=== PATIENT | female | born 1935 | race Caucasian/White ===

== ENCOUNTER 2019-05-06 10:11 | Inpatient (IN) ==
[2019-05-06] MEDS ORDERED: METOPROLOL TARTRATE 1 MG/ML VIAL IV STA (10:48)
--- NOTE | 2019-05-06 11:22 | XRay Report ---
XR chest 1V portable HISTORY: 83 years-old Female weakness acute weakness COMPARISON: Chest radiograph 10/11/2018, chest CT 10/26/2017 TECHNIQUE: Portable AP view of the chest FINDINGS: Cardiac silhouette is enlarged, unchanged. Calcified plaque with tortuosity of the thoracic aorta. No pneumothorax, pleural effusion or overt pulmonary edema. Mild chronic interstitial coarsening with u nchanged left basilar densities suggestive of atelectasis/scarring. Partially calcified nodule of the superior segment left lower lobe redemonstrated. Degenerative changes of the shoulders and spine. IMPRESSION: Cardiomegaly without acute process. ACT 112: Negative or not required by law. The above report was generated using voice recognition software. It may contain grammatical, syntax o r spelling errors. Electronically signed by: Hilario Baxter M.D. 05/06/2019 11:21 AM
--- NOTE | 2019-05-06 11:31 | Emergency Department Note ---
Entered by Yovani Marie acting as a scribe for History of Present Illness General Chief complaint: Tachycardia Stated complaint: ELEVATED HEART RATE,NOT FEELING WELL Time Seen by Provider: 05/06/19 10:21 Source: patient History of Present Illness Provider complaint: Tachycardia Onset (ago): week(s) 1 Location: chest Severity: similar to prior episodes Pain Consistency: + intermittent Maximum Pain Intensity: 0 Relieved By: + none Associated symptoms: + shortness of breath and + weakness The patient is an 83 year old A09B who presents to the Emergency Room with complaints of intermittent tachycardia that started a little over a week ago. The patient reports that when she first started not feeling well with bradycardia, shortness of breath and weakness. The patient states that after symptom onset she called Dr. Huggins who she follows for cardiology and he instructed her to decrease her Metoprolol dose by half. Since the patient has made this change to her medication her heart rate has been between 50-120s. The patient adds that she has been sick recently with a productive cough that is producing yellow sputum. The patient has a history of Afib and needed to be ca rdioverted about a month ago. The patient denies any fevers. Home Medications Home Medications Medication Instructions Recorded Confirmed Type Eliquis 5 mg PO BIDM 07/31/18 05/06/19 History albuterol sulfate [Ventolin HFA] 2 puff INHALATION QID PRN 07/31/18 05/06/19 History ascorbic acid (vitamin C) [Vitamin 2,000 mg PO QAM 07/31/18 05/06/19 History C] cyanocobalamin (vitamin B-12) 1 dose SUBCUT MONTHLY 07/31/18 05/06/19 History ferrous sulfate 325 mg PO BIDM 07/31/18 05/06/19 History fluticasone propion-salmeterol 1 inh INHALATION BID 07/31/18 05/06/19 History [Wixela Inhub] glipizide 10 mg PO BIDM 07/31/18 05/06/19 History metformin 850 mg PO TIDM 07/31/18 05/06/19 History pioglitazone [Actos] 30 mg PO QAM 07/31/18 05/06/19 History pravastatin 20 mg PO HS 07/31/18 05/06/19 History prednisolone acetate 1 drp OPR 07/31/18 05/06/19 History Bilberry Extract 1 cap PO QAM 10/11/18 05/06/19 History alendronate [Fosamax] 70 mg PO MO 10/11/18 05/06/19 History cetirizine [Zyrtec] 10 mg PO QAM 10/11/18 05/06/19 History amiodarone 200 mg PO QAM 01/20/19 05/06/19 History diltiazem HCl [Cardizem CD] 180 mg PO QAM 01/20/19 05/06/19 History metoprolol succinate 50 mg PO BIDM 01/20/19 05/06/19 History Allergies Allergy/AdvReac Type Severity Reaction Status Date / Time naproxen Allergy Mild KNEES GOT Verified 05/06/19 11:05 RED AND ITCHING lisinopril Allergy Verified 05/06/19 11:05 Past Med/Surg History Medical History Anemia Asthma USED RESCUE INHALER "QUITE A BIT LATELY" Atrial fibrillation Cardiac murmur Cataract LEFT EYE Diabetes mellitus, type 2 History of cardioversion LAST DONE 08/2018 Hyperlipidemia Hypertension Osteoarthritis Surgical History H/O detached retina repair RT EYE REPAIRED History of section X 2 History of colonoscopy History of tooth extraction Family History Other Family history non-contributory Social History Preferred Language: [place] Communication Ability: Effective 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 and A total of 10 systems reviewed and were otherwise negative Physical Exam Vital Signs Vital Signs - 24 hr 05/06/19 14:19 05/06/19 14:21 05/06/19 14:37 Pulse Rate 89 93 H 87 Pulse Rate [Right Finger] Pulse Rate from SpO2 Sensor 95 H 94 H Respiratory Rate 24 16 21 Blood Pressure 123/89 Blood Pressure [Right Arm] Blood Pressure Mean 104 Blood Pressure Mean [Right Arm] Pulse Oximetry 99 98 Oxygen Delivery Method Room Air Room Air 05/06/19 14:45 05/06/19 15:00 05/06/19 15:01 Pulse Rate 92 H 90 88 Pulse Rate [Right Finger] Pulse Rate from SpO2 Sensor 87 92 H 83 Respiratory Rate 19 20 24 Blood Pressure 129/75 Blood Pressure [Right Arm] Blood Pressure Mean 95 Blood Pressure Mean [Right Arm] Pulse Oximetry 96 96 Oxygen Delivery Method Room Air Room Air Room Air 05/06/19 15:15 05/06/19 15:44 05/06/19 15:45 Pulse Rate 91 H 82 63 Pulse Rate [Right Finger] Pulse Rate from SpO2 Sensor 91 H 86 63 Respiratory Rate 20 22 28 H Blood Pressure 123/88 Blood Pressure [Right Arm] Blood Pressure Mean 100 Blood Pressure Mean [Right Arm] Pulse Oximetry 96 96 97 Oxygen Delivery Method Room Air Room Air Room Air 05/06/19 15:47 05/06/19 16:00 05/06/19 16:01 Pulse Rate 56 L 56 L Pulse Rate [Right Finger] 66 Pulse Rate from SpO2 Sensor 56 L 56 L Respiratory Rate 19 32 H 28 H Blood Pressure 125/65 Blood Pressure [Right Arm] 123/88 Blood Pressure Mean 80 Blood Pressure Mean [Right Arm] 99 Pulse Oximetry 98 98 98 Oxygen Delivery Method Room Air Room Air Room Air 05/06/19 16:15 05/06/19 16:26 05/06/19 16:30 Pulse Rate 59 L 53 L 55 L Pulse Rate [Right Finger] Pulse Rate from SpO2 Sensor 59 L 53 L 55 L Respiratory Rate 17 28 H 23 Blood Pressure 109/55 L 113/71 Blood Pressure [Right Arm] Blood Pressure Mean 69 90 Blood Pressure Mean [Right Arm] Pulse Oximetry 96 96 97 Oxygen Delivery Method Room Air Room Air Room Air 05/06/19 16:45 05/06/19 17:00 05/06/19 17:01 Pulse Rate 52 L 54 L 54 L Pulse Rate [Right Finger] Pulse Rate from SpO2 Sensor 53 L 54 L 55 L Respiratory Rate 28 H 19 22 Blood Pressure 137/65 Blood Pressure [Right Arm] Blood Pressure Mean 101 Blood Pressure Mean [Right Arm] Pulse Oximetry 95 92 94 Oxygen Delivery Method Room Air Room Air Room Air 05/06/19 17:15 05/06/19 17:30 05/06/19 17:31 Pulse Rate 53 L 53 L 53 L Pulse Rate [Right Finger] Pulse Rate from SpO2 Sensor 54 L 54 L 53 L Respiratory Rate 24 23 27 H Blood Pressure 113/65 Blood Pressure [Right Arm] Blood Pressure Mean 90 Blood Pressure Mean [Right Arm] Pulse Oximetry 94 94 95 Oxygen Delivery Method Room Air Room Air Room Air 05/06/19 17:45 Pulse Rate 54 L Pulse Rate [Right Finger] Pulse Rate from SpO2 Sensor 53 L Respiratory Rate 29 H Blood Pressure Blood Pressure [Right Arm] Blood Pressure Mean Blood Pressure Mean [Right Arm] Pulse Oximetry 95 Oxygen Delivery Method Room Air GENERAL: Patient is awake alert in no acute distress patient is resting comfortably and showing no signs of anxiety EYES: No acute findings. There is ptosis of the right eye. EARS, NOSE, MOUTH AND THROAT: The nose is without any evidence of any deformity. Mucous membranes are moist. Tongue is midline. NECK: The neck is nontender and supple. RESPIRATORY: Tachypnea was noted to auscultation. There were diminished breath sounds with wheezing in all lung branham. CARDIOVASCULAR: Tachycardic rhythm was noted to auscultation. There was no definite murmur noted. GASTROINTESTINAL: The abdomen is soft. Abdomen is nontender. MUSCULOSKELETAL/EXTREMITIES: There is no evidence of gross deformity full range of motion is noted in the hips and shoulders. SKIN: There is no obvious evidence of any rash. Pedal edema was noted bilaterally NEUROLOGIC: Patient is awake alert and oriented x3. Course Course 1030: Past medical records reviewed. The patient was evaluated in room A09B by the resident Dr. Carrizales, and a complete history and physical examination were performed. I then performed my own assessment. 1139: Dr. Carrizales reevaluated the patient and she is still experiencing symptoms. 1441: I spoke to Dr. Deluna - Dionne about the patient's CTA of the chest. 1450: I reevaluated the patient and updated her on the plan. 1605: Dr. Carrizales discussed the patient's case with Rupa FARAH who [facility] will be accepting the patient for further evaluation. Consultations Consultation #1: Dr. Carrizales discussed the patient's case with Rupa FARAH who is working under Dr. Ness Chairez Hospitalist. They will be accepting the patient for further evaluation. Time: 16:05 Administered Medications Amiodarone [facility] (Cord[facility]one) [facility] [place] Stop: 06/06/19 08:59 Last Admin: 05/07/19 11:09 Dose: 200 mg Documented by: [id number] Apixaban (Eliquis) 5 mg PO BIDM [facility] Stop: 06/06/19 07:59 Last Admin: 05/07/19 11:08 Dose: Not Given Documented by: [id number] Ascorbic Acid (Vitamin C) 2,000 mg PO QAM [facility] Stop: 06/06/19 08:59 Last Admin: 05/07/19 11:09 Dose: 2,000 mg Documented by: [id number] Cetirizine HCl (Zyrtec) 10 mg PO [facility] Stop: 06/06/19 08:59 Last Admin: 05/07/19 11:09 Dose: 10 mg Documented by: [id number] Diltiazem HCl (Cardizem Cd) 180 mg PO [facility] Stop: 06/06/19 08:59 Last Admin: 05/07/19 11:08 Dose: 180 mg Documented by: [id number] Ferrous Sulfate (Feosol) 325 mg PO BIDM [facility] Stop: 06/06/19 07:59 Last Admin: 05/07/19 11:09 Dose: 325 mg Documented by: [id number] Insulin Aspart (Novolog Flexpen) 0 units SC Q6 [facility] Stop: 06/06/19 00:00 Last Admin: 05/07/19 13:06 Dose: Not Given Documented by: [id number] Cosigned by: [id number] Admin: 05/07/19 06:03 Dose: Not Given Documented by: [id number] Cosigned by: [id number] Admin: 05/07/19 00:29 Dose: Not Given Documented by: [id number] Cosigned by: [id number] Ipratropium [place] (Atrovent 0.02% 0.5mg/2.5ml) 0.5 mg INH Q6R [facility] Stop: 06/06/19 00:59 Last Admin: 05/07/19 13:15 Dose: 0.5 mg Documented by: [id number] Admin: 05/07/19 07:20 Dose: 0.5 mg Documented by: [id number] Admin: 05/07/19 01:08 Dose: 0.5 mg Documented by: [id number] Levalbuterol HCl (Xopenex 0.63 Mg/3 Ml Neb) 0.63 mg NEB Q6R [facility] Stop: 06/06/19 00:59 Last Admin: 05/07/19 13:15 Dose: 0.63 mg Documented by: [id number] Admin: 05/07/19 07:20 Dose: 0.63 mg Documented by: [id number] Admin: 05/07/19 01:08 Dose: 0.63 mg Documented by: [id number] Metoprolol Succinate (Toprol Xl) 50 mg PO BIDM [facility] Stop: 06/06/19 07:59 Last Admin: 05/07/19 11:09 Dose: 50 mg Documented by: [id number] Miconazole Nitrate (Desenex) 1 appln EXT PRN PRN PRN Reason: NURSING DECISION Stop: 06/05/19 20:06 Last Admin: 05/06/19 21:17 Dose: 1 appln Documented by: [id number] Pravastatin Sodium (Pravachol) 20 mg PO HS [facility] Stop: 06/05/19 20:59 Last Admin: 05/06/19 21:04 Dose: 20 mg Documented by: [id number] Prednisolone Acetate (Pred Forte 1%) 1 drops OPR HS [facility] Stop: 06/05/19 20:59 Last Admin: 05/06/19 21:04 Dose: 1 drops Documented by: [id number] Fluticasone/Salmeterol (Advair Diskus 250/50) 1 puffs INH BID [facility] Stop: 06/05/19 20:59 Last Admin: 05/07/19 11:08 Dose: 1 puffs Documented by: [id number] Admin: 05/06/19 21:04 Dose: 1 puffs Documented by: [id number] Discontinued Medications Albuterol (Duoneb) 12 ml NEB ONE ONE Stop: 05/06/19 11:34 Last Admin: 05/06/19 11:48 Dose: 12 ml Documented by: [id number] Albuterol (Duoneb) 3 ml NEB NOW STA Stop: 05/07/19 05:08 Last Admin: 05/07/19 05:39 Dose: 3 ml Documented by: [id number] Sodium Chloride (Nss 1000ml) 1,000 mls @ 999 mls/hr IV .Q1H1M ONE Stop: 05/06/19 13:49 Last Infusion: 05/06/19 15:06 Dose: 0 mls/hr Documented by: [id number] Admin: 05/06/19 13:30 Dose: 999 mls/hr Documented by: [id number] Magnesium Sulfate/Dextrose (Magnesium Sulfate / D5w) 1 gm in 100 mls @ 100 mls/hr IV Q1H [facility] Stop: 05/06/19 14:59 Last Infusion: 05/06/19 16:54 Dose: 0 mls/hr Documented by: [id number] Admin: 05/06/19 15:46 Dose: 100 mls/hr Documented by: [id number] Infusion: 05/06/19 15:16 Dose: 0 mls/hr Documented by: [id number] Admin: 05/06/19 13:49 Dose: 100 mls/hr Documented by: [id number] Sodium Chloride (Nss 1000ml) 1,000 mls @ 80 mls/hr IV .[id number] [facility] Stop: 06/05/19 19:45 Last Infusion: 05/07/19 05:46 Dose: 0 mls/hr Documented by: [id number] Infusion: 05/07/19 05:09 Dose: 0 mls/hr Documented by: [id number] Admin: 05/06/19 19:54 Dose: 80 mls/hr Documented by: [id number] Furosemide 40 mg/ Syringe 4 mls @ 4 mls/min IV ONE ONE Stop: 05/07/19 06:01 Last Admin: 05/07/19 05:59 Dose: 4 mls/min Documented by: [id number] Magnesium Sulfate/Dextrose (Magnesium Sulfate / D5w) 1 gm in 100 mls @ 100 mls/hr IV ONE ONE Stop: 05/07/19 07:29 Last Admin: 05/07/19 08:11 Dose: Not Given Documented by: [id number] Promethazine HCl 6.25 mg/ (Sodium Chloride) 50.25 mls @ 201 mls/hr IV NOW STA Stop: 05/07/19 12:06 Last Infusion: 05/07/19 12:45 Dose: 0 mls/hr Documented by: [id number] Admin: 05/07/19 12:27 Dose: 201 mls/hr Documented by: [id number] Ioversol (Optiray 320 125ml) 120 ml IV ONCE PRN PRN Reason: Interaction Checking Stop: 05/10/19 14:08 Last Admin: 05/06/19 14:10 Dose: 120 ml Documented by: [id number] Ioversol (Optiray 320 100ml) 75 ml IV ONCE PRN PRN Reason: Interaction Checking Stop: 05/10/19 15:41 Last Admin: 05/06/19 15:43 Dose: 75 ml Documented by: [id number] Metoprolol Tartrate (Lopressor) 5 mg IV NOW STA Stop: 05/06/19 10:49 Last Admin: 05/06/19 11:32 Dose: 5 mg Documented by: [id number] Medical Decision Making Differential Diagnosis Differential: NSR, SVT, PACs, PVCs, Cardiac Dysrhythmia, Endocrine Dysfunction, Eletrolyte/Metabolic Abnormality, Pulmonary Embolism, Infectious, GI, amonst other pathologies entertained. Medical Records Attestation: I reviewed the patient's medical records. Home Medications Current Medication List: was personally reviewed by me Laboratory Data Attestation: I reviewed the patient's lab results. Result diagrams: 05/07/19 05:17 05/07/19 05:17 Lab Results 05/06/19 05/06/19 05/06/19 Range/Units 11:34 11:34 11:35 WBC 8.89 (4.8-10.8) K/uL RBC 4.51 (4.2-5.4) M/uL Hgb 13.5 (12.0-16.0) g/dL Hct 41.9 (37-47) % MCV 92.9 (80-100) fL MCH 29.9 (25-34) pg MCHC 32.2 (32-36) g/dL RDW Std Deviation 57.5 H (36.4-46.3) fL RDW Coeff of Cameron 16.8 H (11.5-14.5) % Plt Count 348 (130-400) K/uL MPV 9.6 (7.4-10.4) fL Immature Gran % (Auto) 0.3 % Neut % (Auto) 90.1 % Lymph % (Auto) 4.0 % [place] % (Auto) 5.5 % Eos % (Auto) 0.1 % Baso % (Auto) 0.0 % Immature Gran # (Auto) 0.03 H (0.00-0.02) K/uL Neut # (Auto) 8.00 H (1.4-6.5) K/uL Lymph # (Auto) 0.36 L (1.2-3.4) K/uL [place] # (Auto) 0.49 (0.11-0.59) K/uL Eos # (Auto) 0.01 (0-0.5) K/uL Baso # (Auto) 0.00 (0-0.2) K/uL Sodium 130 L (136-145) mmol/L Potassium 4.8 (3.5-5.1) mmol/L Chloride 104 (98-107) mmol/L Carbon Dioxide 18 L (21-32) mmol/L Anion Gap 8.0 (3-11) BUN 15 (7-18) mg/dl Creatinine 0.84 (0.6-1.2) mg/dl Est Cr Clr Drug Dosing 41.6 ml/min Est GFR ( Amer) 75.0 Est GFR (Non-Af Amer) 64.7 BUN/Creatinine Ratio 18.2 (10-20) Glucose 160 H (70-99) mg/dl Calcium 8.6 (8.5-10.1) mg/dl Magnesium 1.4 L (1.8-2.4) mg/dl Total Bilirubin 0.8 (0.2-1) mg/dl AST 61 H (15-37) U/L ALT 41 (12-78) U/L Alkaline Phosphatase 626 H (45-117) U/L Troponin I < 0.015 (0-0.045) ng/ml Total Protein 6.1 L (6.4-8.2) gm/dl Albumin 2.5 L (3.4-5.0) gm/dl Globulin 3.6 (2.5-4.0) gm/dl Albumin/Globulin Ratio 0.7 L (0.9-2) TSH 2.840 (0.300-4.500) uIu/ml Urine Color Urine Appearance (Clear) Urine pH (4.5-7.5) Ur Specific Maurice (1.000-1.030) Urine Protein (Negative) Urine Glucose (UA) (Negative) Urine Ketones (Negative) Urine Blood (Negative) Urine Nitrite (Negative) Urine Bilirubin (Negative) Urine Urobilinogen (Negative) Ur Leukocyte Esterase (Negative) Influenza Type A (PCR) Neg for Influ A (Neg) Influenza Type B (PCR) Neg for Influ B (Neg) 05/06/19 Range/Units 15:55 WBC (4.8-10.8) K/uL RBC (4.2-5.4) M/uL Hgb (12.0-16.0) g/dL Hct (37-47) % MCV (80-100) fL MCH (25-34) pg MCHC (32-36) g/dL RDW Std Deviation (36.4-46.3) fL RDW Coeff of Cameron (11.5-14.5) % Plt Count (130-400) K/uL MPV (7.4-10.4) fL Immature Gran % (Auto) % Neut % (Auto) % Lymph % (Auto) % [place] % (Auto) % Eos % (Auto) % Baso % (Auto) % Immature Gran # (Auto) (0.00-0.02) K/uL Neut # (Auto) (1.4-6.5) K/uL Lymph # (Auto) (1.2-3.4) K/uL [place] # (Auto) (0.11-0.59) K/uL Eos # (Auto) (0-0.5) K/uL Baso # (Auto) (0-0.2) K/uL Sodium (136-145) mmol/L Potassium (3.5-5.1) mmol/L Chloride (98-107) mmol/L Carbon Dioxide (21-32) mmol/L Anion Gap (3-11) BUN (7-18) mg/dl Creatinine (0.6-1.2) mg/dl Est Cr Clr Drug Dosing ml/min Est GFR ( Amer) Est GFR (Non-Af Amer) BUN/Creatinine Ratio (10-20) Glucose (70-99) mg/dl Calcium (8.5-10.1) mg/dl Magnesium (1.8-2.4) mg/dl Total Bilirubin (0.2-1) mg/dl AST (15-37) U/L ALT (12-78) U/L Alkaline Phosphatase (45-117) U/L Troponin I (0-0.045) ng/ml Total Protein (6.4-8.2) gm/dl Albumin (3.4-5.0) gm/dl Globulin (2.5-4.0) gm/dl Albumin/Globulin Ratio (0.9-2) TSH (0.300-4.500) uIu/ml Urine Color Yellow Urine Appearance Clear (Clear) Urine pH 5.0 (4.5-7.5) Ur Specific Maurice 1.033 H (1.000-1.030) Urine Protein Negative (Negative) Urine Glucose (UA) Negative (Negative) Urine Ketones Negative (Negative) Urine Blood Negative (Negative) Urine Nitrite Negative (Negative) Urine Bilirubin Negative (Negative) Urine Urobilinogen Negative (Negative) Ur Leukocyte Esterase Negative (Negative) Influenza Type A (PCR) (Neg) Influenza Type B (PCR) (Neg) Imaging Data Radiologist's Impression: Radiology results as stated below per my review and the radiologist's interpretation: XR chest 1V portable HISTORY: 83 years-old Female weakness acute weakness COMPARISON: Chest radiograph 10/11/2018, chest CT 10/26/2017 TECHNIQUE: Portable AP view of the chest FINDINGS: Cardiac silhouette is enlarged, unchanged. Calcified plaque with tortuosity of the thoracic aorta. No pneumothorax, pleural effusion or overt pulmonary edema. Mild chronic interstitial coarsening with unchanged left basilar densities suggestive of atelectasis/scarring. Partially calcified nodule of the superior segment left lower lobe redemonstrated. Degenerative changes of the shoulders and spine. IMPRESSION: Cardiomegaly without acute process. ACT 112: Negative or not required by law. The above report was generated using voice recognition software. It may contain grammatical, syntax or spelling errors. Electronically signed by: Hilario Baxter M.D. 05/06/2019 11:[address] ANGIOGRAPHY OF THE CHEST, PULMONARY EMBOLUS PROTOCOL CLINICAL HISTORY: Chest pain. Evaluate for pulmonary embolus. COMPARISON STUDY: Chest CT October 26, 2017. Chest radiograph performed earlier today. TECHNIQUE: Following IV administration of 120 mL of Optiray-320, helical axial images of the chest were obtained utilizing the pulmonary embolus protocol. Maximal intensity projections and sagittal and coronal reformats were viewed on an independent 3D workstation. IV contrast was administered without complication. Automated exposure control was utilized for the study. A dose lowering technique was utilized adhering to the principles of ALARA. CT DOSE: 427.51 mGy.cm FINDINGS: No pulmonary emboli are identified although the segmental and subsegmental pulmonary arteries are suboptimally assessed due to respiratory motion. The heart is mildly enlarged. There is no pericardial effusion. Trace left pleural effusion is noted. There is no pneumothorax. Subsegmental lingular atelectasis is noted. There are suspected secretions within the segmental bronchi to the lingula. There is also subsegmental atelectasis within the right middle lobe. No suspicious pulmonary nodules are noted although the lungs are suboptimally assessed given respiratory motion. No enlarged axillary, me diastinal or hilar lymph nodes are present. There is moderate coronary artery calcification. Visualized portions of the upper abdomen demonstrate a small amount of perihepatic ascites. Note is made of a left hepatic lobe mass that measures approximately 8.4 x 7 cm. Associated capsular retraction is noted. There are are possible small omental nodules. IMPRESSION: 1. No pulmonary emboli identified although segmental and subsegmental pulmonary arteries suboptimally assessed given respiratory motion. 2. Left hepatic lobe mass, measuring approximately 8.4 x 7 cm, with capsular retraction. 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 A liver protocol CT of the abdomen and pelvis is recommended. Findings discussed with Dr. Pope at time of dictation. 3. Ascites and possible small peritoneal nodules which raise the possibility of peritoneal carcinomatosis. Findings can be assessed on abdominal CT. 4. Segmental lingular and right middle lobe atelectasis. Secretions within the airways. ACT 112: Positive. There are findings on this exam that require communication between the performing entity and the patient following Patient Test Result Information Act ([place] Act 112) guidelines. Electronically signed by: Bairon Deluna M.D. 05/06/2019 2:44 PM ECG Data Attestation: I personally reviewed and interpreted this ECG as follows: Indication: + tachycardia Rate (beats per minute): 134 Rhythm: + atrial fibrillation ECG Findings: + Poor R wave progression and + Other (Low voltage throughout); no PVCs Comparison ECG Date: from (01/20/19) Change: the following changes noted (Rate has increased. ) Blood Pressure Blood Pressure Findings: Elevated blood pressure Blood Pressure Disposition: Referred to patients primary care provider MDM Narrative The patient is an 83-year-old female who presented to the emergency department for an evaluation of difficulty breathing and cough. The patient does take blood thinners and has a history of atrial fibrillation. I discussed the patient's laboratory and radiographic studies with her. She began to have tachycardia as well as hypotension. I was concerned this could represent venous thromboembolic pulmonary disease. I discussed the patient's laboratory and radiographic studies with her further which included a CT of the chest which did not show any signs of pulmonary embolism but did show signs of a possible cholangiocarcinoma in the liver as well as ascites. This would be a new diagnosis for the patient. The patient was sent for CT of the abdomen and pelvis. She was treated with IV fluids as well as IV magnesium replacement. She was reevaluated multiple times. Because of the findings on CT of the chest a CT the abdomen and pelvis was ordered. She is aware of the diagnosis at this time. Impression & Plan Liver mass, Ascites, Hypertension, Tachycardia Discharge Plan Visit Data *Final* Discharge Date/Time: 05/06/19 19:11 Chief Complaint: Tachycardia Stated Complaint: ELEVATED HEART RATE,NOT FEELING WELL ED Provider: Blayne Pope ED Midlevel Provider: Grayson Carrizales Discharge Problem: Liver mass, Ascites, Hypertension, Tachycardia Patient Disposition: Admitted As Inpatient Discharge Instructions Interventions: ED Discharge Assessment Last Done: 05/06/19 19:11 Discharge Problem: Ascites Qualifiers: Ascites type: other type Qualified Code(s): R18.8 - Other ascites Hypertension Qualifiers: Hypertension type: unspecified Qualified Code(s): I10 - Essential (primary) hypertension The scribe's documentation has been prepared under my direction and personally reviewed by me in its entirety. I confirm that the note above accurately reflects all work, treatment, procedures, and medical decision making performed by me.
[2019-05-06] MEDS ORDERED: ALBUT/IPRATROP 3MG/0.5MG NEB 3 ML VIAL NEB ONE (11:33)
[2019-05-06 11:45] LABS: Eosinophils # (auto) 0.01 K/uL (0-0.5); Eosinophils % (auto) 0.1 %; Hematocrit (blood only) 41.9 % (37-47); Hemoglobin 13.5 g/dL (12.0-16.0); Immature Granulocytes # (auto) 0.03 K/uL (0.00-0.02); Immature Granulocytes % (auto) 0.3 %; Lymphocytes # (auto) 0.36 K/uL (1.2-3.4); Mean Corpuscular Hemoglobin 29.9 pg (25-34); Mean Corpuscular Hgb Conc 32.2 g/dL (32-36); Mean Corpuscular Volume 92.9 fL (80-100); Mean Platelet Volume 9.6 fL (7.4-10.4); Monocytes # (auto) 0.49 K/uL (0.11-0.59); Monocytes % (auto) 5.5 %; Neutrophils % (auto) 90.1 %; Platelet Count 348 K/uL (130-400); RDW Coefficient of Variation 16.8 % (11.5-14.5); RDW Standard Deviation 57.5 fL (36.4-46.3); Red Blood Count 4.51 M/uL (4.2-5.4); White Blood Count 8.89 K/uL (4.8-10.8)
[2019-05-06 12:05] LABS: Alanine Aminotransferase 41 U/L (12-78); Albumin Level 2.5 gm/dl (3.4-5.0); Aspartate Aminotransferase 61 U/L (15-37); BUN Creatinine Ratio 18.2 (10-20); Blood Urea Nitrogen 15 mg/dl (7-18); Calcium 8.6 mg/dl (8.5-10.1); Carbon Dioxide 18 mmol/L (21-32); Chloride 104 mmol/L (98-107); Creatinine Clr Calc Pharmacy 41.6 ml/min; Est GFR (Non-African American) 64.7; Glucose 160 mg/dl (70-99); Magnesium 1.4 mg/dl (1.8-2.4); Potassium 4.8 mmol/L (3.5-5.1); Sodium 130 mmol/L (136-145)
[2019-05-06 12:16] LABS: Albumin Globulin Ratio 0.7 (0.9-2); Alkaline Phosphatase 626 U/L (45-117); Bilirubin,Total 0.8 mg/dl (0.2-1); Globulin 3.6 gm/dl (2.5-4.0); Total Protein 6.1 gm/dl (6.4-8.2); Troponin I < 0.015 ng/ml (0-0.045)
[2019-05-06 12:21] LABS: Influenza A virus by PCR Neg for Influ A (Neg); Influenza B virus by PCR Neg for Influ B (Neg)
[2019-05-06] MEDS ORDERED: SODIUM CHLORIDE 0.9% 1000ML 1,000 ML IV ONE (12:49)
--- NOTE | 2019-05-06 13:18 | Emergency Department Note ---
ED Visit Note This patient was seen in concert with Dr. Pope and we discussed and agreed upon the history, physical, assessment, and plan. See attending's note for details. . Resident Activity Tracking Resident Involvement: Resident Care Provided Care Provided: Adult ED
[2019-05-06] MEDS: MAGNESIUM SULFATE / D5W 1 GM/100 ML BAG IV SCH ×2 (13:49→15:46)
[2019-05-06] MEDS ORDERED: OPTIRAY 320 125ml IV PRN (14:09)
--- NOTE | 2019-05-06 14:46 | CT Scan Report ---
CT ANGIOGRAPHY OF THE CHEST, PULMONARY EMBOLUS PROTOCOL CLINICAL HISTORY: Chest pain. Evaluate for pulmonary embolus. COMPARISON STUDY: Chest CT October 26, 2017. Chest radiograph performed earlier today. TECHNIQUE: Following IV administration of 120 mL of Optiray-320, helical axial images of the chest we re obtained utilizing the pulmonary embolus protocol. Maximal intensity projections and sagittal and coronal reformats were viewed on an independent 3D workstation. IV contrast was administered withou t complication. Automated exposure control was utilized for the study. A dose lowering technique wa s utilized adhering to the principles of ALARA. CT DOSE: 427.51 mGy.cm FINDINGS: No pulmonary emboli are identified although the segmental and subsegmental pulmonary arter ies are suboptimally assessed due to respiratory motion. The heart is mildly enlarged. There is no pe ricardial effusion. Trace left pleural effusion is noted. There is no pneumothorax. Subsegmental ling ular atelectasis is noted. There are suspected secretions within the segmental bronchi to the lingula . There is also subsegmental atelectasis within the right middle lobe. No suspicious pulmonary nodule s are noted although the lungs are suboptimally assessed given respiratory motion. No enlarged axilla ry, mediastinal or hilar lymph nodes are present. There is moderate coronary artery calcification. Vi sualized portions of the upper abdomen demonstrate a small amount of perihepatic ascites. Note is mad e of a left hepatic lobe mass that measures approximately 8.4 x 7 cm. Associated capsular retraction is noted. There are are possible small omental nodules. IMPRESSION: 1. No pulmonary emboli identified although segmental and subsegmental pulmonary arteries suboptimally assessed given respiratory motion. 2. Left hepatic lobe mass, measuring approximately 8.4 x 7 cm, with capsular retraction. 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 A liver protocol C T of the abdomen and pelvis is recommended. Findings discussed with Dr. Pope at time of dictation. 3. Ascites and possible small peritoneal nodules which raise the possibility of peritoneal carcinomat osis. Findings can be assessed on abdominal CT. 4. Segmental lingular and right middle lobe atelectasis. Secretions within the airways. ACT 112: Positive. There are findings on this exam that require communication between the performing entity and the patient following Patient Test Result Information Act ([place] Act 112) guidelines. Electronically signed by: Bairon Deluna M.D. 05/06/2019 2:44 PM
[2019-05-06] MEDS ORDERED: IOVERSOL 100ml IV PRN (15:42)
[2019-05-06 16:16] LABS: Appearance Urine Clear (Clear); Bilirubin Urine Negative (Negative); Blood Urine Negative (Negative); Color Urine Yellow; Glucose Urine UA Negative (Negative); Ketones Urine Negative (Negative); Leukocyte Esterase Urine Negative (Negative); Nitrite Urine Negative (Negative); Protein Urine Negative (Negative); Specific Gravity Urine 1.033 (1.000-1.030); Urobilinogen Urine Negative (Negative)
--- NOTE | 2019-05-06 16:19 | CT Scan Report ---
CT SCAN OF THE ABDOMEN COMBO LIVER PROTOCOL CLINICAL HISTORY: Abdominal ascites. COMPARISON STUDY: Abdominal radiographs dated 04/22/2015. Chest CT dated 05/06/2019. TECHNIQUE: Before and following the IV administration of 75 cc of Optiray 320, CT scan of the abdome n and pelvis is performed from the lung bases to the proximal femora. The abdominal CT is performed u sing the liver protocol. Images are reviewed in the axial, sagittal, and coronal planes. IV contrast was administered without complication. A dose lowering technique was utilized adhering to the princip les of ALA. CT DOSE: 1915.01 mGy.cm FINDINGS: Lung bases: The heart is enlarged and without pericardial effusion. The coronary arteries are densely calcified. There is calcification of the aortic valve leaflets. There is a trace left pleural effusi on. Scarring/atelectasis is noted at the lung bases. No airspace consolidation is seen typical for pn eumonia. Liver: The contrast-enhanced liver is cirrhotic in morphology and heterogeneous in attenuation. There is nodularity of the hepatic surface contour. There is an irregular heterogeneous mass lesion identi fied in the left lobe of the liver. This measures approximately 9.5 x 8 x 7 cm and shows heterogeneou s peripheral arterial phase enhancement and delayed central washout. This approaches the kiesha hepati s and causes mild biliary ductal dilatation in the right lobe. There are least 9 additional hypervasc ular lesions in the left lobe which measure up to 2 cm. Hepatic and portal vasculature: Hepatic arterial anatomy is conventional. The main portal vein and in trahepatic portal veins are patent. The superior mesenteric vein and splenic vein are patent. Gallbladder: There are calcified gallstones with no CT evidence of acute cholecystitis.. Spleen: Normal in size and attenuation. There are numerous calcified splenic granulomas. Pancreas: Atrophic and grossly unremarkable. Adrenal glands: Unremarkable. Kidneys: The contrast enhanced kidneys are atrophic and without hydronephrosis. The kidneys enhance s ymmetrically. Excreted IV contrast fills the renal collecting system. A 2.2 cm cyst is noted in the l eft lower pole. Abdominal vasculature: The abdominal aorta is normal in course and caliber noting mild to moderate at herosclerotic calcification. Bowel: There is mild to moderate colonic diverticulosis without CT evidence of acute diverticulitis. No bowel obstruction is seen. There is a small duodenal diverticulum. The appendix is well-visualize d and normal. Peritoneum: There is a small volume of mildly complex perihepatic and pelvic ascites. No intraperiton eal free air is seen. There is laxity ventral abdominal wall with diastases of the rectus musculature and protrusion of abdominal contents. Lymphadenopathy: None. Pelvic viscera: The bladder is normal as visualized, and filled with excreted IV contrast. The uterus and adnexa are normal as imaged. Skeletal structures: The skeletal structures are osteopenic. Moderate to advanced lumbosacral spondyl osis is observed. No lytic or blastic lesions are seen. Soft tissues: There is body wall edema. IMPRESSION: 1. Cirrhotic liver morphology. 2. There is a 9.5 cm dominant mass within the left hepatic lobe as above. This is pathologically inde terminant, but given the arterial phase enhancement and cirrhotic liver morphology hepatocellular car cinoma is considered most likely. Cholangiocarcinoma or metastatic disease are differential considera tions. Correlation with serum AFP levels is recommended. 3. There are at least 9 additional arterially hypervascular hepatic lesions scattered throughout the left lobe. Again, the appearance is most suggestive of multifocal hepatocellular carcinoma. 4. There is a small volume of mildly complex abdominopelvic ascites. 5. Cholelithiasis. 6. Mild to moderate colonic diverticulosis without CT evidence of acute diverticulitis. 7. Additional findings as above. ACT 112: Positive. There are findings on this exam that require communication between the performing entity and the patient following Patient Test Result Information Act ([place] Act 112) guidelines. Electronically signed by: Alex Henning M.D. 05/06/2019 4:17 PM
--- NOTE | 2019-05-06 19:04 | History & Physical Report ---
Date of Service May 06, 2019 Assessment & Plan (1) Tachycardia: Present on admission with HR 140's EKG showed SVT on admission Received Lopressor 5 mg IV x1 in the ER, then HR dropped in the 50's Possible tachybrady syndrome or might be related to dehydration due to poor oral intake and low mg level Will consult cardiology Will continue metoprolol 50mg BID with parameters, amiodarone and cardizem Will make NPO after midnight ECHO done on 12/21 The examination is adequate to evaluate the referral indication. The left ventricular cavity size is normal. The LV wall thickness is mildly increased (concentric). The left ventricular wall motion is normal. The qualitative LV ejection fraction is 55-59% (normal). The left atrium is severely enlarged. The right atrium is moderately enlarged. The aortic valve is moderately calcified. Moderate aortic valve stenosis is present. Mild aortic valve regurgitation is present. Mild mitral regurgitation is present. Moderate tricuspid regurgitation is present. Moderate pulmonary hypertension is present. Hypomagnesemia Possible related to poor intake Mg on admission 1.4 Mg replaced Monitor Electrolytes Liver Mass CT abd/pelvis showed 9.5 cm dominant mass within the left hepatic lobe Imaging discussed with family and patient Will check AFP Will consult GI for eval Hx Afib currently on sinus rhythm with HR in 50's Continue Eliquis BID Continue Metoprolol 50mg BID with parameters and amiodarone, cardizem Will monitor closely in tele Diabetes last Hba1c 6.9 Will hold oral diabetes med Check Hba1c in am Will place on novolog sliding scale Continue monitor BS Asthma Continue advair Will add duoneb treament DVT px on eliquis Code Status DNR (2) Liver mass: (3) Afib: History of Present Illness Chief Complaint: Palpitation Primary Care Provider: Basilia John DO 83 years old female with past medical history of diabetes type 2, dyslipidemia,Hx atrial fibrillation with successful cardioversion in the past on Eliquis, asthma presented to the ER with chief complaint of elevated heart rate. Patient said for the past 2 days she has not been feeling well. She said that this morning she felt weak and has no energy to do anything. She said that she has not been eating or drinking much in the past few days. she said that she has been having a dry cough. She noticed that she has been having shortness of breath with exertion. she said that she checked her vitals and her heart rate was between the 50 to 140's. Patient said last week her cardiology Dr. Hummel decreased her metoprolol from 75 to 50 mg twice a day due to episode of bradycardia. She said she is scheduled tomorrow to wear a Zio patch to monitor her HR. in the ER heart rate increased to 140's. Receive IV Lopressor 5 mg that dropped her heart rate in the 50s. Currently denies any chest pain, palpitation, dizziness, and fever. Allergies Allergy/AdvReac Type Severity Reaction Status Date / Time naproxen Allergy Mild KNEES GOT Verified 05/06/19 11:05 RED AND ITCHING lisinopril Allergy Verified 05/06/19 11:05 Home Medications Home Medications Medication Instructions Recorded Confirmed Type Eliquis 5 mg PO BIDM 07/31/18 05/06/19 History albuterol sulfate [Ventolin HFA] 2 puff INHALATION QID PRN 07/31/18 05/06/19 History ascorbic acid (vitamin C) [Vitamin 2,000 mg PO QAM 07/31/18 05/06/19 History C] cyanocobalamin (vitamin B-12) 1 dose SUBCUT MONTHLY 07/31/18 05/06/19 History ferrous sulfate 325 mg PO BIDM 07/31/18 05/06/19 History fluticasone propion-salmeterol 1 inh INHALATION BID 07/31/18 05/06/19 History [Wixela Inhub] glipizide 10 mg PO BIDM 07/31/18 05/06/19 History metformin 850 mg PO TIDM 07/31/18 05/06/19 History pioglitazone [Actos] 30 mg PO QAM 07/31/18 05/06/19 History pravastatin 20 mg PO HS 07/31/18 05/06/19 History prednisolone acetate 1 drp OPR HS 07/31/18 05/06/19 History Bilberry Extract 1 cap PO QAM 10/11/18 05/06/19 History alendronate [Fosamax] 70 mg PO MO 10/11/18 05/06/19 History cetirizine [Zyrtec] 10 mg PO QAM 10/11/18 05/06/19 History amiodarone 200 mg PO QAM 01/20/19 05/06/19 History diltiazem HCl [Cardizem CD] 180 mg PO QAM 01/20/19 05/06/19 History metoprolol succinate 50 mg PO BIDM 01/20/19 05/06/19 History Past Med/Surg History Medical History Anemia Asthma USED RESCUE INHALER "QUITE A BIT LATELY" Atrial fibrillation Cardiac murmur Cataract LEFT EYE Diabetes mellitus, type 2 History of cardioversion LAST DONE 08/2018 Hyperlipidemia Hypertension Osteoarthritis Surgical History H/O detached retina repair RT EYE REPAIRED History of section X 2 History of colonoscopy History of tooth extraction Family History Other Family history non-contributory Social History Preferred Language: Frisian Communication Ability: Effective Pathology Tech Required: No Beliefs That Will Affect Care: None marital status: / Current Living Situation: Alone Other Information That Helps Us Care for You: No Feels Safe at Home: Yes Safety Concerns: Feels Safe At This Time Smoking Status: Never smoker Second Hand Exposure: Yes ; Hx Alcohol Use: No Hx Substance Use: No Review of Systems Review of Systems: All systems reviewed & are unremarkable except as noted in HPI & below Physical Exam Physical Exam: General- No acute distress Head- atraumatic Eyes- PERRL, EOMI, ENT- oropharynx clear Neck- supple, no JVD Lungs- +wheezing Heart- Bradycardia Abdomen- normal bowel sounds, soft, nontender Extremities- no calf tenderness Neuro- alert, oriented x 3; PERRL, EOMI; no facial palsy; no dysarthria Skin- warm & dry Results & Data Vital Signs (Past 12 Hours) Vital Signs Temp Pulse Pulse Resp BP BP Pulse Ox 05/06/19 18:31 51 L 31 H 101/66 94 05/06/19 18:30 51 L 27 H 93 05/06/19 18:15 52 L 31 H 94 05/06/19 18:01 52 L 23 94 05/06/19 18:00 52 L 21 94/61 L 94 05/06/19 17:45 54 L 29 H 95 05/06/19 17:31 53 L 27 H 95 05/06/19 17:30 53 L 23 113/65 94 05/06/19 17:15 53 L 24 94 05/06/19 17:01 54 L 22 94 05/06/19 17:00 54 L 19 137/65 92 05/06/19 16:45 52 L 28 H 95 05/06/19 16:30 55 L 23 113/71 97 05/06/19 16:26 53 L 28 H 109/55 L 96 05/06/19 16:15 59 L 17 96 05/06/19 16:01 56 L 28 H 98 05/06/19 16:00 56 L 32 H 125/65 98 05/06/19 15:47 66 19 123/88 98 05/06/19 15:45 63 28 H 97 05/06/19 15:44 82 22 123/88 96 05/06/19 15:15 91 H 20 96 05/06/19 15:01 88 24 129/75 96 05/06/19 15:00 90 20 96 05/06/19 14:45 92 H 19 05/06/19 14:37 87 21 05/06/19 14:21 93 H 16 98 05/06/19 14:19 89 24 123/89 99 05/06/19 13:45 136 H 16 100 05/06/19 13:43 136 H 14 96/64 L 95 05/06/19 13:40 138 H 82 L 05/06/19 13:15 132 H 23 95 05/06/19 13:01 130 H 32 H 100 05/06/19 13:00 130 H 22 87/80 L 100 05/06/19 12:45 128 H 28 H 100 05/06/19 12:30 130 H 29 H 100 05/06/19 12:15 124 H 29 H 100 05/06/19 12:01 121 H 27 H 100 05/06/19 12:00 121 H 29 H 93/64 L 100 05/06/19 11:48 122 H 20 97 05/06/19 11:45 123 H 31 H 98 05/06/19 11:41 122 H 24 106/76 96 05/06/19 11:32 128 H 145/98 H 05/06/19 11:30 127 H 20 96 05/06/19 11:15 128 H 27 H 98 05/06/19 11:09 140 H 05/06/19 11:03 93 05/06/19 10:45 128 H 19 98 05/06/19 10:30 128 H 19 97 05/06/19 10:21 135 H 31 H 98 05/06/19 10:20 36.7 C 140 H 24 145/98 H 96 05/06/19 10:17 134 H 17 145/98 H 98 05/06/19 10:11 98 Diagnostic Findings XR chest 1V portable HISTORY: 83 years-old Female weakness acute weakness COMPARISON: Chest radiograph 10/11/2018, chest CT 10/26/2017 TECHNIQUE: Portable AP view of the chest FINDINGS: Cardiac silhouette is enlarged, unchanged. Calcified plaque with tortuosity of the thoracic aorta. No pneumothorax, pleural effusion or overt pulmonary edema. Mild chronic interstitial coarsening with unchanged left basilar densities suggestive of atelectasis/scarring. Partially calcified nodule of the superior segment left lower lobe redemonstrated. Degenerative changes of the shoulders and spine. IMPRESSION: Cardiomegaly without acute process. ACT 112: Negative or not required by law. The above report was generated using voice recognition software. It may contain grammatical, syntax or spelling errors. Electronically signed by: Hilario Baxter M.D. 05/06/2019 11:21 AM Dictated: 05/06/19 1119 Transcribed: 05/06/[address] ANGIOGRAPHY OF THE CHEST, PULMONARY EMBOLUS PROTOCOL CLINICAL HISTORY: Chest pain. Evaluate for pulmonary embolus. COMPARISON STUDY: Chest CT October 26, 2017. Chest radiograph performed earlier today. TECHNIQUE: Following IV administration of 120 mL of Optiray-320, helical axial images of the chest were obtained utilizing the pulmonary embolus protocol. Maximal intensity projections and sagittal and coronal reformats were viewed on an independent 3D workstation. IV contrast was administered without complication. Automated exposure control was utilized for the study. A dose lowering technique was utilized adhering to the principles of ALARA. CT DOSE: 427.51 mGy.cm FINDINGS: No pulmonary emboli are identified although the segmental and subsegmental pulmonary arteries are suboptimally assessed due to respiratory motion. The heart is mildly enlarged. There is no pericardial effusion. Trace left pleural effusion is noted. There is no pneumothorax. Subsegmental lingular atelectasis is noted. There are suspected secretions within the segmental bronchi to the lingula. There is also subsegmental atelectasis within the right middle lobe. No suspicious pulmonary nodules are noted although the lungs are suboptimally assessed given respiratory motion. No enlarged axillary, mediastinal or hilar lymph nodes are present. There is moderate coronary artery calcification. Visualized portions of the upper abdomen demonstrate a small amount of perihepatic ascites. Note is made of a left hepatic lobe mass that measures approximately 8.4 x 7 cm. Associated capsular retraction is noted. There are are possible small omental nodules. IMPRESSION: 1. No pulmonary emboli identified although segmental and subsegmental pulmonary arteries suboptimally assessed given respiratory motion. 2. Left hepatic lobe mass, measuring approximately 8.4 x 7 cm, with capsular retraction. 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 A liver protocol CT of the abdomen and pelvis is recommended. Findings discussed with Dr. Pope at time of dictation. 3. Ascites and possible small peritoneal nodules which raise the possibility of peritoneal carcinomatosis. Findings can be assessed on abdominal CT. 4. Segmental lingular and right middle lobe atelectasis. Secretions within the airways. ACT 112: Positive. There are findings on this exam that require communication between the performing entity and the patient following Patient Test Result Information Act ([place] Act 112) guidelines. Electronically signed by: Bairon Deluna M.D. 05/06/2019 2:44 PM Dictated: 05/06/19 1423 Transcribed: 05/06/[address] SCAN OF THE ABDOMEN COMBO LIVER PROTOCOL CLINICAL HISTORY: Abdominal ascites. COMPARISON STUDY: Abdominal radiographs dated 04/22/2015. Chest CT dated 05/06/2019. TECHNIQUE: Before and following the IV administration of 75 cc of Optiray 320, CT scan of the abdomen and pelvis is performed from the lung bases to the proximal femora. The abdominal CT is performed using the liver protocol. Images are reviewed in the axial, sagittal, and coronal planes. IV contrast was administered without complication. A dose lowering technique was utilized adhering to the principles of ALARA. CT DOSE: 1915.01 mGy.cm FINDINGS: Lung bases: The heart is enlarged and without pericardial effusion. The coronary arteries are densely calcified. There is calcification of the aortic valve leaflets. There is a trace left pleural effusion. Scarring/atelectasis is noted at the lung bases. No airspace consolidation is seen typical for pneumonia. Liver: The contrast-enhanced liver is cirrhotic in morphology and heterogeneous in attenuation. There is nodularity of the hepatic surface contour. There is an irregular heterogeneous mass lesion identified in the left lobe of the liver. This measures approximately 9.5 x 8 x 7 cm and shows heterogeneous peripheral arterial phase enhancement and delayed central washout. This approaches the kiesha hepatis and causes mild biliary ductal dilatation in the right lobe. There are least 9 additional hypervascular lesions in the left lobe which measure up to 2 cm. Hepatic and portal vasculature: Hepatic arterial anatomy is conventional. The main portal vein and intrahepatic portal veins are patent. The superior mesenteric vein and splenic vein are patent. Gallbladder: There are calcified gallstones with no CT evidence of acute cholecystitis.. Spleen: Normal in size and attenuation. There are numerous calcified splenic granulomas. Pancreas: Atrophic and grossly unremarkable. Adrenal glands: Unremarkable. Kidneys: The contrast enhanced kidneys are atrophic and without hydronephrosis. The kidneys enhance symmetrically. Excreted IV contrast fills the renal collecting system. A 2.2 cm cyst is noted in the left lower pole. Abdominal vasculature: The abdominal aorta is normal in course and caliber noting mild to moderate atherosclerotic calcification. Bowel: There is mild to moderate colonic diverticulosis without CT evidence of acute diverticulitis. No bowel obstruction is seen. There is a small duodenal diverticulum. The appendix is well-visualized and normal. Peritoneum: There is a small volume of mildly complex perihepatic and pelvic ascites. No intraperitoneal free air is seen. There is laxity ventral abdominal wall with diastases of the rectus musculature and protrusion of abdominal contents. Lymphadenopathy: None. Pelvic viscera: The bladder is normal as visualized, and filled with excreted IV contrast. The uterus and adnexa are normal as imaged. Skeletal structures: The skeletal structures are osteopenic. Moderate to advanced lumbosacral spondylosis is observed. No lytic or blastic lesions are seen. Soft tissues: There is body wall edema. IMPRESSION: 1. Cirrhotic liver morphology. 2. There is a 9.5 cm dominant mass within the left hepatic lobe as above. This is pathologically indeterminant, but given the arterial phase enhancement and cirrhotic liver morphology hepatocellular carcinoma is considered most likely. Cholangiocarcinoma or metastatic disease are differential considerations. Correlation with serum AFP levels is recommended. 3. There are at least 9 additional arterially hypervascular hepatic lesions scattered throughout the left lobe. Again, the appearance is most suggestive of multifocal hepatocellular carcinoma. 4. There is a small volume of mildly complex abdominopelvic ascites. 5. Cholelithiasis. 6. Mild to moderate colonic diverticulosis without CT evidence of acute diverticulitis. 7. Additional findings as above. ACT 112: Positive. There are findings on this exam that require communication between the performing entity and the patient following Patient Test Result Information Act ([place] Act 112) guidelines. Electronically signed by: Alex Henning M.D. 05/06/2019 4:17 PM Dictated: 05/06/19 1600 Transcribed: 05/06/19 1600
[2019-05-06] MEDS ORDERED: SODIUM CHLORIDE 0.9% 1000ML 1,000 ML IV SCH (19:46)
[2019-05-06] MEDS ORDERED: MICONAZOLE NITRATE POWDER 43 GM EXT PRN (20:07)
[2019-05-06] MEDS: prednisoLONE acetate 1% OP SUSP 5 ML BTL OPR SCH (21:04)
[2019-05-06] MEDS: FLUTICASONE/SALMETEROL 250/50 (ADVAIR) 14 PUFF/1 INHALER INH SCH (21:04)
[2019-05-06] MEDS: PRAVASTATIN SOD 20 MG TAB PO SCH (21:04)
[2019-05-06] MEDS ORDERED: CARBOHYDRATES FOR HYPOGLYCEMIA PO PRN (21:52)
[2019-05-06] MEDS ORDERED: GLUCAGON FOR INJ 1 MG VIAL SQ PRN (21:52)
[2019-05-06] MEDS ORDERED: GLUCOSE 40% GEL 15 GM TUBE PO PRN (21:52)
[2019-05-06] MEDS ORDERED: GLUCOSE 10 TABS/TUBE PO PRN (21:52)
[2019-05-06] MEDS ORDERED: DEXTROSE 50% 50 ML SYRINGE IV PRN (21:52)
[2019-05-07] MEDS: INSULIN ASPART 100 UNITS/ML 3 ML PEN SC SCH ×5 (00:29→20:37)
[2019-05-07] MEDS ORDERED: XOPENEX/ATROVENT 0.63mg/0.5MG NEB COMBO NEB SCH (01:00)
[2019-05-07] MEDS: LEVALBUTEROL HCL 0.63 MG/3 ML NEB NEB SCH ×5 (01:08→22:18)
[2019-05-07] MEDS: IPRATROPIUM BROMIDE NEB SOLN 0.02% 2.5 ML VIAL INH SCH ×5 (01:08→22:17)
[2019-05-07] MEDS ORDERED: ALBUT/IPRATROP 3MG/0.5MG NEB 3 ML VIAL NEB STA (05:07)
[2019-05-07 05:45] LABS: Base Excess ABG -4.8 mEq/L (-9-1.8); HCO3 ABG 18 mmol/L (19-24); Oxygen Saturation ABG 94.8 % (90-95); PCO2 ABG 27 mmHg (35-46); PO2 ABG 69 mm/Hg (80-95); pH ABG 7.44 (7.35-7.45)
[2019-05-07 05:46] LABS: Allen Test Pos (Pos)
[2019-05-07 05:59] LABS: Hematocrit (blood only) 37.5 % (37-47); Hemoglobin 12.4 g/dL (12.0-16.0); Mean Corpuscular Hemoglobin 30.3 pg (25-34); Mean Corpuscular Hgb Conc 33.1 g/dL (32-36); Mean Corpuscular Volume 91.7 fL (80-100); Mean Platelet Volume 9.3 fL (7.4-10.4); Platelet Count 350 K/uL (130-400); RDW Coefficient of Variation 17.1 % (11.5-14.5); RDW Standard Deviation 57.9 fL (36.4-46.3); Red Blood Count 4.09 M/uL (4.2-5.4)
[2019-05-07] MEDS ORDERED: FUROSEMIDE 40 MG in SYRINGE 0 ML IV ONE (06:00)
[2019-05-07 06:25] LABS: BUN Creatinine Ratio 16.4 (10-20); Calcium 8.2 mg/dl (8.5-10.1); Est GFR (African American) 57.3; Est GFR (Non-African American) 49.4; Magnesium 2.1 mg/dl (1.8-2.4); Potassium 4.4 mmol/L (3.5-5.1)
[2019-05-07] MEDS ORDERED: MAGNESIUM SULFATE / D5W 1 GM/100 ML BAG IV ONE (06:30)
--- NOTE | 2019-05-07 06:58 | XRay Report ---
XR chest 1V portable CLINICAL HISTORY: wheeze COMPARISON STUDY: Chest radiograph and chest CT May 06, 2019. FINDINGS: There is no pneumothorax or pleural effusion. There is been interval increase in right basi lar opacity. Cardiomegaly is unchanged. There is no evidence for pulmonary edema. IMPRESSION: Interval increase in right basilar opacity which may reflect atelectasis or pneumonia. ACT 112: Negative or not required by law. Electronically signed by: Bairon Deluna M.D. 05/07/2019 6:57 AM
[2019-05-07 07:21] LABS: Estimated Average Glucose 131 mg/dl; Hemoglobin A1C 6.2 % (4.5-5.6)
[2019-05-07] MEDS ORDERED: METFORMIN HCL 850 MG TAB PO SCH (08:00)
[2019-05-07] MEDS ORDERED: APIXABAN 5 MG TABLET PO SCH (08:00)
--- NOTE | 2019-05-07 08:10 | Hospitalist Progress Note ---
Date of Service May 07, 2019 Assessment & Plan (1) Asthma: - poss. exacerbation -Patient is currently wheezing on my physical exam - says that "her asthma is acting up" -Says that she has cough, however denies sputum production, only occasional clear sputum - Continue advair - cont. duoneb treament - will add budesonie and will give solumedrol (2) Afib: -currently in sinus rhythm, mildly tachycardic - hold Eliquis for upcoming procedure - Continue Metoprolol 50mg BID with parameters and amiodarone, cardizem - Cardiology consulted, no change in medication indicated at this time - Will monitor closely on tele (3) Tachycardia: Present on admission with HR 140's EKG showed SVT on admission Received Lopressor 5 mg IV x1 in the ER, then HR dropped in the 50's Possible tachybrady syndrome or might be related to dehydration due to poor oral intake and low mg level Cardiology consulted, no change in medication indicated at this time Will continue metoprolol 50mg BID with parameters, amiodarone and cardizem ECHO done on 12/21 The LV wall thickness is mildly increased (concentric). The left ventricular wall motion is normal. The qualitative LV ejection fraction is 55-59% (normal). The left atrium is severely enlarged. The right atrium is moderately enlarged. The aortic valve is moderately calcified. Moderate aortic valve stenosis is present. Mild aortic valve regurgitation is present. Mild mitral regurgitation is present. Moderate tricuspid regurgitation is present. Moderate pulmonary hypertension is present. (4) Hypomagnesemia: Possible related to poor intake Mg on admission 1.4 Mg replaced Monitor Electrolytes (5) Liver mass: - concern for HCC vs. cholangiocarcinoma vs mets CT abd/pelvis showed 9.5 cm dominant mass within the left hepatic lobe Imaging discussed with family and patient Will check AFP GI consulted - recommend MRI for further eval and poss. EUS w/ biopsy when her card/resp. status improved (for this need to hold Eliquis for 5 days) (6) DM2 (diabetes mellitus, type 2): last Hba1c 6.9 Will hold oral diabetes med Check Hba1c in am Will place on novolog sliding scale Continue monitor BS DVT px- SCDs, hold eliquis Code Status DNR Subjective Pt is laying in bed, using suppl. oxygen (no suppl. O2 use at baseline). She seems in mild distress but continues to talk to her friends and family at the bedside, in full sentences. She says that her "asthma is acting up". Denies any fever or chills, or sputum production. Says she has very occasionally sputum production which is clear. Denies chest pain, palpitations, abd. pain, nausea, vomiting, diarrhea, blood in the stool. New diagnosis of liver mass, GI consulted, ordered MRI and AFP, possible EUS and biopsy. Review of Systems Review of Systems: All systems reviewed & are unremarkable except as noted in HPI & below Constitutional: no fever and no chills Respiratory: + cough, + dyspnea and + wheezing Cardiovascular: no chest pain and no palpitations Gastrointestinal: no abdominal pain, no nausea, no vomiting, no diarrhea/loose stools and no blood in stools Physical Exam Physical Exam: General-elderly female, lying in bed, in mild distress, on supplemental oxygen Head-normocephalic, atraumatic Eyes- PERRL, EOMI of L eye ENT- oropharynx clear Neck- supple, no JVD Resp: Lungs- + diffuse wheezing, on suppl. O2, seems in mild respiratory distress, however continues to speak in full sentences Heart- regular, II/ syst. murm. Abdomen- normal bowel sounds, soft, nontender, obese, nondistended Extremities- no calf tenderness, no LE edema, moves all 4 extremities spontaneously Neuro- alert, oriented x 3; PERRL, EOMI (L eye); no facial palsy; no dysarthria, moves all 4 extremities spontaneously Skin- warm & dry Results & Data Vital Signs (Past 12 Hours) Vital Signs Temp Pulse Pulse Resp BP BP Pulse Ox 05/07/19 07:44 36.0 C L 89 20 118/73 95 05/07/19 07:20 89 18 94 05/07/19 05:41 88 22 97 05/07/19 04:52 24 92 05/07/19 04:50 36.8 C 73 22 122/70 89 L 05/07/19 01:10 74 18 97 05/06/19 23:57 37.0 C 74 22 124/55 L 91 05/06/19 23:40 60 05/06/19 21:46 50 L Laboratory Results 05/07/19 05/07/19 05/07/19 Range/Units 16:36 11:29 07:11 WBC (4.8-10.8) K/uL RBC (4.2-5.4) M/uL Hgb (12.0-16.0) g/dL Hct (37-47) % MCV (80-100) fL MCH (25-34) pg MCHC (32-36) g/dL RDW Std Deviation (36.4-46.3) fL RDW Coeff of Cameron (11.5-14.5) % Plt Count (130-400) K/uL MPV (7.4-10.4) fL ABG pH (7.35-7.45) ABG pCO2 (35-46) mmHg ABG pO2 (80-95) mm/Hg ABG HCO3 (19-24) mmol/L ABG O2 Saturation (90-95) % ABG Base Excess (-9-1.8) mEq/L Solo Test (Pos) Barometric Pressure mm/Hg Oxygen Given Sodium (136-145) mmol/L Potassium (3.5-5.1) mmol/L Chloride (98-107) mmol/L Carbon Dioxide (21-32) mmol/L Anion Gap (3-11) BUN (7-18) mg/dl Creatinine (0.6-1.2) mg/dl Est Cr Clr Drug Dosing ml/min Est GFR ( Amer) Est GFR (Non-Af Amer) BUN/Creatinine Ratio (10-20) Glucose (70-99) mg/dl POC Glucose 144 H 126 H 89 (70-99) Estimat Average Glucose mg/dl Hemoglobin A1c (4.5-5.6) % Calcium (8.5-10.1) mg/dl Magnesium (1.8-2.4) mg/dl Albumin (3.4-5.0) gm/dl Tumor Marker AFP 05/07/19 05/07/19 05/07/19 Range/Units 05:58 05:30 05:17 WBC (4.8-10.8) K/uL RBC (4.2-5.4) M/uL Hgb (12.0-16.0) g/dL Hct (37-47) % MCV (80-100) fL MCH (25-34) pg MCHC (32-36) g/dL RDW Std Deviation (36.4-46.3) fL RDW Coeff of Cameron (11.5-14.5) % Plt Count (130-400) K/uL MPV (7.4-10.4) fL ABG pH 7.44 (7.35-7.45) ABG pCO2 27 L (35-46) mmHg ABG pO2 69 L (80-95) mm/Hg ABG HCO3 18 L (19-24) mmol/L ABG O2 Saturation 94.8 (90-95) % ABG Base Excess -4.8 (-9-1.8) mEq/L Solo Test Pos (Pos) Barometric Pressure 726.1 mm/Hg Oxygen Given 2L Sodium (136-145) mmol/L Potassium (3.5-5.1) mmol/L Chloride (98-107) mmol/L Carbon Dioxide (21-32) mmol/L Anion Gap (3-11) BUN (7-18) mg/dl Creatinine (0.6-1.2) mg/dl Est Cr Clr Drug Dosing ml/min Est GFR ( Amer) Est GFR (Non-Af Amer) BUN/Creatinine Ratio (10-20) Glucose (70-99) mg/dl POC Glucose 82 (70-99) Estimat Average Glucose mg/dl Hemoglobin A1c (4.5-5.6) % Calcium (8.5-10.1) mg/dl Magnesium (1.8-2.4) mg/dl Albumin 2.5 L (3.4-5.0) gm/dl Tumor Marker AFP 05/07/19 05/07/19 05/07/19 Range/Units 05:17 05:17 05:17 WBC (4.8-10.8) K/uL RBC (4.2-5.4) M/uL Hgb (12.0-16.0) g/dL Hct (37-47) % MCV (80-100) fL MCH (25-34) pg MCHC (32-36) g/dL RDW Std Deviation (36.4-46.3) fL RDW Coeff of Cameron (11.5-14.5) % Plt Count (130-400) K/uL MPV (7.4-10.4) fL ABG pH (7.35-7.45) ABG pCO2 (35-46) mmHg ABG pO2 (80-95) mm/Hg ABG HCO3 (19-24) mmol/L ABG O2 Saturation (90-95) % ABG Base Excess (-9-1.8) mEq/L Solo Test (Pos) Barometric Pressure mm/Hg Oxygen Given Sodium 132 L (136-145) mmol/L Potassium 4.4 (3.5-5.1) mmol/L Chloride 105 (98-107) mmol/L Carbon Dioxide 21 (21-32) mmol/L Anion Gap 6.0 (3-11) BUN 17 (7-18) mg/dl Creatinine 1.05 (0.6-1.2) mg/dl Est Cr Clr Drug Dosing 33.0 ml/min Est GFR ( Amer) 57.3 Est GFR (Non-Af Amer) 49.4 BUN/Creatinine Ratio 16.4 (10-20) Glucose 80 (70-99) mg/dl POC Glucose (70-99) Estimat Average Glucose 131 mg/dl Hemoglobin A1c 6.2 H (4.5-5.6) % Calcium 8.2 L (8.5-10.1) mg/dl Magnesium 2.1 (1.8-2.4) mg/dl Albumin (3.4-5.0) gm/dl Tumor Marker AFP Pending 05/07/19 05/07/19 05/06/19 Range/Units 05:17 00:11 21:38 WBC 9.30 (4.8-10.8) K/uL RBC 4.09 L (4.2-5.4) M/uL Hgb 12.4 (12.0-16.0) g/dL Hct 37.5 (37-47) % MCV 91.7 (80-100) fL MCH 30.3 (25-34) pg MCHC 33.1 (32-36) g/dL RDW Std Deviation 57.9 H (36.4-46.3) fL RDW Coeff of Cameron 17.1 H (11.5-14.5) % Plt Count 350 (130-400) K/uL MPV 9.3 (7.4-10.4) fL ABG pH (7.35-7.45) ABG pCO2 (35-46) mmHg ABG pO2 (80-95) mm/Hg ABG HCO3 (19-24) mmol/L ABG O2 Saturation (90-95) % ABG Base Excess (-9-1.8) mEq/L Solo Test (Pos) Barometric Pressure mm/Hg Oxygen Given Sodium (136-145) mmol/L Potassium (3.5-5.1) mmol/L Chloride (98-107) mmol/L Carbon Dioxide (21-32) mmol/L Anion Gap (3-11) BUN (7-18) mg/dl Creatinine (0.6-1.2) mg/dl Est Cr Clr Drug Dosing ml/min Est GFR ( Amer) Est GFR (Non-Af Amer) BUN/Creatinine Ratio (10-20) Glucose (70-99) mg/dl POC Glucose 114 H 174 H (70-99) Estimat Average Glucose mg/dl Hemoglobin A1c (4.5-5.6) % Calcium (8.5-10.1) mg/dl Magnesium (1.8-2.4) mg/dl Albumin (3.4-5.0) gm/dl Tumor Marker AFP Medications Administered Current Inpatient Medications Amiodarone HCl (Cordarone) 200 mg PO [facility] Stop: 06/06/19 08:59 Last Admin: 05/07/19 11:09 Dose: 200 mg Documented by: Ascorbic Acid (Vitamin C) 2,000 mg PO [facility] Stop: 06/06/19 08:59 Last Admin: 05/07/19 11:09 Dose: 2,000 mg Documented by: Budesonide (Pulmicort Respules) 0.25 mg NEB BIDR [facility] Stop: 06/06/19 18:59 Last Admin: 05/07/19 19:38 Dose: 0.25 mg Documented by: Cetirizine HCl (Zyrtec) 10 mg PO [facility] Stop: 06/06/19 08:59 Last Admin: 05/07/19 11:09 Dose: 10 mg Documented by: Dextrose (Dextrose 50%) 25 - 50 ml IV UD PRN; Protocol PRN Reason: Hypoglycemia Protocol Stop: 06/05/19 21:51 Diltiazem HCl (Cardizem Cd) 180 mg PO [facility] Stop: 06/06/19 08:59 Last Admin: 05/07/19 11:08 Dose: 180 mg Documented by: Ferrous Sulfate (Feosol) 325 mg PO BIDM [facility] Stop: 06/06/19 07:59 Last Admin: 05/07/19 17:08 Dose: 325 mg Documented by: Gadoxetate Disodium (Eovist) 10 ml IV ONCE PRN PRN Reason: Interaction Checking Stop: 05/11/19 16:19 Last Admin: 05/07/19 16:20 Dose: 10 ml Documented by: Glucagon (Glucagen) 1 mg SQ UD PRN; Protocol PRN Reason: Hypoglycemia Protocol Stop: 06/05/19 21:51 Glucose (Dex4 Glucose) 4 - 8 tabs PO UD PRN; Protocol PRN Reason: Hypoglycemia Protocol Stop: 06/05/19 21:51 Glucose (Glucose 40%) 15 - 30 gm PO UD PRN; Protocol PRN Reason: Hypoglycemia Protocol Stop: 06/05/19 21:51 Promethazine HCl 6.25 mg/ (Sodium Chloride) 50.25 mls @ 201 mls/hr IV Q4 PRN PRN Reason: Nausea And Vomiting Stop: 06/06/19 11:52 Insulin Aspart (Novolog Flexpen) 0 units SC ACHS [facility] Stop: 06/06/19 20:59 Ipratropium Ephraim (Atrovent 0.02% 0.5mg/2.5ml) 0.5 mg INH Q4H [facility] Stop: 06/06/19 19:59 Levalbuterol HCl (Xopenex 0.63 Mg/3 Ml Neb) 0.63 mg NEB Q4H [facility] Stop: 06/06/19 19:59 Metoprolol Succinate (Toprol Xl) 50 mg PO BIDM [facility] Stop: 06/06/19 07:59 Last Admin: 05/07/19 17:07 Dose: 50 mg Documented by: Miconazole Nitrate (Desenex) 1 appln EXT PRN PRN PRN Reason: NURSING DECISION Stop: 06/05/19 20:06 Last Admin: 05/06/19 21:17 Dose: 1 appln Documented by: Miscellaneous (Carbohydrates For Hypoglycemia) 15 - 30 gm PO UD PRN PRN Reason: Hypoglycemia Protocol Stop: 06/05/19 21:51 Pravastatin Sodium (Pravachol) 20 mg PO HS [facility] Stop: 06/05/19 20:59 Last Admin: 05/06/19 21:04 Dose: 20 mg Documented by: Prednisolone Acetate (Pred Forte 1%) 1 drops OPR HS [facility] Stop: 06/05/19 20:59 Last Admin: 05/06/19 21:04 Dose: 1 drops Documented by: Fluticasone/Salmeterol (Advair Diskus 250/50) 1 puffs INH BID [facility] Stop: 06/05/19 20:59 Last Admin: 05/07/19 11:08 Dose: 1 puffs Documented by:
--- NOTE | 2019-05-07 08:15 | Electrocardiogram Report ---
Test Reason : Blood Pressure : / mmHG Vent. Rate : 134 BPM Atrial Rate : 134 BPM P-R Int : 000 ms QRS Dur : 090 ms QT Int : 294 ms P-R-T Axes : 000 091 029 degrees QTc Int : 439 ms Supraventricular tachycardia Rightward axis Poor R wave progression, consider anterior TX vs. lead placement vs. LVH T wave abnormality, consider inferior ischemia Abnormal ECG When compared with ECG of 20-JAN-2019 07:40, Significant changes have occurred Confirmed by Rayshawn Pierre ([id number]) on 05/06/2019 5:45:02 PM Referred By: REFERRED SELF Confirmed By:Minh Pierre
[2019-05-07] MEDS ORDERED: AMIODARONE 200 MG TAB PO SCH (09:00)
[2019-05-07] MEDS ORDERED: [UNRECOGNIZED DRUG - OTHER] PO SCH (09:00)
--- NOTE | 2019-05-07 10:28 | Cardiology Consultation ---
Date of Consultation May 07, 2019 Assessment & Plan (1) Tachycardia: (2) Liver mass: Patient with history of complex atrial arrhythmias including paroxysmal atrial fibrillation, atrial flutter, and supraventricular tachycardia. She notes bradycardia typically during hours of sleep as noted on telemetry last night. Her metoprolol dose had recently been reduced. She presented with findings of tachycardia, although I am not certain that any of her symptoms subjectively are related to her heart rate issues. Echocardiogram performed in December 2018 revealed stable moderate aortic valve stenosis, moderate TR with moderate pulmonary hypertension. I do not think she is volume overloaded. At this time, I do not think a pacemaker is indicated. Although I fear that she is having side effects related to medications, even though the pacemaker would provide heart rate support, she would still require significant AV gato blockers for treatment of her tachycardia and I am not optimistic a pacemaker to help us to reduce his medication burden. At this time, I recommend that we continue her current medications including amiodarone, diltiazem, and metoprolol.Her ALT level of 61 I think is acceptable for ongoing amiodarone treatment. We will coordinate work-up of liver mass with the GI service. Her Eliquis has been discontinued. History of Present Illness Attending Physician: Adelfo Redman MD History of Present Illness Leslie Walters is an 83 -year-old female seen in cardiology consultation per the request of Dr. Arzola for the evaluation of tachycardia.The patient is well- known to the undersigned. She has a history of complex atrial arrhythmias including paroxysmal atrial flutter, atrial fibrillation, and supraventricular tachycardia. In 2015 she been placed on sotalol as part of a rhythm control strategy. She tolerated this and did well without recurrent episodes up until August, when she was noted to have recurrent atrial flutter. This prompted direct-current cardioversion with initial successful worship of sinus rhythm. In the summer 2018 she had recurrent atrial flutter, her sotalol was subsequently discontinued and she was treated with a combination of metoprolol, diltiazem, and amiodarone and underwent repeat direct-current cardioversion by the undersigned in January 2019. She had recently been seen as an outpatient by the undersigned and she had been concerned about episodes of slow heart rate. Her metoprolol Dose was therefore reduced from 75 mg twice daily to 50 mg twice daily. In the meantime that she has been feeling poorly, with generalized weakness, cough. EKG performed on arrival to the emergency department yesterday at 10:21 AM revealed narrow complex tachycardia at 134 bpm consistent with SVT. The patient subsequently converted back to sinus rhythm, and sinus bradycardia down to 40 bpm was noted on telemetry during hours of sleep last night. Currently sinus rhythm at 95 bpm is noted on telemetry. She underwent a CT of the chest abdomen and pelvis. No pulmonary embolism was found. She was found to have a 3.4 x 7 cm left hepatic lobe mass with a small degree of ascites. Allergies Allergy/AdvReac Type Severity Reaction Status Date / Time naproxen Allergy Mild KNEES GOT Verified 05/06/19 11:05 RED AND ITCHING lisinopril Allergy Verified 05/06/19 11:05 Home Medications Home Medications Medication Instructions Recorded Confirmed Type Eliquis 5 mg PO BIDM 07/31/18 05/06/19 History albuterol sulfate [Ventolin HFA] 2 puff INHALATION QID PRN 07/31/18 05/06/19 History ascorbic acid (vitamin C) [Vitamin 2,000 mg PO QAM 07/31/18 05/06/19 History C] cyanocobalamin (vitamin B-12) 1 dose SUBCUT MONTHLY 07/31/18 05/06/19 History ferrous sulfate 325 mg PO BIDM 07/31/18 05/06/19 History fluticasone propion-salmeterol 1 inh INHALATION BID 07/31/18 05/06/19 History [Wixela Inhub] glipizide 10 mg PO BIDM 07/31/18 05/06/19 History metformin 850 mg PO TIDM 07/31/18 05/06/19 History pioglitazone [Actos] 30 mg PO QAM 07/31/18 05/06/19 History pravastatin 20 mg PO HS 07/31/18 05/06/19 History prednisolone acetate 1 drp OPR HS 07/31/18 05/06/19 History Bilberry Extract 1 cap PO QAM 10/11/18 05/06/19 History alendronate [Fosamax] 70 mg PO MO 10/11/18 05/06/19 History cetirizine [Zyrtec] 10 mg PO QAM 10/11/18 05/06/19 History amiodarone 200 mg PO QAM 01/20/19 05/06/19 History diltiazem HCl [Cardizem CD] 180 mg PO QAM 01/20/19 05/06/19 History metoprolol succinate 50 mg PO BIDM 01/20/19 05/06/19 History Patient History Medical History Anemia Asthma USED RESCUE INHALER "QUITE A BIT LATELY" Atrial fibrillation Cardiac murmur Cataract LEFT EYE Diabetes mellitus, type 2 History of cardioversion LAST DONE 08/2018 Hyperlipidemia Hypertension Osteoarthritis Surgical History H/O detached retina repair RT EYE REPAIRED History of section X 2 History of colonoscopy History of tooth extraction Family History Other Family history non-contributory Social History Preferred Language: Sinhala Communication Ability: Effective Circus Artist Required: No Beliefs That Will Affect Care: None Current Living Situation: Alone Other Information That Helps Us Care for You: No Feels Safe at Home: Yes Safety Concerns: Feels Safe At This Time Smoking Status: Never smoker Second Hand Exposure: Yes ; Hx Alcohol Use: No Hx Substance Use: No Review of Systems Review of Systems: All systems reviewed & are unremarkable except as noted in HPI & below Physical Exam Physical Exam: Temp Pulse Resp BP Pulse Ox 36.0 C L 89 20 118/73 95 05/07/19 07:44 05/07/19 07:44 05/07/19 07:44 05/07/19 07:44 05/07/19 07:44 Constitutional: WD/WN, vitals as above Respiratory: Mild wheezing noted in the mid lung branham, no rales Cardiovascular: Rate/Rhythm: regular rhythm Heart Sounds: + murmur (II/ systolic murmur) Gastrointestinal (Abdomen): Inspection/Auscultation: normal bowel sounds Percussion/Palpation: abdomen nontender Neurologic: No focal neurologic deficits Results & Data Vital Signs (Past 12 Hours) Vital Signs Temp Pulse Pulse Resp BP BP Pulse Ox 05/07/19 07:44 36.0 C L 89 20 118/73 95 05/07/19 07:20 89 18 94 05/07/19 05:41 88 22 97 05/07/19 04:52 24 92 05/07/19 04:50 36.8 C 73 22 122/70 89 L 05/07/19 01:10 74 18 97 05/06/19 23:57 37.0 C 74 22 124/55 L 91 05/06/19 23:40 60 Laboratory Results Cardiac Enzymes 05/06/19 Range/Units 11:34 AST 61 H (15-37) U/L Troponin I < 0.015 (0-0.045) ng/ml CBC 05/06/19 05/07/19 Range/Units 11:34 05:17 WBC 8.89 9.30 (4.8-10.8) K/uL RBC 4.51 4.09 L (4.2-5.4) M/uL Hgb 13.5 12.4 (12.0-16.0) g/dL Hct 41.9 37.5 (37-47) % Plt Count 348 350 (130-400) K/uL Neut # (Auto) 8.00 H (1.4-6.5) K/uL Lymph # (Auto) 0.36 L (1.2-3.4) K/uL Foster # (Auto) 0.49 (0.11-0.59) K/uL Eos # (Auto) 0.01 (0-0.5) K/uL Baso # (Auto) 0.00 (0-0.2) K/uL Comprehensive Metabolic Panel 05/06/19 05/07/19 05/07/19 Range/Units 11:34 05:17 05:17 Sodium 130 L 132 L (136-145) mmol/L Potassium 4.8 4.4 (3.5-5.1) mmol/L Chloride 104 105 (98-107) mmol/L Carbon Dioxide 18 L 21 (21-32) mmol/L BUN 15 17 (7-18) mg/dl Creatinine 0.84 1.05 (0.6-1.2) mg/dl Glucose 160 H 80 (70-99) mg/dl Calcium 8.6 8.2 L (8.5-10.1) mg/dl AST 61 H (15-37) U/L ALT 41 (12-78) U/L Alkaline Phosphatase 626 H (45-117) U/L Total Protein 6.1 L (6.4-8.2) gm/dl Albumin 2.5 L 2.5 L (3.4-5.0) gm/dl Intake and Output 05/06/19 05/07/19 05/07/19 22:59 06:59 14:59 Intake Total 1200 / 1940 740 / 1940 Output Total 200 / 601 401 / 601 Balance 1000 / 1339 339 / 1339 Intake: IV 1200 / 1940 740 / 1940 MAGNESIUM SULFATE / D5W 1 gm In 200 / 200 100 ml @ 100 mls/hr IV Q1H [facility] Rx#:[id number] Nss 1000ML 1,000 ml @ 80 mls/hr 1000 / 1740 740 / 1740 IV .[id number] [facility] Rx#:[id number] Output: Urine 200 / 600 400 / 600 # Bowel Movements Other: Other Intake Source chips Weight 72.1 kg 70 kg Diagnostic Findings Summary of transthoracic echocardiogram performed 12/18/2018 as an outpatient: The left ventricular cavity size is normal. The LV wall thickness is mildly increased (concentric). The left ventricular wall motion is normal. The qualitative LV ejection fraction is 55-59% (normal). The left atrium is severely enlarged. The right atrium is moderately enlarged. The aortic valve is moderately calcified. Moderate aortic valve stenosis is present. Mild aortic valve regurgitation is present. Mild mitral regurgitation is present. Moderate tricuspid regurgitation is present. Moderate pulmonary hypertension is present.
--- NOTE | 2019-05-07 10:46 | Gastrointestinal Consultation ---
Date of Consultation May 07, 2019 Assessment & Plan (1) Liver mass: Liver mass suggestive of malignancy - ? Cirrhosis with HCC vs. cholangiocarcinoma or mets. Plan for EUS after washout period off Eliquis (approx 5 days). If pt's cardiac issues have stabilized and she is DC'ed prior, then we can arrange this at [facility] next week. Pt agreeable to OP EUS in [place] but asked us to speach with her daughter, which I will do. Please continue to hold Eliquis. No GI contraindication to eating today. Will need to be NPO at midnight on the day of the procedure. Present on Admission?: Yes Supervising Physician Co-Signing Physician Notes I saw and evaluated the patient. We have been asked to evaluate a new liver mass identified during CT scan yesterday afternoon. The patient had reported to the hospital with fatigue and was found to be tachycardic. This morning she notes that she is very short of breath is not feeling well. Physical examination Elderly appearing female Mild distress Impression: Patient with a newly identified liver mass on CT scan. Given her present respiratory and cardiac function I would recommend further evaluation wi th MRI using gadolinium. Would also suggest an alpha-fetoprotein if consistent with hepatocellular carcinoma a tissue diagnosis may not be necessary. If negative we could certainly proceed with endoscopic ultrasound or ultrasound- guided liver biopsy once her respiratory and cardiac status have been improved. The patient would need to be off her anticoagulation medication for at least 72 hours prior to any intended procedures History of Present Illness Reason for Consultation: Liver mass Requesting Physician: Dr. Arzola Attending Physician: Adelfo Redman MD History of Present Illness Ms. Leslie Walters is an 83 yr old female with DM-2, asthma, A-fib on Eliquis who was brought to the ED yesterday for weakness, rapid heart rate. On arrival, she was found to be in A-fib with RVR. Then, CT chest suggested a liver mass and CT abd/pelvis also suggests a 9cm liver mass as well as previously unknown cirrhosis. Labs with normal Hb and plaltelets. Alk Phos is significantly elevated at 626 but transaminases and T bili remain normal. Renal function normal. Most recent endoscopy in 2014 w/o evidence of portal hypertensive gastropathy or esophageal varies. GI is asked to evaluate the liver mass. Pt is awake, alert, oriented and denies any nausea, vomiting, jaundice, abdominal pain or CP. Her most recent Eliquis was yesterday morning. Cardiology is following and HR is being improved. Allergies Allergy/AdvReac Type Severity Reaction Status Date / Time naproxen Allergy Mild KNEES GOT Verified 05/06/19 11:05 RED AND ITCHING lisinopril Allergy Verified 05/06/19 11:05 Home Medications Home Medications Medication Instructions Recorded Confirmed Type Eliquis 5 mg PO BIDM 07/31/18 05/06/19 History albuterol sulfate [Ventolin HFA] 2 puff INHALATION QID PRN 07/31/18 05/06/19 History ascorbic acid (vitamin C) [Vitamin 2,000 mg PO QAM 07/31/18 05/06/19 History C] cyanocobalamin (vitamin B-12) 1 dose SUBCUT MONTHLY 07/31/18 05/06/19 History ferrous sulfate 325 mg PO BIDM 07/31/18 05/06/19 History fluticasone propion-salmeterol 1 inh INHALATION BID 07/31/18 05/06/19 History [Wixela Inhub] glipizide 10 mg PO BIDM 07/31/18 05/06/19 History metformin 850 mg PO TIDM 07/31/18 05/06/19 History pioglitazone [Actos] 30 mg PO QAM 07/31/18 05/06/19 History pravastatin 20 mg PO HS 07/31/18 05/06/19 History prednisolone acetate 1 drp OPR HS 07/31/18 05/06/19 History Bilberry Extract 1 cap PO QAM 10/11/18 05/06/19 History alendronate [Fosamax] 70 mg PO MO 10/11/18 05/06/19 History cetirizine [Zyrtec] 10 mg PO QAM 10/11/18 05/06/19 History amiodarone 200 mg PO QAM 01/20/19 05/06/19 History diltiazem HCl [Cardizem CD] 180 mg PO QAM 01/20/19 05/06/19 History metoprolol succinate 50 mg PO BIDM 01/20/19 05/06/19 History Patient History Medical History Anemia Asthma USED RESCUE INHALER "QUITE A BIT LATELY" Atrial fibrillation Cardiac murmur Cataract LEFT EYE Diabetes mellitus, type 2 History of cardioversion LAST DONE 08/2018 Hyperlipidemia Hypertension Osteoarthritis Surgical History H/O detached retina repair RT EYE REPAIRED History of section X 2 History of colonoscopy History of tooth extraction Family History Other Family history non-contributory Social History Preferred Language: Thai Communication Ability: Effective Digital Strategist Required: No Beliefs That Will Affect Care: None Current Living Situation: Alone Other Information That Helps Us Care for You: No Feels Safe at Home: Yes Safety Concerns: Feels Safe At This Time Smoking Status: Never smoker Second Hand Exposure: Yes ; Hx Alcohol Use: No Hx Substance Use: No Review of Systems Review of Systems: ROS: Gen: Denies weakness, fevers, weight loss Eyes: No eye redness, or pain, no recent vision changes Resp: Mild SOB, improved with O2by NC Cardio: + palpitations/irregular beats, no chest pain GI: No abdominal pain, no nausea/vomiting : Denies pain on urination Skin: No jaundice, itching or new rashes Physical Exam Constitutional: WD/WN, vitals as above + obese; no acute distress Eyes: PERRL, conjunctivae normal, anicteric sclerae (though some right lid lag) ENMT: external ear and nose normal, oropharynx normal Neck: trachea midline, no thyromegaly Respiratory: Auscultation: + wheezes (mild scattered wheezing, no crackles, diminished sounds at bases. ) Cardiovascular: Rate 90's, rhythm slightly irregular, no murmurs Gastrointestinal (Abdomen): normal bowel sounds, soft, nontender, no hepatosplenomegaly Musculoskeletal: no cyanosis or clubbing, extremities motor strength 5/5 Skin: no rashes, warm and dry no jaundice Neurologic: PERRL, EOMI, accommodation nl, no face palsy, no dysarthria Psychiatric: A+Ox3, euthymic affect Lymphatic: no cervical or axillary lymphadenopathy Results & Data Vital Signs (Past 12 Hours) Vital Signs Temp Pulse Pulse Resp BP BP Pulse Ox 05/07/19 07:44 36.0 C L 89 20 118/73 95 05/07/19 07:30 92 H 05/07/19 07:20 89 18 94 05/07/19 05:41 88 22 97 05/07/19 04:52 24 92 05/07/19 04:50 36.8 C 73 22 122/70 89 L 05/07/19 01:10 74 18 97 05/06/19 23:57 37.0 C 74 22 124/55 L 91 05/06/19 23:40 60 Laboratory Results WBC 9, Hb 12, Hct 37, Platelets 350, INR 1.1, Na 132, K 4.4, BUN 17, Cr 1.05, T Bili 0.8, AST 61, ALT 41, Alk Phos 626. Diagnostic Findings CT abd/pelvis 05/06/19: 1. Cirrhotic liver morphology. 2. There is a 9.5 cm dominant mass within the left hepatic lobe as above. This is pathologically indeterminant, but given the arterial phase enhancement and cirrhotic liver morphology hepatocellular carcinoma is considered most likely. Cholangiocarcinoma or metastatic disease are differential considerations. Correlation with serum AFP levels is recommended. 3. There are at least 9 additional arterially hypervascular hepatic lesions s cattered throughout the left lobe. Again, the appearance is most suggestive of multifocal hepatocellular carcinoma. 4. There is a small volume of mildly complex abdominopelvic ascites. 5. Cholelithiasis. 6. Mild to moderate colonic diverticulosis without CT evidence of acute diverticulitis. 7. Additional findings as above.
[2019-05-07] MEDS: dilTIAZem HCL 180 MG CAPCR PO SCH (11:08)
[2019-05-07] MEDS: FLUTICASONE/SALMETEROL 250/50 (ADVAIR) 14 PUFF/1 INHALER INH SCH ×2 (11:08→20:10)
[2019-05-07] MEDS: FERROUS SULFATE 325 MG TAB PO SCH ×2 (11:09→17:08)
[2019-05-07] MEDS: METOPROLOL SUCC 50MG EXT REL TAB PO SCH ×2 (11:09→17:07)
[2019-05-07] MEDS: ASCORBIC ACID 500 MG TAB PO SCH (11:09)
[2019-05-07] MEDS: CETIRIZINE HCL 10 MG TABLET PO SCH (11:09)
[2019-05-07] MEDS ORDERED: PROMETHAZINE HCL 6.25 MG in SODIUM CHLORIDE 0.9% 50 ML IV STA (11:52)
[2019-05-07] MEDS ORDERED: PROMETHAZINE HCL 6.25 MG in SODIUM CHLORIDE 0.9% 50 ML IV PRN (11:53)
[2019-05-07] MEDS ORDERED: methylPREDNISolone 30 MG in SYRINGE 0 ML IV STA (15:40)
[2019-05-07] MEDS ORDERED: GADOXETATE DISODIUM IV PRN (16:20)
--- NOTE | 2019-05-07 17:19 | Magnetic Resonance Report ---
MR abdomen wo/w con HISTORY: Follow-up liver mass TECHNIQUE: Multiplanar multisequence MRI of the abdomen was performed both before and after the intra venous administration of 10 cc of Eovist contrast. COMPARISON STUDY: Abdomen and pelvis CT 05/06/2019. FINDINGS: Motion artifact results in suboptimal evaluation. The heart is mildly enlarged. Small right and trace left pleural effusions. Small amount of ascites and mesenteric edema within the abdomen. T here is also moderate body wall edema. The spleen, adrenal glands, pancreas, and right kidney are unr emarkable. There is a 2 cm left renal cyst. There is nodular contour to the liver consistent with cir rhosis. There is again noted an irregular 8.2 x 7.9 cm mass within the left hepatic lobe. This demons trates peripheral T2 hyperintensity with central hypointensity as well as T1 hypointense signal. Ther e is also peripheral restricted diffusion and peripheral hyperenhancement with delayed central enhanc ement. There are again noted multiple additional hypervascular lesions within the left hepatic lobe t he largest measuring approximately 12 mm. However, these are suboptimally assessed due to the motion artifact. The main portal vein appears patent. The left portal vein is likely obstructed by this mass but are difficult to assess due to the motion artifact. Probable mild left intrahepatic bile duct di latation. IMPRESSION: 1. Redemonstration of 8.2 x 7.9 cm left hepatic lobe mass as described above. This favors a cholangio carcinoma. However, a hepatocellular carcinoma could also have a similar appearance. There are multip le additional smaller hypervascular lesions within the left hepatic lobe concerning for metastatic fo ci. 2. The main portal vein appears patent. The left portal veins are not well-visualized due to motion a rtifact but are likely obstructed by the mass. 3. Probable mild left intrahepatic bile duct dilatation. 4. Cirrhotic liver. 5. Pleural effusions and a small amount of ascites. There is also moderate body wall edema. ACT 112: Negative or not required by law. Electronically signed by: David Osorio M.D. 05/07/2019 5:18 PM
[2019-05-07] MEDS ORDERED: Nursing to Pharmacy Communication ONE (19:22)
[2019-05-07] MEDS: BUDESONIDE 0.25 MG/2 ML VIAL (PULMICORT) NEB SCH (19:38)
[2019-05-07] MEDS: PRAVASTATIN SOD 20 MG TAB PO SCH (20:10)
[2019-05-07] MEDS: prednisoLONE acetate 1% OP SUSP 5 ML BTL OPR SCH (20:11)
[2019-05-07] MEDS ORDERED: XOPENEX/ATROVENT 1.25mg/0.5MG NEB COMBO NEB PRN (20:49)
[2019-05-07] MEDS ORDERED: LEVALBUTEROL 1.25MG/0.5ML NEB INH PRN (21:00)
[2019-05-07] MEDS ORDERED: IPRATROPIUM BROMIDE NEB SOLN 0.02% 2.5 ML VIAL INH PRN (21:00)
[2019-05-08] MEDS ORDERED: methylPREDNISolone 30 MG in SYRINGE 0 ML IV ONE (01:00)
[2019-05-08] MEDS: IPRATROPIUM BROMIDE NEB SOLN 0.02% 2.5 ML VIAL INH SCH ×6 (02:19→22:06)
[2019-05-08] MEDS: LEVALBUTEROL HCL 0.63 MG/3 ML NEB NEB SCH ×5 (02:20→22:07)
[2019-05-08] MEDS ORDERED: MAGNESIUM SULFATE / D5W 1 GM/100 ML BAG IV ONE (03:23)
[2019-05-08] MEDS ORDERED: AMIODARONE 200 MG TAB PO SCH (03:30)
[2019-05-08 04:37] LABS: Hematocrit (blood only) 38.1 % (37-47); Hemoglobin 12.2 g/dL (12.0-16.0); Immature Granulocytes # (auto) 0.05 K/uL (0.00-0.02); Immature Granulocytes % (auto) 0.4 %; Lymphocytes # (auto) 0.27 K/uL (1.2-3.4); Lymphocytes % (auto) 2.1 %; Mean Corpuscular Hemoglobin 29.5 pg (25-34); Mean Corpuscular Volume 92.3 fL (80-100); Mean Platelet Volume 9.3 fL (7.4-10.4); Monocytes # (auto) 0.11 K/uL (0.11-0.59); Monocytes % (auto) 0.9 %; Neutrophils # (auto) 12.31 K/uL (1.4-6.5); Neutrophils % (auto) 96.6 %; Platelet Count 345 K/uL (130-400); RDW Coefficient of Variation 17.1 % (11.5-14.5); RDW Standard Deviation 57.7 fL (36.4-46.3); Red Blood Count 4.13 M/uL (4.2-5.4); White Blood Count 12.74 K/uL (4.8-10.8)
[2019-05-08 05:05] LABS: BUN Creatinine Ratio 15.2 (10-20); Calcium 8.2 mg/dl (8.5-10.1); Creatinine Clr Calc Pharmacy 19.3 ml/min; Est GFR (African American) 30.5; Est GFR (Non-African American) 26.3
[2019-05-08] MEDS ORDERED: XOPENEX/ATROVENT 1.25mg/0.5MG NEB COMBO NEB STA (05:16)
[2019-05-08] MEDS ORDERED: LEVALBUTEROL 1.25MG/0.5ML NEB INH STA (05:25)
[2019-05-08] MEDS ORDERED: IPRATROPIUM BROMIDE NEB SOLN 0.02% 2.5 ML VIAL INH STA (05:25)
[2019-05-08] MEDS ORDERED: methylPREDNISolone 20 MG in SYRINGE 0 ML IV STA (05:25)
[2019-05-08] MEDS ORDERED: ALBUMIN 25% 50 ML IV ONE (05:33)
[2019-05-08] MEDS ORDERED: METOPROLOL TARTRATE 1 MG/ML VIAL IV STA (05:34)
[2019-05-08] MEDS ORDERED: DOXYCYCLINE HYCLATE 100 MG in DEXTROSE 5% 100 ML IV STA (05:45)
--- NOTE | 2019-05-08 05:46 | Communication Note ---
Date of Service: May 08, 2019 Patient more short of breath this a.m. as per RN. Rapid AF on the monitor. SBP 100s as per RN O2 sats 90s on 2 L. Moist productive cough, yellow sputum as per RN. No concern for aspiration as per RN. CXR 05/07 possible infiltrate right CXR 05/08 as per my interpretation congestion AP Acute hypoxemic is failure secondary to CAP/ complicated bronchitis Possible sepsis Pulmonary congestion contributory Cultures, lactic acid Ceftriaxone, Doxycycline Solu-Medrol 1 dose for bronchopneumonia causing hypoxemia Nebs 1 dose and as needed Lasix currently precluded given borderline BP Will relay to AM provider.
--- NOTE | 2019-05-08 06:15 | XRay Report ---
XR chest 1V portable CLINICAL HISTORY: sob dyspnea COMPARISON STUDY: 05/07/2019 FINDINGS: Moderate increase in pulmonary vasculature. Atelectasis left base. Diaphragms are smooth. IMPRESSION: Developing components of congestive failure. ACT 112: Negative or not required by law. The above report was generated using voice recognition software. It may contain grammatical, syntax or spelling errors. Electronically signed by: Luan Hidalgo M.D. 05/08/2019 6:13 AM
[2019-05-08 06:49] LABS: Potassium 4.9 mmol/L (3.5-5.1)
[2019-05-08 06:50] LABS: Magnesium 2.6 mg/dl (1.8-2.4)
[2019-05-08] MEDS: BUDESONIDE 0.25 MG/2 ML VIAL (PULMICORT) NEB SCH ×2 (07:20→19:12)
--- NOTE | 2019-05-08 07:42 | Electrocardiogram Report ---
Test Reason : Blood Pressure : / mmHG Vent. Rate : 098 BPM Atrial Rate : 098 BPM P-R Int : 244 ms QRS Dur : 092 ms QT Int : 344 ms P-R-T Axes : 051 045 -52 degrees QTc Int : 439 ms Sinus rhythm with 1st degree A-V block Low voltage QRS Nonspecific T wave abnormality Abnormal ECG When compared with ECG of 06-MAY-2019 10:21, DC interval has increased Confirmed by Rayshawn Pierre ([id number]) on 05/08/2019 7:42:28 AM Referred By: REFERRED SELF Confirmed By:Minh Pierre
[2019-05-08] MEDS ORDERED: Nursing to Pharmacy Communication ONE (08:18)
--- NOTE | 2019-05-08 08:20 | Hospitalist Progress Note ---
Date of Service May 08, 2019 Assessment & Plan (1) Asthma: Shortness of breath community-acquired pneumonia/complicated bronchitis Fluid overload -Patient has history of asthma, and felt that "her asthma is acting up"/poss. exacerbation - received a small dose IV steroid for poss. asthma exacerbation yesterday (05/07) -This morning however, more short of breath, concern for CAP/complicated bronchitis, she also may have more fluid overload from MARIA T -Was started on ceftriaxone and doxycycline by the night physician, will continue - wheezing on my physical exam -Says that she has cough, however denies sputum production, only occasional clear sputum - Continue advair - cont. duoneb treament - cont. budesonie, solumedrol - For fluid status, and current MARIA T, careful with Lasix, discussed with n ephrology, can give 10mg IV as needed MARIA T -Likely IV contrast-induced nephropathy -Patient initially presented with creatinine 1.0, creatinine 1.77 this a.m., and on recheck this afternoon 2.3 -Nephrology consulted, will continue to closely monitor BMP, will try to avoid any nephrotoxic agents (2) Afib: -Patient was in A. fib with RVR earlier this morning (05/08) then converted back to NSR - hold Eliquis for upcoming procedure, start IV heparin - Continue Metoprolol 50mg BID with parameters and amiodarone, cardizem - Cardiology consulted, no change in medication indicated at this time - Will monitor closely on tele (3) Tachycardia: Present on admission with HR 140's EKG showed SVT on admission Received Lopressor 5 mg IV x1 in the ER, then HR dropped in the 50's Possible tachybrady syndrome or might be related to dehydration due to poor oral intake and low mg level Cardiology consulted, no change in medication indicated at this time Will continue metoprolol 50mg BID with parameters, amiodarone and cardizem ECHO done on 12/21 The LV wall thickness is mildly increased (concentric). The left ventricular wall motion is normal. The qualitative LV ejection fraction is 55-59% (normal). The left atrium is severely enlarged. The right atrium is moderately enlarged. The aortic valve is moderately calcified. Moderate aortic valve stenosis is present. Mild aortic valve regurgitation is present. Mild mitral regurgitation is present. Moderate tricuspid regurgitation is present. Moderate pulmonary hypertension is present. (4) Hypomagnesemia: Possible related to poor intake Mg on admission 1.4 Mg replaced Monitor Electrolytes (5) Liver mass: - concern for HCC vs. cholangiocarcinoma vs mets CT abd/pelvis showed 9.5 cm dominant mass within the left hepatic lobe Imaging discussed with family and patient Will check AFP GI consulted - recommend MRI for further eval and poss. EUS w/ biopsy when her card/resp. status improved (for this need to hold Eliquis for 5 days) (6) DM2 (diabetes mellitus, type 2): HbA1c 6.2% (05/07/2019) Now hyperglycemia secondary to steroid use -Pharmacy consulted for hyperglycemia management -Will hold oral diabetes med - novolog sliding scale Continue monitor BS DVT px- SCDs, hold eliquis Code Status DNR Subjective The night physician contacted by RN, due to increased shortness of breath, rapid A. fib on the monitor, per RN productive yellow sputum. Started on ceftriaxone and doxycycline, for CAP/complicated bronchitis. Cultures, lactic acid, ordered Lactic acid 0.8 MARIA T Cr 1.77 On my evaluation, patient is sitting up in bed, on supplemental oxygen, in mild distress. Friend at the bedside. Patient denies any chest pain, fevers, chills, abdominal pain, nausea or vomiting. Review of Systems Review of Systems: All systems reviewed & are unremarkable except as noted in HPI & below Constitutional: no fever and no chills Respiratory: + cough, + dyspnea and + wheezing Cardiovascular: no chest pain and no palpitations Gastrointestinal: no abdominal pain, no nausea and no vomiting Physical Exam Physical Exam: General-elderly female, lying in bed, in mild distress, on supplemental oxygen Head-normocephalic, atraumatic Eyes- PERRL, EOMI of L eye (keeps right eye closed) ENT- oropharynx clear Neck- supple, no JVD Resp: Lungs- + diffuse wheezing, on suppl. O2, seems in mild respiratory distress, however continues to speak in full sentences Heart- regular, II/ syst. murm. (converted to NSR this AM) Abdomen- normal bowel sounds, soft, nontender, obese, nondistended Extremities- no calf tenderness, no LE edema, moves all 4 extremities spontaneously Neuro- alert, oriented x 3; PERRL, EOMI (L eye); no facial palsy; no dysarthria, moves all 4 extremities spontaneously Skin- warm & dry Results & Data Vital Signs (Past 12 Hours) Vital Signs Temp Pulse Pulse Resp BP BP Pulse Ox 05/08/19 07:50 37.0 C 119 H 24 124/84 97 05/08/19 07:34 109 H 05/08/19 07:22 106 H 18 93 05/08/19 05:52 120 H 05/08/19 05:37 116 H 28 H 97 05/08/19 03:16 36.7 C 87 20 106/60 92 05/08/19 02:20 84 20 94 05/07/19 23:30 37.0 C 79 20 128/86 95 05/07/19 22:18 79 20 95 Laboratory Results 05/08/19 05/08/19 05/08/19 Range/Units 07:59 07:58 07:17 WBC (4.8-10.8) K/uL RBC (4.2-5.4) M/uL Hgb (12.0-16.0) g/dL Hct (37-47) % MCV (80-100) fL MCH (25-34) pg MCHC (32-36) g/dL RDW Std Deviation (36.4-46.3) fL RDW Coeff of Cameron (11.5-14.5) % Plt Count (130-400) K/uL MPV (7.4-10.4) fL Immature Gran % (Auto) % Neut % (Auto) % Lymph % (Auto) % Teller % (Auto) % Eos % (Auto) % Baso % (Auto) % Immature Gran # (Auto) (0.00-0.02) K/uL Neut # (Auto) (1.4-6.5) K/uL Lymph # (Auto) (1.2-3.4) K/uL Teller # (Auto) (0.11-0.59) K/uL Eos # (Auto) (0-0.5) K/uL Baso # (Auto) (0-0.2) K/uL Sodium (136-145) mmol/L Potassium (3.5-5.1) mmol/L Chloride (98-107) mmol/L Carbon Dioxide (21-32) mmol/L Anion Gap (3-11) BUN (7-18) mg/dl Creatinine (0.6-1.2) mg/dl Est Cr Clr Drug Dosing ml/min Est GFR ( Amer) Est GFR (Non-Af Amer) BUN/Creatinine Ratio (10-20) Glucose (70-99) mg/dl POC Glucose 373 H* 486 H* (70-99) Lactate 0.8 (0.4-2.0) mmol/L Calcium (8.5-10.1) mg/dl Magnesium (1.8-2.4) mg/dl 05/08/19 05/08/19 05/08/19 Range/Units 06:21 04:18 04:18 WBC 12.74 H (4.8-10.8) K/uL RBC 4.13 L (4.2-5.4) M/uL Hgb 12.2 (12.0-16.0) g/dL Hct 38.1 (37-47) % MCV 92.3 (80-100) fL MCH 29.5 (25-34) pg MCHC 32.0 (32-36) g/dL RDW Std Deviation 57.7 H (36.4-46.3) fL RDW Coeff of Cameron 17.1 H (11.5-14.5) % Plt Count 345 (130-400) K/uL MPV 9.3 (7.4-10.4) fL Immature Gran % (Auto) 0.4 % Neut % (Auto) 96.6 % Lymph % (Auto) 2.1 % Teller % (Auto) 0.9 % Eos % (Auto) 0.0 % Baso % (Auto) 0.0 % Immature Gran # (Auto) 0.05 H (0.00-0.02) K/uL Neut # (Auto) 12.31 H (1.4-6.5) K/uL Lymph # (Auto) 0.27 L (1.2-3.4) K/uL Teller # (Auto) 0.11 (0.11-0.59) K/uL Eos # (Auto) 0.00 (0-0.5) K/uL Baso # (Auto) 0.00 (0-0.2) K/uL Sodium 133 L (136-145) mmol/L Potassium 4.9 (3.5-5.1) mmol/L Chloride 101 (98-107) mmol/L Carbon Dioxide 15 L (21-32) mmol/L Anion Gap 17.0 H (3-11) BUN 27 H D (7-18) mg/dl Creatinine 1.77 H D (0.6-1.2) mg/dl Est Cr Clr Drug Dosing 19.3 ml/min Est GFR ( Amer) 30.5 Est GFR (Non-Af Amer) 26.3 BUN/Creatinine Ratio 15.2 (10-20) Glucose 218 H (70-99) mg/dl POC Glucose (70-99) Lactate (0.4-2.0) mmol/L Calcium 8.2 L (8.5-10.1) mg/dl Magnesium 2.6 H (1.8-2.4) mg/dl 05/07/19 05/07/19 05/07/19 Range/Units 20:32 16:36 11:29 WBC (4.8-10.8) K/uL RBC (4.2-5.4) M/uL Hgb (12.0-16.0) g/dL Hct (37-47) % MCV (80-100) fL MCH (25-34) pg MCHC (32-36) g/dL RDW Std Deviation (36.4-46.3) fL RDW Coeff of Cameron (11.5-14.5) % Plt Count (130-400) K/uL MPV (7.4-10.4) fL Immature Gran % (Auto) % Neut % (Auto) % Lymph % (Auto) % Teller % (Auto) % Eos % (Auto) % Baso % (Auto) % Immature Gran # (Auto) (0.00-0.02) K/uL Neut # (Auto) (1.4-6.5) K/uL Lymph # (Auto) (1.2-3.4) K/uL Teller # (Auto) (0.11-0.59) K/uL Eos # (Auto) (0-0.5) K/uL Baso # (Auto) (0-0.2) K/uL Sodium (136-145) mmol/L Potassium (3.5-5.1) mmol/L Chloride (98-107) mmol/L Carbon Dioxide (21-32) mmol/L Anion Gap (3-11) BUN (7-18) mg/dl Creatinine (0.6-1.2) mg/dl Est Cr Clr Drug Dosing ml/min Est GFR ( Amer) Est GFR (Non-Af Amer) BUN/Creatinine Ratio (10-20) Glucose (70-99) mg/dl POC Glucose 172 H 144 H 126 H (70-99) Lactate (0.4-2.0) mmol/L Calcium (8.5-10.1) mg/dl Magnesium (1.8-2.4) mg/dl Medications Administered Current Inpatient Medications Amiodarone HCl (Cordarone) [facility] [place] Stop: 06/07/19 03:29 Last Admin: 05/08/19 04:18 Dose: 200 mg Documented by: Ascorbic Acid (Vitamin C) 2,000 mg PO QAM [facility] Stop: 06/06/19 08:59 Last Admin: 05/07/19 11:09 Dose: 2,000 mg Documented by: Budesonide (Pulmicort Respules) 0.25 mg NEB BIDR [facility] Stop: 06/06/19 18:59 Last Admin: 05/08/19 07:20 Dose: 0.25 mg Documented by: Cetirizine HCl (Zyrtec) 10 mg PO [facility] Stop: 06/06/19 08:59 Last Admin: 05/07/19 11:09 Dose: 10 mg Documented by: Dextrose (Dextrose 50%) 25 - 50 ml IV UD PRN; Protocol PRN Reason: Hypoglycemia Protocol Stop: 06/05/19 21:51 Diltiazem HCl (Cardizem Cd) 180 mg PO [facility] Stop: 06/06/19 08:59 Last Admin: 05/07/19 11:08 Dose: 180 mg Documented by: Doxycycline Hyclate (Vibramycin) 100 mg PO Q12H [facility] Stop: 05/15/19 21:59 Ferrous Sulfate (Feosol) 325 mg PO BIDM [facility] Stop: 06/06/19 07:59 Last Admin: 05/07/19 17:08 Dose: 325 mg Documented by: Gadoxetate Disodium (Eovist) 10 ml IV ONCE PRN PRN Reason: Interaction Checking Stop: 05/11/19 16:19 Last Admin: 05/07/19 16:20 Dose: 10 ml Documented by: Glucagon (Glucagen) 1 mg SQ UD PRN; Protocol PRN Reason: Hypoglycemia Protocol Stop: 06/05/19 21:51 Glucose (Dex4 Glucose) 4 - 8 tabs PO UD PRN; Protocol PRN Reason: Hypoglycemia Protocol Stop: 06/05/19 21:51 Glucose (Glucose 40%) 15 - 30 gm PO UD PRN; Protocol PRN Reason: Hypoglycemia Protocol Stop: 06/05/19 21:51 Promethazine HCl 6.25 mg/ (Sodium Chloride) 50.25 mls @ 201 mls/hr IV Q4 PRN PRN Reason: Nausea And Vomiting Stop: 06/06/19 11:52 Ceftriaxone Sodium 1,000 mg/ (Dextrose) 50 mls @ 100 mls/hr IV Q24H JOSELIN; Protocol Stop: 05/15/19 07:59 Insulin Aspart (Novolog Flexpen) 0 units SC ACHS [facility] Stop: 06/06/19 20:59 Last Admin: 05/07/19 20:37 Dose: Not Given Documented by: Ipratropium Cameron (Atrovent 0.02% 0.5mg/2.5ml) 0.5 mg INH Q4R JOSELIN Stop: 06/06/19 22:59 Last Admin: 05/08/19 07:21 Dose: 0.5 mg Documented by: Ipratropium Cameron (Atrovent 0.02% 0.5mg/2.5ml) 0.5 mg INH Q2R PRN PRN Reason: Shortness Of Breath Or Wheezin Stop: 06/06/19 20:59 Levalbuterol HCl (Xopenex 0.63 Mg/3 Ml Neb) 0.63 mg NEB Q4R JOSELIN Stop: 06/06/19 22:59 Last Admin: 05/08/19 02:20 Dose: 0.63 mg Documented by: Levalbuterol HCl (Xopenex 1.25mg/0.5ml Neb) 1.25 mg INH Q2R PRN PRN Reason: Shortness Of Breath Or Wheezing Stop: 06/06/19 20:59 Last Admin: 05/08/19 07:21 Dose: 1.25 mg Documented by: Metoprolol Succinate (Toprol Xl) 50 mg PO BIDM [facility] Stop: 06/06/19 07:59 Last Admin: 05/07/19 17:07 Dose: 50 mg Documented by: Miconazole Nitrate (Desenex) 1 appln EXT PRN PRN PRN Reason: NURSING DECISION Stop: 06/05/19 20:06 Last Admin: 05/06/19 21:17 Dose: 1 appln Documented by: Miscellaneous (Carbohydrates For Hypoglycemia) 15 - 30 gm PO UD PRN PRN Reason: Hypoglycemia Protocol Stop: 06/05/19 21:51 Miscellaneous Information (Nursing To Pharmacy Communication) 1 ea N/A ONE ONE Stop: 05/08/19 08:19 Pravastatin Sodium (Pravachol) 20 mg PO HS [facility] Stop: 06/05/19 20:59 Last Admin: 05/07/19 20:10 Dose: 20 mg Documented by: Prednisolone Acetate (Pred Forte 1%) 1 drops OPR HS [facility] Stop: 06/05/19 20:59 Last Admin: 05/07/19 20:11 Dose: 1 drops Documented by: Fluticasone/Salmeterol (Advair Diskus 250/50) 1 puffs INH BID JOSEILN Stop: 06/05/19 20:59 Last Admin: 05/07/19 20:10 Dose: 1 puffs Documented by:
[2019-05-08] MEDS: INSULIN ASPART 100 UNITS/ML 3 ML PEN SC SCH ×4 (08:22→20:40)
[2019-05-08] MEDS: DIGOXIN 250 MCG in SYRINGE 9 ML IV STA ×2 (08:27→22:25)
[2019-05-08] MEDS ORDERED: INSULIN ASPART 100 UNITS/ML 3 ML PEN SC ONE (08:30)
[2019-05-08] MEDS: ASCORBIC ACID 500 MG TAB PO SCH (08:33)
[2019-05-08] MEDS: FERROUS SULFATE 325 MG TAB PO SCH ×2 (08:34→17:14)
[2019-05-08] MEDS: cefTRIAXone SODIUM 1,000 MG in DEXTROSE 5% 50 ML IV SCH (08:34)
[2019-05-08] MEDS: dilTIAZem HCL 180 MG CAPCR PO SCH (08:34)
[2019-05-08] MEDS: METOPROLOL SUCC 50MG EXT REL TAB PO SCH ×3 (08:34→18:36)
[2019-05-08] MEDS: CETIRIZINE HCL 10 MG TABLET PO SCH (08:34)
[2019-05-08] MEDS: FLUTICASONE/SALMETEROL 250/50 (ADVAIR) 14 PUFF/1 INHALER INH SCH ×2 (08:35→20:22)
[2019-05-08] MEDS ORDERED: FUROSEMIDE 10 MG in SYRINGE 0 ML IV ONE ×2 (09:00→19:45)
--- NOTE | 2019-05-08 09:31 | Cardiology Progress Note ---
Date of Service May 08, 2019 Assessment & Plan (1) Atrial fibrillation with RVR: Current hospital problem list: 1. Ongoing complex atrial arrhythmias including history of SVT, atrial fibrillation, and atrial flutter, currently in sinus rhythm as of 8:28 AM on 05/08/2019 2. Commute acquired pneumonia 3. Although small bilateral pleural effusions and ascites noted on recent CT,/MRI her creatinine has increased from 1.05 on 06/03/2019 to 1.77 today I will therefore continue to monitor without diuretic therapy. 4. Outpatient echocardiogram performed December, revealed severe left atrial enlargement, moderate aortic valve stenosis, moderate tricuspid regurgitation with moderate pulmonary hypertension 5. Large liver mass, per MRI report, differential diagnosis includes cholangiocarcinoma and hepatocellular carcinoma -Agree with treatment for pneumonia does have a history of past lung disease. Continue current rhythm control strategy with amiodarone, metoprolol, and diltiazem. Patient's Eliquis is on hold pending planned EUS biopsy of hepatic lesion. Given her risk of stroke with recurrent atrial fibrillation, will start heparin bridge for stroke prophylaxis. She has been off of her Eliquis over 24 hours. Subjective Chief complaint: Follow-up paroxysmal supraventricular tachycardia, paroxysmal atrial fibrillation/atrial flutter Subjective: Patient continues to feel poorly. EKG performed in the a.m. of 05/07/2019 confirmed the presence of sinus rhythm at 95 bpm at that time. She reverted however to atrial fibrillation early this morning 05/08/2019 3 AM, received a dose of IV digoxin as well as antibiotics and steroids as recommended by Dr. Holloway, and has spontaneously converted back to sinus rhythm this morning 05/08/2019 at 8:28 AM. Currently sinus rhythm in the mid 70 bpm range is present. She noted mild dyspepsia this morning. Nonproductive cough and wheezing noted this morning. Review of Systems Review of Systems: All systems reviewed & are unremarkable except as noted in HPI & below Physical Exam Physical Exam: Temp Pulse Resp BP Pulse Ox 37.0 C 119 H 24 124/84 97 05/08/19 07:50 05/08/19 07:50 05/08/19 07:50 05/08/19 07:50 05/08/19 07:50 Constitutional: WD/WN, vitals as above Respiratory: Auscultation: + wheezes; no crackles and no rales Cardiovascular: Rate/Rhythm: regular rate Heart Sounds: + murmur (I/ systolic murmur) Vessels: no JVD Extremities: no edema Gastrointestinal (Abdomen): normal bowel sounds, soft, nontender, no hepatosplenomegaly Skin: no rashes, warm and dry Neurologic: PERRL, EOMI, accommodation nl, no face palsy, no dysarthria Results & Data Vital Signs (Past 12 Hours) Vital Signs Temp Pulse Pulse Resp BP BP Pulse Ox 05/08/19 07:50 37.0 C 119 H 24 124/84 97 05/08/19 07:34 109 H 05/08/19 07:22 106 H 18 93 05/08/19 05:52 120 H 05/08/19 05:37 116 H 28 H 97 05/08/19 03:16 36.7 C 87 20 106/60 92 05/08/19 02:20 84 20 94 05/07/19 23:30 37.0 C 79 20 128/86 95 05/07/19 22:18 79 20 95 Laboratory Results CBC 05/08/19 Range/Units 04:18 WBC 12.74 H (4.8-10.8) K/uL RBC 4.13 L (4.2-5.4) M/uL Hgb 12.2 (12.0-16.0) g/dL Hct 38.1 (37-47) % Plt Count 345 (130-400) K/uL Neut # (Auto) 12.31 H (1.4-6.5) K/uL Lymph # (Auto) 0.27 L (1.2-3.4) K/uL Bryan # (Auto) 0.11 (0.11-0.59) K/uL Eos # (Auto) 0.00 (0-0.5) K/uL Baso # (Auto) 0.00 (0-0.2) K/uL Comprehensive Metabolic Panel 05/08/19 05/08/19 Range/Units 04:18 06:21 Sodium 133 L (136-145) mmol/L Potassium 4.9 (3.5-5.1) mmol/L Chloride 101 (98-107) mmol/L Carbon Dioxide 15 L (21-32) mmol/L BUN 27 H D (7-18) mg/dl Creatinine 1.77 H D (0.6-1.2) mg/dl Glucose 218 H (70-99) mg/dl Calcium 8.2 L (8.5-10.1) mg/dl Intake and Output 05/07/19 05/08/19 05/08/19 22:59 06:59 14:59 Intake Total 220 / 540.25 270 / 540.25 110 / 110 Output Total 0 / 0 Balance 220 / 540.25 270 / 540.25 110 / 110 Intake: IV 150 / 200.25 110 / 110 Albumin 25% 50 ml @ 50 mls/hr 50 / 50 IV ONE ONE Rx#:[id number] Vibramycin 100 mg In D5 100 ml 110 / 110 @ 50 mls/hr IV NOW STA Rx#: [id number] MAGNESIUM SULFATE / D5W 1 gm In 100 / 100 100 ml @ 100 mls/hr IV ONE ONE Rx#:[id number] Oral 220 / 340 120 / 340 Output: # Bowel Movements 0 / 0 Other: # Unmeasured Voids 3 Weight 70 kg 70.3 kg Medications Administered Current Inpatient Medications [facility] [place] Stop: 06/07/19 03:29 Last Admin: 05/08/19 04:18 Dose: 200 mg Documented by: Ascorbic Acid (Vitamin C) 2,000 mg PO QAM [facility] Stop: 06/06/19 08:59 Last Admin: 05/08/19 08:33 Dose: 2,000 mg Documented by: Budesonide (Pulmicort Respules) 0.25 mg NEB BIDR [facility] Stop: 06/06/19 18:59 Last Admin: 05/08/19 07:20 Dose: 0.25 mg Documented by: Cetirizine HCl (Zyrtec) 10 mg PO QAM [facility] Stop: 06/06/19 08:59 Last Admin: 05/08/19 08:34 Dose: 10 mg Documented by: Dextrose (Dextrose 50%) 25 - 50 ml IV UD PRN; Protocol PRN Reason: Hypoglycemia Protocol Stop: 06/05/19 21:51 Diltiazem HCl (Cardizem Cd) 180 mg PO QAM [facility] Stop: 06/06/19 08:59 Last Admin: 05/08/19 08:34 Dose: 180 mg Documented by: Doxycycline Hyclate (Vibramycin) 100 mg PO Q12H [facility] Stop: 05/15/19 21:59 Ferrous Sulfate (Feosol) 325 mg PO BIDM [facility] Stop: 06/06/19 07:59 Last Admin: 05/08/19 08:34 Dose: 325 mg Documented by: Gadoxetate Disodium (Eovist) 10 ml IV ONCE PRN PRN Reason: Interaction Checking Stop: 05/11/19 16:19 Last Admin: 05/07/19 16:20 Dose: 10 ml Documented by: Glucagon (Glucagen) 1 mg SQ UD PRN; Protocol PRN Reason: Hypoglycemia Protocol Stop: 06/05/19 21:51 Glucose (Dex4 Glucose) 4 - 8 tabs PO UD PRN; Protocol PRN Reason: Hypoglycemia Protocol Stop: 06/05/19 21:51 Glucose (Glucose 40%) 15 - 30 gm PO UD PRN; Protocol PRN Reason: Hypoglycemia Protocol Stop: 06/05/19 21:51 Heparin Sodium/Dextrose () 1 ea IV Q30M [facility]; Protocol Stop: 05/08/19 16:00 Promethazine HCl 6.25 mg/ (Sodium Chloride) 50.25 mls @ 201 mls/hr IV Q4 PRN PRN Reason: Nausea And Vomiting Stop: 06/06/19 11:52 Ceftriaxone Sodium 1,000 mg/ (Dextrose) 50 mls @ 100 mls/hr IV Q24H [facility]; Protocol Stop: 05/15/19 07:59 Last Admin: 05/08/19 08:34 Dose: 100 mls/hr Documented by: Heparin Sodium/Dextrose (Heparin Sodium/Dextrose) 25,000 units in 500 mls @ 0.02 mls/hr IV .Q24H [facility]; Protocol Stop: 06/07/19 09:29 Insulin Aspart (Novolog Flexpen) 0 units SC ACHS [facility] Stop: 06/06/19 20:59 Last Admin: 05/08/19 08:22 Dose: 9 units Documented by: Ipratropium [place] (Atrovent 0.02% 0.5mg/2.5ml) 0.5 mg INH Q4R [facility] Stop: 06/06/19 22:59 Last Admin: 05/08/19 07:21 Dose: 0.5 mg Documented by: Levalbuterol HCl (Xopenex 0.63 Mg/3 Ml Neb) 0.63 mg NEB Q4R [facility] Stop: 06/06/19 22:59 Last Admin: 05/08/19 02:20 Dose: 0.63 mg Documented by: Metoprolol Succinate (Toprol Xl) 50 mg PO BIDM [facility] Stop: 06/06/19 07:59 Last Admin: 05/08/19 08:34 Dose: 50 mg Documented by: Miconazole Nitrate (Desenex) 1 appln EXT PRN PRN PRN Reason: NURSING DECISION Stop: 06/05/19 20:06 Last Admin: 05/06/19 21:17 Dose: 1 appln Documented by: Miscellaneous (Carbohydrates For Hypoglycemia) 15 - 30 gm PO UD PRN PRN Reason: Hypoglycemia Protocol Stop: 06/05/19 21:51 Pravastatin Sodium (Pravachol) 20 mg PO HS [facility] Stop: 06/05/19 20:59 Last Admin: 05/07/19 20:10 Dose: 20 mg Documented by: Prednisolone Acetate (Pred Forte 1%) 1 drops OPR HS [facility] Stop: 06/05/19 20:59 Last Admin: 05/07/19 20:11 Dose: 1 drops Documented by: Fluticasone/Salmeterol (Advair Diskus 250/50) 1 puffs INH BID [facility] Stop: 06/05/19 20:59 Last Admin: 05/08/19 08:35 Dose: 1 puffs Documented by:
[2019-05-08] MEDS: HEPARIN SODIUM/DEXTROSE 25,000 UNITS/500 ML BAG IV SCH (09:50)
[2019-05-08] MEDS ORDERED: Heparin IV Standard *NO* Bolus IV SCH (10:00)
[2019-05-08] MEDS ORDERED: PHARMACY GLYCEMIC MGMT CONSULT PRN (12:13)
[2019-05-08] MEDS ORDERED: NovoLIN-N (NPH) PER UNIT CHARGE SQ ONE (12:15)
--- NOTE | 2019-05-08 13:02 | Electrocardiogram Report ---
Test Reason : Blood Pressure : / mmHG Vent. Rate : 109 BPM Atrial Rate : 111 BPM P-R Int : 000 ms QRS Dur : 102 ms QT Int : 348 ms P-R-T Axes : 000 091 -58 degrees QTc Int : 468 ms Atrial fibrillation with rapid ventricular response Rightward axis Nonspecific ST and T wave abnormality Abnormal ECG When compared with ECG of 07-MAY-2019 10:46, Atrial fibrillation has replaced Sinus rhythm Nonspecific T wave abnormality, improved in Lateral leads Confirmed by Blayne Crocker ([id number]) on 05/08/2019 1:02:03 PM Referred By: REFERRED SELF Confirmed By:Blayne Crocker
--- NOTE | 2019-05-08 14:08 | Pharmacy Report ---
Glycemic Control Consultation - Date of Service May 08, 2019 - Scope Scope: Glycemic Pharmacist consulted for glycemic control and to write orders per [facility] inpatient glycemic control protocol - Objective Weight: 73.3 kg Accuchecks BSG (last 24hrs): 05/07/19 05/07/19 05/08/19 16:36 20:32 04:18 Glucose 218 H POC Glucose 144 H 172 H 05/08/19 05/08/19 05/08/19 07:58 07:59 11:22 Glucose POC Glucose 486 H* 373 H* 346 H* 05/08/19 11:24 Glucose POC Glucose 317 H* Laboratory Data (last 24hrs): 05/08/19 05/08/19 04:18 06:21 Potassium 4.9 Carbon Dioxide 15 L Anion Gap 17.0 H Creatinine 1.77 H D Est Cr Clr Drug Dosing 19.3 HbA1c: Hemoglobin A1c 6.2 % (4.5-5.6) H 05/07/19 05:17 - Recent Pertinent Medications Outpatient Anti-diabetic Regimen: * Glipizide * Metformin * Actos The patient is currently receiving: * Basal insulin: None * Correctional Insulin: Novolog Correction per scale ACHS Goal Range: Low 140 mg/dL - High 180 mg/dL Correction Factor: 60 mg/dL/unit * Prandial insulin: Per carb ratio of 1 unit per 20 grams CHO consumed * Oral Agents: On hold for admission Risk Factors for Insulin Resistance: * Steroids: One time doses of Solumedrol 30mg , 20mg, & 20mg overnight * Infection * Diet - Assessment & Plan Assessment & Plan: ASSESSMENT: * 83yo T2DM with well controlled diabetes as an outpatient per recent A1c * Pt with acute SEVERE hyperglycemia secondary to one time doses of Solumedrol x 3 overnight. * Current bolus insulin parameters are too conservative for high dose steroids--> will tighten accordingly. * NPH insulin is used to counteract the hyperglycemic effect one time sterids. The rationale for this approach is that the pharmacodynamics profile of NPH, with a peak effect of 4-8hrs and duration of action of 12-16hrs, mirrors the pharmacodynamics of one time steroids. NPH should be dosed at the same time that steroid is given. Will give BERNARDINO and lower dose slightly since steroids were given overnight. * The dose of NPH given is dependent on the steroid dose given * Based on a total of 80mg Solumedrol given this equates to ~ 100mg of PO prednisone. For doses of prednisone 40mg/day or above NPH dose should be 0.4 units/kg. Since we are dosing significantly after the fact will reduce dose to 0.3 units/kg instead of 0.4 units/kg. PLAN FOR INPATIENT GLYCEMIC CONTROL: * Holding outpatient oral diabetes medications * Basal insulin * May not be needed based on A1c - NPH will serve as steroid and basal insulin today. Will re-evaluate tomorrow. * Steroid induced hyperglycemia * NPH 20 units (0.3 units/kg) SQ x 1 * Bolus insulin: lower goal range and tighten CF/CR * NovoLog per scale ACHS or Q6hrs while NPO * Goal Range: Low 120 mg/dL - High 150 mg/dL * Correction Factor: 30 mg/dL/unit * Nutritional / Prandial insulin per carb ratio of 1 unit per 10 grams CHO consumed * Please note that the plan above was derived based on current level of insulin resistance and hospital stress. These recommendations are appropriate for inpatient admission only. Plan of care upon discharge will need to be reassessed to avoid potential outpatient hypo/hyperglycemia. Thank you.
[2019-05-08 16:16] LABS: Partial Thromboplastin Ratio 1.5; Partial Thromboplastin Time 41.6 Seconds (21.0-31.0)
[2019-05-08 16:48] LABS: BUN Creatinine Ratio 14.2 (10-20); Calcium 7.9 mg/dl (8.5-10.1); Creatinine Clr Calc Pharmacy 15.1 ml/min; Potassium 4.4 mmol/L (3.5-5.1)
[2019-05-08] MEDS ORDERED: HEPARIN IV BOLUS 2,000 UNITS in SYRINGE 0 ML IV ONE (17:30)
[2019-05-08] MEDS ORDERED: HEPARIN IV BOLUS 2,000 UNITS in SYRINGE 0 ML IV STA (17:31)
[2019-05-08] MEDS: PRAVASTATIN SOD 20 MG TAB PO SCH (20:22)
[2019-05-08] MEDS: prednisoLONE acetate 1% OP SUSP 5 ML BTL OPR SCH (20:23)
[2019-05-08] MEDS: guaiFENesin 600 MG TABCR PO SCH (22:25)
[2019-05-08] MEDS: DOXYCYCLINE HYCLATE 100 MG CAP PO SCH (22:25)
[2019-05-08 23:32] LABS: Appearance Urine Cloudy (Clear); Bilirubin Urine Negative (Negative); Blood Urine 3+ (Negative); Color Urine Yellow; Epithelial Cell Urine Auto >30 /lpf (0-5); Glucose Urine UA 1+ (Negative); Ketones Urine Negative (Negative); Leukocyte Esterase Urine Negative (Negative); Nitrite Urine Negative (Negative); Protein Urine Trace (Negative); Specific Gravity Urine 1.013 (1.000-1.030); Urobilinogen Urine Negative (Negative)
[2019-05-08 23:43] LABS: Partial Thromboplastin Ratio 2.5
[2019-05-08 23:52] LABS: Partial Thromboplastin Time 66.4 Seconds (21.0-31.0)
[2019-05-09 00:06] LABS: Bacteria Urine Automated 1+ (Negative)
[2019-05-09 00:07] LABS: Calcium Oxalate Crystals Urine Present (None Prsent)
[2019-05-09 00:08] LABS: Amorphous Sediment Urine Present (None Prsent)
[2019-05-09 00:14] LABS: Mucus Urine Present (None Prsent)
[2019-05-09 00:56] LABS: Basophils # (auto) 0.01 K/uL (0-0.2); Basophils % (auto) 0.1 %; Hematocrit (blood only) 35.8 % (37-47); Hemoglobin 12.1 g/dL (12.0-16.0); Immature Granulocytes # (auto) 0.07 K/uL (0.00-0.02); Immature Granulocytes % (auto) 0.4 %; Lymphocytes # (auto) 1.04 K/uL (1.2-3.4); Lymphocytes % (auto) 6.2 %; Mean Corpuscular Hemoglobin 30.6 pg (25-34); Mean Corpuscular Hgb Conc 33.8 g/dL (32-36); Mean Corpuscular Volume 90.6 fL (80-100); Mean Platelet Volume 9.1 fL (7.4-10.4); Monocytes # (auto) 0.78 K/uL (0.11-0.59); Monocytes % (auto) 4.6 %; Neutrophils # (auto) 14.96 K/uL (1.4-6.5); Neutrophils % (auto) 88.7 %; Platelet Count 351 K/uL (130-400); RDW Coefficient of Variation 16.8 % (11.5-14.5); RDW Standard Deviation 55.9 fL (36.4-46.3); Red Blood Count 3.95 M/uL (4.2-5.4); White Blood Count 16.86 K/uL (4.8-10.8)
[2019-05-09 01:26] LABS: BUN Creatinine Ratio 14.2 (10-20); Calcium 7.8 mg/dl (8.5-10.1); Creatinine Clr Calc Pharmacy 14.3 ml/min; Est GFR (African American) 20.7; Est GFR (Non-African American) 17.8; Magnesium 2.3 mg/dl (1.8-2.4); Potassium 4.3 mmol/L (3.5-5.1)
[2019-05-09] MEDS ORDERED: ALBUMIN 25% 50 ML with FUROSEMIDE 80 MG IV ONE (02:00)
[2019-05-09] MEDS: LEVALBUTEROL HCL 0.63 MG/3 ML NEB NEB SCH ×6 (02:33→22:19)
[2019-05-09] MEDS: IPRATROPIUM BROMIDE NEB SOLN 0.02% 2.5 ML VIAL INH SCH ×6 (02:33→22:19)
[2019-05-09] MEDS: AMIODARONE 200 MG TAB PO SCH (06:27)
--- NOTE | 2019-05-09 06:42 | Hospitalist Progress Note ---
Date of Service May 09, 2019 Assessment & Plan (1) Asthma: Shortness of breath community-acquired pneumonia/complicated bronchitis Fluid overload -Patient has history of asthma, and felt that "her asthma is acting up"/poss. exacerbation - received a small dose IV steroid for poss. asthma exacerbation yesterday (05/07) -This morning however, more short of breath, concern for CAP/complicated bronchitis, she also may have more fluid overload from MARIA T -Was started on ceftriaxone and doxycycline by the night physician, will continue - wheezing on my physical exam -Says that she has cough, however denies sputum production, only occasional clear sputum - Continue advair - cont. duoneb treament - cont. budesonie, solumedrol - For fluid status, and current MARIA T, careful with Lasix, discussed with n ephrology, can give 10mg IV as needed MARIA T -Likely IV contrast-induced nephropathy -Patient initially presented with creatinine 1.0, creatinine 1.77 yesterday a.m., and on recheck in the afternoon 2.3 -Nephrology consulted, will continue to closely monitor BMP, will try to avoid any nephrotoxic agents - current Cr 2.44 - receivd 80 mg IV lasix w/ albumin at night d/t dyspnea- fluid overload (2) Afib: -Patient was in A. fib with RVR earlier yesterday morning (05/08) then converted back to NSR - now back in Afib/flutter - hold Eliquis for upcoming procedure, start IV heparin - Continue Metoprolol 50mg BID with parameters and amiodarone, cardizem - Cardiology consulted, no change in medication indicated at this time - Will monitor closely on tele (3) Tachycardia: Present on admission with HR 140's EKG showed SVT on admission Received Lopressor 5 mg IV x1 in the ER, then HR dropped in the 50's Possible tachybrady syndrome or might be related to dehydration due to poor oral intake and low mg level Cardiology consulted, no change in medication indicated at this time Will continue metoprolol 50mg BID with parameters, amiodarone and cardizem ECHO done on 12/21 The LV wall thickness is mildly increased (concentric). The left ventricular wall motion is normal. The qualitative LV ejection fraction is 55-59% (normal). The left atrium is severely enlarged. The right atrium is moderately enlarged. The aortic valve is moderately calcified. Moderate aortic valve stenosis is present. Mild aortic valve regurgitation is present. Mild mitral regurgitation is present. Moderate tricuspid regurgitation is present. Moderate pulmonary hypertension is present. (4) Hypomagnesemia: Possible related to poor intake Mg on admission 1.4 Mg replaced Monitor Electrolytes (5) Liver mass: - concern for HCC vs. cholangiocarcinoma vs mets CT abd/pelvis showed 9.5 cm dominant mass within the left hepatic lobe Imaging discussed with family and patient Will check AFP GI consulted - recommend MRI for further eval and poss. EUS w/ biopsy when her card/resp. status improved (for this need to hold Eliquis for 5 days) (6) DM2 (diabetes mellitus, type 2): HbA1c 6.2% (05/07/2019) Now hyperglycemia secondary to steroid use -Pharmacy consulted for hyperglycemia management -Will hold oral diabetes med - novolog sliding scale Continue monitor BS DVT px- SCDs, hold eliquis Code Status DNR Subjective Overnight required 6L/min of suppl. O2, was given 80 mg IV lasix and 25% albumin by the night provider. Cr 2.44 back in Afib/Aflutter Review of Systems Review of Systems: All systems reviewed & are unremarkable except as noted in HPI & below Constitutional: no fever and no chills Respiratory: + cough, + dyspnea and + wheezing Cardiovascular: no chest pain, no palpitations and no edema Gastrointestinal: no abdominal pain, no nausea and no vomiting Physical Exam Physical Exam: General-elderly female, lying in bed, in mild distress, on supplemental oxygen Head-normocephalic, atraumatic Eyes- PERRL, EOMI of L eye (keeps right eye closed) ENT- oropharynx clear Neck- supple, no JVD Resp: Lungs- + diffuse wheezing, on suppl. O2, seems in mild respiratory distress, however continues to speak in full sentences Heart- regular, II/ syst. murm. (converted to NSR this AM) Abdomen- normal bowel sounds, soft, nontender, obese, nondistended Extremities- no calf tenderness, no LE edema, moves all 4 extremities spontaneously Neuro- alert, oriented x 3; PERRL, EOMI (L eye); no facial palsy; no dysarthria, moves all 4 extremities spontaneously Skin- warm & dry Results & Data Vital Signs (Past 12 Hours) Vital Signs Temp Pulse Resp BP BP Pulse Ox 05/09/19 02:56 36.5 C 94 H 22 124/61 91 05/09/19 02:33 103 H 24 93 05/08/19 23:48 36.9 C 85 21 152/86 H 92 05/08/19 22:08 90 20 93 05/08/19 20:18 91 05/08/19 20:07 97 H 20 121/76 84 L 05/08/19 19:17 90 18 93 Laboratory Results 05/09/19 05/09/19 05/09/19 Range/Units 07:41 06:40 00:44 WBC (4.8-10.8) K/uL RBC (4.2-5.4) M/uL Hgb (12.0-16.0) g/dL Hct (37-47) % MCV (80-100) fL MCH (25-34) pg MCHC (32-36) g/dL RDW Std Deviation (36.4-46.3) fL RDW Coeff of Cameron (11.5-14.5) % Plt Count (130-400) K/uL MPV (7.4-10.4) fL Immature Gran % (Auto) % Neut % (Auto) % Lymph % (Auto) % Newton % (Auto) % Eos % (Auto) % Baso % (Auto) % Immature Gran # (Auto) (0.00-0.02) K/uL Neut # (Auto) (1.4-6.5) K/uL Lymph # (Auto) (1.2-3.4) K/uL Newton # (Auto) (0.11-0.59) K/uL Eos # (Auto) (0-0.5) K/uL Baso # (Auto) (0-0.2) K/uL APTT 55.5 H* (21.0-31.0) Seconds PTT Ratio 2.0 Sodium (136-145) mmol/L Potassium (3.5-5.1) mmol/L Chloride (98-107) mmol/L Carbon Dioxide (21-32) mmol/L Anion Gap (3-11) BUN (7-18) mg/dl Creatinine (0.6-1.2) mg/dl Est Cr Clr Drug Dosing ml/min Est GFR ( Amer) Est GFR (Non-Af Amer) BUN/Creatinine Ratio (10-20) Glucose (70-99) mg/dl POC Glucose 230 H (70-99) Osmolality 279 L (280-300) mOsm/kg Calcium (8.5-10.1) mg/dl Magnesium (1.8-2.4) mg/dl Urine Color Urine Appearance (Clear) Urine pH (4.5-7.5) Ur Specific [place] (1.000-1.030) Urine Protein (Negative) Urine Glucose (UA) (Negative) Urine Ketones (Negative) Urine Blood (Negative) Urine Nitrite (Negative) Urine Bilirubin (Negative) Urine Urobilinogen (Negative) Ur Leukocyte Esterase (Negative) Urine WBC (Auto) (0-5) /hpf Urine RBC (Auto) (0-4) /hpf U Hyaline Cast (Auto) (0-5) /lpf U Epithel Cells (Auto) (0-5) /lpf Urine Bacteria (Auto) (Negative) Ur Renal Epithelial Cell Calcium Oxalate Crystal (None Prsent) Amorphous Sediment (None Prsent) Urine Mucus (None Prsent) Urine Yeast 05/09/19 05/09/19 05/08/19 Range/Units 00:44 00:44 22:58 WBC 16.86 H (4.8-10.8) K/uL RBC 3.95 L (4.2-5.4) M/uL Hgb 12.1 (12.0-16.0) g/dL Hct 35.8 L (37-47) % MCV 90.6 (80-100) fL MCH 30.6 (25-34) pg MCHC 33.8 (32-36) g/dL RDW Std Deviation 55.9 H (36.4-46.3) fL RDW Coeff of Cameron 16.8 H (11.5-14.5) % Plt Count 351 (130-400) K/uL MPV 9.1 (7.4-10.4) fL Immature Gran % (Auto) 0.4 % Neut % (Auto) 88.7 % Lymph % (Auto) 6.2 % Newton % (Auto) 4.6 % Eos % (Auto) 0.0 % Baso % (Auto) 0.1 % Immature Gran # (Auto) 0.07 H (0.00-0.02) K/uL Neut # (Auto) 14.96 H (1.4-6.5) K/uL Lymph # (Auto) 1.04 L (1.2-3.4) K/uL Newton # (Auto) 0.78 H (0.11-0.59) K/uL Eos # (Auto) 0.00 (0-0.5) K/uL Baso # (Auto) 0.01 (0-0.2) K/uL APTT 66.4 H* (21.0-31.0) Seconds PTT Ratio 2.5 Sodium 127 L (136-145) mmol/L Potassium 4.3 (3.5-5.1) mmol/L Chloride 98 (98-107) mmol/L Carbon Dioxide 18 L (21-32) mmol/L Anion Gap 11.0 (3-11) BUN 35 H (7-18) mg/dl Creatinine 2.44 H (0.6-1.2) mg/dl Est Cr Clr Drug Dosing 14.3 ml/min Est GFR ( Amer) 20.7 Est GFR (Non-Af Amer) 17.8 BUN/Creatinine Ratio 14.2 (10-20) Glucose 168 H (70-99) mg/dl POC Glucose (70-99) Osmolality (280-300) mOsm/kg Calcium 7.8 L (8.5-10.1) mg/dl Magnesium 2.3 (1.8-2.4) mg/dl Urine Color Urine Appearance (Clear) Urine pH (4.5-7.5) Ur Specific [place] (1.000-1.030) Urine Protein (Negative) Urine Glucose (UA) (Negative) Urine Ketones (Negative) Urine Blood (Negative) Urine Nitrite (Negative) Urine Bilirubin (Negative) Urine Urobilinogen (Negative) Ur Leukocyte Esterase (Negative) Urine WBC (Auto) (0-5) /hpf Urine RBC (Auto) (0-4) /hpf U Hyaline Cast (Auto) (0-5) /lpf U Epithel Cells (Auto) (0-5) /lpf Urine Bacteria (Auto) (Negative) Ur Renal Epithelial Cell Calcium Oxalate Crystal (None Prsent) Amorphous Sediment (None Prsent) Urine Mucus (None Prsent) Urine Yeast 05/08/19 05/08/19 05/08/19 Range/Units 22:50 20:05 16:21 WBC (4.8-10.8) K/uL RBC (4.2-5.4) M/uL Hgb (12.0-16.0) g/dL Hct (37-47) % MCV (80-100) fL MCH (25-34) pg MCHC (32-36) g/dL RDW Std Deviation (36.4-46.3) fL RDW Coeff of Cameron (11.5-14.5) % Plt Count (130-400) K/uL MPV (7.4-10.4) fL Immature Gran % (Auto) % Neut % (Auto) % Lymph % (Auto) % Newton % (Auto) % Eos % (Auto) % Baso % (Auto) % Immature Gran # (Auto) (0.00-0.02) K/uL Neut # (Auto) (1.4-6.5) K/uL Lymph # (Auto) (1.2-3.4) K/uL Newton # (Auto) (0.11-0.59) K/uL Eos # (Auto) (0-0.5) K/uL Baso # (Auto) (0-0.2) K/uL APTT (21.0-31.0) Seconds PTT Ratio Sodium (136-145) mmol/L Potassium (3.5-5.1) mmol/L Chloride (98-107) mmol/L Carbon Dioxide (21-32) mmol/L Anion Gap (3-11) BUN (7-18) mg/dl Creatinine (0.6-1.2) mg/dl Est Cr Clr Drug Dosing ml/min Est GFR ( Amer) Est GFR (Non-Af Amer) BUN/Creatinine Ratio (10-20) Glucose (70-99) mg/dl POC Glucose 356 H* 287 H (70-99) Osmolality (280-300) mOsm/kg Calcium (8.5-10.1) mg/dl Magnesium (1.8-2.4) mg/dl Urine Color Yellow Urine Appearance Cloudy A (Clear) Urine pH 5.0 (4.5-7.5) Ur Specific [place] 1.013 (1.000-1.030) Urine Protein Trace H (Negative) Urine Glucose (UA) 1+ H (Negative) Urine Ketones Negative (Negative) Urine Blood 3+ H (Negative) Urine Nitrite Negative (Negative) Urine Bilirubin Negative (Negative) Urine Urobilinogen Negative (Negative) Ur Leukocyte Esterase Negative (Negative) Urine WBC (Auto) 1-5 (0-5) /hpf Urine RBC (Auto) 10-30 H (0-4) /hpf U Hyaline Cast (Auto) 1-5 (0-5) /lpf U Epithel Cells (Auto) >30 H (0-5) /lpf Urine Bacteria (Auto) 1+ H (Negative) Ur Renal Epithelial Cell Not Reportable Calcium Oxalate Crystal Present A (None Prsent) Amorphous Sediment Present A (None Prsent) Urine Mucus Present A (None Prsent) Urine Yeast Not Reportable 05/08/19 05/08/19 05/08/19 Range/Units 16:15 15:52 11:24 WBC (4.8-10.8) K/uL RBC (4.2-5.4) M/uL Hgb (12.0-16.0) g/dL Hct (37-47) % MCV (80-100) fL MCH (25-34) pg MCHC (32-36) g/dL RDW Std Deviation (36.4-46.3) fL RDW Coeff of Cameron (11.5-14.5) % Plt Count (130-400) K/uL MPV (7.4-10.4) fL Immature Gran % (Auto) % Neut % (Auto) % Lymph % (Auto) % Newton % (Auto) % Eos % (Auto) % Baso % (Auto) % Immature Gran # (Auto) (0.00-0.02) K/uL Neut # (Auto) (1.4-6.5) K/uL Lymph # (Auto) (1.2-3.4) K/uL Newton # (Auto) (0.11-0.59) K/uL Eos # (Auto) (0-0.5) K/uL Baso # (Auto) (0-0.2) K/uL APTT 41.6 H (21.0-31.0) Seconds PTT Ratio 1.5 Sodium 128 L (136-145) mmol/L Potassium 4.4 (3.5-5.1) mmol/L Chloride 99 (98-107) mmol/L Carbon Dioxide 18 L (21-32) mmol/L Anion Gap 11.0 (3-11) BUN 33 H (7-18) mg/dl Creatinine 2.32 H D (0.6-1.2) mg/dl Est Cr Clr Drug Dosing 15.1 ml/min Est GFR ( Amer) 22.0 Est GFR (Non-Af Amer) 19.0 BUN/Creatinine Ratio 14.2 (10-20) Glucose 265 H (70-99) mg/dl POC Glucose 317 H* (70-99) Osmolality (280-300) mOsm/kg Calcium 7.9 L (8.5-10.1) mg/dl Magnesium (1.8-2.4) mg/dl Urine Color Urine Appearance (Clear) Urine pH (4.5-7.5) Ur Specific [place] (1.000-1.030) Urine Protein (Negative) Urine Glucose (UA) (Negative) Urine Ketones (Negative) Urine Blood (Negative) Urine Nitrite (Negative) Urine Bilirubin (Negative) Urine Urobilinogen (Negative) Ur Leukocyte Esterase (Negative) Urine WBC (Auto) (0-5) /hpf Urine RBC (Auto) (0-4) /hpf U Hyaline Cast (Auto) (0-5) /lpf U Epithel Cells (Auto) (0-5) /lpf Urine Bacteria (Auto) (Negative) Ur Renal Epithelial Cell Calcium Oxalate Crystal (None Prsent) Amorphous Sediment (None Prsent) Urine Mucus (None Prsent) Urine Yeast 05/08/19 Range/Units 11:22 WBC (4.8-10.8) K/uL RBC (4.2-5.4) M/uL Hgb (12.0-16.0) g/dL Hct (37-47) % MCV (80-100) fL MCH (25-34) pg MCHC (32-36) g/dL RDW Std Deviation (36.4-46.3) fL RDW Coeff of Cameron (11.5-14.5) % Plt Count (130-400) K/uL MPV (7.4-10.4) fL Immature Gran % (Auto) % Neut % (Auto) % Lymph % (Auto) % [place] % (Auto) % Eos % (Auto) % Baso % (Auto) % Immature Gran # (Auto) (0.00-0.02) K/uL Neut # (Auto) (1.4-6.5) K/uL Lymph # (Auto) (1.2-3.4) K/uL [place] # (Auto) (0.11-0.59) K/uL Eos # (Auto) (0-0.5) K/uL Baso # (Auto) (0-0.2) K/uL APTT (21.0-31.0) Seconds PTT Ratio Sodium (136-145) mmol/L Potassium (3.5-5.1) mmol/L Chloride (98-107) mmol/L Carbon Dioxide (21-32) mmol/L Anion Gap (3-11) BUN (7-18) mg/dl Creatinine (0.6-1.2) mg/dl Est Cr Clr Drug Dosing ml/min Est GFR ( Amer) Est GFR (Non-Af Amer) BUN/Creatinine Ratio (10-20) Glucose (70-99) mg/dl POC Glucose 346 H* (70-99) Osmolality (280-300) mOsm/kg Calcium (8.5-10.1) mg/dl Magnesium (1.8-2.4) mg/dl Urine Color Urine Appearance (Clear) Urine pH (4.5-7.5) Ur Specific [place] (1.000-1.030) Urine Protein (Negative) Urine Glucose (UA) (Negative) Urine Ketones (Negative) Urine Blood (Negative) Urine Nitrite (Negative) Urine Bilirubin (Negative) Urine Urobilinogen (Negative) Ur Leukocyte Esterase (Negative) Urine WBC (Auto) (0-5) /hpf Urine RBC (Auto) (0-4) /hpf U Hyaline Cast (Auto) (0-5) /lpf U Epithel Cells (Auto) (0-5) /lpf Urine Bacteria (Auto) (Negative) Ur Renal Epithelial Cell Calcium Oxalate Crystal (None Prsent) Amorphous Sediment (None Prsent) Urine Mucus (None Prsent) Urine Yeast Medications Administered Current Inpatient Medications Amiodarone HCl (Cordarone) [address] [facility] Stop: 06/08/19 05:44 Last Admin: 05/09/19 06:27 Dose: 200 mg Documented by: Ascorbic Acid (Vitamin C) [facility] Stop: 06/06/19 08:59 Last Admin: 05/08/19 08:33 Dose: 2,000 mg Documented by: Budesonide (Pulmicort Respules) 0.25 mg NEB BIDR [facility] Stop: 06/06/19 18:59 Last Admin: 05/08/19 19:12 Dose: 0.25 mg Documented by: Cetirizine HCl (Zyrtec) 10 mg PO QAM [facility] Stop: 06/06/19 08:59 Last Admin: 05/08/19 08:34 Dose: 10 mg Documented by: Dextrose (Dextrose 50%) 25 - 50 ml IV UD PRN; Protocol PRN Reason: Hypoglycemia Protocol Stop: 06/05/19 21:51 Diltiazem HCl (Cardizem Cd) [facility] Stop: 06/06/19 08:59 Last Admin: 05/08/19 08:34 Dose: 180 mg Documented by: Doxycycline Hyclate (Vibramycin) 100 mg PO Q12H [facility] Stop: 05/15/19 21:59 Last Admin: 05/08/19 22:25 Dose: 100 mg Documented by: Ferrous Sulfate (Feosol) 325 mg PO BIDM [facility] Stop: 06/06/19 07:59 Last Admin: 05/08/19 17:14 Dose: 325 mg Documented by: Gadoxetate Disodium (Eovist) 10 ml IV ONCE PRN PRN Reason: Interaction Checking Stop: 05/11/19 16:19 Last Admin: 05/07/19 16:20 Dose: 10 ml Documented by: Glucagon (Glucagen) 1 mg SQ UD PRN; Protocol PRN Reason: Hypoglycemia Protocol Stop: 06/05/19 21:51 Glucose (Dex4 Glucose) 4 - 8 tabs PO UD PRN; Protocol PRN Reason: Hypoglycemia Protocol Stop: 06/05/19 21:51 Glucose (Glucose 40%) 15 - 30 gm PO UD PRN; Protocol PRN Reason: Hypoglycemia Protocol Stop: 06/05/19 21:51 Guaifenesin (Mucinex) 600 mg PO Q12 [facility] Stop: 06/07/19 20:59 Last Admin: 05/08/19 22:25 Dose: 600 mg Documented by: Promethazine HCl 6.25 mg/ (Sodium Chloride) 50.25 mls @ 201 mls/hr IV Q4 PRN PRN Reason: Nausea And Vomiting Stop: 06/06/19 11:52 Ceftriaxone Sodium 1,000 mg/ (Dextrose) 50 mls @ 100 mls/hr IV Q24H [facility]; Protocol Stop: 05/15/19 07:59 Last Infusion: 05/08/19 09:46 Dose: Infused Documented by: Heparin Sodium/Dextrose (Heparin Sodium/Dextrose) 25,000 units in 500 mls @ 22 mls/hr IV .[id number] [facility]; Protocol Stop: 06/07/19 09:29 Last Titration: 05/09/19 00:01 Dose: 1,100 units/hr, 22 mls/hr Documented by: Insulin Aspart (Novolog Flexpen) 0 units SC ACHS [facility] Stop: 06/06/19 20:59 Last Admin: 05/08/19 20:40 Dose: 7 units Documented by: Ipratropium Jackson (Atrovent 0.02% 0.5mg/2.5ml) 0.5 mg INH Q4R [facility] Stop: 06/06/19 22:59 Last Admin: 05/09/19 02:33 Dose: 0.5 mg Documented by: Levalbuterol HCl (Xopenex 0.63 Mg/3 Ml Neb) 0.63 mg NEB Q4R [facility] Stop: 06/06/19 22:59 Last Admin: 05/09/19 02:33 Dose: 0.63 mg Documented by: Metoprolol Succinate (Toprol Xl) 50 mg PO BIDM [facility] Stop: 06/06/19 07:59 Last Admin: 05/08/19 18:36 Dose: Not Given Documented by: Miconazole Nitrate (Desenex) 1 appln EXT PRN PRN PRN Reason: NURSING DECISION Stop: 06/05/19 20:06 Last Admin: 05/06/19 21:17 Dose: 1 appln Documented by: Miscellaneous (Carbohydrates For Hypoglycemia) 15 - 30 gm PO UD PRN PRN Reason: Hypoglycemia Protocol Stop: 06/05/19 21:51 Miscellaneous Information (Consult Glycemic Management Pharmacy) 1 ea N/A UD PRN PRN Reason: Consult Stop: 06/07/19 12:12 Pravastatin Sodium (Pravachol) 20 mg PO HS [facility] Stop: 06/05/19 20:59 Last Admin: 01/04/20 20:22 Dose: 20 mg Documented by: Prednisolone Acetate (Pred Forte 1%) 1 drops [facility] HS JOSELIN Stop: 06/05/19 20:59 Last Admin: 05/08/19 20:23 Dose: 1 drops Documented by: Fluticasone/Salmeterol (Advair Diskus 250/50) 1 puffs INH BID JOSELIN Stop: 06/05/19 20:59 Last Admin: 05/08/19 20:22 Dose: 1 puffs Documented by:
[2019-05-09] MEDS: BUDESONIDE 0.25 MG/2 ML VIAL (PULMICORT) NEB SCH ×2 (06:52→18:43)
[2019-05-09] MEDS: HEPARIN SODIUM/DEXTROSE 25,000 UNITS/500 ML BAG IV SCH (07:06)
[2019-05-09 07:32] LABS: Partial Thromboplastin Time 55.5 Seconds (21.0-31.0)
[2019-05-09] MEDS: CETIRIZINE HCL 10 MG TABLET PO SCH (08:00)
[2019-05-09] MEDS: ASCORBIC ACID 500 MG TAB PO SCH (08:00)
[2019-05-09] MEDS: guaiFENesin 600 MG TABCR PO SCH ×2 (08:00→20:32)
[2019-05-09] MEDS: dilTIAZem HCL 180 MG CAPCR PO SCH (08:00)
[2019-05-09] MEDS: cefTRIAXone SODIUM 1,000 MG in DEXTROSE 5% 50 ML IV SCH (08:00)
[2019-05-09] MEDS: FERROUS SULFATE 325 MG TAB PO SCH ×2 (08:00→17:01)
[2019-05-09] MEDS: INSULIN ASPART 100 UNITS/ML 3 ML PEN SC SCH ×4 (08:01→20:32)
[2019-05-09] MEDS: METOPROLOL SUCC 50MG EXT REL TAB PO SCH ×2 (08:02→17:00)
--- NOTE | 2019-05-09 08:08 | XRay Report ---
XR chest 1V portable CLINICAL HISTORY: low o2 COMPARISON STUDY: Chest CT May 06, 2019. Chest radiograph May 08, 2019. FINDINGS: Cardiomegaly is noted. There are small bilateral pleural effusions with bibasilar opacities . Mild pulmonary edema persists. There is no pneumothorax. The patient is rotated. IMPRESSION: 1. Suspected small bilateral pleural effusions with bibasilar opacities. 2. Mild pulmonary edema, similar to prior exam. ACT 112: Negative or not required by law. Electronically signed by: Bairon Deluna M.D. 05/09/2019 8:07 AM
[2019-05-09] MEDS: FLUTICASONE/SALMETEROL 250/50 (ADVAIR) 14 PUFF/1 INHALER INH SCH ×2 (08:38→20:32)
[2019-05-09] MEDS: DOXYCYCLINE HYCLATE 100 MG CAP PO SCH ×2 (08:39→20:32)
[2019-05-09] MEDS ORDERED: NovoLIN-N (NPH) PER UNIT CHARGE SQ ONE ×2 (08:45→09:00)
--- NOTE | 2019-05-09 08:47 | Pharmacy Report ---
Pharmacy Glycemic Short Note 2 - Date of Service May 09, 2019 - Glycemic Short BSG Results (Last 24 hours): 05/08/19 05/08/19 05/08/19 11:22 11:24 16:15 Glucose 265 H POC Glucose 346 H* 317 H* 05/08/19 05/08/19 05/09/19 16:21 20:05 00:44 Glucose 168 H POC Glucose 287 H 356 H* 05/09/19 07:41 Glucose POC Glucose 230 H OUTPATIENT ANTIDIABETIC REGIMEN: * Glipizide * Metformin * Actos ASSESSMENT: * 83yo T2DM with well controlled diabetes as an outpatient per recent A1c * 05/08/19: Pt with acute SEVERE hyperglycemia secondary to one time doses of Solumedrol x 3 overnight. Bolus insulin parameters were tightened accordingly. NPH 20 units (0.3 units/kg) SQ x 1 dose for steroid induced hyperglycemia from Solumedrol overnight. See note from 05/08/19 for more info. * 05/06/19: Pt still with sustained hyperglycemia despite last dose of Solumedrol 20mg on 05/08/19 @ ~05:30. Typically, hyperglycemic effects of solumedrol dissipate in 12-18 hrs. Will continue tightened NovoLog parameters from yesterday and give one more dose of NPH this morning- conservative dosing secondary to nausea this AM and no further steroid dosing today. Prefer NPH today based on its 12-18 hr duration of action. Based on pt A1c she most likely does not need 24hr basal insulin coverage (unless ordered RTC steroids). PLAN FOR INPATIENT GLYCEMIC CONTROL: * Holding outpatient oral diabetes medications * Basal insulin * May not be needed based on A1c - NPH will serve as steroid and basal insulin today. Will re-evaluate tomorrow. * Steroid induced hyperglycemia * NPH 15 units (0.2 units/kg) SQ x 1 * Bolus insulin: no change * NovoLog per scale ACHS or Q6hrs while NPO * Goal Range: Low 120 mg/dL - High 150 mg/dL * Correction Factor: 30 mg/dL/unit * Nutritional / Prandial insulin per carb ratio of 1 unit per 10 grams CHO consumed
--- NOTE | 2019-05-09 12:05 | Nephrology Consultation ---
Date of Consultation May 09, 2019 Assessment & Plan (1) Acute renal failure: her baseline creatinine on review of OP labs is 0.6-0.7 in EPIC. on presentation on 05/06 she was 0.8; then dramatic increase from 05/07 w/ creat 1.1 in am to 05/08 w/ creat 1.8; on 05/09, 2.4. nonoliguric MARIA T likely multifactorial from ischemic ATN from hemodynamic changes related to heart rhythms and pneumonia as well as contrast induced nephropathy -no glaring issues w/ anemia or chemistries >> low mag from admission resolved; mild-moderate but relatively stable hyponatremia -no indication for IV fluids -use diuretics prn only for now -- she certainly has mild volume overload but would use diuretic only if worsening respiratory status --had diuretic ON prn -daily bmp -no indication for urgent dialysis; will follow closely for need Present on Admission?: No (2) Chronic hyponatremia: present as outpatient as well, though intermittently. chronic hyponatremia is defined as present > 48 hrs. she has ranged 127-133. her serum osms are 278, so minimally hypotonic. hypervolemic from heart rhythm +/- liver issues. -daily bmp -diuretics as above Present on Admission?: Yes (3) Tachycardia: on dilt and amiodarone po, f/u cardiology recs; HR less labile than at admission Present on Admission?: Yes (4) Liver mass: GI following Present on Admission?: Yes History of Present Illness Reason for Consultation: MARIA T Requesting Physician: Dr Redman Attending Physician: Adelfo Redman MD History of Present Illness 83 y/o F whom I'm asked to see for MARIA T after her creatinine went from 0.8 at 05/06 admission to 1.8 48 hrs later; her creatinine this am is 2.4. She was admitted 05/06 for management of symptomatic tachycardia w/ presenting HR as high as 140s in ER and found to have community acquired PNA in the setting of ongoing complex atrial arrhythmias. Also incidentally noted on admission to have 9.5 cm liver mass concerning for malignancy w/ EUS planned once eliquis is washed out x 5 da ys. she did have IV contrast for abdominal CT to evaluate liver on 05/06. On admisison, IV lopressor quickly dropped her HR to the 50s where she stayed for several hours. her SBP on presentation ranged from 80-90s to 110s through most of the day; since then in 120-140s. HR has been 50s- 110s, a bit less labile past 24 hrs. states she is sob but no more than has been since arrival and that wheezing better. c/o dysphagia to solids (new since hospitalization) and sore throat Allergies Allergy/AdvReac Type Severity Reaction Status Date / Time naproxen Allergy Mild KNEES GOT Verified 05/06/19 11:05 RED AND ITCHING lisinopril Allergy Verified 05/06/19 11:05 Home Medications Home Medications Medication Instructions Recorded Confirmed Type Eliquis 5 mg PO BIDM 07/31/18 05/06/19 History albuterol sulfate [Ventolin HFA] 2 puff INHALATION QID PRN 07/31/18 05/06/19 History ascorbic acid (vitamin C) [Vitamin 2,000 mg PO QAM 07/31/18 05/06/19 History C] cyanocobalamin (vitamin B-12) 1 dose SUBCUT MONTHLY 07/31/18 05/06/19 History ferrous sulfate 325 mg PO BIDM 07/31/18 05/06/19 History fluticasone propion-salmeterol 1 inh INHALATION BID 07/31/18 05/06/19 History [Wixela Inhub] glipizide 10 mg PO BIDM 07/31/18 05/06/19 History metformin 850 mg PO TIDM 07/31/18 05/06/19 History pioglitazone [Actos] 30 mg PO QAM 07/31/18 05/06/19 History pravastatin 20 mg PO HS 07/31/18 05/06/19 History prednisolone acetate 1 drp OPR HS 07/31/18 05/06/19 History Bilberry Extract 1 cap PO QAM 10/11/18 05/06/19 History alendronate [Fosamax] 70 mg PO MO 10/11/18 05/06/19 History cetirizine [Zyrtec] 10 mg PO QAM 10/11/18 05/06/19 History amiodarone 200 mg PO QAM 01/20/19 05/06/19 History diltiazem HCl [Cardizem CD] 180 mg PO QAM 01/20/19 05/06/19 History metoprolol succinate 50 mg PO BIDM 01/20/19 05/06/19 History Patient History Medical History Anemia Asthma USED RESCUE INHALER "QUITE A BIT LATELY" Atrial fibrillation Cardiac murmur Cataract LEFT EYE Diabetes mellitus, type 2 History of cardioversion LAST DONE 08/2018 Hyperlipidemia Hypertension Osteoarthritis Surgical History H/O detached retina repair RT EYE REPAIRED History of section X 2 History of colonoscopy History of tooth extraction Family History Other Family history non-contributory Social History Preferred Language: Maltese Communication Ability: Effective 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 Beliefs That Will Affect Care: None marital status: / Current Living Situation: Alone Other Information That Helps Us Care for You: No Feels Safe at Home: Yes Safety Concerns: Feels Safe At This Time Smoking Status: Never smoker Second Hand Exposure: Yes ; Hx Alcohol Use: No Hx Substance Use: No Review of Systems Review of Systems: All systems reviewed & are unremarkable except as noted in HPI & below Physical Exam Constitutional: well developed and well nourished; no acute distress (sitting in bed on 2L 02nc) Eyes: EOM intact bilaterally ENMT: Ears: no external ear abnormality Nose: no external nose abnormality Mouth: + dry oral mucous membranes Neck: no nuchal rigidity Respiratory: normal respiratory effort, + labored breathing (slight) and + tachypneic Auscultation: + diminished lung sounds and + rhonchi; no wheezes Cardiovascular: Rate/Rhythm: regular rate and regular rhythm Extremities: no edema Gastrointestinal (Abdomen): Inspection/Auscultation: normal bowel sounds Percussion/Palpation: abdomen soft; abdomen nontender Musculoskeletal: Extremities: strength 5/5 throughout Skin: no rashes, warm and dry Neurologic: singer, fluent speech though a bit limited w/ breathing and hoarse; no tremor Psychiatric: Orientation: alert and oriented x 3 Genitourinary: reyna w/ ample light clear yellow urine Results & Data Vital Signs (Past 12 Hours) Vital Signs Temp Pulse Pulse Resp BP BP Pulse Ox 05/09/19 11:28 36.7 C 98 H 20 128/86 92 05/09/19 11:15 98 H 20 92 05/09/19 07:21 101 H 05/09/19 07:18 36.3 C L 94 H 20 128/78 94 05/09/19 06:55 103 H 18 95 05/09/19 02:56 36.5 C 94 H 22 124/61 91 05/09/19 02:33 103 H 24 93 Laboratory Results 05/09/19 00:44 05/09/19 00:44 ua contaminated; sg 1013; cloudy w/ trace protein, 1+ glucose, 3+ blood, 1+ bacteria, no nitr/LE/WBC Diagnostic Findings CT w/ IV con Lung bases: The heart is enlarged and without pericardial effusion. The coronary arteries are densely calcified. There is calcification of the aortic valve leaflets. There is a trace left pleural effusion. Scarring/atelectasis is noted at the lung bases. No airspace consolidation is seen typical for pneumonia. Liver: The contrast-enhanced liver is cirrhotic in morphology and heterogeneous in attenuation. There is nodularity of the hepatic surface contour. There is an irregular heterogeneous mass lesion identified in the left lobe of the liver. This measures approximately 9.5 x 8 x 7 cm and shows heterogeneous peripheral arterial phase enhancement and delayed central washout. This approaches the kiesha hepatis and causes mild biliary ductal dilatation in the right lobe. There are least 9 additional hypervascular lesions in the left lobe which measure up to 2 cm. Hepatic and portal vasculature: Hepatic arterial anatomy is conventional. The main portal vein and intrahepatic portal veins are patent. The superior mesenteric vein and splenic vein are patent. Gallbladder: There are calcified gallstones with no CT evidence of acute cholecystitis.. Spleen: Normal in size and attenuation. There are numerous calcified splenic granulomas. Pancreas: Atrophic and grossly unremarkable. Adrenal glands: Unremarkable. Kidneys: The contrast enhanced kidneys are atrophic and without hydronephrosis. The kidneys enhance symmetrically. Excreted IV contrast fills the renal collecting system. A 2.2 cm cyst is noted in the left lower pole. Abdominal vasculature: The abdominal aorta is normal in course and caliber noting mild to moderate atherosclerotic calcification. Bowel: There is mild to moderate colonic diverticulosis without CT evidence of acute diverticulitis. No bowel obstruction is seen. There is a small duodenal diverticulum. The appendix is well-visualized and normal. Peritoneum: There is a small volume of mildly complex perihepatic and pelvic ascites. No intraperitoneal free air is seen. There is laxity ventral abdominal wall with diastases of the rectus musculature and protrusion of abdominal contents. Lymphadenopathy: None. Pelvic viscera: The bladder is normal as visualized, and filled with excreted IV contrast. The uterus and adnexa are normal as imaged. Skeletal structures: The skeletal structures are osteopenic. Moderate to advanced lumbosacral spondylosis is observed. No lytic or blastic lesions are seen. Soft tissues: There is body wall edema. IMPRESSION: 1. Cirrhotic liver morphology. 2. There is a 9.5 cm dominant mass within the left hepatic lobe as above. This is pathologically indeterminant, but given the arterial phase enhancement and cirrhotic liver morphology hepatocellular carcinoma is considered most likely. Cholangiocarcinoma or metastatic disease are differential considerations. Correlation with serum AFP levels is recommended. 3. There are at least 9 additional arterially hypervascular hepatic lesions scattered throughout the left lobe. Again, the appearance is most suggestive of multifocal hepatocellular carcinoma. 4. There is a small volume of mildly complex abdominopelvic ascites. 5. Cholelithiasis. 6. Mild to moderate colonic diverticulosis without CT evidence of acute diverticulitis. 7. Additional findings as above. cxr 05/08 Developing components of congestive failure. TTE December, w/ severe left atrial enlargement, moderate aortic stenosis, moderate tricuspid regurgitation with moderate pulmonary hypertension (1) Acute renal failure Acute renal failure type: unspecified Qualified Code(s): N17.9 - Acute kidney failure, unspecified
--- NOTE | 2019-05-09 14:51 | Cardiology Progress Note ---
Date of Service May 09, 2019 Assessment & Plan (1) Tachycardia: History of complex atrial arrhythmias including supraventricular tachycardia, atrial flutter, paroxysmal atrial fibrillation. Arrhythmia likely in part driven by her underlying lung condition. Continue current dose of metoprolol succinate 50 mg twice daily, diltiazem CD 180 mg daily, and amiodarone 200 mg daily. On heparin bridge with Eliquis having been placed on hold, will reassess candidacy for direct therapy based on how her kidney function progresses. (2) Liver mass: Will eventually need EUS biopsy of liver lesion. (3) Acute renal failure: Nephrology input noted and appreciated. DVT prophylaxis: Continue heparin infusion Subjective Patient seen and examined. She notes feeling just about the same as yesterday. Review of telemetry reveals onset of atrial flutter at 105 bpm at 1840 last night, and she remains tachycardic in the range of 99 to 105 bpm at rest. She was receiving a nebulizer treatment when I arrived. Review of Systems Review of Systems: All systems reviewed & are unremarkable except as noted in HPI & below Constitutional: Chronically ill in appearance Physical Exam Physical Exam: Temp Pulse Resp BP Pulse Ox 36.7 C 91 H 18 128/86 90 05/09/19 11:28 05/09/19 14:21 05/09/19 14:21 05/09/19 11:28 05/09/19 14:21 Constitutional: Chronically ill in appearance, no acute distress Respiratory: Auscultation: + crackles and + rhonchi; no wheezes Cardiovascular: Rate/Rhythm: + tachycardic Heart Sounds: no murmur Vessels: no JVD Extremities: no edema Gastrointestinal (Abdomen): normal bowel sounds, soft, nontender, no hepatosplenomegaly Neurologic: PERRL, EOMI, accommodation nl, no face palsy, no dysarthria Results & Data Vital Signs (Past 12 Hours) Vital Signs Temp Pulse Pulse Resp BP BP Pulse Ox 05/09/19 14:21 91 H 18 90 05/09/19 11:28 36.7 C 98 H 20 128/86 92 05/09/19 11:15 98 H 20 92 05/09/19 07:21 101 H 05/09/19 07:18 36.3 C L 94 H 20 128/78 94 05/09/19 06:55 103 H 18 95 05/09/19 02:56 36.5 C 94 H 22 124/61 91 (1) Acute renal failure Acute renal failure type: unspecified Qualified Code(s): N17.9 - Acute kidney failure, unspecified
[2019-05-09] MEDS: ONDANSETRON INJ 2 MG/ML 2 ML VIAL IV PRN (18:06)
[2019-05-09] MEDS: PRAVASTATIN SOD 20 MG TAB PO SCH (20:32)
[2019-05-09] MEDS: prednisoLONE acetate 1% OP SUSP 5 ML BTL OPR SCH (20:32)
[2019-05-10] MEDS: IPRATROPIUM BROMIDE NEB SOLN 0.02% 2.5 ML VIAL INH SCH ×6 (02:09→23:10)
[2019-05-10] MEDS: LEVALBUTEROL HCL 0.63 MG/3 ML NEB NEB SCH ×6 (02:09→23:10)
[2019-05-10] MEDS: HEPARIN SODIUM/DEXTROSE 25,000 UNITS/500 ML BAG IV SCH (02:49)
[2019-05-10 05:16] LABS: Partial Thromboplastin Time 55.4 Seconds (21.0-31.0)
[2019-05-10 05:17] LABS: BUN Creatinine Ratio 14.6 (10-20); Calcium 7.9 mg/dl (8.5-10.1); Creatinine Clr Calc Pharmacy 15.4 ml/min; Est GFR (African American) 22.6; Est GFR (Non-African American) 19.5; Magnesium 2.1 mg/dl (1.8-2.4); Potassium 3.6 mmol/L (3.5-5.1)
[2019-05-10 05:23] LABS: Hematocrit (blood only) 38.2 % (37-47); Hemoglobin 12.8 g/dL (12.0-16.0); Mean Corpuscular Hemoglobin 29.9 pg (25-34); Mean Corpuscular Hgb Conc 33.5 g/dL (32-36); Mean Corpuscular Volume 89.3 fL (80-100); Mean Platelet Volume 9.5 fL (7.4-10.4); Platelet Count 337 K/uL (130-400); RDW Coefficient of Variation 16.3 % (11.5-14.5); RDW Standard Deviation 53.2 fL (36.4-46.3); Red Blood Count 4.28 M/uL (4.2-5.4); White Blood Count 14.77 K/uL (4.8-10.8)
[2019-05-10] MEDS: BUDESONIDE 0.25 MG/2 ML VIAL (PULMICORT) NEB SCH ×2 (07:04→20:02)
[2019-05-10] MEDS ORDERED: INSULIN HUMAN NPH SC SCH ×2 (07:30→17:00)
--- NOTE | 2019-05-10 07:33 | Hospitalist Progress Note ---
Date of Service May 10, 2019 Assessment & Plan (1) Asthma: Shortness of breath community-acquired pneumonia/complicated bronchitis Fluid overload -Patient has history of asthma, and felt that "her asthma is acting up"/poss. exacerbation - received a small dose IV steroid for poss. asthma exacerbation (05/07) - previously more short of breath, concern for CAP/complicated bronchitis, she also is fluid overload from MARIA T - first started on ceftriaxone and doxycycline by the night physician at that time, will continue -More fluid overload, received 80 mg IV 2 nights ago, with IV albumin - wheezing on my physical exam -Says that she has cough, however denies sputum production, only occasional clear sputum - Continue advair - cont. duoneb treament - cont. budesonie, solumedrol - For fluid status, and current MARIA T, careful with Lasix, discussed with nephrology, can give 10mg IV as needed (but required 80 mg IV lasix w/ albumin the other night) MARIA T -Likely IV contrast-induced nephropathy -Patient initially presented with creatinine 1.0, creatinine 1.77 yesterday a.m., and on recheck in the afternoon 2.3 -Nephrology consulted, will continue to closely monitor BMP, will try to avoid any nephrotoxic agents - currently down to Cr 2.3 - receivd 80 mg IV lasix w/ albumin 2 nights ago d/t dyspnea- fluid overload (2) Afib: -Patient was in A. fib with RVR earlier (05/08) then converted back to NSR - now back in Afib/flutter - hold Eliquis for upcoming procedure, continue IV heparin - Continue Metoprolol 50mg BID with parameters and amiodarone, cardizem - Cardiology consulted, no change in medication indicated at this time - Will monitor closely on tele (3) Tachycardia: Present on admission with HR 140's EKG showed SVT on admission Received Lopressor 5 mg IV x1 in the ER, then HR dropped in the 50's Possible tachybrady syndrome or might be related to dehydration due to poor oral intake and low mg level Cardiology consulted, no change in medication indicated at this time Will continue metoprolol 50mg BID with parameters, amiodarone and cardizem ECHO done on 12/21 The LV wall thickness is mildly increased (concentric). The left ventricular wall motion is normal. The qualitative LV ejection fraction is 55-59% (normal). The left atrium is severely enlarged. The right atrium is moderately enlarged. The aortic valve is moderately calcified. Moderate aortic valve stenosis is present. Mild aortic valve regurgitation is present. Mild mitral regurgitation is present. Moderate tricuspid regurgitation is present. Moderate pulmonary hypertension is present. (4) Hypomagnesemia: Possible related to poor intake Mg on admission 1.4 Mg replaced Monitor Electrolytes (5) Liver mass: - concern for HCC vs. cholangiocarcinoma vs mets CT abd/pelvis showed 9.5 cm dominant mass within the left hepatic lobe Imaging discussed with family and patient Will check AFP GI consulted - recommend MRI for further eval and poss. EUS w/ biopsy when her card/resp. status improved (for this need to hold Eliquis for 5 days) (6) DM2 (diabetes mellitus, type 2): HbA1c 6.2% (05/07/2019) Now hyperglycemia secondary to steroid use -Pharmacy consulted for hyperglycemia management -Will hold oral diabetes med - novolog sliding scale Continue monitor BS DVT px- SCDs, hold eliquis Code Status DNR Subjective Patient is lying in bed, currently on room air, her daughter at the bedside. Patient says that she feels better, but is concerned about her food/swallowing. Says that some foods are more difficult to swallow for her. Cr down to 2.3 Review of Systems Review of Systems: All systems reviewed & are unremarkable except as noted in HPI & below Constitutional: no fever and no chills Respiratory: + cough, + dyspnea (improved) and + wheezing Cardiovascular: no chest pain and no palpitations Gastrointestinal: + dysphagia (pt can eat per nursing staff, but says some foods are more difficult to swallow); no abdominal pain, no nausea and no vomiting Physical Exam Physical Exam: General-elderly female, lying in bed, in mild distress, on room air Head-normocephalic, atraumatic Eyes- PERRL, EOMI of L eye (keeps right eye closed) ENT- oropharynx clear Neck- supple, no JVD Resp: Lungs- + diffuse wheezing, on suppl. O2, seems in mild respiratory distress, however continues to speak in full sentences Heart- regular, II/ syst. murm. (converted to NSR this AM) Abdomen- normal bowel sounds, soft, nontender, obese, nondistended Extremities- no calf tenderness, no LE edema, moves all 4 extremities spontaneously Neuro- alert, oriented x 3; PERRL, EOMI (L eye); no facial palsy; no dysarthria, moves all 4 extremities spontaneously Skin- warm & dry Results & Data Vital Signs (Past 12 Hours) Vital Signs Temp Pulse Pulse Pulse Resp BP Pulse Ox 05/10/19 07:04 111 H 16 94 05/10/19 03:53 36.7 C 110 H 21 113/73 92 05/10/19 02:11 103 H 20 95 05/09/19 23:32 118 H 05/09/19 23:24 37.4 C 116 H 22 137/86 93 05/09/19 22:20 116 H 22 93 Laboratory Results 05/10/19 05/10/19 05/10/19 Range/Units 04:25 04:25 04:25 WBC 14.77 H (4.8-10.8) K/uL RBC 4.28 (4.2-5.4) M/uL Hgb 12.8 (12.0-16.0) g/dL Hct 38.2 (37-47) % MCV 89.3 (80-100) fL MCH 29.9 (25-34) pg MCHC 33.5 (32-36) g/dL RDW Std Deviation 53.2 H (36.4-46.3) fL RDW Coeff of Cameron 16.3 H (11.5-14.5) % Plt Count 337 (130-400) K/uL MPV 9.5 (7.4-10.4) fL APTT 55.4 H* (21.0-31.0) Seconds PTT Ratio 2.0 Sodium 127 L (136-145) mmol/L Potassium 3.6 D (3.5-5.1) mmol/L Chloride 97 L (98-107) mmol/L Carbon Dioxide 19 L (21-32) mmol/L Anion Gap 11.0 (3-11) BUN 33 H (7-18) mg/dl Creatinine 2.27 H (0.6-1.2) mg/dl Est Cr Clr Drug Dosing 15.4 ml/min Est GFR ( Amer) 22.6 Est GFR (Non-Af Amer) 19.5 BUN/Creatinine Ratio 14.6 (10-20) Glucose 186 H (70-99) mg/dl POC Glucose (70-99) Calcium 7.9 L (8.5-10.1) mg/dl Magnesium 2.1 (1.8-2.4) mg/dl 05/09/19 05/09/19 05/09/19 Range/Units 20:05 16:17 12:11 WBC (4.8-10.8) K/uL RBC (4.2-5.4) M/uL Hgb (12.0-16.0) g/dL Hct (37-47) % MCV (80-100) fL MCH (25-34) pg MCHC (32-36) g/dL RDW Std Deviation (36.4-46.3) fL RDW Coeff of Cameron (11.5-14.5) % Plt Count (130-400) K/uL MPV (7.4-10.4) fL APTT (21.0-31.0) Seconds PTT Ratio Sodium (136-145) mmol/L Potassium (3.5-5.1) mmol/L Chloride (98-107) mmol/L Carbon Dioxide (21-32) mmol/L Anion Gap (3-11) BUN (7-18) mg/dl Creatinine (0.6-1.2) mg/dl Est Cr Clr Drug Dosing ml/min Est GFR ( Amer) Est GFR (Non-Af Amer) BUN/Creatinine Ratio (10-20) Glucose (70-99) mg/dl POC Glucose 179 H 184 H 171 H (70-99) Calcium (8.5-10.1) mg/dl Magnesium (1.8-2.4) mg/dl 05/09/19 05/09/19 Range/Units 07:41 06:40 WBC (4.8-10.8) K/uL RBC (4.2-5.4) M/uL Hgb (12.0-16.0) g/dL Hct (37-47) % MCV (80-100) fL MCH (25-34) pg MCHC (32-36) g/dL RDW Std Deviation (36.4-46.3) fL RDW Coeff of Cameron (11.5-14.5) % Plt Count (130-400) K/uL MPV (7.4-10.4) fL APTT 55.5 H* (21.0-31.0) Seconds PTT Ratio 2.0 Sodium (136-145) mmol/L Potassium (3.5-5.1) mmol/L Chloride (98-107) mmol/L Carbon Dioxide (21-32) mmol/L Anion Gap (3-11) BUN (7-18) mg/dl Creatinine (0.6-1.2) mg/dl Est Cr Clr Drug Dosing ml/min Est GFR ( Amer) Est GFR (Non-Af Amer) BUN/Creatinine Ratio (10-20) Glucose (70-99) mg/dl POC Glucose 230 H (70-99) Calcium (8.5-10.1) mg/dl Magnesium (1.8-2.4) mg/dl Medications Administered Current Inpatient Medications Amiodarone HCl (Cordarone) 200 mg PO [facility] Stop: 06/08/19 05:44 Last Admin: 05/09/19 06:27 Dose: 200 mg Documented by: Ascorbic Acid (Vitamin C) 2,000 mg PO [facility] Stop: 06/06/19 08:59 Last Admin: 05/09/19 08:00 Dose: 2,000 mg Documented by: Budesonide (Pulmicort Respules) 0.25 mg NEB BIDR [facility] Stop: 06/06/19 18:59 Last Admin: 05/10/19 07:04 Dose: 0.25 mg Documented by: Cetirizine HCl (Zyrtec) 10 mg PO [facility] Stop: 06/06/19 08:59 Last Admin: 05/09/19 08:00 Dose: 10 mg Documented by: Dextrose (Dextrose 50%) 25 - 50 ml IV UD PRN; Protocol PRN Reason: Hypoglycemia Protocol Stop: 06/05/19 21:51 Diltiazem HCl (Cardizem Cd) 180 mg PO [facility] Stop: 06/06/19 08:59 Last Admin: 05/09/19 08:00 Dose: 180 mg Documented by: Doxycycline Hyclate (Vibramycin) 100 mg PO Q12H [facility] Stop: 05/15/19 21:59 Last Admin: 05/09/19 20:32 Dose: 100 mg Documented by: Ferrous Sulfate (Feosol) 325 mg PO BIDM [facility] Stop: 06/06/19 07:59 Last Admin: 05/09/19 17:01 Dose: 325 mg Documented by: Gadoxetate Disodium (Eovist) 10 ml IV ONCE PRN PRN Reason: Interaction Checking Stop: 05/11/19 16:19 Last Admin: 05/07/19 16:20 Dose: 10 ml Documented by: Glucagon (Glucagen) 1 mg SQ UD PRN; Protocol PRN Reason: Hypoglycemia Protocol Stop: 06/05/19 21:51 Glucose (Dex4 Glucose) 4 - 8 tabs PO UD PRN; Protocol PRN Reason: Hypoglycemia Protocol Stop: 06/05/19 21:51 Glucose (Glucose 40%) 15 - 30 gm PO UD PRN; Protocol PRN Reason: Hypoglycemia Protocol Stop: 06/05/19 21:51 Guaifenesin (Mucinex) 600 mg PO Q12 [facility] Stop: 06/07/19 20:59 Last Admin: 05/09/19 20:32 Dose: 600 mg Documented by: Promethazine HCl 6.25 mg/ (Sodium Chloride) 50.25 mls @ 201 mls/hr IV Q4 PRN PRN Reason: Nausea And Vomiting Stop: 06/06/19 11:52 Last Infusion: 05/09/19 14:57 Dose: Infused Documented by: Ceftriaxone Sodium 1,000 mg/ (Dextrose) 50 mls @ 100 mls/hr IV Q24H [facility]; Protocol Stop: 05/15/19 07:59 Last Infusion: 05/09/19 09:35 Dose: Infused Documented by: Heparin Sodium/Dextrose (Heparin Sodium/Dextrose) 25,000 units in 500 mls @ 22 mls/hr IV .[id number] [facility]; Protocol Stop: 06/07/19 09:29 Last Titration: 05/10/19 05:43 Dose: 1,100 units/hr, 22 mls/hr Documented by: Insulin Aspart (Novolog Flexpen) 0 units SC ACHS [facility] Stop: 06/06/19 20:59 Last Admin: 05/09/19 20:32 Dose: 1 units Documented by: Insulin Human NPH (Novolin N Nph) 15 units SC QDB [facility]; Protocol Stop: 06/09/19 07:29 Ipratropium Wayne (Atrovent 0.02% 0.5mg/2.5ml) 0.5 mg INH Q4R [facility] Stop: 06/06/19 22:59 Last Admin: 05/10/19 07:04 Dose: 0.5 mg Documented by: Levalbuterol HCl (Xopenex 0.63 Mg/3 Ml Neb) 0.63 mg NEB Q4R [facility] Stop: 06/06/19 22:59 Last Admin: 05/10/19 07:04 Dose: 0.63 mg Documented by: Metoprolol Succinate (Toprol Xl) 50 mg PO BIDM [facility] Stop: 06/06/19 07:59 Last Admin: 05/09/19 17:00 Dose: 50 mg Documented by: Miconazole Nitrate (Desenex) 1 appln EXT PRN PRN PRN Reason: NURSING DECISION Stop: 06/05/19 20:06 Last Admin: 05/06/19 21:17 Dose: 1 appln Documented by: Miscellaneous (Carbohydrates For Hypoglycemia) 15 - 30 gm PO UD PRN PRN Reason: Hypoglycemia Protocol Stop: 06/05/19 21:51 Miscellaneous Information (Consult Glycemic Management Pharmacy) 1 ea N/A UD PRN PRN Reason: Consult Stop: 06/07/19 12:12 Ondansetron HCl (Zofran) 4 mg IV Q4H PRN PRN Reason: Nausea Stop: 06/08/19 17:53 Last Admin: 05/09/19 18:06 Dose: 4 mg Documented by: Pravastatin Sodium (Pravachol) 20 mg PO HS [facility] Stop: 06/05/19 20:59 Last Admin: 05/09/19 20:32 Dose: 20 mg Documented by: Prednisolone Acetate (Pred Forte 1%) 1 drops OPR HS [facility] Stop: 06/05/19 20:59 Last Admin: 05/09/19 20:32 Dose: 1 drops Documented by: Fluticasone/Salmeterol (Advair Diskus 250/50) 1 puffs INH BID [facility] Stop: 06/05/19 20:59 Last Admin: 05/09/19 20:32 Dose: 1 puffs Documented by:
--- NOTE | 2019-05-10 08:28 | Nephrology Progress Note ---
Date of Service May 10, 2019 Assessment & Plan (1) Acute renal failure: her baseline creatinine on review of OP labs is 0.6-0.7 in EPIC. on presentation on 05/06 she was 0.8; then dramatic increase from 1/3 w/ creat 1.1 in am to 1/4 w/ creat 1.8; on 05/09, 2.4; plateau'd today and autodiuresing w/o lasix -- which may be early sign of recovery. nonoliguric MARIA T likely multifactorial from ischemic ATN from hemodynamic changes related to heart rhythms and pneumonia as well as contrast induced nephropathy -no glaring issues w/ anemia or chemistries >> low mag from admission resolved; mild-moderate but relatively stable hyponatremia -no indication for IV fluids -use diuretics prn only for now -- she certainly has mild volume overload but would use diuretic only if worsening respiratory status --had diuretic ON prn -daily bmp -no indication for urgent dialysis; will follow closely for need (2) Chronic hyponatremia: present as outpatient as well, though intermittently. chronic hyponatremia is defined as present > 48 hrs. she has ranged 127-133. her serum osms are 278, so minimally hypotonic. hypervolemic from heart rhythm +/- liver issues. -daily bmp -diuretics as above -would obtain urine studies only if sodium levels in serum worsen (3) Tachycardia: on dilt and amiodarone po, f/u cardiology recs; HR less labile than at admission (4) Liver mass: GI following Subjective autodiuresing which is a positive sign; still sob ; no pain; no cough; feels she is a bit better; no abd pain Review of Systems Review of Systems: All systems reviewed & are unremarkable except as noted in HPI & below Physical Exam Constitutional: well developed, well nourished and + frail appearing (dyspneic w/ exam maneuvers); no acute distress (sitting in bed on 2L 02nc) Eyes: EOM intact bilaterally ENMT: Ears: no external ear abnormality Nose: no external nose abnormality Mouth: + dry oral mucous membranes Neck: no nuchal rigidity Respiratory: normal respiratory effort, + labored breathing (slight) and + tachypneic Auscultation: + diminished lung sounds, + crackles and + rhonchi; no wheezes Cardiovascular: Rate/Rhythm: + tachycardic (in 110s) and + irregularly irregular Extremities: no edema Gastrointestinal (Abdomen): Inspection/Auscultation: normal bowel sounds Percussion/Palpation: abdomen soft; abdomen nontender Musculoskeletal: Extremities: strength 5/5 throughout Skin: no rashes, warm and dry Neurologic: singer, fluent speech; generalized weakness Psychiatric: Orientation: alert and oriented x 3 Genitourinary: reyna w/ ample clear urine Results & Data Vital Signs (Past 12 Hours) Vital Signs Temp Pulse Pulse Pulse Resp BP Pulse Ox 05/10/19 08:02 36.6 C 114 H 20 124/86 93 05/10/19 07:04 111 H 16 94 05/10/19 03:53 36.7 C 110 H 21 113/73 92 05/10/19 02:11 103 H 20 95 05/09/19 23:32 118 H 05/09/19 23:24 37.4 C 116 H 22 137/86 93 05/09/19 22:20 116 H 22 93 Laboratory Results Abnormal lab results 05/09/19 05/09/19 05/10/19 Range/Units 16:17 20:05 04:25 WBC 14.77 H (4.8-10.8) K/uL RDW Std Deviation 53.2 H (36.4-46.3) fL RDW Coeff of Cameron 16.3 H (11.5-14.5) % APTT (21.0-31.0) Seconds Sodium (136-145) mmol/L Chloride (98-107) mmol/L Carbon Dioxide (21-32) mmol/L BUN (7-18) mg/dl Creatinine (0.6-1.2) mg/dl Glucose (70-99) mg/dl POC Glucose 184 H 179 H (70-99) Calcium (8.5-10.1) mg/dl 05/10/19 05/10/19 05/10/19 Range/Units 04:25 04:25 07:23 WBC (4.8-10.8) K/uL RDW Std Deviation (36.4-46.3) fL RDW Coeff of Cameron (11.5-14.5) % APTT 55.4 H* (21.0-31.0) Seconds Sodium 127 L (136-145) mmol/L Chloride 97 L (98-107) mmol/L Carbon Dioxide 19 L (21-32) mmol/L BUN 33 H (7-18) mg/dl Creatinine 2.27 H (0.6-1.2) mg/dl Glucose 186 H (70-99) mg/dl POC Glucose 195 H (70-99) Calcium 7.9 L (8.5-10.1) mg/dl 05/10/19 Range/Units 11:31 WBC (4.8-10.8) K/uL RDW Std Deviation (36.4-46.3) fL RDW Coeff of Cameron (11.5-14.5) % APTT (21.0-31.0) Seconds Sodium (136-145) mmol/L Chloride (98-107) mmol/L Carbon Dioxide (21-32) mmol/L BUN (7-18) mg/dl Creatinine (0.6-1.2) mg/dl Glucose (70-99) mg/dl POC Glucose 231 H (70-99) Calcium (8.5-10.1) mg/dl (1) Acute renal failure Acute renal failure type: unspecified Qualified Code(s): N17.9 - Acute kidney failure, unspecified
[2019-05-10] MEDS: INSULIN ASPART 100 UNITS/ML 3 ML PEN SC SCH ×4 (08:51→20:50)
[2019-05-10] MEDS: dilTIAZem HCL 180 MG CAPCR PO SCH (08:53)
[2019-05-10] MEDS: AMIODARONE 200 MG TAB PO SCH (08:53)
[2019-05-10] MEDS: ASCORBIC ACID 500 MG TAB PO SCH (08:53)
[2019-05-10] MEDS: CETIRIZINE HCL 10 MG TABLET PO SCH (08:53)
[2019-05-10] MEDS: FLUTICASONE/SALMETEROL 250/50 (ADVAIR) 14 PUFF/1 INHALER INH SCH ×2 (08:53→20:49)
[2019-05-10] MEDS: cefTRIAXone SODIUM 1,000 MG in DEXTROSE 5% 50 ML IV SCH (08:53)
[2019-05-10] MEDS: METOPROLOL SUCC 50MG EXT REL TAB PO SCH ×2 (08:54→17:36)
[2019-05-10] MEDS: FERROUS SULFATE 325 MG TAB PO SCH ×2 (08:54→17:34)
[2019-05-10] MEDS: guaiFENesin 600 MG TABCR PO SCH ×2 (08:55→20:49)
[2019-05-10] MEDS: DOXYCYCLINE HYCLATE 100 MG CAP PO SCH ×2 (08:55→21:11)
--- NOTE | 2019-05-10 14:54 | Pharmacy Report ---
Pharmacy Glycemic Short Note 2 - Date of Service May 10, 2019 - Glycemic Short BSG Results (Last 24 hours): 05/09/19 05/09/19 05/10/19 16:17 20:05 04:25 Glucose 186 H POC Glucose 184 H 179 H 05/10/19 05/10/19 07:23 11:31 Glucose POC Glucose 195 H 231 H OUTPATIENT ANTIDIABETIC REGIMEN: * Glipizide * Metformin * Actos ASSESSMENT: 05/10 * Ms. Walters received 26 units of insulin yesterday, 15 of this being basal * BSGs have started to increase, even with steroids no longer on board. This is most likely d/t advancement in diet and improved SCr. * Will tighten Novolog parameters and add a PM dose of NPH to provide more basal 05/09 * 83yo T2DM with well controlled diabetes as an outpatient per recent A1c * 05/08/19: Pt with acute SEVERE hyperglycemia secondary to one time doses of Solumedrol x 3 overnight. Bolus insulin parameters were tightened accordingly. NPH 20 units (0.3 units/kg) SQ x 1 dose for steroid induced hyperglycemia from Solumedrol overnight. See note from 05/08/19 for more info. * 05/06/19: Pt still with sustained hyperglycemia despite last dose of Solumedrol 20mg on 05/08/19 @ ~05:30. Typically, hyperglycemic effects of solumedrol dissipate in 12-18 hrs. Will continue tightened NovoLog parameters from yesterday and give one more dose of NPH this morning- conservative dosing secondary to nausea this AM and no further steroid dosing today. Prefer NPH today based on its 12-18 hr duration of action. Based on pt A1c she most likely does not need 24hr basal insulin coverage (unless ordered RTC steroids). PLAN FOR INPATIENT GLYCEMIC CONTROL: * Holding outpatient oral diabetes medications * Basal insulin - increase * NPH 15 units this AM * NPH per scale for tonight's dose * 5 units for BSG < 180 * 8 units for BSG 180 or above * Bolus insulin: tighten CF/CR as well as goal range * NovoLog per scale ACHS or Q6hrs while NPO * Goal Range: Low 110 mg/dL - High 140 mg/dL * Correction Factor: 25 mg/dL/unit * Nutritional / Prandial insulin per carb ratio of 1 unit per 8 grams CHO consumed
--- NOTE | 2019-05-10 16:31 | Cardiology Progress Note ---
Date of Service May 10, 2019 Assessment & Plan (1) Tachycardia: History of complex atrial arrhythmias including supraventricular tachycardia, atrial flutter, paroxysmal atrial fibrillation. Telemetry today appears to predominantly be atrial fibrillation with ventricular rates in the range of 100 to 120 bpm. Increasing her AV gato blockers has been limited in the past due to resting bradycardia down to the 40s. Continue current doses of metoprolol, diltiazem, amiodarone. Stroke prophylaxis: Eliquis on hold as liver biopsy had been tentatively planned as outpatient at [facility] on 05/12/2019. This may need to be delayed. Based on her kidney function with creatinine greater than 1.5, and age greater than 83, I do anticipate need to reduce her Eliquis dose from her prior to hospital dosing of 5 mg twice daily to 2.5 mg twice daily if she goes back on the direct oral anticoagulant treatment. (2) Liver mass: Per MRI report, cholangiocarcinoma versus hepatocellular carcinoma within the differential. Will eventually need EUS mediated hepatic biopsy. (3) Acute renal failure: Creatinine trending toward improvement. Continue to follow off of diuretics. Shortness of breath felt to be multifactorial due to possible pneumonia, diastolic heart failure. DVT prophylaxis: Continue heparin infusion Subjective Patient resting comfortably. Physical Exam Physical Exam: Temp Pulse Resp BP Pulse Ox 36.8 C 98 H 18 119/82 99 05/10/19 15:36 05/10/19 15:36 05/10/19 15:36 05/10/19 15:36 05/10/19 15:36 Constitutional: WD/WN, vitals as above Respiratory: Coarse breath sounds the bases Cardiovascular: Rate/Rhythm: + irregularly irregular Heart Sounds: no murmur Vessels: no JVD Gastrointestinal (Abdomen): normal bowel sounds, soft, nontender, no hepa tosplenomegaly Neurologic: PERRL, EOMI, accommodation nl, no face palsy, no dysarthria Results & Data Vital Signs (Past 12 Hours) Vital Signs Temp Pulse Pulse Resp BP BP Pulse Ox 05/10/19 15:36 36.8 C 98 H 18 119/82 99 05/10/19 15:09 107 H 16 92 05/10/19 11:14 36.7 C 107 H 20 120/83 96 05/10/19 11:12 114 H 18 96 05/10/19 08:02 36.6 C 114 H 20 124/86 93 05/10/19 07:04 111 H 16 94 (1) Acute renal failure Acute renal failure type: unspecified Qualified Code(s): N17.9 - Acute kidney failure, unspecified
[2019-05-10] MEDS: prednisoLONE acetate 1% OP SUSP 5 ML BTL OPR SCH (20:49)
[2019-05-10] MEDS: PRAVASTATIN SOD 20 MG TAB PO SCH (20:50)
[2019-05-10] MEDS ORDERED: POLYETHYLENE (MIRALAX) 17 GM PACK PO STA (21:02)
[2019-05-10] MEDS: DOCUSATE SODIUM/SENNA 50/8.6MG TAB PO SCH (21:41)
[2019-05-11] MEDS: HEPARIN SODIUM/DEXTROSE 25,000 UNITS/500 ML BAG IV SCH ×2 (00:56→23:19)
[2019-05-11] MEDS: IPRATROPIUM BROMIDE NEB SOLN 0.02% 2.5 ML VIAL INH SCH ×6 (02:15→23:02)
[2019-05-11] MEDS: LEVALBUTEROL HCL 0.63 MG/3 ML NEB NEB SCH ×6 (02:16→23:02)
[2019-05-11 04:31] LABS: Hematocrit (blood only) 37.5 % (37-47); Hemoglobin 12.5 g/dL (12.0-16.0); Mean Corpuscular Hemoglobin 30.1 pg (25-34); Mean Corpuscular Hgb Conc 33.3 g/dL (32-36); Mean Corpuscular Volume 90.4 fL (80-100); Mean Platelet Volume 9.2 fL (7.4-10.4); Platelet Count 306 K/uL (130-400); RDW Coefficient of Variation 15.9 % (11.5-14.5); RDW Standard Deviation 52.6 fL (36.4-46.3); Red Blood Count 4.15 M/uL (4.2-5.4); White Blood Count 11.84 K/uL (4.8-10.8)
[2019-05-11 04:47] LABS: Creatinine Clr Calc Pharmacy 18.6 ml/min; Est GFR (African American) 28.7; Est GFR (Non-African American) 24.8; Potassium 3.1 mmol/L (3.5-5.1)
[2019-05-11 04:49] LABS: Partial Thromboplastin Time 55.2 Seconds (21.0-31.0)
[2019-05-11] MEDS: BUDESONIDE 0.25 MG/2 ML VIAL (PULMICORT) NEB SCH ×2 (07:22→18:57)
[2019-05-11] MEDS ORDERED: POTASSIUM CHLORIDE 20 MEQ TABCR PO ONE ×2 (07:45→19:15)
[2019-05-11] MEDS: cefTRIAXone SODIUM 1,000 MG in DEXTROSE 5% 50 ML IV SCH (07:48)
[2019-05-11] MEDS: DOCUSATE SODIUM/SENNA 50/8.6MG TAB PO SCH (07:51)
[2019-05-11] MEDS: ASCORBIC ACID 500 MG TAB PO SCH (07:52)
[2019-05-11] MEDS: FLUTICASONE/SALMETEROL 250/50 (ADVAIR) 14 PUFF/1 INHALER INH SCH ×2 (07:52→20:36)
[2019-05-11] MEDS: dilTIAZem HCL 180 MG CAPCR PO SCH (07:53)
[2019-05-11] MEDS: FERROUS SULFATE 325 MG TAB PO SCH ×2 (07:53→17:51)
[2019-05-11] MEDS: guaiFENesin 600 MG TABCR PO SCH ×2 (07:54→20:36)
[2019-05-11] MEDS: METOPROLOL SUCC 50MG EXT REL TAB PO SCH ×2 (07:54→17:52)
[2019-05-11] MEDS: AMIODARONE 200 MG TAB PO SCH (07:55)
[2019-05-11] MEDS: CETIRIZINE HCL 10 MG TABLET PO SCH (07:55)
[2019-05-11] MEDS: INSULIN HUMAN NPH SC SCH ×2 (08:10→17:49)
--- NOTE | 2019-05-11 08:10 | Pharmacy Report ---
Pharmacy Glycemic Short Note 2 - Date of Service May 11, 2019 - Glycemic Short BSG Results (Last 24 hours): 05/10/19 05/10/19 05/10/19 11:31 16:15 20:21 Glucose POC Glucose 231 H 149 H 175 H 05/11/19 04:13 Glucose 114 H POC Glucose OUTPATIENT ANTIDIABETIC REGIMEN: * Glipizide * Metformin * Actos ASSESSMENT: 05/11 * Patient received 20 units of basal and 17 units of bolus insulin yesterday * Fasting BSG is much improved. Will cut back slightly on daily NPH dose. * Postprandial BSGs acceptable so will continue with tightened parameters * SCr improved further today 05/10 * Ms. Walters received 26 units of insulin yesterday, 15 of this being basal * BSGs have started to increase, even with steroids no longer on board. This is most likely d/t advancement in diet and improved SCr. * Will tighten Novolog parameters and add a PM dose of NPH to provide more basal 05/09 * 83yo T2DM with well controlled diabetes as an outpatient per recent A1c * 05/08/19: Pt with acute SEVERE hyperglycemia secondary to one time doses of Solumedrol x 3 overnight. Bolus insulin parameters were tightened accordingly. NPH 20 units (0.3 units/kg) SQ x 1 dose for steroid induced hyperglycemia from Solumedrol overnight. See note from 05/08/19 for more info. * 05/06/19: Pt still with sustained hyperglycemia despite last dose of Solumedrol 20mg on 05/08/19 @ ~05:30. Typically, hyperglycemic effects of solumedrol dissipate in 12-18 hrs. Will continue tightened NovoLog parameters from yesterday and give one more dose of NPH this morning- conservative dosing secondary to nausea this AM and no further steroid dosing today. Prefer NPH today based on its 12-18 hr duration of action. Based on pt A1c she most likely does not need 24hr basal insulin coverage (unless ordered RTC steroids). PLAN FOR INPATIENT GLYCEMIC CONTROL: * Holding outpatient oral diabetes medications * Basal insulin - decrease slightly * NPH 13 units with breakfast * NPH 5 units with dinner * Bolus insulin: no change * NovoLog per scale ACHS or Q6hrs while NPO * Goal Range: Low 110 mg/dL - High 140 mg/dL * Correction Factor: 25 mg/dL/unit * Nutritional / Prandial insulin per carb ratio of 1 unit per 8 grams CHO consumed
[2019-05-11] MEDS: INSULIN ASPART 100 UNITS/ML 3 ML PEN SC SCH ×4 (08:11→20:47)
--- NOTE | 2019-05-11 08:13 | Hospitalist Progress Note ---
Date of Service May 11, 2019 Assessment & Plan (1) Asthma: Shortness of breath community-acquired pneumonia/complicated bronchitis Fluid overload -Patient has history of asthma, and felt that "her asthma is acting up"/poss. exacerbation - received a small dose IV steroid for poss. asthma exacerbation (05/07) - previously more short of breath, concern for CAP/complicated bronchitis, she also is fluid overload from MARIA T - first started on ceftriaxone and doxycycline by the night physician at that time, continue - More fluid overload, received 80 mg IV several nights ago, with IV albumin - she has cough, however denies sputum production, only occasional clear sputum - Continue advair - cont. duoneb treament - cont. budesonie, solumedrol MARIA T -Likely IV contrast-induced nephropathy in the setting of arrhythmia/hemodynamic changes and PNA -Patient initially presented with creatinine 1.0, creatinine 1.77 yesterday a.m., and on recheck in the afternoon 2.3 -Nephrology consulted, will continue to closely monitor BMP, will try to avoid any nephrotoxic agents - currently down to Cr 1.86 - received 80 mg IV lasix w/ albumin several nights ago d/t dyspnea- fluid overload, poss. diastolic heart failure (2) Afib: -Patient was in A. fib with RVR earlier (05/08) then converted back to NSR, now back in Afib/flutter - hold Eliquis for upcoming procedure, continue IV heparin - Continue Metoprolol 50mg BID with parameters and amiodarone, cardizem - Cardiology consulted, no change medications at this time - cont. to monitor closely on tele (3) Tachycardia: Present on admission with HR 140's EKG showed SVT on admission Received Lopressor 5 mg IV x1 in the ER, then HR dropped in the 50's Possible tachybrady syndrome or might be related to dehydration due to poor oral intake and low mg level Cardiology consulted, no change in medications at this time Will continue amiodarone and cardizem, metoprolol ECHO done on 12/21 The LV wall thickness is mildly increased (concentric). The left ventricular wall motion is normal. The qualitative LV ejection fraction is 55-59% (normal). The left atrium is severely enlarged. The right atrium is moderately enlarged. The aortic valve is moderately calcified. Moderate aortic valve stenosis is present. Mild aortic valve regurgitation is present. Mild mitral regurgitation is present. Moderate tricuspid regurgitation is present. Moderate pulmonary hypertension is present. (4) Hypomagnesemia: Possible related to poor intake Mg on admission 1.4 - replace and monitor Hypokalemia - replete and monitor - goal K~4 (5) Liver mass: - concern for HCC vs. cholangiocarcinoma vs mets CT abd/pelvis showed 9.5 cm dominant mass within the left hepatic lobe Imaging discussed with family and patient AFP checked GI consulted - recommended MRI for further eval and poss. EUS w/ biopsy when her card/resp. status improved (for this need to hold Eliquis for 5 days) (6) DM2 (diabetes mellitus, type 2): HbA1c 6.2% (05/07/2019) Now hyperglycemia secondary to steroid use -Pharmacy consulted for hyperglycemia management -Will hold oral diabetes med - novolog sliding scale Continue monitor BS DVT px- SCDs, hold eliquis Code Status DNR Subjective Patient is lying in bed, on supplemental oxygen (2L) in no acute distress, denies any fevers, chills, chest pain, abdominal pain, nausea or vomiting. Cr down to 1.9 today Review of Systems Review of Systems: All systems reviewed & are unremarkable except as noted in HPI & below Constitutional: + fatigue; no fever and no chills Respiratory: + cough; no dyspnea Cardiovascular: no chest pain Gastrointestinal: no abdominal pain, no nausea and no vomiting Physical Exam Physical Exam: General-elderly female, lying in bed, on suppl. O2 Head-normocephalic, atraumatic Eyes- PERRL, EOMI of L eye (keeps right eye closed) ENT- oropharynx clear Neck- supple, no JVD Resp: Lungs- + crackles, on suppl. O2, seems in mild respiratory distress, however continues to speak in full sentences Heart- irregularly irregular, II/ syst. murm. Abdomen- normal bowel sounds, soft, nontender, obese, nondistended Extremities- no calf tenderness, no LE edema, moves all 4 extremities spontaneously Neuro- alert, oriented x 3; PERRL, EOMI (L eye); no facial palsy; no dysarthria, moves all 4 extremities spontaneously Skin- warm & dry Results & Data Vital Signs (Past 12 Hours) Vital Signs Temp Pulse Pulse Pulse Resp BP Pulse Ox 05/11/19 07:57 36.6 C 108 H 20 107/62 96 05/11/19 07:25 110 H 18 94 05/11/19 03:40 37.2 C 118 H 19 107/67 92 05/11/19 02:17 108 H 20 87 L 05/11/19 00:00 97 H 05/10/19 23:41 36.9 C 104 H 20 127/80 91 05/10/19 23:10 96 H 18 85 L Laboratory Results 05/11/19 05/11/19 05/11/19 Range/Units 04:13 04:13 04:13 WBC 11.84 H (4.8-10.8) K/uL RBC 4.15 L (4.2-5.4) M/uL Hgb 12.5 (12.0-16.0) g/dL Hct 37.5 (37-47) % MCV 90.4 (80-100) fL MCH 30.1 (25-34) pg MCHC 33.3 (32-36) g/dL RDW Std Deviation 52.6 H (36.4-46.3) fL RDW Coeff of Cameron 15.9 H (11.5-14.5) % Plt Count 306 (130-400) K/uL MPV 9.2 (7.4-10.4) fL APTT 55.2 H* (21.0-31.0) Seconds PTT Ratio 2.0 Sodium 129 L (136-145) mmol/L Potassium 3.1 L (3.5-5.1) mmol/L Chloride 97 L (98-107) mmol/L Carbon Dioxide 23 (21-32) mmol/L Anion Gap 9.0 (3-11) BUN 26 H (7-18) mg/dl Creatinine 1.86 H D (0.6-1.2) mg/dl Est Cr Clr Drug Dosing 18.6 ml/min Est GFR ( Amer) 28.7 Est GFR (Non-Af Amer) 24.8 BUN/Creatinine Ratio 14.0 (10-20) Glucose 114 H (70-99) mg/dl POC Glucose (70-99) Calcium 8.0 L (8.5-10.1) mg/dl Tumor Marker AFP ng/mL 05/10/19 05/10/19 05/10/19 Range/Units 20:21 16:15 11:31 WBC (4.8-10.8) K/uL RBC (4.2-5.4) M/uL Hgb (12.0-16.0) g/dL Hct (37-47) % MCV (80-100) fL MCH (25-34) pg MCHC (32-36) g/dL RDW Std Deviation (36.4-46.3) fL RDW Coeff of Cameron (11.5-14.5) % Plt Count (130-400) K/uL MPV (7.4-10.4) fL APTT (21.0-31.0) Seconds PTT Ratio Sodium (136-145) mmol/L Potassium (3.5-5.1) mmol/L Chloride (98-107) mmol/L Carbon Dioxide (21-32) mmol/L Anion Gap (3-11) BUN (7-18) mg/dl Creatinine (0.6-1.2) mg/dl Est Cr Clr Drug Dosing ml/min Est GFR ( Amer) Est GFR (Non-Af Amer) BUN/Creatinine Ratio (10-20) Glucose (70-99) mg/dl POC Glucose 175 H 149 H 231 H (70-99) Calcium (8.5-10.1) mg/dl Tumor Marker AFP ng/mL 05/07/19 Range/Units 05:17 WBC (4.8-10.8) K/uL RBC (4.2-5.4) M/uL Hgb (12.0-16.0) g/dL Hct (37-47) % MCV (80-100) fL MCH (25-34) pg MCHC (32-36) g/dL RDW Std Deviation (36.4-46.3) fL RDW Coeff of Cameron (11.5-14.5) % Plt Count (130-400) K/uL MPV (7.4-10.4) fL APTT (21.0-31.0) Seconds PTT Ratio Sodium (136-145) mmol/L Potassium (3.5-5.1) mmol/L Chloride (98-107) mmol/L Carbon Dioxide (21-32) mmol/L Anion Gap (3-11) BUN (7-18) mg/dl Creatinine (0.6-1.2) mg/dl Est Cr Clr Drug Dosing ml/min Est GFR ( Amer) Est GFR (Non-Af Amer) BUN/Creatinine Ratio (10-20) Glucose (70-99) mg/dl POC Glucose (70-99) Calcium (8.5-10.1) mg/dl Tumor Marker AFP 4.8 ng/mL Medications Administered Current Inpatient Medications Amiodarone HCl (Cordarone) 200 mg PO [facility] Stop: 06/08/19 05:44 Last Admin: 05/11/19 07:55 Dose: 200 mg Documented by: Ascorbic Acid (Vitamin C) [facility] [place] [facility] Stop: 06/06/19 08:59 Last Admin: 05/11/19 07:52 Dose: 2,000 mg Documented by: Budesonide (Pulmicort Respules) 0.25 mg NEB BIDR [facility] Stop: 06/06/19 18:59 Last Admin: 05/11/19 07:22 Dose: 0.25 mg Documented by: Cetirizine HCl (Zyrtec) 10 mg PO [facility] Stop: 06/06/19 08:59 Last Admin: 05/11/19 07:55 Dose: 10 mg Documented by: Dextrose (Dextrose 50%) 25 - 50 ml IV UD PRN; Protocol PRN Reason: Hypoglycemia Protocol Stop: 06/05/19 21:51 Diltiazem HCl (Cardizem Cd) 180 mg PO [facility] Stop: 06/06/19 08:59 Last Admin: 05/11/19 07:53 Dose: 180 mg Documented by: Doxycycline Hyclate (Vibramycin) 100 mg PO Q12H [facility] Stop: 05/15/19 21:59 Last Admin: 05/10/19 21:11 Dose: 100 mg Documented by: Ferrous Sulfate (Feosol) 325 mg PO BIDM [facility] Stop: 06/06/19 07:59 Last Admin: 05/11/19 07:53 Dose: 325 mg Documented by: Gadoxetate Disodium (Eovist) 10 ml IV ONCE PRN PRN Reason: Interaction Checking Stop: 05/11/19 16:19 Last Admin: 05/07/19 16:20 Dose: 10 ml Documented by: Glucagon (Glucagen) 1 mg SQ UD PRN; Protocol PRN Reason: Hypoglycemia Protocol Stop: 06/05/19 21:51 Glucose (Dex4 Glucose) 4 - 8 tabs PO UD PRN; Protocol PRN Reason: Hypoglycemia Protocol Stop: 06/05/19 21:51 Glucose (Glucose 40%) 15 - 30 gm PO UD PRN; Protocol PRN Reason: Hypoglycemia Protocol Stop: 06/05/19 21:51 Guaifenesin (Mucinex) 600 mg PO Q12 [facility] Stop: 06/07/19 20:59 Last Admin: 05/11/19 07:54 Dose: 600 mg Documented by: Promethazine HCl 6.25 mg/ (Sodium Chloride) 50.25 mls @ 201 mls/hr IV Q4 PRN PRN Reason: Nausea And Vomiting Stop: 06/06/19 11:52 Last Infusion: 05/09/19 14:57 Dose: Infused Documented by: Ceftriaxone Sodium 1,000 mg/ (Dextrose) 50 mls @ 100 mls/hr IV Q24H [facility]SELIN; Protocol Stop: 05/15/19 07:59 Last Admin: 05/11/19 07:48 Dose: 100 mls/hr Documented by: Heparin Sodium/Dextrose (Heparin Sodium/Dextrose) 25,000 units in 500 mls @ 22 mls/hr IV .[id number] JOSELIN; Protocol Stop: 06/07/19 09:29 Last Titration: 05/11/19 07:14 Dose: 1,100 units/hr, 22 mls/hr Documented by: Insulin Aspart (Novolog Flexpen) 0 units SC ACHS [facility] Stop: 06/06/19 20:59 Last Admin: 05/10/19 20:50 Dose: 2 units Documented by: Insulin Human NPH (Novolin N Nph) 13 units SC QDB JOSELIN; Protocol Stop: 06/10/19 07:29 Insulin Human NPH (Novolin N Nph) 5 units SC QDD JOSELIN; Protocol Stop: 06/10/19 16:29 Ipratropium [place] (Atrovent 0.02% 0.5mg/2.5ml) 0.5 mg INH Q4R [facility] Stop: 06/06/19 22:59 Last Admin: 05/11/19 07:22 Dose: 0.5 mg Documented by: Levalbuterol HCl (Xopenex 0.63 Mg/3 Ml Neb) 0.63 mg NEB Q4R [facility] Stop: 06/06/19 22:59 Last Admin: 05/11/19 07:22 Dose: 0.63 mg Documented by: Metoprolol Succinate (Toprol Xl) 50 mg PO BIDM [facility] Stop: 06/06/19 07:59 Last Admin: 05/11/19 07:54 Dose: 50 mg Documented by: Miconazole Nitrate (Desenex) 1 appln EXT PRN PRN PRN Reason: NURSING DECISION Stop: 06/05/19 20:06 Last Admin: 05/06/19 21:17 Dose: 1 appln Documented by: Miscellaneous (Carbohydrates For Hypoglycemia) 15 - 30 gm PO UD PRN PRN Reason: Hypoglycemia Protocol Stop: 06/05/19 21:51 Miscellaneous Information (Consult Glycemic Management Pharmacy) 1 ea N/A UD PRN PRN Reason: Consult Stop: 06/07/19 12:12 Ondansetron HCl (Zofran) 4 mg IV Q4H PRN PRN Reason: Nausea Stop: 06/08/19 17:53 Last Admin: 05/09/19 18:06 Dose: 4 mg Documented by: Pravastatin Sodium (Pravachol) 20 mg PO HS [facility] Stop: 06/05/19 20:59 Last Admin: 05/10/19 20:50 Dose: 20 mg Documented by: Prednisolone Acetate (Pred Forte 1%) 1 drops OPR HS [facility] Stop: 06/05/19 20:59 Last Admin: 05/10/19 20:49 Dose: 1 drops Documented by: Fluticasone/Salmeterol (Advair Diskus 250/50) 1 puffs INH BID [facility] Stop: 06/05/19 20:59 Last Admin: 05/11/19 07:52 Dose: 1 puffs Documented by: Senna/Docusate Sodium (Senokot S) 1 tab PO QAM [facility] Stop: 06/09/19 21:04 Last Admin: 05/11/19 07:51 Dose: 1 tab Documented by:
[2019-05-11] MEDS: DOXYCYCLINE HYCLATE 100 MG CAP PO SCH ×2 (10:07→20:37)
--- NOTE | 2019-05-11 10:18 | Electrocardiogram Report ---
Test Reason : Blood Pressure : / mmHG Vent. Rate : 112 BPM Atrial Rate : 000 BPM P-R Int : 000 ms QRS Dur : 086 ms QT Int : 332 ms P-R-T Axes : 000 035 262 degrees QTc Int : 453 ms Atrial flutter with variable A-V block Abnormal ECG When compared with ECG of 08-MAY-2019 07:39, T wave inversion now evident in Anterolateral leads Confirmed by Blayne Crocker ([id number]) on 05/11/2019 10:18:03 AM Referred By: REFERRED SELF Confirmed By:Blayne Crocker
--- NOTE | 2019-05-11 19:06 | Nephrology Progress Note ---
Date of Service May 11, 2019 Assessment & Plan (1) Acute renal failure: her baseline creatinine on review of OP labs is 0.6-0.7 in EPIC. on presentation on 05/06 she was 0.8; then dramatic increase from 1/3 w/ creat 1.1 in am to 1/ w/ creat 1.8; on 05/09, 2.4, her peak; plateau'd and now trending down; further autodiuresing -- may be early sign of recovery. nonoliguric MARIA T likely multifactorial from ischemic ATN from hemodynamic changes related to heart rhythms and pneumonia as well as contrast induced nephropathy -no glaring issues w/ anemia or chemistries >> low mag from admission resolved; mild-moderate but relatively stable hyponatremia -no indication for IV fluids -use diuretics prn only for now -- she certainly has mild volume overload but would use diuretic only if worsening respiratory status -daily bmp -had 40 mEq K po this am; will give another 20 mEq this evening -no indication for urgent dialysis; will follow closely for need (2) Chronic hyponatremia: present as outpatient as well, though intermittently. chronic hypona tremia is defined as present > 48 hrs. she has ranged 127-133. her serum osms are 278, so minimally hypotonic. hypervolemic from heart rhythm +/- liver issues. -daily bmp -autodiuresing as above -would obtain urine studies only if sodium levels in serum worsen (3) Tachycardia: on dilt and amiodarone po, f/u cardiology recs; HR less labile than at admission (4) Liver mass: GI following Subjective no complaints spent some time in chair today but then tired and back to bed; worried about family being in her house/belongings while she's in hospital. no abd pain, no sob or cough; no chest discomfort, no swelling, no rash Review of Systems Review of Systems: All systems reviewed & are unremarkable except as noted in HPI & below Physical Exam Constitutional: well developed, well nourished and + frail appearing (dyspneic w/ exam maneuvers); no acute distress (sitting in bed on RA carefully positioned/ L side dependent) Eyes: EOM intact bilaterally enucleated R eye ENMT: Ears: no external ear abnormality Nose: no external nose abnormality Mouth: + dry oral mucous membranes Neck: no nuchal rigidity Respiratory: normal respiratory effort, + labored breathing (slight) and + tachypneic Auscultation: + diminished lung sounds, + rhonchi and + bronchovesicular breath sounds; no crackles and no wheezes upper airway sounds Cardiovascular: Rate/Rhythm: + tachycardic (in 100s) and + irregularly irregular Extremities: no edema Gastrointestinal (Abdomen): Inspection/Auscultation: normal bowel sounds Percussion/Palpation: abdomen soft; abdomen nontender Musculoskeletal: Extremities: strength 5/5 throughout Skin: no rashes, warm and dry Neurologic: singer, fluent speeech, no tremor Psychiatric: Orientation: alert and oriented x 3 Genitourinary: ample urine some blood tinge in reyna bag Results & Data Vital Signs (Past 12 Hours) Vital Signs Temp Pulse Pulse Resp BP BP Pulse Ox 05/11/19 16:24 36.9 C 103 H 18 112/78 90 05/11/19 15:23 94 H 18 96 05/11/19 11:17 36.7 C 103 H 18 113/79 98 05/11/19 11:15 108 H 18 98 05/11/19 07:57 36.6 C 108 H 20 107/62 96 05/11/19 07:25 110 H 18 94 Laboratory Results 05/11/19 04:13 05/11/19 04:13 (1) Acute renal failure Acute renal failure type: unspecified Qualified Code(s): N17.9 - Acute kidney failure, unspecified
[2019-05-11] MEDS: PRAVASTATIN SOD 20 MG TAB PO SCH (20:36)
[2019-05-11] MEDS: prednisoLONE acetate 1% OP SUSP 5 ML BTL OPR SCH (20:37)
[2019-05-11] MEDS ORDERED: HYDROmorphone INJ 0.5 MG/0.5 ML SYR IV PRN (23:37)
[2019-05-12] MEDS: ACETAMINOPHEN 325 MG TAB PO PRN (00:17)
[2019-05-12 01:13] LABS: Appearance Urine Turbid (Clear); Bacteria Urine Automated Negative (Negative); Bilirubin Urine Negative (Negative); Blood Urine 3+ (Negative); Color Urine Orange; Glucose Urine UA Negative (Negative); Ketones Urine Negative (Negative); Leukocyte Esterase Urine 2+ (Negative); Nitrite Urine Negative (Negative); Protein Urine 1+ (Negative); RBC Urine Automated >30 /hpf (0-4); Specific Gravity Urine 1.017 (1.000-1.030); Urobilinogen Urine Negative (Negative); WBC Urine Automated >30 /hpf (0-5)
[2019-05-12 01:30] LABS: Hematocrit (blood only) 36.7 % (37-47); Hemoglobin 12.4 g/dL (12.0-16.0); Red Blood Count 4.16 M/uL (4.2-5.4); White Blood Count 13.99 K/uL (4.8-10.8)
[2019-05-12 01:31] LABS: Eosinophils # (auto) 0.01 K/uL (0-0.5); Eosinophils % (auto) 0.1 %; Immature Granulocytes # (auto) 0.15 K/uL (0.00-0.02); Immature Granulocytes % (auto) 1.1 %; Lymphocytes # (auto) 0.72 K/uL (1.2-3.4); Lymphocytes % (auto) 5.1 %; Mean Corpuscular Hemoglobin 29.8 pg (25-34); Mean Corpuscular Hgb Conc 33.8 g/dL (32-36); Mean Corpuscular Volume 88.2 fL (80-100); Mean Platelet Volume 9.6 fL (7.4-10.4); Monocytes # (auto) 1.62 K/uL (0.11-0.59); Monocytes % (auto) 11.6 %; Neutrophils # (auto) 11.49 K/uL (1.4-6.5); Neutrophils % (auto) 82.1 %; Platelet Count 302 K/uL (130-400)
[2019-05-12 01:34] LABS: Granular Casts Urine 20-30 /lpf (0)
[2019-05-12] MEDS ORDERED: PIPERACILLIN/TAZOBACTAM 4.5 GM in DEXTROSE 5% 100 ML IV STA (01:39)
[2019-05-12] MEDS ORDERED: PIPERACILL/TAZOBAC CONSULT ACTIVE PRN (01:39)
--- NOTE | 2019-05-12 01:40 | Communication Note ---
Date of Service: May 12, 2019 Hematuria, blood clots noted through Delaney catheter as per RN Patient complaining of back discomfort. CT abdomen pelvis initial read : No retroperitoneal hemorrhage U/A wbc est HH stable at 12 AP Hematuria ? Complicated UTI Ongoing Ceftriaxone, Doxycycline Rx for CAP/bronchitis Follow urine cultures, Zosyn JOSE ceftriaxone Follow H&H while on IV heparin. Will relay to AM provider.
[2019-05-12 01:49] LABS: Partial Thromboplastin Ratio 1.7
[2019-05-12 01:59] LABS: Albumin Globulin Ratio 0.6 (0.9-2); Albumin Level 2.2 gm/dl (3.4-5.0); BUN Creatinine Ratio 13.7 (10-20); Bilirubin,Total 0.6 mg/dl (0.2-1); Calcium 8.3 mg/dl (8.5-10.1); Creatinine Clr Calc Pharmacy 21.1 ml/min; Est GFR (African American) 33.2; Est GFR (Non-African American) 28.6; Globulin 3.8 gm/dl (2.5-4.0); Magnesium 1.9 mg/dl (1.8-2.4); Potassium 3.8 mmol/L (3.5-5.1)
[2019-05-12 02:04] LABS: Partial Thromboplastin Time 46.9 Seconds (21.0-31.0)
[2019-05-12] MEDS ORDERED: MAGNESIUM SULFATE / D5W 1 GM/100 ML BAG IV ONE (02:04)
[2019-05-12] MEDS ORDERED: POTASSIUM CHLORIDE 20 MEQ TABCR PO STA (02:04)
[2019-05-12] MEDS: IPRATROPIUM BROMIDE NEB SOLN 0.02% 2.5 ML VIAL INH SCH ×6 (02:04→22:10)
[2019-05-12] MEDS: LEVALBUTEROL HCL 0.63 MG/3 ML NEB NEB SCH ×6 (02:04→22:09)
[2019-05-12] MEDS: AMIODARONE 200 MG TAB PO SCH (02:29)
[2019-05-12] MEDS: PIPERACILLIN/TAZOBACTAM 4.5 GM in DEXTROSE 5% 100 ML IV SCH ×3 (05:54→21:40)
[2019-05-12] MEDS: HEPARIN SODIUM/DEXTROSE 25,000 UNITS/500 ML BAG IV SCH ×3 (07:21→10:34)
--- NOTE | 2019-05-12 07:31 | CT Scan Report ---
CT abd pelvis wo con CLINICAL HISTORY: 83 years-old Female presenting with hematuria, low back pain, no bowel movement in several days. TECHNIQUE: Multidetector CT of the abdomen and pelvis was performed without the use of intravenous co ntrast. IV contrast: None. One or more dose lowering techniques were used consistent with the princip les of ALARA (as low as reasonably achievable), including automatic exposure control, mA or kV adjust ment to individual patient size, and/or use of iterative reconstruction. COMPARISON: 05/06/2019. CT DOSE (mGy.cm): The estimated cumulative dose is 1447.83 mGy.cm. FINDINGS: [employer] Analyst topogram: Gastric distention. Lung bases: Borderline enlargement of the heart. Coronary artery and aortic valve calcification. Smal l left pleural effusion slightly increased from prior. Increased peripheral and peribronchovascular c onsolidation and volume loss in the left lower lobe. Respiratory motion artifact degrades evaluation of the lung bases. Liver: Nodular morphology of the liver compatible with cirrhosis. Redemonstration of the dominant lef t hepatic lobe mass. Additional smaller masses in the left hepatic lobe best visualized on prior mult iphasic CT. Normal density of the residual parenchyma. Decreased perihepatic fluid. Biliary: No gross biliary ductal dilatation allowing for noncontrast technique. Gallbladder surgicall y absent. Pancreas: Severe parenchymal atrophy. Spleen: Calcifications in the spleen suggest a history of chronic granulomatous disease. Adrenal glands: Normal noncontrast appearance. Kidneys and ureters: Persistent nephrograms indicating renal dysfunction. Cyst noted at the lower arden e of the left kidney. No nephrolithiasis or hydronephrosis. Ureters nondistended. Bladder: Decompressed with a Delaney catheter. Pelvic organs: Normal noncontrast appearance. Bowel: Mild infiltration of the mesorectal fat new from prior. No significant rectal wall thickening. Diverticulosis of the proximal and mid sigmoid and distal descending colon without wall thickening o r pericolonic inflammatory change. A portion of the mid transverse colon and small bowel loops are co ntained within the large neck ventral hernia within the pannus. No bowel obstruction. The appendix is normal. Mild distention of the stomach with gas and fluid. Duodenal diverticulum suspected in the ho rizontal portion. Peritoneal cavity: Trace free fluid in the abdomen and pelvis there is overall decreased perihepatic fluid. No free intraperitoneal gas. Lymph nodes: No gross lymphadenopathy allowing for noncontrast technique. Vasculature: Atherosclerosis of the normal caliber abdominal aorta. Abdominal wall: Increase in body wall edema noted diffusely. Large ventral hernia in the infraumbilic al region contained within the pannus with multiple superimposed fat-containing hernias along the ant erior and inferior margins of the dominant hernia sac. Hyperdense material along the hernia sac may s uggest prior repair attempt. Musculoskeletal: Degenerative changes of the spine. IMPRESSION: 1. Interval increase in body wall edema and slight increase in left pleural effusion. Findings sugge st volume overload. 2. Overall decrease in trace ascites. 3. Cirrhosis with redemonstration of the dominant left hepatic lobe mass again concerning for hepato cellular carcinoma. Additional hepatocellular carcinomas best visualized on recent multiphase CT. 4. Renal dysfunction. 5. Large ventral hernia containing small and large bowel. No bowel obstruction. 6. Slight increase in consolidation and volume loss at the left lung base, which is favored to repre sent atelectasis. Underlying infection considered unlikely. 7. Additional findings as above. ACT 112: Negative or not required by law. Electronically signed by: Akil Becerril M.D. 05/12/2019 7:29 AM
[2019-05-12 08:12] LABS: Hematocrit (blood only) 37.7 % (37-47); Hemoglobin 12.5 g/dL (12.0-16.0)
[2019-05-12] MEDS: INSULIN ASPART 100 UNITS/ML 3 ML PEN SC SCH ×4 (08:26→21:41)
[2019-05-12] MEDS: FERROUS SULFATE 325 MG TAB PO SCH ×2 (08:27→17:05)
[2019-05-12] MEDS: INSULIN HUMAN NPH SC SCH ×2 (08:27→17:06)
[2019-05-12] MEDS: guaiFENesin 600 MG TABCR PO SCH ×2 (08:27→19:38)
[2019-05-12] MEDS: DOCUSATE SODIUM/SENNA 50/8.6MG TAB PO SCH (08:27)
[2019-05-12] MEDS: FLUTICASONE/SALMETEROL 250/50 (ADVAIR) 14 PUFF/1 INHALER INH SCH ×2 (08:27→19:38)
[2019-05-12] MEDS: CETIRIZINE HCL 10 MG TABLET PO SCH (08:28)
[2019-05-12] MEDS: ASCORBIC ACID 500 MG TAB PO SCH (08:28)
[2019-05-12 08:32] LABS: Partial Thromboplastin Ratio 1.9
[2019-05-12 08:38] LABS: Partial Thromboplastin Time 52.4 Seconds (21.0-31.0)
[2019-05-12] MEDS: METOPROLOL SUCC 50MG EXT REL TAB PO SCH ×3 (10:00→19:39)
[2019-05-12] MEDS: dilTIAZem HCL 180 MG CAPCR PO SCH (10:00)
[2019-05-12] MEDS: DOXYCYCLINE HYCLATE 100 MG CAP PO SCH ×2 (10:26→21:40)
[2019-05-12] MEDS ORDERED: NYSTATIN POWDER 15GM BTL EXT PRN (10:52)
--- NOTE | 2019-05-12 11:05 | Hospitalist Progress Note ---
Date of Service May 12, 2019 Assessment & Plan (1) Asthma: Shortness of breath community-acquired pneumonia/complicated bronchitis Fluid overload -Patient has history of asthma, and felt that "her asthma is acting up"/poss. exacerbation - received a small dose IV steroid for poss. asthma exacerbation (05/07) - previously more short of breath, concern for CAP/complicated bronchitis, she also is fluid overload from MARIA T - first started on ceftriaxone and doxycycline by the night physician at that time, continued until last night - developed hematuria, was switched to zosyn by night physician (05/12) - will observe, Zosyn can worsen her fluid overload status, we will consider to switch this antibiotic -previously also fluid overload, received 80 mg IV 2 nights ago, with IV albumin - on my physical exam, diffuse crackles some wheezes - she has cough, however denies sputum production, only occasional clear sputum - Continue advair - cont. duoneb treament - cont. budesonie, solumedrol - For fluid status, and current MARIA T, careful with Lasix, discussed with nephrology, can give 10mg IV as needed (but required 80 mg IV lasix w/ albumin the other night) MARIA T -Likely IV contrast-induced nephropathy in the setting of arrhythmia/hemodynamic changes and PNA -Patient initially presented with creatinine 1.0, creatinine 1.77 yesterday a.m., and on recheck in the afternoon 2.3 -Nephrology consulted, will continue to closely monitor BMP, will try to avoid any nephrotoxic agents - currently down to Cr 1.65 - received 80 mg IV lasix w/ albumin several nights ago d/t dyspnea- fluid overload (2) Afib: -Patient was in A. fib with RVR earlier (05/08) then converted back to NSR - now back in Afib/flutter - hold Eliquis for upcoming procedure, continue IV heparin - Continue Metoprolol 50mg BID with parameters and amiodarone, cardizem - Cardiology consulted, no change in medication indicated at this time - Will monitor closely on tele (3) Tachycardia: Present on admission with HR 140's EKG showed SVT on admission Received Lopressor 5 mg IV x1 in the ER, then HR dropped in the 50's Possible tachybrady syndrome or might be related to dehydration due to poor oral intake and low mg level Cardiology consulted, no change in medication indicated at this time Will continue metoprolol 50mg BID with parameters, amiodarone and cardizem ECHO done on 12/21 The LV wall thickness is mildly increased (concentric). The left ventricular wall motion is normal. The qualitative LV ejection fraction is 55-59% (normal). The left atrium is severely enlarged. The right atrium is moderately enlarged. The aortic valve is moderately calcified. Moderate aortic valve stenosis is present. Mild aortic valve regurgitation is present. Mild mitral regurgitation is present. Moderate tricuspid regurgitation is present. Moderate pulmonary hypertension is present. (4) Hypomagnesemia: Possible related to poor intake Mg on admission 1.4 - replace and monitor (5) Liver mass: - concern for HCC vs. cholangiocarcinoma vs mets CT abd/pelvis showed 9.5 cm dominant mass within the left hepatic lobe Imaging discussed with family and patient AFP checked GI consulted - recommended MRI for further eval and poss. EUS w/ biopsy when her card/resp. status improved (for this need to hold Eliquis for 5 days) -After further discussion, GI recommends ultrasound-guided biopsy, done by radiology -Radiology contacted, plan for biopsy tomorrow, May 13 (6) DM2 (diabetes mellitus, type 2): HbA1c 6.2% (05/07/2019) Now hyperglycemia secondary to steroid use -Pharmacy consulted for hyperglycemia management -Will hold oral diabetes med - novolog sliding scale Continue monitor BS DVT px- SCDs, hold eliquis Code Status DNR Subjective Patient is lying in bed, on supplemental oxygen, seems to be again in mild respiratory distress. She denies any chest pain, palpitations, increased shortness of breath, abdominal pain, nausea or vomiting. Also denies any fevers or chills. However she does look like she is working harder to breathe again, will administer 20 mg IV Lasix now. Currently she is on IV heparin, discussed with her that we will plan to stop it at midnight as we are planning for liver mass biopsy in the morning. She is excited to get the procedure done. Currently her only concern is that she wants to use the bathroom. Mild hematuria noted, now resolved, likely traumatic from [place]. Switched to zosyn by night physician. Cr / renal function continues to improve. Review of Systems Review of Systems: All systems reviewed & are unremarkable except as noted in HPI & below Constitutional: + fatigue; no fever and no chills Respiratory: + cough, + dyspnea and + wheezing Cardiovascular: no chest pain and no palpitations Gastrointestinal: no abdominal pain, no nausea and no vomiting Physical Exam Physical Exam: General-elderly female, lying in bed, in mild distress, on suppl. O2 Head-normocephalic, atraumatic Eyes- PERRL, EOMI of L eye (keeps right eye closed) ENT- oropharynx clear Neck- supple, no JVD Resp: Lungs- + diffuse crackles, on suppl. O2, seems in mild respiratory distress, however continues to speak in full sentences Heart- regular, II/ syst. murm. Abdomen- normal bowel sounds, soft, nontender, obese, nondistended Extremities- no calf tenderness, no LE edema, moves all 4 extremities spontaneously Neuro- alert, oriented x 3; PERRL, EOMI (L eye); no facial palsy; no dysarthria, moves all 4 extremities spontaneously Skin- warm & dry Results & Data Vital Signs (Past 12 Hours) Vital Signs Temp Pulse Pulse Pulse Resp BP Pulse Ox 05/12/19 07:32 36.7 C 98 H 18 110/79 91 05/12/19 07:26 100 H 05/12/19 07:04 72 19 91 05/12/19 03:40 36.8 C 97 H 20 104/64 93 05/12/19 02:04 115 H 18 94 05/11/19 23:41 36.9 C 108 H 22 109/74 91 05/11/19 23:04 90 22 92 Laboratory Results 05/12/19 05/12/19 05/12/19 Range/Units 07:52 07:52 07:17 WBC (4.8-10.8) K/uL RBC (4.2-5.4) M/uL Hgb 12.5 (12.0-16.0) g/dL Hct 37.7 (37-47) % MCV (80-100) fL MCH (25-34) pg MCHC (32-36) g/dL RDW Std Deviation (36.4-46.3) fL RDW Coeff of Cameron (11.5-14.5) % Plt Count (130-400) K/uL MPV (7.4-10.4) fL Immature Gran % (Auto) % Neut % (Auto) % Lymph % (Auto) % [place] % (Auto) % Eos % (Auto) % Baso % (Auto) % Immature Gran # (Auto) (0.00-0.02) K/uL Neut # (Auto) (1.4-6.5) K/uL Lymph # (Auto) (1.2-3.4) K/uL [place] # (Auto) (0.11-0.59) K/uL Eos # (Auto) (0-0.5) K/uL Baso # (Auto) (0-0.2) K/uL APTT 52.4 H* (21.0-31.0) Seconds PTT Ratio 1.9 Sodium (136-145) mmol/L Potassium (3.5-5.1) mmol/L Chloride (98-107) mmol/L Carbon Dioxide (21-32) mmol/L Anion Gap (3-11) BUN (7-18) mg/dl Creatinine (0.6-1.2) mg/dl Est Cr Clr Drug Dosing ml/min Est GFR ( Amer) Est GFR (Non-Af Amer) BUN/Creatinine Ratio (10-20) Glucose (70-99) mg/dl POC Glucose 166 H (70-99) Calcium (8.5-10.1) mg/dl Magnesium (1.8-2.4) mg/dl Total Bilirubin (0.2-1) mg/dl AST (15-37) U/L ALT (12-78) U/L Alkaline Phosphatase (45-117) U/L Total Protein (6.4-8.2) gm/dl Albumin (3.4-5.0) gm/dl Globulin (2.5-4.0) gm/dl Albumin/Globulin Ratio (0.9-2) Procalcitonin (0-0.5) ng/ml Urine Color Urine Appearance (Clear) Urine pH (4.5-7.5) Ur Specific [place] (1.000-1.030) Urine Protein (Negative) Urine Glucose (UA) (Negative) Urine Ketones (Negative) Urine Blood (Negative) Urine Nitrite (Negative) Urine Bilirubin (Negative) Urine Urobilinogen (Negative) Ur Leukocyte Esterase (Negative) Urine WBC (Auto) (0-5) /hpf Urine RBC (Auto) (0-4) /hpf U Hyaline Cast (Auto) (0-5) /lpf U Epithel Cells (Auto) (0-5) /lpf Urine Bacteria (Auto) (Negative) Ur Renal Epithelial Cell Granular Casts (0) /lpf Blood Type Antibody Screen 05/12/19 05/12/19 05/12/19 Range/Units 01:47 01:00 01:00 WBC (4.8-10.8) K/uL RBC (4.2-5.4) M/uL Hgb (12.0-16.0) g/dL Hct (37-47) % MCV (80-100) fL MCH (25-34) pg MCHC (32-36) g/dL RDW Std Deviation (36.4-46.3) fL RDW Coeff of Cameron (11.5-14.5) % Plt Count (130-400) K/uL MPV (7.4-10.4) fL Immature Gran % (Auto) % Neut % (Auto) % Lymph % (Auto) % [place] % (Auto) % Eos % (Auto) % Baso % (Auto) % Immature Gran # (Auto) (0.00-0.02) K/uL Neut # (Auto) (1.4-6.5) K/uL Lymph # (Auto) (1.2-3.4) K/uL [place] # (Auto) (0.11-0.59) K/uL Eos # (Auto) (0-0.5) K/uL Baso # (Auto) (0-0.2) K/uL APTT (21.0-31.0) Seconds PTT Ratio Sodium (136-145) mmol/L Potassium (3.5-5.1) mmol/L Chloride (98-107) mmol/L Carbon Dioxide (21-32) mmol/L Anion Gap (3-11) BUN (7-18) mg/dl Creatinine (0.6-1.2) mg/dl Est Cr Clr Drug Dosing ml/min Est GFR ( Amer) Est GFR (Non-Af Amer) BUN/Creatinine Ratio (10-20) Glucose (70-99) mg/dl POC Glucose (70-99) Calcium (8.5-10.1) mg/dl Magnesium (1.8-2.4) mg/dl Total Bilirubin (0.2-1) mg/dl AST (15-37) U/L ALT (12-78) U/L Alkaline Phosphatase (45-117) U/L Total Protein (6.4-8.2) gm/dl Albumin (3.4-5.0) gm/dl Globulin (2.5-4.0) gm/dl Albumin/Globulin Ratio (0.9-2) Procalcitonin 1.59 H (0-0.5) ng/ml Urine Color [place] Urine Appearance Turbid A (Clear) Urine pH 5.0 (4.5-7.5) Ur Specific [place] 1.017 (1.000-1.030) Urine Protein 1+ H (Negative) Urine Glucose (UA) Negative (Negative) Urine Ketones Negative (Negative) Urine Blood 3+ H (Negative) Urine Nitrite Negative (Negative) Urine Bilirubin Negative (Negative) Urine Urobilinogen Negative (Negative) Ur Leukocyte Esterase 2+ H (Negative) Urine WBC (Auto) >30 H (0-5) /hpf Urine RBC (Auto) >30 H (0-4) /hpf U Hyaline Cast (Auto) 1-5 (0-5) /lpf U Epithel Cells (Auto) 5-10 H (0-5) /lpf Urine Bacteria (Auto) Negative (Negative) Ur Renal Epithelial Cell Not Reportable Granular Casts 20-30 H (0) /lpf Blood Type B Positive Antibody Screen NEGATIVE 05/12/19 05/12/19 05/12/19 Range/Units 01:00 01:00 01:00 WBC 13.99 H (4.8-10.8) K/uL RBC 4.16 L (4.2-5.4) M/uL Hgb 12.4 (12.0-16.0) g/dL Hct 36.7 L (37-47) % MCV 88.2 (80-100) fL MCH 29.8 (25-34) pg MCHC 33.8 (32-36) g/dL RDW Std Deviation 52.0 H (36.4-46.3) fL RDW Coeff of Cameron 16.0 H (11.5-14.5) % Plt Count 302 (130-400) K/uL MPV 9.6 (7.4-10.4) fL Immature Gran % (Auto) 1.1 % Neut % (Auto) 82.1 % Lymph % (Auto) 5.1 % [place] % (Auto) 11.6 % Eos % (Auto) 0.1 % Baso % (Auto) 0.0 % Immature Gran # (Auto) 0.15 H (0.00-0.02) K/uL Neut # (Auto) 11.49 H (1.4-6.5) K/uL Lymph # (Auto) 0.72 L (1.2-3.4) K/uL [place] # (Auto) 1.62 H (0.11-0.59) K/uL Eos # (Auto) 0.01 (0-0.5) K/uL Baso # (Auto) 0.00 (0-0.2) K/uL APTT 46.9 H* (21.0-31.0) Seconds PTT Ratio 1.7 Sodium 127 L (136-145) mmol/L Potassium 3.8 D (3.5-5.1) mmol/L Chloride 96 L (98-107) mmol/L Carbon Dioxide 22 (21-32) mmol/L Anion Gap 9.0 (3-11) BUN 23 H (7-18) mg/dl Creatinine 1.65 H (0.6-1.2) mg/dl Est Cr Clr Drug Dosing 21.1 ml/min Est GFR ( Amer) 33.2 Est GFR (Non-Af Amer) 28.6 BUN/Creatinine Ratio 13.7 (10-20) Glucose 114 H (70-99) mg/dl POC Glucose (70-99) Calcium 8.3 L (8.5-10.1) mg/dl Magnesium 1.9 (1.8-2.4) mg/dl Total Bilirubin 0.6 (0.2-1) mg/dl AST 75 H (15-37) U/L ALT 42 (12-78) U/L Alkaline Phosphatase 643 H (45-117) U/L Total Protein 6.0 L (6.4-8.2) gm/dl Albumin 2.2 L (3.4-5.0) gm/dl Globulin 3.8 (2.5-4.0) gm/dl Albumin/Globulin Ratio 0.6 L (0.9-2) Procalcitonin (0-0.5) ng/ml Urine Color Urine Appearance (Clear) Urine pH (4.5-7.5) Ur Specific [place] (1.000-1.030) Urine Protein (Negative) Urine Glucose (UA) (Negative) Urine Ketones (Negative) Urine Blood (Negative) Urine Nitrite (Negative) Urine Bilirubin (Negative) Urine Urobilinogen (Negative) Ur Leukocyte Esterase (Negative) Urine WBC (Auto) (0-5) /hpf Urine RBC (Auto) (0-4) /hpf U Hyaline Cast (Auto) (0-5) /lpf U Epithel Cells (Auto) (0-5) /lpf Urine Bacteria (Auto) (Negative) Ur Renal Epithelial Cell Granular Casts (0) /lpf Blood Type Antibody Screen 05/11/19 05/11/19 05/11/19 Range/Units 20:47 17:28 11:06 WBC (4.8-10.8) K/uL RBC (4.2-5.4) M/uL Hgb (12.0-16.0) g/dL Hct (37-47) % MCV (80-100) fL MCH (25-34) pg MCHC (32-36) g/dL RDW Std Deviation (36.4-46.3) fL RDW Coeff of Cameron (11.5-14.5) % Plt Count (130-400) K/uL MPV (7.4-10.4) fL Immature Gran % (Auto) % Neut % (Auto) % Lymph % (Auto) % [place] % (Auto) % Eos % (Auto) % Baso % (Auto) % Immature Gran # (Auto) (0.00-0.02) K/uL Neut # (Auto) (1.4-6.5) K/uL Lymph # (Auto) (1.2-3.4) K/uL [place] # (Auto) (0.11-0.59) K/uL Eos # (Auto) (0-0.5) K/uL Baso # (Auto) (0-0.2) K/uL APTT (21.0-31.0) Seconds PTT Ratio Sodium (136-145) mmol/L Potassium (3.5-5.1) mmol/L Chloride (98-107) mmol/L Carbon Dioxide (21-32) mmol/L Anion Gap (3-11) BUN (7-18) mg/dl Creatinine (0.6-1.2) mg/dl Est Cr Clr Drug Dosing ml/min Est GFR ( Amer) Est GFR (Non-Af Amer) BUN/Creatinine Ratio (10-20) Glucose (70-99) mg/dl POC Glucose 198 H 138 H 137 H (70-99) Calcium (8.5-10.1) mg/dl Magnesium (1.8-2.4) mg/dl Total Bilirubin (0.2-1) mg/dl AST (15-37) U/L ALT (12-78) U/L Alkaline Phosphatase (45-117) U/L Total Protein (6.4-8.2) gm/dl Albumin (3.4-5.0) gm/dl Globulin (2.5-4.0) gm/dl Albumin/Globulin Ratio (0.9-2) Procalcitonin (0-0.5) ng/ml Urine Color Urine Appearance (Clear) Urine pH (4.5-7.5) Ur Specific [place] (1.000-1.030) Urine Protein (Negative) Urine Glucose (UA) (Negative) Urine Ketones (Negative) Urine Blood (Negative) Urine Nitrite (Negative) Urine Bilirubin (Negative) Urine Urobilinogen (Negative) Ur Leukocyte Esterase (Negative) Urine WBC (Auto) (0-5) /hpf Urine RBC (Auto) (0-4) /hpf U Hyaline Cast (Auto) (0-5) /lpf U Epithel Cells (Auto) (0-5) /lpf Urine Bacteria (Auto) (Negative) Ur Renal Epithelial Cell Granular Casts (0) /lpf Blood Type Antibody Screen Medications Administered Current Inpatient Medications Acetaminophen (Tylenol) 650 mg PO Q6H PRN PRN Reason: Fever Stop: 06/10/19 23:36 Last Admin: 05/12/19 00:17 Dose: 650 mg Documented by: Amiodarone HCl (Cordarone) 200 mg PO [facility] Stop: 06/11/19 01:44 Last Admin: 05/12/19 02:29 Dose: 200 mg Documented by: Ascorbic Acid (Vitamin C) 2,000 mg PO [facility] Stop: 06/06/19 08:59 Last Admin: 05/12/19 08:28 Dose: 2,000 mg Documented by: Budesonide (Pulmicort Respules) 0.25 mg NEB BIDR [facility] Stop: 06/06/19 18:59 Last Admin: 05/11/19 18:57 Dose: 0.25 mg Documented by: Cetirizine HCl (Zyrtec) 10 mg PO QAM [facility] Stop: 06/06/19 08:59 Last Admin: 05/12/19 08:28 Dose: 10 mg Documented by: Dextrose (Dextrose 50%) 25 - 50 ml IV UD PRN; Protocol PRN Reason: Hypoglycemia Protocol Stop: 06/05/19 21:51 Diltiazem HCl (Cardizem Cd) [facility] Stop: 06/06/19 08:59 Last Admin: 05/12/19 10:00 Dose: 180 mg Documented by: Doxycycline Hyclate (Vibramycin) 100 mg PO Q12H [facility] Stop: 05/15/19 21:59 Last Admin: 05/12/19 10:26 Dose: 100 mg Documented by: Ferrous Sulfate (Feosol) 325 mg PO BIDM [facility] Stop: 06/06/19 07:59 Last Admin: 05/12/19 08:27 Dose: 325 mg Documented by: Glucagon (Glucagen) 1 mg SQ UD PRN; Protocol PRN Reason: Hypoglycemia Protocol Stop: 06/05/19 21:51 Glucose (Dex4 Glucose) 4 - 8 tabs PO UD PRN; Protocol PRN Reason: Hypoglycemia Protocol Stop: 06/05/19 21:51 Glucose (Glucose 40%) 15 - 30 gm PO UD PRN; Protocol PRN Reason: Hypoglycemia Protocol Stop: 06/05/19 21:51 Guaifenesin (Mucinex) 600 mg PO Q12 [facility] Stop: 06/07/19 20:59 Last Admin: 05/12/19 08:27 Dose: 600 mg Documented by: Hydromorphone HCl (Dilaudid) 0.25 mg IV Q3H PRN PRN Reason: Pain Stop: 05/25/19 23:36 Promethazine HCl 6.25 mg/ (Sodium Chloride) 50.25 mls @ 201 mls/hr IV Q4 PRN PRN Reason: Nausea And Vomiting Stop: 06/06/19 11:52 Last Infusion: 05/09/19 14:57 Dose: Infused Documented by: Heparin Sodium/Dextrose (Heparin Sodium/Dextrose) 25,000 units in 500 mls @ 22 mls/hr IV .[id number] [facility]; Protocol Stop: 06/07/19 09:29 Last Admin: 05/12/19 10:34 Dose: Not Given Documented by: Piperacillin Sod/Tazobactam (Sod 4.5 gm/ Dextrose) 120 mls @ 30 mls/hr IV Q8H [facility]; Protocol Stop: 05/22/19 05:59 Last Infusion: 05/12/19 09:54 Dose: Infused Documented by: Insulin Aspart (Novolog Flexpen) 0 units SC ACHS [facility] Stop: 06/06/19 20:59 Last Admin: 05/12/19 08:26 Dose: 6 units Documented by: Insulin Human NPH (Novolin N Nph) 13 units SC QDB [facility]; Protocol Stop: 06/10/19 07:29 Last Admin: 05/12/19 08:27 Dose: 13 units Documented by: Insulin Human NPH (Novolin N Nph) 5 units SC QDD [facility]; Protocol Stop: 06/10/19 16:29 Last Admin: 05/11/19 17:49 Dose: 5 units Documented by: Ipratropium [place] (Atrovent 0.02% 0.5mg/2.5ml) 0.5 mg INH Q4R [facility] Stop: 06/06/19 22:59 Last Admin: 05/12/19 07:02 Dose: 0.5 mg Documented by: Levalbuterol HCl (Xopenex 0.63 Mg/3 Ml Neb) 0.63 mg NEB Q4R [facility] Stop: 06/06/19 22:59 Last Admin: 05/12/19 07:02 Dose: 0.63 mg Documented by: Metoprolol Succinate (Toprol Xl) 50 mg PO BIDM [facility] Stop: 06/06/19 07:59 Last Admin: 05/12/19 10:00 Dose: 50 mg Documented by: Miconazole Nitrate (Desenex) 1 appln EXT PRN PRN PRN Reason: NURSING DECISION Stop: 06/05/19 20:06 Last Admin: 05/06/19 21:17 Dose: 1 appln Documented by: Miscellaneous (Carbohydrates For Hypoglycemia) 15 - 30 gm PO UD PRN PRN Reason: Hypoglycemia Protocol Stop: 06/05/19 21:51 Miscellaneous Information (Consult Glycemic Management Pharmacy) 1 ea N/A UD PRN PRN Reason: Consult Stop: 06/07/19 12:12 Miscellaneous Information (Consult) 1 ea N/A UD PRN PRN Reason: Consult Stop: 06/11/19 01:38 Nystatin (Mycostatin) 1 appln EXT PRN PRN PRN Reason: Affected Skin Folds Stop: 06/11/19 10:51 Ondansetron HCl (Zofran) 4 mg IV Q4H PRN PRN Reason: Nausea Stop: 06/08/19 17:53 Last Admin: 05/09/19 18:06 Dose: 4 mg Documented by: Oxycodone HCl (Roxicodone Immediate Rel) 5 mg PO Q4H PRN PRN Reason: Pain Stop: 05/25/19 23:36 Pravastatin Sodium (Pravachol) 20 mg PO HS [facility] Stop: 06/05/19 20:59 Last Admin: 05/11/19 20:36 Dose: 20 mg Documented by: Prednisolone Acetate (Pred Forte 1%) 1 drops OPR HS [facility] Stop: 06/05/19 20:59 Last Admin: 05/11/19 20:37 Dose: 1 drops Documented by: Fluticasone/Salmeterol (Advair Diskus 250/50) 1 puffs INH BID [facility] Stop: 06/05/19 20:59 Last Admin: 05/12/19 08:27 Dose: 1 puffs Documented by: Senna/Docusate Sodium (Senokot S) 1 tab PO QAM [facility] Stop: 06/09/19 21:04 Last Admin: 05/12/19 08:27 Dose: 1 tab Documented by:
[2019-05-12] MEDS: BUDESONIDE 0.25 MG/2 ML VIAL (PULMICORT) NEB SCH ×2 (12:04→18:54)
--- NOTE | 2019-05-12 13:15 | Cardiology Progress Note ---
Date of Service May 12, 2019 Assessment & Plan (1) Tachycardia: History of complex atrial arrhythmias including supraventricular tachycardia, atrial flutter, paroxysmal atrial fibrillation. Telemetry today appears to predominantly be atrial fibrillation with ventricular rates in the range of 100 to 120 bpm. Increasing her AV gato blockers has been limited in the past due to resting bradycardia down to the 40s. Continue current doses of metoprolol, diltiazem, amiodarone. Stroke prophylaxis: Eliquis on hold as liver biopsy had been tentatively planned as outpatient at [facility] on 05/12/2019. This may need to be delayed. Based on her kidney function with creatinine greater than 1.5, and age greater than 83, I do anticipate need to reduce her Eliquis dose from her prior to hospital dosing of 5 mg twice daily to 2.5 mg twice daily if she goes back on the direct oral anticoagulant treatment. (2) Liver mass: Per MRI report, cholangiocarcinoma versus hepatocellular carcinoma within the differential. Will eventually need EUS mediated hepatic biopsy. (3) Acute renal failure: Creatinine trending toward improvement. Continue to follow off of diuretics. Shortness of breath felt to be multifactorial due to possible pneumonia, diastolic heart failure. DVT prophylaxis: Continue heparin infusion (4) Volume overload: Subjective Pt was seen earlier this morning Pt was seen earlier this morning. She looked uncomfortable and wiped out. no bradycardia overnight; HR mainly in 100-110bpm range she is negative about 1.6L since admission about 900 overnight Her Cr is better although her chronically low sodium is worse she had some hematuria most likely due to trauma from the reyna +SOB, no chest pains Review of Systems Constitutional: + fatigue Eyes: no worsening vision Ear, Nose, Mouth, Throat: no nasal congestion Respiratory: + dyspnea and + dyspnea on exertion Cardiovascular: + dyspnea and + edema; no chest pain Gastrointestinal: + bloating; no vomiting Genitourinary: + hematuria Musculoskeletal: + muscle weakness Neurologic: no numbness Psychiatric: no anxiety and no confusion Physical Exam Physical Exam: aaox3, NAD but looks uncomfortable NC/AT, EOMI Supple, difficult to assess JVD Tachycardiac S1/S2, No murmur b/l rhonici and some rales and wheezes soft nt +distended +reyna catheter +2 LE edema b/l skin intact no focal deficits Results & Data Vital Signs (Past 12 Hours) Vital Signs Temp Pulse Pulse Pulse Resp BP BP 05/12/19 11:54 36.5 C 107 H 20 113/74 05/12/19 11:14 101 H 22 05/12/19 07:32 36.7 C 98 H 18 110/79 05/12/19 07:26 100 H 05/12/19 07:04 72 19 05/12/19 03:40 36.8 C 97 H 20 104/64 05/12/19 02:04 115 H 18 Pulse Ox 05/12/19 11:54 93 05/12/19 11:14 97 05/12/19 07:32 91 05/12/19 07:26 05/12/19 07:04 91 05/12/19 03:40 93 05/12/19 02:04 94 Abnormal Lab Results 05/11/19 05/11/19 05/12/19 17:28 20:47 01:00 WBC 13.99 H RBC 4.16 L Hgb 12.4 Hct 36.7 L MCV 88.2 MCH 29.8 MCHC 33.8 RDW Std Deviation 52.0 H RDW Coeff of Cameron 16.0 H Plt Count 302 MPV 9.6 Immature Gran % (Auto) 1.1 Neut % (Auto) 82.1 Lymph % (Auto) 5.1 Finney % (Auto) 11.6 Eos % (Auto) 0.1 Baso % (Auto) 0.0 Immature Gran # (Auto) 0.15 H Neut # (Auto) 11.49 H Lymph # (Auto) 0.72 L Finney # (Auto) 1.62 H Eos # (Auto) 0.01 Baso # (Auto) 0.00 APTT PTT Ratio Sodium Potassium Chloride Carbon Dioxide Anion Gap BUN Creatinine Est Cr Clr Drug Dosing Est GFR ( Amer) Est GFR (Non-Af Amer) BUN/Creatinine Ratio Glucose POC Glucose 138 H 198 H Calcium Magnesium Total Bilirubin AST ALT Alkaline Phosphatase Total Protein Albumin Globulin Albumin/Globulin Ratio Procalcitonin Urine Color Urine Appearance Urine pH Ur Specific [place] Urine Protein Urine Glucose (UA) Urine Ketones Urine Blood Urine Nitrite Urine Bilirubin Urine Urobilinogen Ur Leukocyte Esterase Urine WBC (Auto) Urine RBC (Auto) U Hyaline Cast (Auto) U Epithel Cells (Auto) Urine Bacteria (Auto) Ur Renal Epithelial Cell Granular Casts Blood Type Antibody Screen 05/12/19 05/12/19 05/12/19 01:00 01:00 01:00 WBC RBC Hgb Hct MCV MCH MCHC RDW Std Deviation RDW Coeff of Cameron Plt Count MPV Immature Gran % (Auto) Neut % (Auto) Lymph % (Auto) Finney % (Auto) Eos % (Auto) Baso % (Auto) Immature Gran # (Auto) Neut # (Auto) Lymph # (Auto) Finney # (Auto) Eos # (Auto) Baso # (Auto) APTT 46.9 H* PTT Ratio 1.7 Sodium 127 L Potassium 3.8 D Chloride 96 L Carbon Dioxide 22 Anion Gap 9.0 BUN 23 H Creatinine 1.65 H Est Cr Clr Drug Dosing 21.1 Est GFR ( Amer) 33.2 Est GFR (Non-Af Amer) 28.6 BUN/Creatinine Ratio 13.7 Glucose 114 H POC Glucose Calcium 8.3 L Magnesium 1.9 Total Bilirubin 0.6 AST 75 H ALT 42 Alkaline Phosphatase 643 H Total Protein 6.0 L Albumin 2.2 L Globulin 3.8 Albumin/Globulin Ratio 0.6 L Procalcitonin Urine Color Urine Appearance Urine pH Ur Specific [place] Urine Protein Urine Glucose (UA) Urine Ketones Urine Blood Urine Nitrite Urine Bilirubin Urine Urobilinogen Ur Leukocyte Esterase Urine WBC (Auto) Urine RBC (Auto) U Hyaline Cast (Auto) U Epithel Cells (Auto) Urine Bacteria (Auto) Ur Renal Epithelial Cell Granular Casts Blood Type B Positive Antibody Screen NEGATIVE 05/12/19 05/12/19 05/12/19 01:00 01:47 07:17 WBC RBC Hgb Hct MCV MCH MCHC RDW Std Deviation RDW Coeff of Cameron Plt Count MPV Immature Gran % (Auto) Neut % (Auto) Lymph % (Auto) Finney % (Auto) Eos % (Auto) Baso % (Auto) Immature Gran # (Auto) Neut # (Auto) Lymph # (Auto) Finney # (Auto) Eos # (Auto) Baso # (Auto) APTT PTT Ratio Sodium Potassium Chloride Carbon Dioxide Anion Gap BUN Creatinine Est Cr Clr Drug Dosing Est GFR ( Amer) Est GFR (Non-Af Amer) BUN/Creatinine Ratio Glucose POC Glucose 166 H Calcium Magnesium Total Bilirubin AST ALT Alkaline Phosphatase Total Protein Albumin Globulin Albumin/Globulin Ratio Procalcitonin 1.59 H Urine Color [place] Urine Appearance Turbid A Urine pH 5.0 Ur Specific Gaston 1.017 Urine Protein 1+ H Urine Glucose (UA) Negative Urine Ketones Negative Urine Blood 3+ H Urine Nitrite Negative Urine Bilirubin Negative Urine Urobilinogen Negative Ur Leukocyte Esterase 2+ H Urine WBC (Auto) >30 H Urine RBC (Auto) >30 H U Hyaline Cast (Auto) 1-5 U Epithel Cells (Auto) 5-10 H Urine Bacteria (Auto) Negative Ur Renal Epithelial Cell Not Reportable Granular Casts 20-30 H Blood Type Antibody Screen 05/12/19 05/12/19 05/12/19 07:52 07:52 10:56 WBC RBC Hgb 12.5 Hct 37.7 MCV MCH MCHC RDW Std Deviation RDW Coeff of Cameron Plt Count MPV Immature Gran % (Auto) Neut % (Auto) Lymph % (Auto) Finney % (Auto) Eos % (Auto) Baso % (Auto) Immature Gran # (Auto) Neut # (Auto) Lymph # (Auto) Finney # (Auto) Eos # (Auto) Baso # (Auto) APTT 52.4 H* PTT Ratio 1.9 Sodium Potassium Chloride Carbon Dioxide Anion Gap BUN Creatinine Est Cr Clr Drug Dosing Est GFR ( Amer) Est GFR (Non-Af Amer) BUN/Creatinine Ratio Glucose POC Glucose 149 H Calcium Magnesium Total Bilirubin AST ALT Alkaline Phosphatase Total Protein Albumin Globulin Albumin/Globulin Ratio Procalcitonin Urine Color Urine Appearance Urine pH Ur Specific [place] Urine Protein Urine Glucose (UA) Urine Ketones Urine Blood Urine Nitrite Urine Bilirubin Urine Urobilinogen Ur Leukocyte Esterase Urine WBC (Auto) Urine RBC (Auto) U Hyaline Cast (Auto) U Epithel Cells (Auto) Urine Bacteria (Auto) Ur Renal Epithelial Cell Granular Casts Blood Type Antibody Screen Medications reviewed Vitals Reviewed CT scans reviewed (1) Acute renal failure Acute renal failure type: unspecified Qualified Code(s): N17.9 - Acute kidney failure, unspecified
--- NOTE | 2019-05-12 19:05 | Nephrology Progress Note ---
Date of Service May 12, 2019 Assessment & Plan (1) Acute renal failure: her baseline creatinine on review of OP labs is 0.6-0.7 in EPIC. on presentation on 05/06 she was 0.8; then dramatic increase from 1/3 w/ creat 1.1 in am to 1/4 w/ creat 1.8; on 05/09, 2.4, her peak; plateau'd and now trending down again; further autodiuresing -- may be early sign of recovery. nonoliguric MARIA T likely multifactorial from ischemic ATN from hemodynamic changes related to heart rhythms and pneumonia as well as contrast induced nephropathy -no glaring issues w/ anemia or chemistries >> low mag from admission resolved; mild-moderate but relatively stable hyponatremia -no indication for IV fluids -use diuretics prn only for now -- she certainly has mild volume overload but would use diuretic only if worsening respiratory status -daily bmp -had 40 mEq K po this am -no indication for urgent dialysis; will follow closely for need (2) Chronic hyponatremia: present as outpatient as well, though intermittently. chronic hyponatremia is defined as present > 48 hrs. she has ranged 127-133. her serum osms are 278, so minimally hypotonic. hypervolemic from heart rhythm +/- liver issues. -daily bmp -autodiuresing as above -would obtain urine studies only if sodium levels in serum worsen (3) Tachycardia: on dilt and amiodarone po, f/u cardiology recs; HR less labile than at admission (4) Liver mass: GI following Subjective ongoing autodiuresis > 800 mL negative w/o diuretics on eval at 1010 this am; still sob; still cough; no pain,, no edema Review of Systems Review of Systems: All systems reviewed & are unremarkable except as noted in HPI & below Physical Exam Constitutional: well developed, well nourished and + frail appearing (still dyspneic w/ exam maneuvers); no acute distress (sitting in bed on RA carefully positioned/ L side dependent) Eyes: EOM intact bilaterally ENMT: Ears: no external ear abnormality Nose: no external nose abnormality Mouth: + dry oral mucous membranes Neck: no nuchal rigidity Respiratory: normal respiratory effort, + labored breathing (slight) and + tachypneic Auscultation: + diminished lung sounds, + rhonchi and + bronchovesicular breath sounds; no crackles and no wheezes Cardiovascular: Rate/Rhythm: + tachycardic (in 100s) and + irregularly i rregular Extremities: no edema Gastrointestinal (Abdomen): Inspection/Auscultation: normal bowel sounds Percussion/Palpation: abdomen soft; abdomen nontender Musculoskeletal: Extremities: strength 5/5 throughout Skin: no rashes, warm and dry Neurologic: singer, fluent speech, no tremor Psychiatric: Orientation: alert and oriented x 3 Genitourinary: reyna still Results & Data Vital Signs (Past 12 Hours) Vital Signs Temp Pulse Pulse Pulse Resp BP BP 05/12/19 18:57 103 H 20 05/12/19 16:00 119 H 05/12/19 15:47 37.0 C 108 H 24 120/76 05/12/19 15:33 05/12/19 14:59 111 H 18 05/12/19 14:08 05/12/19 11:54 36.5 C 107 H 20 113/74 05/12/19 11:14 101 H 22 05/12/19 07:32 36.7 C 98 H 18 110/79 05/12/19 07:26 100 H 05/12/19 07:04 72 19 Pulse Ox Pulse Ox Pulse Ox 05/12/19 18:57 95 05/12/19 16:00 05/12/19 15:47 95 05/12/19 15:33 93 05/12/19 14:59 96 05/12/19 14:08 1 L 1 L 05/12/19 11:54 93 05/12/19 11:14 97 05/12/19 07:32 91 05/12/19 07:26 05/12/19 07:04 91 Laboratory Results 05/12/19 07:52 05/12/19 01:00 (1) Acute renal failure Acute renal failure type: unspecified Qualified Code(s): N17.9 - Acute kidney failure, unspecified
[2019-05-12] MEDS ORDERED: FUROSEMIDE 20 MG in SYRINGE 0 ML IV ONE (19:10)
[2019-05-12] MEDS: PRAVASTATIN SOD 20 MG TAB PO SCH (19:38)
[2019-05-12] MEDS: prednisoLONE acetate 1% OP SUSP 5 ML BTL OPR SCH (19:39)
[2019-05-13] MEDS: LEVALBUTEROL HCL 0.63 MG/3 ML NEB NEB SCH ×6 (02:04→22:56)
[2019-05-13] MEDS: IPRATROPIUM BROMIDE NEB SOLN 0.02% 2.5 ML VIAL INH SCH ×6 (02:04→22:56)
[2019-05-13] MEDS: PIPERACILLIN/TAZOBACTAM 4.5 GM in DEXTROSE 5% 100 ML IV SCH (05:58)
[2019-05-13 06:59] LABS: Hematocrit (blood only) 37.4 % (37-47); Hemoglobin 12.4 g/dL (12.0-16.0); Mean Corpuscular Hemoglobin 29.7 pg (25-34); Mean Corpuscular Hgb Conc 33.2 g/dL (32-36); Mean Corpuscular Volume 89.7 fL (80-100); Mean Platelet Volume 9.3 fL (7.4-10.4); Platelet Count 325 K/uL (130-400); RDW Coefficient of Variation 16.1 % (11.5-14.5); RDW Standard Deviation 52.7 fL (36.4-46.3); Red Blood Count 4.17 M/uL (4.2-5.4); White Blood Count 15.33 K/uL (4.8-10.8)
[2019-05-13 07:07] LABS: INR 1.2 (0.9-1.1); Partial Thromboplastin Time 26.1 Seconds (21.0-31.0); Prothrombin Time 12.1 Seconds (9.0-12.0)
[2019-05-13] MEDS: BUDESONIDE 0.25 MG/2 ML VIAL (PULMICORT) NEB SCH ×2 (07:20→19:04)
[2019-05-13 07:30] LABS: BUN Creatinine Ratio 12.3 (10-20); Calcium 8.7 mg/dl (8.5-10.1); Est GFR (African American) 38.8; Est GFR (Non-African American) 33.5; Potassium 4.2 mmol/L (3.5-5.1)
[2019-05-13] MEDS ORDERED: INSULIN HUMAN NPH SC SCH (07:30)
--- NOTE | 2019-05-13 08:07 | Pharmacy Report ---
Pharmacy Glycemic Short Note 2 - Date of Service May 13, 2019 - Glycemic Short BSG Results (Last 24 hours): 05/12/19 05/12/19 05/12/19 10:56 16:36 21:20 Glucose POC Glucose 149 H 200 H 153 H 05/13/19 06:43 Glucose 139 H POC Glucose OUTPATIENT ANTIDIABETIC REGIMEN: * Glipizide * Metformin * Actos ASSESSMENT: 05/13 * No changes were made yesterday due to stable BSGs * SCr improved today 1.65 -> 1.45 * She received 18 units of basal and 19 units of bolus insulin yesterday * Patient NPO this AM -> will decrease AM NPH by 20% for today only 05/11 * Patient received 20 units of basal and 17 units of bolus insulin yesterday * Fasting BSG is much improved. Will cut back slightly on daily NPH dose. * Postprandial BSGs acceptable so will continue with tightened parameters * SCr improved further today 05/10 * Ms. Walters received 26 units of insulin yesterday, 15 of this being basal * BSGs have started to increase, even with steroids no longer on board. This is most likely d/t advancement in diet and improved SCr. * Will tighten Novolog parameters and add a PM dose of NPH to provide more basal 05/09 * 83yo T2DM with well controlled diabetes as an outpatient per recent A1c * 05/08/19: Pt with acute SEVERE hyperglycemia secondary to one time doses of Solumedrol x 3 overnight. Bolus insulin parameters were tightened accordingly. NPH 20 units (0.3 units/kg) SQ x 1 dose for steroid induced hyperglycemia from Solumedrol overnight. See note from 05/08/19 for more info. * 05/06/19: Pt still with sustained hyperglycemia despite last dose of Solumedrol 20mg on 05/08/19 @ ~05:30. Typically, hyperglycemic effects of solumedrol dissipate in 12-18 hrs. Will continue tightened NovoLog parameters from yesterday and give one more dose of NPH this morning- conservative dosing secondary to nausea this AM and no further steroid dosing today. Prefer NPH today based on its 12-18 hr duration of action. Based on pt A1c she most likely does not need 24hr basal insulin coverage (unless ordered RTC steroids). PLAN FOR INPATIENT GLYCEMIC CONTROL: * Holding outpatient oral diabetes medications * Basal insulin - decrease AM dose for NPO status on 05/13 * NPH 13 units with breakfast (10 units on 05/13) * NPH 5 units with dinner * Bolus insulin: no change * NovoLog per scale ACHS or Q6hrs while NPO * Goal Range: Low 110 mg/dL - High 140 mg/dL * Correction Factor: 25 mg/dL/unit * Nutritional / Prandial insulin per carb ratio of 1 unit per 8 grams CHO consumed Discharge Recommendations: * A1c = 6.2% on 05/07/19 * Goal A1c < 7% or even < 8% based on age/comorbidities * Resume oral agents on discharge. Ensure SCr back to baseline prior to resuming metformin.
--- NOTE | 2019-05-13 08:08 | Hospitalist Progress Note ---
Date of Service May 13, 2019 Assessment & Plan (1) Asthma: Shortness of breath community-acquired pneumonia/complicated bronchitis Fluid overload -Patient has history of asthma, and felt that "her asthma is acting up"/poss. exacerbation - received a small dose IV steroid for poss. asthma exacerbation (05/07) - then appeared even more short of breath, concern for CAP/complicated bronchitis, she also is fluid overload from MARIA T and diastolic heart failure - first started on ceftriaxone and doxycycline by the night physician at that time, continued until night (05/12) - then developed hematuria, was switched to zosyn by night physician (05/12) -Zosyn can worsen her fluid status, and patient was again more fluid overloaded on my exam yesterday, switch from Zosyn to cefepime -previously also fluid overload, received 80 mg IV 2 nights ago, with IV albumin - on my physical exam, diffuse crackles some wheezes again yesterday (05/12) - in mild resp. distress - gave 20 mg IV lasix - she has cough, however denies sputum production, only occasional clear sputum - Continue advair - cont. duoneb treament - cont. budesonie, solumedrol - For fluid status, and current MARIA T, careful with Lasix, discussed with nephrology, can give 10mg IV as needed (but required 80 mg IV lasix w/ albumin the other night) MARIA T -Likely IV contrast-induced nephropathy in the setting of arrhythmia/hemodynamic changes and PNA -Patient initially presented with creatinine 1.0, creatinine then increased to 1.77 ->2.3 -Nephrology consulted, will continue to closely monitor BMP, will try to avoid any nephrotoxic agents - currently down to Cr 1.45 - received 80 mg IV lasix w/ albumin several nights ago d/t dyspnea- fluid overload (2) Afib: -Patient was in A. fib with RVR earlier (05/08) then converted back to NSR, now back in Afib/flutter - held Eliquis for upcoming procedure, continued IV heparin, until midnight - plan for biopsy today (05/13) - current INR 1.2 - Continue Metoprolol 50mg BID with parameters and amiodarone, cardizem - Cardiology consulted, given her renal function status, will re-start Eliquis at lower dose - 2.5 twice a day - metoprolol increased to 50 mg TID (05/12) - cont. to monitor closely on tele (3) Tachycardia: Present on admission with HR 140's EKG showed SVT on admission Received Lopressor 5 mg IV x1 in the ER, then HR dropped in the 50's Possible tachybrady syndrome or might be related to dehydration due to poor oral intake and low mg level Cardiology consulted, increase metoprolol to 3 times daily (05/12) Will continue amiodarone and cardizem, metoprolol increased from 50mg BID to TID (05/12) ECHO done on 12/21 The LV wall thickness is mildly increased (concentric). The left ventricular wall motion is normal. The qualitative LV ejection fraction is 55-59% (normal). The left atrium is severely enlarged. The right atrium is moderately enlarged. The aortic valve is moderately calcified. Moderate aortic valve stenosis is present. Mild aortic valve regurgitation is present. Mild mitral regurgitation is present. Moderate tricuspid regurgitation is present. Moderate pulmonary hypertension is present. (4) Hypomagnesemia: Possible related to poor intake Mg on admission 1.4 - replace and monitor (5) Liver mass: - concern for HCC vs. cholangiocarcinoma vs mets CT abd/pelvis showed 9.5 cm dominant mass within the left hepatic lobe Imaging discussed with family and patient AFP checked GI consulted - recommended MRI for further eval and poss. EUS w/ biopsy when her card/resp. status improved (for this need to hold Eliquis for 5 days), pt has been on IV heparin until midnight -After further discussion, GI recommends ultrasound-guided biopsy, done by radiology -Radiology contacted, plan for biopsy today, May 13 Update: Pt underwent biopsy today (05/13), tolerated procedure well (6) DM2 (diabetes mellitus, type 2): HbA1c 6.2% (05/07/2019) Now hyperglycemia secondary to steroid use -Pharmacy consulted for hyperglycemia management -Will hold oral diabetes med - novolog sliding scale Continue monitor BS DVT px- SCDs, hold eliquis Code Status DNR Subjective Gave 20 IV lasix yesterday as pt seemed in mild respiratory distress, loud crackles on physical exam. Plan for U/S guided liver mass biopsy today (05/13) instead of EUS. Heparin stopped at midnight. Cr down to 1.45 INR 1.2 Switch from zosyn Update: pt underwent the biopsy w/ radiology today (05/13), tolerated procedure well Review of Systems Review of Systems: All systems reviewed & are unremarkable except as noted in HPI & below Constitutional: + fatigue; no fever and no chills Respiratory: + cough and + dyspnea Cardiovascular: no chest pain and no palpitations Gastrointestinal: no abdominal pain, no nausea and no vomiting Physical Exam Physical Exam: General-elderly female, lying in bed, on suppl. O2 Head-normocephalic, atraumatic Eyes- PERRL, EOMI of L eye (keeps right eye closed) ENT- oropharynx clear Neck- supple, no JVD Resp: Lungs- + crackles, on suppl. O2, seems in mild respiratory distress, however continues to speak in full sentences Heart- irregularly irregular, mildly tachycardic in low 100s, II/ syst. murm. Abdomen- normal bowel sounds, soft, nontender, obese, nondistended Extremities- no calf tenderness, no LE edema, moves all 4 extremities spontaneously Neuro- alert, oriented x 3; PERRL, EOMI (L eye); no facial palsy; no dysarthria, moves all 4 extremities spontaneously Skin- warm & dry Results & Data Vital Signs (Past 12 Hours) Vital Signs Temp Pulse Pulse Pulse Resp BP Pulse Ox 05/13/19 07:35 36.6 C 100 H 20 109/75 96 05/13/19 07:21 86 18 94 05/13/19 07:14 103 H 05/13/19 04:29 36.5 C 112 H 20 119/77 93 05/13/19 02:06 101 H 18 93 05/12/19 23:20 36.4 C L 104 H 26 H 119/80 94 05/12/19 22:11 103 H 22 95 Laboratory Results 05/13/19 05/13/19 05/13/19 Range/Units 06:43 06:43 06:43 WBC 15.33 H (4.8-10.8) K/uL RBC 4.17 L (4.2-5.4) M/uL Hgb 12.4 (12.0-16.0) g/dL Hct 37.4 (37-47) % MCV 89.7 (80-100) fL MCH 29.7 (25-34) pg MCHC 33.2 (32-36) g/dL RDW Std Deviation 52.7 H (36.4-46.3) fL RDW Coeff of Cameron 16.1 H (11.5-14.5) % Plt Count 325 (130-400) K/uL MPV 9.3 (7.4-10.4) fL PT 12.1 H (9.0-12.0) Seconds INR 1.2 H (0.9-1.1) APTT 26.1 (21.0-31.0) Seconds PTT Ratio 1.0 Sodium 129 L (136-145) mmol/L Potassium 4.2 (3.5-5.1) mmol/L Chloride 99 (98-107) mmol/L Carbon Dioxide 20 L (21-32) mmol/L Anion Gap 10.0 (3-11) BUN 18 (7-18) mg/dl Creatinine 1.45 H (0.6-1.2) mg/dl Est Cr Clr Drug Dosing 24.0 ml/min Est GFR ( Amer) 38.8 Est GFR (Non-Af Amer) 33.5 BUN/Creatinine Ratio 12.3 (10-20) Glucose 139 H (70-99) mg/dl POC Glucose (70-99) Calcium 8.7 (8.5-10.1) mg/dl 05/12/19 05/12/19 05/12/19 Range/Units 21:20 16:36 10:56 WBC (4.8-10.8) K/uL RBC (4.2-5.4) M/uL Hgb (12.0-16.0) g/dL Hct (37-47) % MCV (80-100) fL MCH (25-34) pg MCHC (32-36) g/dL RDW Std Deviation (36.4-46.3) fL RDW Coeff of Cameron (11.5-14.5) % Plt Count (130-400) K/uL MPV (7.4-10.4) fL PT (9.0-12.0) Seconds INR (0.9-1.1) APTT (21.0-31.0) Seconds PTT Ratio Sodium (136-145) mmol/L Potassium (3.5-5.1) mmol/L Chloride (98-107) mmol/L Carbon Dioxide (21-32) mmol/L Anion Gap (3-11) BUN (7-18) mg/dl Creatinine (0.6-1.2) mg/dl Est Cr Clr Drug Dosing ml/min Est GFR ( Amer) Est GFR (Non-Af Amer) BUN/Creatinine Ratio (10-20) Glucose (70-99) mg/dl POC Glucose 153 H 200 H 149 H (70-99) Calcium (8.5-10.1) mg/dl 05/12/19 05/12/19 Range/Units 07:52 07:52 WBC (4.8-10.8) K/uL RBC (4.2-5.4) M/uL Hgb 12.5 (12.0-16.0) g/dL Hct 37.7 (37-47) % MCV (80-100) fL MCH (25-34) pg MCHC (32-36) g/dL RDW Std Deviation (36.4-46.3) fL RDW Coeff of Cameron (11.5-14.5) % Plt Count (130-400) K/uL MPV (7.4-10.4) fL PT (9.0-12.0) Seconds INR (0.9-1.1) APTT 52.4 H* (21.0-31.0) Seconds PTT Ratio 1.9 Sodium (136-145) mmol/L Potassium (3.5-5.1) mmol/L Chloride (98-107) mmol/L Carbon Dioxide (21-32) mmol/L Anion Gap (3-11) BUN (7-18) mg/dl Creatinine (0.6-1.2) mg/dl Est Cr Clr Drug Dosing ml/min Est GFR ( Amer) Est GFR (Non-Af Amer) BUN/Creatinine Ratio (10-20) Glucose (70-99) mg/dl POC Glucose (70-99) Calcium (8.5-10.1) mg/dl Medications Administered Current Inpatient Medications Acetaminophen (Tylenol) 650 mg PO Q6H PRN PRN Reason: Fever Stop: 06/10/19 23:36 Last Admin: 05/12/19 00:17 Dose: 650 mg Documented by: Amiodarone HCl (Cordarone) [facility] [place] Stop: 06/11/19 01:44 Last Admin: 05/12/19 02:29 Dose: 200 mg Documented by: Ascorbic Acid (Vitamin C) 2,000 [facility] [place] Stop: 06/06/19 08:59 Last Admin: 05/12/19 08:28 Dose: 2,000 mg Documented by: Budesonide (Pulmicort Respules) 0.25 mg NEB BIDR [facility] Stop: 06/11/19 18:59 Last Admin: 05/13/19 07:20 Dose: 0.25 mg Documented by: Cetirizine HCl (Zyrtec) 10 [facility] [place] Stop: 06/06/19 08:59 Last Admin: 05/12/19 08:28 Dose: 10 mg Documented by: Dextrose (Dextrose 50%) 25 - 50 ml IV UD PRN; Protocol PRN Reason: Hypoglycemia Protocol Stop: 06/05/19 21:51 Diltiazem HCl (Cardizem Cd) 180 mg PO [facility] Stop: 06/06/19 08:59 Last Admin: 05/12/19 10:00 Dose: 180 mg Documented by: Doxycycline Hyclate (Vibramycin) 100 mg PO Q12H [facility] Stop: 05/15/19 21:59 Last Admin: 05/12/19 21:40 Dose: 100 mg Documented by: Ferrous Sulfate (Feosol) 325 mg PO BIDM [facility] Stop: 06/06/19 07:59 Last Admin: 05/12/19 17:05 Dose: 325 mg Documented by: Glucagon (Glucagen) 1 mg SQ UD PRN; Protocol PRN Reason: Hypoglycemia Protocol Stop: 06/05/19 21:51 Glucose (Dex4 Glucose) 4 - 8 tabs PO UD PRN; Protocol PRN Reason: Hypoglycemia Protocol Stop: 06/05/19 21:51 Glucose (Glucose 40%) 15 - 30 gm PO UD PRN; Protocol PRN Reason: Hypoglycemia Protocol Stop: 06/05/19 21:51 Guaifenesin (Mucinex) 600 mg PO Q12 [facility] Stop: 06/07/19 20:59 Last Admin: 05/12/19 19:38 Dose: 600 mg Documented by: Hydromorphone HCl (Dilaudid) 0.25 mg IV Q3H PRN PRN Reason: Pain Stop: 05/25/19 23:36 Promethazine HCl 6.25 mg/ (Sodium Chloride) 50.25 mls @ 201 mls/hr IV Q4 PRN PRN Reason: Nausea And Vomiting Stop: 06/06/19 11:52 Last Infusion: 05/09/19 14:57 Dose: Infused Documented by: Cefepime HCl 2,000 mg/ Syringe 22.6 mls @ 5.5 mls/min IV Q8H [facility]; Protocol Stop: 05/20/19 13:29 Insulin Aspart (Novolog Flexpen) 0 units SC ACHS [facility] Stop: 06/06/19 20:59 Last Admin: 05/13/19 08:15 Dose: Not Given Documented by: Insulin Human NPH (Novolin N Nph) 13 units SC QDB [facility]; Protocol Stop: 06/10/19 07:29 Last Admin: 05/12/19 08:27 Dose: 13 units Documented by: Insulin Human NPH (Novolin N Nph) 5 units SC QDD [facility]; Protocol Stop: 06/10/19 16:29 Last Admin: 05/12/19 17:06 Dose: 5 units Documented by: Insulin Human NPH (Novolin N Nph) 10 units SC QDB [facility]; Protocol Stop: 05/13/19 11:00 Last Admin: 05/13/19 08:15 Dose: 10 units Documented by: Ipratropium [place] (Atrovent 0.02% 0.5mg/2.5ml) 0.5 mg INH Q4R [facility] Stop: 06/06/19 22:59 Last Admin: 05/13/19 07:20 Dose: 0.5 mg Documented by: Levalbuterol HCl (Xopenex 0.63 Mg/3 Ml Neb) 0.63 mg NEB Q4R [facility] Stop: 06/06/19 22:59 Last Admin: 05/13/19 07:20 Dose: 0.63 mg Documented by: Metoprolol Succinate (Toprol Xl) 50 mg PO TID [facility] Stop: 06/11/19 13:59 Last Admin: 05/12/19 19:39 Dose: 50 mg Documented by: Metronidazole (Flagyl) 500 mg PO BID [facility] Stop: 05/20/19 12:59 Miconazole Nitrate (Desenex) 1 appln EXT PRN PRN PRN Reason: NURSING DECISION Stop: 06/05/19 20:06 Last Admin: 05/06/19 21:17 Dose: 1 appln Documented by: Miscellaneous (Carbohydrates For Hypoglycemia) 15 - 30 gm PO UD PRN PRN Reason: Hypoglycemia Protocol Stop: 06/05/19 21:51 Miscellaneous Information (Consult Glycemic Management Pharmacy) 1 ea N/A UD PRN PRN Reason: Consult Stop: 06/07/19 12:12 Miscellaneous Information (Cefepime Consult Active) 1 ea N/A NOW ONE Stop: 05/13/19 08:24 Nystatin (Mycostatin) 1 appln EXT PRN PRN PRN Reason: Affected Skin Folds Stop: 06/11/19 10:51 Ondansetron HCl (Zofran) 4 mg IV Q4H PRN PRN Reason: Nausea Stop: 06/08/19 17:53 Last Admin: 05/09/19 18:06 Dose: 4 mg Documented by: Oxycodone HCl (Roxicodone Immediate Rel) 5 mg PO Q4H PRN PRN Reason: Pain Stop: 05/25/19 23:36 Pravastatin Sodium (Pravachol) 20 mg PO HS [facility] Stop: 06/05/19 20:59 Last Admin: 05/12/19 19:38 Dose: 20 mg Documented by: Prednisolone Acetate (Pred Forte 1%) 1 drops OPR HS [facility] Stop: 06/05/19 20:59 Last Admin: 05/12/19 19:39 Dose: 1 drops Documented by: Fluticasone/Salmeterol (Advair Diskus 250/50) 1 puffs INH BID [facility] Stop: 06/05/19 20:59 Last Admin: 05/13/19 08:17 Dose: 1 puffs Documented by: Senna/Docusate Sodium (Senokot S) 1 tab PO QAM [facility] Stop: 06/09/19 21:04 Last Admin: 05/12/19 08:27 Dose: 1 tab Documented by:
[2019-05-13] MEDS: INSULIN ASPART 100 UNITS/ML 3 ML PEN SC SCH ×4 (08:15→21:31)
[2019-05-13] MEDS: FLUTICASONE/SALMETEROL 250/50 (ADVAIR) 14 PUFF/1 INHALER INH SCH ×2 (08:17→21:33)
[2019-05-13] MEDS ORDERED: CEFEPIME CONSULT ACTIVE PRN (08:23)
--- NOTE | 2019-05-13 10:27 | Ultrasound Report ---
US FNA w/img 1st lesion CLINICAL HISTORY: 83 years-old Female presenting with LIVER MASS FNA. TECHNIQUE: Real-time grayscale and limited color Doppler ultrasound imaging of the liver was performe d for ultrasound-guided fine-needle aspiration. COMPARISON: CT from 05/12/2019. PROCEDURE: The risks, benefits, and alternatives of the procedure were discussed with the patient. Written infor med consent was obtained. A timeout was performed to confirm patient identity. The patient was placed supine in ultrasound, and the 9.5 cm mass in the left lobe of the liver was lo calized by ultrasound and selected for fine needle aspiration. The epigastrium was prepped and draped in the usual sterile fashion. The superficial and deeper soft tissues were infiltrated with 1% lidocaine. The mass was aspirated under ultrasound guidance with 2 p asses utilizing 22-gauge Carlos needles. Specimens were reviewed by the pathologist at the time of biopsy and were deemed adequate for diagnos is. The patient tolerated the procedure well. IMPRESSION: Successful fine-needle aspiration of the dominant left hepatic lobe mass as above. ACT 112: Negative or not required by law. Electronically signed by: Akil Becerril M.D. 05/13/2019 10:26 AM
[2019-05-13] MEDS ORDERED: metroNIDAZOLE 500 MG TAB PO SCH (12:00)
[2019-05-13] MEDS: DOXYCYCLINE HYCLATE 100 MG CAP PO SCH ×2 (12:38→21:30)
[2019-05-13] MEDS: CETIRIZINE HCL 10 MG TABLET PO SCH (12:39)
[2019-05-13] MEDS: AMIODARONE 200 MG TAB PO SCH (12:39)
[2019-05-13] MEDS: DOCUSATE SODIUM/SENNA 50/8.6MG TAB PO SCH (12:39)
[2019-05-13] MEDS: METOPROLOL SUCC 50MG EXT REL TAB PO SCH ×3 (12:39→21:29)
[2019-05-13] MEDS: FERROUS SULFATE 325 MG TAB PO SCH ×2 (12:40→17:48)
[2019-05-13] MEDS: ASCORBIC ACID 500 MG TAB PO SCH (12:40)
[2019-05-13] MEDS: guaiFENesin 600 MG TABCR PO SCH ×2 (12:40→21:28)
[2019-05-13] MEDS: dilTIAZem HCL 180 MG CAPCR PO SCH (12:40)
[2019-05-13] MEDS: ACETAMINOPHEN 325 MG TAB PO PRN (12:50)
[2019-05-13] MEDS: CEFEPIME 2,000 MG in SYRINGE 0 ML IV SCH (14:20)
--- NOTE | 2019-05-13 17:01 | Cardiology Progress Note ---
Date of Service May 13, 2019 Assessment & Plan (1) Tachycardia: (2) Liver mass: Patient with atrial fibrillation, mildly low ventricular rate, continue amiodarone on diltiazem. Metoprolol dose increased yesterday 05/12/2019, no bradycardia noted. Heparin had been held for fine-needle aspiration of the liver, anticoagulation to be resumed this evening, will proceed with Eliquis, dose adjusted for age and renal insufficiency to 2.5 mg twice daily. Creatinine has trended toward improv ement at 1.47 today, but I think 2.5 mg twice daily is the most reasonable dose for her. Hyponatremia is noted, but relatively stable. Continue antibiotics for pneumonia, holding diuretics at present. Subjective Saige notes ongoing shortness of breath and fatigue. Telemetry reveals atrial fibrillation at 100 bpm at rest. No bradycardia noted. Physical Exam Physical Exam: Temp Pulse Resp BP Pulse Ox 36.4 C L 103 H 18 105/72 94 05/13/19 16:03 05/13/19 16:03 05/13/19 16:03 05/13/19 16:03 05/13/19 16:03 Constitutional: WD/WN, vitals as above Respiratory: Coarse breath sounds throughout her lung branham Cardiovascular: Rate/Rhythm: + irregularly irregular Heart Sounds: no murmur Vessels: no JVD Gastrointestinal (Abdomen): Abdomen soft nontender Neurologic: PERRL, EOMI, accommodation nl, no face palsy, no dysarthria Results & Data Vital Signs (Past 12 Hours) Vital Signs Temp Pulse Pulse Pulse Resp BP BP 05/13/19 16:03 36.4 C L 103 H 18 105/72 05/13/19 14:59 107 H 20 05/13/19 11:27 36.4 C L 99 H 99 H 20 118/73 127/82 05/13/19 11:13 106 H 18 05/13/19 07:35 36.6 C 100 H 20 109/75 05/13/19 07:21 86 18 05/13/19 07:14 103 H Pulse Ox 05/13/19 16:03 94 05/13/19 14:59 97 05/13/19 11:27 96 05/13/19 11:13 97 05/13/19 07:35 96 05/13/19 07:21 94 05/13/19 07:14
[2019-05-13] MEDS: INSULIN HUMAN NPH SC SCH (17:47)
[2019-05-13] MEDS: APIXABAN 2.5 MG TAB PO SCH (21:27)
[2019-05-13] MEDS: metroNIDAZOLE 500 MG TAB PO SCH (21:28)
[2019-05-13] MEDS: PRAVASTATIN SOD 20 MG TAB PO SCH (21:29)
[2019-05-13] MEDS: prednisoLONE acetate 1% OP SUSP 5 ML BTL OPR SCH (21:29)
[2019-05-14] MEDS: IPRATROPIUM BROMIDE NEB SOLN 0.02% 2.5 ML VIAL INH SCH ×6 (03:26→22:58)
[2019-05-14] MEDS: LEVALBUTEROL HCL 0.63 MG/3 ML NEB NEB SCH ×6 (03:26→22:58)
[2019-05-14] MEDS: BUDESONIDE 0.25 MG/2 ML VIAL (PULMICORT) NEB SCH ×2 (07:01→19:58)
--- NOTE | 2019-05-14 07:21 | XRay Report ---
XR chest 1V portable CLINICAL HISTORY: follow up CXR dyspnea COMPARISON STUDY: 05/09/2019 FINDINGS: Mild stable cardiomegaly. Improved aeration of the lung bases. Minimal atelectatic change a telectasis of the lung bases. Minimal upper lungs are clear. Diminished prominence of the pulmonary v asculature. IMPRESSION: Improved components of congestive failure and basilar infiltrative change. Minimal resid ual. ACT 112: Negative or not required by law. The above report was generated using voice recognition software. It may contain grammatical, syntax or spelling errors. Electronically signed by: Luan Hidalgo M.D. 05/14/2019 7:20 AM
[2019-05-14] MEDS: ASCORBIC ACID 500 MG TAB PO SCH (08:25)
[2019-05-14] MEDS: DOXYCYCLINE HYCLATE 100 MG CAP PO SCH ×2 (08:25→20:17)
[2019-05-14] MEDS: metroNIDAZOLE 500 MG TAB PO SCH ×3 (08:26→20:15)
[2019-05-14] MEDS: CETIRIZINE HCL 10 MG TABLET PO SCH (08:26)
[2019-05-14] MEDS: METOPROLOL SUCC 50MG EXT REL TAB PO SCH ×3 (08:26→21:09)
[2019-05-14] MEDS: DOCUSATE SODIUM/SENNA 50/8.6MG TAB PO SCH (08:26)
[2019-05-14] MEDS: AMIODARONE 200 MG TAB PO SCH ×2 (08:26→17:56)
[2019-05-14] MEDS: FERROUS SULFATE 325 MG TAB PO SCH ×2 (08:26→17:56)
[2019-05-14] MEDS: APIXABAN 2.5 MG TAB PO SCH ×2 (08:26→20:15)
[2019-05-14] MEDS: guaiFENesin 600 MG TABCR PO SCH ×2 (08:26→20:15)
[2019-05-14] MEDS: dilTIAZem HCL 180 MG CAPCR PO SCH (08:27)
[2019-05-14] MEDS: FLUTICASONE/SALMETEROL 250/50 (ADVAIR) 14 PUFF/1 INHALER INH SCH ×2 (08:27→20:14)
[2019-05-14 08:36] LABS: Hematocrit (blood only) 39.4 % (37-47); Hemoglobin 13.1 g/dL (12.0-16.0); Mean Corpuscular Hemoglobin 30.3 pg (25-34); Mean Corpuscular Hgb Conc 33.2 g/dL (32-36); Mean Platelet Volume 9.7 fL (7.4-10.4); Platelet Count 400 K/uL (130-400); RDW Coefficient of Variation 15.9 % (11.5-14.5); RDW Standard Deviation 53.1 fL (36.4-46.3); Red Blood Count 4.33 M/uL (4.2-5.4); White Blood Count 12.77 K/uL (4.8-10.8)
[2019-05-14] MEDS: INSULIN ASPART 100 UNITS/ML 3 ML PEN SC SCH ×4 (08:55→21:08)
[2019-05-14 09:09] LABS: BUN Creatinine Ratio 14.3 (10-20); Calcium 8.7 mg/dl (8.5-10.1); Creatinine Clr Calc Pharmacy 28.2 ml/min; Est GFR (African American) 45.5; Est GFR (Non-African American) 39.3; Magnesium 1.8 mg/dl (1.8-2.4); Potassium 4.1 mmol/L (3.5-5.1)
[2019-05-14] MEDS: INSULIN HUMAN NPH SC SCH ×2 (09:18→17:59)
--- NOTE | 2019-05-14 11:00 | Hospitalist Progress Note ---
Date of Service May 14, 2019 Assessment & Plan (1) Asthma: Shortness of breath symptom has improved - - she has cough, however denies sputum production, only occasional clear sputum - Continue advair - cont. duoneb treament - cont. budesonie, solumedrol - MARIA T -Likely IV contrast-induced nephropathy in the setting of arrhythmia/hemodynamic changes and PNA -Patient initially presented with creatinine 1.0, creatinine then increased to 1.77 ->2.3 -Nephrology consulted, will continue to closely monitor BMP, will try to avoid any nephrotoxic agents - currently down to Cr 1.45 - received 80 mg IV lasix w/ albumin several nights ago d/t dyspnea- fluid overload (2) Afib: - - Continue Metoprolol 50mg BID with parameters and amiodarone, cardizem - Cardiology consulted, given her renal function status, will re-start Eliquis at lower dose - 2.5 twice a day - metoprolol increased to 50 mg TID (05/12) - cont. to monitor closely on tele (3) Hypomagnesemia: Possible related to poor intake Mg on admission 1.4 - replace and monitor Hypokalemia - replete and monitor - goal K~4 (4) Liver mass: Update: pt underwent the biopsy w/ radiology (05/13), tolerated procedure well pathology pending - concern for HCC vs. cholangiocarcinoma vs mets CT abd/pelvis showed 9.5 cm dominant mass within the left hepatic lobe Imaging discussed with family and patient by Dr Redman AFP checked:normal GI consulted - - (5) DM2 (diabetes mellitus, type 2): HbA1c 6.2% (05/07/2019) Now hyperglycemia secondary to steroid use -Pharmacy consulted for hyperglycemia management -Will hold oral diabetes med - novolog sliding scale Continue monitor BS DVT px- SCDs, hold eliquis Code Status DNR Subjective feels weal and tired having epigastric discomfort -feels like her am pills is stuck on her lower esophagus , has been drinking water minimum help pt reports she gets occasional feeling of medicine /pills getting stuck , does not have any issue with food asked pills can be crushed ordered Maalox for acid reflux pt denies of any pain or discomfort, no SOB , no orthopnea , no complain of palpitation or chest heaviness Review of Systems Constitutional: + fatigue Physical Exam Constitutional: WD/WN, vitals as above well developed, well nourished, + obese and + frail appearing (still dyspneic w/ exam maneuvers); no acute distress (sitting in bed on RA carefully positioned/ L side dependent) Eyes: PERRL, conjunctivae normal, anicteric sclerae (though some right lid lag) EOM intact bilaterally ENMT: external ear and nose normal, oropharynx normal Ears: no external ear abnormality Nose: no external nose abnormality Mouth: + dry oral mucous membranes Neck: trachea midline, no thyromegaly no nuchal rigidity Respiratory: normal respiratory effort, + labored breathing (slight) and + tachypneic Auscultation: + diminished lung sounds, + rhonchi and + bronchovesicular breath sounds; no crackles, no rales and no wheezes Cardiovascular: Rate/Rhythm: regular rate, regular rhythm, + tachycardic (in 100s) and + irregularly irregular Heart Sounds: no murmur Vessels: no JVD Extremities: no edema Gastrointestinal (Abdomen): normal bowel sounds, soft, nontender, no hepatosplenomegaly Inspection/Auscultation: normal bowel sounds Percussion/Palpation: abdomen soft; abdomen nontender Musculoskeletal: no cyanosis or clubbing, extremities motor strength 5/5 Extremities: strength 5/5 throughout Skin: no rashes, warm and dry no jaundice Neurologic: PERRL, EOMI, accommodation nl, no face palsy, no dysarthria Psychiatric: A+Ox3, euthymic affect Orientation: alert and oriented x 3 Lymphatic: no cervical or axillary lymphadenopathy Results & Data Vital Signs (Past 12 Hours) Vital Signs Temp Pulse Pulse Pulse Resp BP BP 05/14/19 08:00 112 H 05/14/19 07:41 36.6 C 117 H 22 145/80 H 05/14/19 07:04 117 H 18 05/14/19 04:36 37.1 C 113 H 20 105/63 05/14/19 03:28 110 H 18 05/14/19 00:17 107 H 05/13/19 23:44 36.4 C L 94 H 19 113/78 Pulse Ox 05/14/19 08:00 05/14/19 07:41 96 05/14/19 07:04 95 05/14/19 04:36 94 05/14/19 03:28 90 05/14/19 00:17 05/13/19 23:44 93
--- NOTE | 2019-05-14 11:55 | Pharmacy Report ---
Pharmacy Glycemic Short Note 2 - Date of Service May 14, 2019 - Glycemic Short BSG Results (Last 24 hours): 05/13/19 05/13/19 05/14/19 16:39 20:37 06:58 Glucose POC Glucose 108 H 112 H 104 H 05/14/19 05/14/19 08:13 11:18 Glucose 102 H POC Glucose 163 H OUTPATIENT ANTIDIABETIC REGIMEN: * Glipizide * Metformin * Actos ASSESSMENT: 05/14 * Pt NPO yesterday, diet resumed last evening. Minimal CHO intake at breakfast today. * BSGs running on the lower side at [phone] over the past 24hrs. * Will continue dose reduction from yesterday since PO intake not back at baseline. 05/13 * No changes were made yesterday due to stable BSGs * SCr improved today 1.65 -> 1.45 * She received 18 units of basal and 19 units of bolus insulin yesterday * Patient NPO this AM -> will decrease AM NPH by 20% for today only 05/11 * Patient received 20 units of basal and 17 units of bolus insulin yesterday * Fasting BSG is much improved. Will cut back slightly on daily NPH dose. * Postprandial BSGs acceptable so will continue with tightened parameters * SCr improved further today 05/10 * Ms. Walters received 26 units of insulin yesterday, 15 of this being basal * BSGs have started to increase, even with steroids no longer on board. This is most likely d/t advancement in diet and improved SCr. * Will tighten Novolog parameters and add a PM dose of NPH to provide more basal 05/09 * 83yo T2DM with well controlled diabetes as an outpatient per recent A1c * 05/08/19: Pt with acute SEVERE hyperglycemia secondary to one time doses of Solumedrol x 3 overnight. Bolus insulin parameters were tightened accordingly. NPH 20 units (0.3 units/kg) SQ x 1 dose for steroid induced hyperglycemia from Solumedrol overnight. See note from 05/08/19 for more info. * 05/06/19: Pt still with sustained hyperglycemia despite last dose of Solumedrol 20mg on 05/08/19 @ ~05:30. Typically, hyperglycemic effects of solumedrol dissipate in 12-18 hrs. Will continue tightened NovoLog parameters from yesterday and give one more dose of NPH this morning- conservative dosing secondary to nausea this AM and no further steroid dosing today. Prefer NPH today based on its 12-18 hr duration of action. Based on pt A1c she most likely does not need 24hr basal insulin coverage (unless ordered RTC steroids). PLAN FOR INPATIENT GLYCEMIC CONTROL: * Holding outpatient oral diabetes medications * Basal insulin - Continue reduced dosing * NPH 10 units with breakfast * NPH 5 units with dinner * Bolus insulin: no change * NovoLog per scale ACHS or Q6hrs while NPO * Goal Range: Low 110 mg/dL - High 140 mg/dL * Correction Factor: 25 mg/dL/unit * Nutritional / Prandial insulin per carb ratio of 1 unit per 8 grams CHO consumed Discharge Recommendations: * A1c = 6.2% on 05/07/19 * Goal A1c < 7% or even < 8% based on age/comorbidities * Resume oral agents on discharge. Ensure SCr back to baseline prior to resuming metformin.
[2019-05-14] MEDS: CEFEPIME 2,000 MG in SYRINGE 0 ML IV SCH (14:42)
--- NOTE | 2019-05-14 15:47 | Cardiology Progress Note ---
Date of Service May 14, 2019 Assessment & Plan (1) Atrial fibrillation with RVR: History of complex atrial arrhythmias including atrial tachycardia, atrial fibrillation, atrial flutter. Currently in atrial fibrillation in the range of 100 to 110 bpm. Metoprolol had been increased to 50 3 times daily several days ago, she remains on prior to hospital dose of diltiazem. Today we will increase amiodarone to 200 mg twice daily. It is noted that she has been off of anticoagulation for needle biopsy of the liver. She had been on a heparin bridge leading up to the procedure. We will place her back on Eliquis 2.5 mg twice daily given her recent issues with renal insufficiency and her agent rather than her previous dose of 5 mg twice daily. Overall her renal insufficiency has improved with creatinine having peaked at 2.44 now down to 1.27. Sodium has improved. Multifactorial respiratory insufficiency: Being treated for pneumonia, likely a component of volume overload, however diuretics de-escalated due to MARIA T. It may be time to consider going back on furosemide tomorrow. Hepatic mass, with ascites, MRI differential diagnosis per report was cholangiocarcinoma or perhaps hepatocellular carcinoma, status post needle aspirate biopsy on 05/13/2019, cytology currently pending. Subjective Feels SOB. She is expresses frustration. Physical Exam Physical Exam: Temp Pulse Resp BP Pulse Ox 36.3 C L 84 18 108/72 97 05/14/19 15:24 05/14/19 15:41 05/14/19 15:41 05/14/19 15:24 05/14/19 15:41 Constitutional: WD/WN, vitals as above Respiratory: normal respiratory effort, lungs clear to auscultation Cardiovascular: RRR, no murmur, no edema Gastrointestinal (Abdomen): normal bowel sounds, soft, nontender, no hepatosplenomegaly Neurologic: PERRL, EOMI, accommodation nl, no face palsy, no dysarthria Results & Data Vital Signs (Past 12 Hours) Vital Signs Temp Pulse Pulse Pulse Resp BP BP 05/14/19 15:24 36.3 C L 94 H 22 108/72 05/14/19 11:40 36.6 C 99 H 18 117/70 05/14/19 11:23 98 H 20 05/14/19 08:00 112 H 05/14/19 07:41 36.6 C 117 H 22 145/80 H 05/14/19 07:04 117 H 18 05/14/19 04:36 37.1 C 113 H 20 105/63 Pulse Ox 05/14/19 15:24 92 05/14/19 11:40 91 05/14/19 11:23 95 05/14/19 08:00 05/14/19 07:41 96 05/14/19 07:04 95 05/14/19 04:36 94 Laboratory Results CBC 05/14/19 Range/Units 08:13 WBC 12.77 H (4.8-10.8) K/uL RBC 4.33 (4.2-5.4) M/uL Hgb 13.1 (12.0-16.0) g/dL Hct 39.4 (37-47) % Plt Count 400 (130-400) K/uL Comprehensive Metabolic Panel 05/14/19 Range/Units 08:13 Sodium 130 L (136-145) mmol/L Potassium 4.1 (3.5-5.1) mmol/L Chloride 100 (98-107) mmol/L Carbon Dioxide 20 L (21-32) mmol/L BUN 18 (7-18) mg/dl Creatinine 1.27 H (0.6-1.2) mg/dl Glucose 102 H (70-99) mg/dl Calcium 8.7 (8.5-10.1) mg/dl Intake and Output 05/14/19 05/14/19 05/14/19 06:59 14:59 22:59 Intake Total 60 / 60 Output Total 700 / 1400 150 / 150 Balance -700 / -640 -90 / -90 Intake: Oral 60 / 60 Output: Urine Amount (Catheter) 700 / 1050 150 / 150 Delaney/Indwelling 700 / 1050 150 / 150 Other: Weight 76.1 kg
[2019-05-14] MEDS ORDERED: ALUMINUM/MAGNESIUM/SIMETH (MAALOX MAX) 30 ML UDC PO STA (18:32)
[2019-05-14] MEDS: prednisoLONE acetate 1% OP SUSP 5 ML BTL OPR SCH (20:16)
[2019-05-14] MEDS: PRAVASTATIN SOD 20 MG TAB PO SCH (20:16)
[2019-05-15] MEDS: IPRATROPIUM BROMIDE NEB SOLN 0.02% 2.5 ML VIAL INH SCH ×6 (02:23→23:31)
[2019-05-15] MEDS: LEVALBUTEROL HCL 0.63 MG/3 ML NEB NEB SCH ×6 (02:24→23:31)
[2019-05-15 05:48] LABS: Hematocrit (blood only) 37.6 % (37-47); Hemoglobin 12.5 g/dL (12.0-16.0); Mean Corpuscular Hgb Conc 33.2 g/dL (32-36); Mean Corpuscular Volume 90.2 fL (80-100); Mean Platelet Volume 9.3 fL (7.4-10.4); Platelet Count 366 K/uL (130-400); RDW Coefficient of Variation 15.9 % (11.5-14.5); RDW Standard Deviation 52.4 fL (36.4-46.3); Red Blood Count 4.17 M/uL (4.2-5.4); White Blood Count 13.52 K/uL (4.8-10.8)
[2019-05-15 06:21] LABS: BUN Creatinine Ratio 17.4 (10-20); Calcium 8.5 mg/dl (8.5-10.1); Creatinine Clr Calc Pharmacy 32.7 ml/min; Est GFR (African American) 53.6; Est GFR (Non-African American) 46.2; Potassium 3.7 mmol/L (3.5-5.1)
[2019-05-15] MEDS: BUDESONIDE 0.25 MG/2 ML VIAL (PULMICORT) NEB SCH ×2 (07:41→19:04)
[2019-05-15] MEDS: METOPROLOL SUCC 50MG EXT REL TAB PO SCH ×3 (08:24→20:04)
[2019-05-15] MEDS: metroNIDAZOLE 500 MG TAB PO SCH ×3 (08:25→20:02)
[2019-05-15] MEDS: CETIRIZINE HCL 10 MG TABLET PO SCH (08:25)
[2019-05-15] MEDS: guaiFENesin 600 MG TABCR PO SCH ×2 (08:25→20:04)
[2019-05-15] MEDS: ASCORBIC ACID 500 MG TAB PO SCH (08:25)
[2019-05-15] MEDS: APIXABAN 2.5 MG TAB PO SCH ×2 (08:25→20:03)
[2019-05-15] MEDS: dilTIAZem HCL 180 MG CAPCR PO SCH (08:26)
[2019-05-15] MEDS: DOXYCYCLINE HYCLATE 100 MG CAP PO SCH (08:26)
[2019-05-15] MEDS: FERROUS SULFATE 325 MG TAB PO SCH ×2 (08:26→17:09)
[2019-05-15] MEDS: AMIODARONE 200 MG TAB PO SCH ×2 (08:26→17:09)
[2019-05-15] MEDS: FLUTICASONE/SALMETEROL 250/50 (ADVAIR) 14 PUFF/1 INHALER INH SCH ×2 (08:26→20:02)
[2019-05-15] MEDS: DOCUSATE SODIUM/SENNA 50/8.6MG TAB PO SCH (08:26)
[2019-05-15] MEDS: INSULIN HUMAN NPH SC SCH ×2 (08:27→17:06)
[2019-05-15] MEDS: INSULIN ASPART 100 UNITS/ML 3 ML PEN SC SCH ×4 (08:29→20:53)
[2019-05-15] MEDS: ONDANSETRON INJ 2 MG/ML 2 ML VIAL IV PRN (09:40)
[2019-05-15] MEDS: CEFEPIME 2,000 MG in SYRINGE 0 ML IV SCH (12:22)
--- NOTE | 2019-05-15 13:12 | Cardiology Progress Note ---
Date of Service May 15, 2019 Assessment & Plan (1) Atrial fibrillation with RVR: History of complex atrial arrhythmias including atrial tachycardia, atrial fibrillation, atrial flutter. Currently in atrial fibrillation in the range of 100 to 110 bpm. Amiodarone increased to 200 mg twice daily yesterday. Metoprolol increased to 50 mg 3 times daily several days ago. She has been continued on her outpatient dose of diltiazem CD, 180 mg daily. Treatment limited in the past by sinus bradycardia with rates down to the 40s. Electrophysiology input appreciated. Eliquis resumed at reduced dose post biopsy due to renal insufficiency. Consider titration of Eliquis back to 5 mg twice daily pending repeat lab studies during hospitalization. Multifactorial respiratory insufficiency secondary to pneumonia and volume overload. Recommend restarting IV furosemide, 40 mg daily today Follow fluid balance, daily weight, GFR, and electrolytes. Hepatic mass, with ascites, MRI differential diagnosis per report was cholangiocarcinoma or perhaps hepatocellular carcinoma, status post needle aspi rate biopsy on 05/13/2019, cytology currently pending. Subjective Patient seen and examined at the bedside. Resting comfortably. Notes cough without sputum production. No orthopnea or PND. Lower extremity edema unchanged. Denies palpitations. Telemetry demonstrates atrial fibrillation with rates ranging from 100 to 115 bpm. Amiodarone titrated to 200 mg twice daily yesterday. Apixaban restarted at reduced dose due to renal insufficiency. Diuretics on hold due to elevated creatinine over the past 3 days. Review of Systems Review of Systems: All systems reviewed & are unremarkable except as noted in HPI & below + Fatigue, edema, cough Physical Exam Constitutional: well developed, + ill appearing and + obese Respiratory: Auscultation: + rales (Scant crackles at the bases bilaterally.), + rhonchi and + wheezes Cardiovascular: Rate/Rhythm: + tachycardic and + irregularly irregular Heart Sounds: normal S1 and normal S2; no murmur Vessels: + JVD and radial pulses present Extremities: + pedal edema (2+ bilateral pedal edema.) Gastrointestinal (Abdomen): Inspection/Auscultation: normal bowel sounds; abdomen not distended Percussion/Palpation: abdomen soft; abdomen nontender, no guarding and abdomen not rigid Musculoskeletal: no cyanosis or clubbing, extremities motor strength 5/5 Skin: no rashes, warm and dry Neurologic: CN's II-XI intact bilaterally and moves all extremities; no focal motor deficits Psychiatric: A+Ox3, euthymic affect Results & Data Vital Signs (Past 12 Hours) Vital Signs Temp Pulse Resp BP BP Pulse Ox 05/15/19 11:01 36.6 C 94 H 20 120/82 97 05/15/19 10:57 82 18 92 05/15/19 07:45 103 H 22 95 05/15/19 06:59 36.7 C 99 H 21 119/80 94 05/15/19 02:31 36.6 C 100 H 22 124/83 96 05/15/19 02:24 111 H 20 96
[2019-05-15] MEDS ORDERED: FUROSEMIDE 20 MG in SYRINGE 0 ML IV ONE (13:30)
--- NOTE | 2019-05-15 15:27 | Nephrology Progress Note ---
Date of Service May 15, 2019 Assessment & Plan (1) Acute renal failure: her baseline creatinine on review of OP labs is 0.6-0.7 in EPIC. on presentation on 05/06 she was 0.8; then dramatic increase from 1/3 w/ creat 1.1 in am to 1/4 w/ creat 1.8; on 05/09, 2.4, her peak; Cr 1.1 today nonoliguric MARIA T likely multifactorial from ischemic ATN from hemodynamic changes related to heart rhythms and pneumonia as well as contrast induced nephropathy -She is volume overloaded. agree with iv lasix 20mg -daily bmp (2) Chronic hyponatremia: present as outpatient as well, though intermittently. chronic hyponatremia is defined as present > 48 hrs. she has ranged 127-133. Na 128 today. her serum osms are 278, so minimally hypotonic. hypervolemic from heart rhythm +/- liver issues. -daily bmp -autodiuresing as above -would obtain urine studies only if sodium levels in serum worsen (3) Tachycardia: on dilt and amiodarone po, f/u cardiology recs; HR less labile than at admission (4) Liver mass: GI following Subjective She is complaining of nausea but no vomiting. No SOB. Her legs are swollen. Na is low Review of Systems Review of Systems: All systems reviewed & are unremarkable except as noted in HPI & below Physical Exam Physical Exam: General exam: Appears comfortable, no acute distress HEENT: Pupils are equal and reactive to light Neck: No JVD, neck is supple trachea is midline Respiratory system: Crackles bilaterally. Gastrointestinal: Abdomen is soft, non distended, non tender, bowel sounds are present CVS: Regular rate and rhythm. No murmurs, rubs or gallops Musculoskeletal: No joint or muscle tenderness Extremities: Non tender, 2+edema, peripheral pulses are present Neuro: Oriented, no tremors, no focal neurological deficits Skin: No rashes Results & Data Vital Signs (Past 12 Hours) Vital Signs Temp Pulse Resp BP Pulse Ox 05/15/19 15:09 96 H 18 96 05/15/19 11:01 36.6 C 94 H 20 120/82 97 05/15/19 10:57 82 18 92 05/15/19 07:45 103 H 22 95 05/15/19 06:59 36.7 C 99 H 21 119/80 94 Laboratory Results Laboratory Results - last 24 hr 05/14/19 05/14/19 05/15/19 16:16 21:02 05:28 WBC 13.52 H RBC 4.17 L Hgb 12.5 Hct 37.6 MCV 90.2 MCH 30.0 MCHC 33.2 RDW Std Deviation 52.4 H RDW Coeff of Cameron 15.9 H Plt Count 366 MPV 9.3 Sodium Potassium Chloride Carbon Dioxide Anion Gap BUN Creatinine Est Cr Clr Drug Dosing Est GFR ( Amer) Est GFR (Non-Af Amer) BUN/Creatinine Ratio Glucose POC Glucose 162 H 136 H Calcium 05/15/19 05/15/19 05/15/19 05:28 07:21 11:31 WBC RBC Hgb Hct MCV MCH MCHC RDW Std Deviation RDW Coeff of Cameron Plt Count MPV Sodium 128 L Potassium 3.7 Chloride 99 Carbon Dioxide 23 Anion Gap 6.0 BUN 19 H Creatinine 1.11 Est Cr Clr Drug Dosing 32.7 Est GFR ( Amer) 53.6 Est GFR (Non-Af Amer) 46.2 BUN/Creatinine Ratio 17.4 Glucose 127 H POC Glucose 135 H 141 H Calcium 8.5 (1) Acute renal failure Acute renal failure type: unspecified Qualified Code(s): N17.9 - Acute kidney failure, unspecified
--- NOTE | 2019-05-15 18:09 | Hospitalist Progress Note ---
Date of Service May 15, 2019 Assessment & Plan (1) Asthma: Shortness of breath symptom has improved - - she has cough, however denies sputum production, only occasional clear sputum - Continue advair - cont. duoneb treament - cont. budesonie, solumedrol - MARIA T -Likely IV contrast-induced nephropathy in the setting of arrhythmia/hemodynamic changes and PNA -Patient initially presented with creatinine 1.0, creatinine then increased to 1.77 ->2.3 -Nephrology consulted, will continue to closely monitor BMP, will try to avoid any nephrotoxic agents - currently down to Cr 1.45 - received 80 mg IV lasix w/ albumin several nights ago d/t dyspnea- fluid overload pt is cotninued with low dose lasix for vol over load (2) Afib: -HR in 100's pt denies of feeling palpitation - pt is continued with beta roxie , amiodarone , cardizem - Cardiology consulted, given her renal function status, will re-start Eliquis at lower dose - 2.5 twice a day - metoprolol increased to 50 mg TID (05/12) - cont. to monitor closely on tele (3) Hypomagnesemia: Possible related to poor intake Mg on admission 1.4 - replace and monitor Hypokalemia - replete and monitor - goal K~4 (4) Liver mass: Update: pt underwent the biopsy w/ radiology (05/13), tolerated procedure well pathology pending - concern for HCC vs. cholangiocarcinoma vs mets CT abd/pelvis showed 9.5 cm dominant mass within the left hepatic lobe Imaging discussed with family and patient by Dr Redman AFP checked:normal GI consulted - - (5) DM2 (diabetes mellitus, type 2): HbA1c 6.2% (05/07/2019) Now hyperglycemia secondary to steroid use -Pharmacy consulted for hyperglycemia management -Will hold oral diabetes med - novolog sliding scale Continue monitor BS DVT px- SCDs, hold eliquis Code Status DNR Subjective feels better today , SOB has improved , still has cough , now non productive denies of any chest heaviness , dysphagia or orthopnea no fever or chills voices frustration for prolong hospital stay , continued illness Physical Exam Constitutional: WD/WN, vitals as above well developed, well nourished, + obese and + frail appearing (still dyspneic w/ exam maneuvers); no acute distress (sitting in bed on RA carefully positioned/ L side dependent) Eyes: PERRL, conjunctivae normal, anicteric sclerae (though some right lid lag) EOM intact bilaterally ENMT: external ear and nose normal, oropharynx normal Ears: no external ear abnormality Nose: no external nose abnormality Mouth: + dry oral mucous membranes Neck: trachea midline, no thyromegaly no nuchal rigidity Respiratory: normal respiratory effort, + labored breathing (slight) and + tachypneic Auscultation: + diminished lung sounds, + rhonchi and + bronchovesicular breath sounds; no crackles, no rales and no wheezes Cardiovascular: Rate/Rhythm: regular rate, regular rhythm, + tachycardic (in 100s) and + irregularly irregular Heart Sounds: no murmur Vessels: no JVD Extremities: no edema Gastrointestinal (Abdomen): normal bowel sounds, soft, nontender, no hepatosplenomegaly Inspection/Auscultation: normal bowel sounds Percussion/Palpation: abdomen soft; abdomen nontender Musculoskeletal: no cyanosis or clubbing, extremities motor strength 5/5 Extremities: strength 5/5 throughout Skin: no rashes, warm and dry no jaundice Neurologic: PERRL, EOMI, accommodation nl, no face palsy, no dysarthria Psychiatric: A+Ox3, euthymic affect Orientation: alert and oriented x 3 Lymphatic: no cervical or axillary lymphadenopathy Results & Data Vital Signs (Past 12 Hours) Vital Signs Temp Pulse Pulse Resp BP BP Pulse Ox 05/15/19 15:52 36.5 C 107 H 21 99/64 L 92 05/15/19 15:09 96 H 18 96 05/15/19 11:01 36.6 C 94 H 20 120/82 97 05/15/19 10:57 82 18 92 05/15/19 07:45 103 H 22 95 05/15/19 06:59 36.7 C 99 H 21 119/80 94
[2019-05-15] MEDS: prednisoLONE acetate 1% OP SUSP 5 ML BTL OPR SCH (20:02)
[2019-05-15] MEDS: PRAVASTATIN SOD 20 MG TAB PO SCH (20:05)
[2019-05-16] MEDS: CEFEPIME 2,000 MG in SYRINGE 0 ML IV SCH ×3 (00:55→23:22)
[2019-05-16] MEDS: LEVALBUTEROL HCL 0.63 MG/3 ML NEB NEB SCH ×6 (03:26→23:17)
[2019-05-16] MEDS: IPRATROPIUM BROMIDE NEB SOLN 0.02% 2.5 ML VIAL INH SCH ×6 (03:26→23:17)
--- NOTE | 2019-05-16 06:02 | Electrocardiogram Report ---
Test Reason : Blood Pressure : / mmHG Vent. Rate : 096 BPM Atrial Rate : 242 BPM P-R Int : 000 ms QRS Dur : 088 ms QT Int : 396 ms P-R-T Axes : 000 113 -57 degrees QTc Int : 500 ms Atrial flutter with variable A-V block Left posterior fascicular block Poor R wave progression, consider anterior VA vs. lead placement vs. LVH T wave abnormality, consider inferolateral ischemia Abnormal ECG When compared with ECG of 11-MAY-2019 06:38, Left posterior fascicular block is now Present Confirmed by Mikie Lainez ([id number]) on 05/16/2019 6:01:59 AM Referred By: REFERRED SELF Confirmed By:Mikie Lainez
[2019-05-16] MEDS: BUDESONIDE 0.25 MG/2 ML VIAL (PULMICORT) NEB SCH ×2 (07:08→19:13)
[2019-05-16 07:47] LABS: BUN Creatinine Ratio 18.3 (10-20); Calcium 8.3 mg/dl (8.5-10.1); Creatinine Clr Calc Pharmacy 33.5 ml/min; Est GFR (African American) 55.4; Est GFR (Non-African American) 47.8; Potassium 3.7 mmol/L (3.5-5.1)
[2019-05-16] MEDS: INSULIN ASPART 100 UNITS/ML 3 ML PEN SC SCH ×4 (08:31→20:31)
[2019-05-16] MEDS: INSULIN HUMAN NPH SC SCH ×2 (08:32→17:04)
[2019-05-16] MEDS: FERROUS SULFATE 325 MG TAB PO SCH ×2 (08:35→17:05)
[2019-05-16] MEDS: AMIODARONE 200 MG TAB PO SCH ×2 (08:35→17:05)
[2019-05-16] MEDS: ASCORBIC ACID 500 MG TAB PO SCH (08:35)
[2019-05-16] MEDS: DOCUSATE SODIUM/SENNA 50/8.6MG TAB PO SCH (08:35)
[2019-05-16] MEDS: FLUTICASONE/SALMETEROL 250/50 (ADVAIR) 14 PUFF/1 INHALER INH SCH ×2 (08:36→19:50)
[2019-05-16] MEDS: CETIRIZINE HCL 10 MG TABLET PO SCH (08:36)
[2019-05-16] MEDS: dilTIAZem HCL 180 MG CAPCR PO SCH (08:36)
[2019-05-16] MEDS: METOPROLOL SUCC 50MG EXT REL TAB PO SCH ×2 (08:36→14:07)
[2019-05-16] MEDS: metroNIDAZOLE 500 MG TAB PO SCH ×3 (08:37→19:51)
[2019-05-16] MEDS: APIXABAN 2.5 MG TAB PO SCH ×2 (08:37→19:51)
[2019-05-16] MEDS: guaiFENesin 600 MG TABCR PO SCH ×2 (08:38→19:50)
[2019-05-16] MEDS ORDERED: FUROSEMIDE 20 MG in SYRINGE 0 ML IV SCH (09:00)
--- NOTE | 2019-05-16 14:56 | Hospitalist Progress Note ---
Date of Service May 16, 2019 Assessment & Plan (1) Asthma: Shortness of breath symptom has improved she has cough, however denies sputum production, only occasional clear sputum - Continue advair - cont. duoneb treament - cont. budesonie, solumedrol - MARIA T -Likely IV contrast-induced nephropathy in the setting of arrhythmia/hemodynamic changes and PNA -Patient initially presented with creatinine 1.0, creatinine then increased to 1.77 ->2.3 -Nephrology consulted, will continue to closely monitor BMP, will try to avoid any nephrotoxic agents - currently down to Cr 1.45 - Patient is continued with IV Lasix for volume overload, will order to hold diuretics today secondary to hypotension (2) Afib: -HR in 100's pt denies of feeling palpitation - pt is continued with beta roxie , amiodarone , cardizem - Cardiology consulted, given her renal function status, will re-start Eliquis at lower dose - 2.5 twice a day - metoprolol increased to 50 mg TID (05/12) continue on beta-roxie with holding parameters for hypotension - cont. to monitor closely on tele (3) Hypomagnesemia: Possible related to poor intake Mg on admission 1.4 - replace and monitor Hypokalemia - replete and monitor - goal K~4 (4) Liver mass: Update: pt underwent the biopsy w/ radiology (05/13), tolerated procedure well pathology pending - concern for HCC vs. cholangiocarcinoma vs mets CT abd/pelvis showed 9.5 cm dominant mass within the left hepatic lobe Imaging discussed with family and patient by Dr Redman AFP checked:normal GI consulted -patient input - (5) DM2 (diabetes mellitus, type 2): HbA1c 6.2% (05/07/2019) Now hyperglycemia secondary to steroid use -Pharmacy consulted for hyperglycemia management -Will hold oral diabetes med - novolog sliding scale Continue monitor BS DVT px-Eliquis resumed Code Status DNR Subjective Very weak and tired, cough is the same Getting frustrated for prolonged hospital stay, she does not feel any better No fever or chills Borderline hypotension noted, she denies of any feeling of dizzy spell lightheadedness or shortness of breath Review of Systems Constitutional: + fatigue Respiratory: + cough and + dyspnea Physical Exam Constitutional: WD/WN, vitals as above well developed, well nourished, + obese and + frail appearing (still dyspneic w/ exam maneuvers); no acute distress (sitting in bed on RA carefully positioned/ L side dependent) Eyes: PERRL, conjunctivae normal, anicteric sclerae (though some right lid lag) EOM intact bilaterally ENMT: external ear and nose normal, oropharynx normal Ears: no external ear abnormality Nose: no external nose abnormality Neck: trachea midline, no thyromegaly no nuchal rigidity Respiratory: normal respiratory effort Auscultation: + diminished lung sounds and + rhonchi; no crackles, no rales and no wheezes Cardiovascular: Rate/Rhythm: regular rate, regular rhythm and + irregularly irregular Heart Sounds: no murmur Vessels: no JVD Extremities: no edema Gastrointestinal (Abdomen): normal bowel sounds, soft, nontender, no hepatosplenomegaly Inspection/Auscultation: normal bowel sounds Percussion/Palpation: abdomen soft; abdomen nontender Musculoskeletal: no cyanosis or clubbing, extremities motor strength 5/5 Extremities: strength 5/5 throughout Skin: no rashes, warm and dry no jaundice Neurologic: PERRL, EOMI, accommodation nl, no face palsy, no dysarthria Psychiatric: A+Ox3, euthymic affect Orientation: alert and oriented x 3 Lymphatic: no cervical or axillary lymphadenopathy Results & Data Vital Signs (Past 12 Hours) Vital Signs Temp Pulse Pulse Pulse Pulse Resp BP 05/16/19 14:30 111 H 20 05/16/19 11:40 36.6 C 101 H 18 95/62 L 05/16/19 11:01 97 H 18 05/16/19 09:00 99 H 05/16/19 07:15 36.6 C 108 H 18 115/76 05/16/19 07:10 99 H 16 05/16/19 04:05 36.9 C 99 H 22 112/73 05/16/19 03:28 90 22 Pulse Ox 05/16/19 14:30 95 05/16/19 11:40 95 05/16/19 11:01 92 05/16/19 09:00 05/16/19 07:15 94 05/16/19 07:10 91 05/16/19 04:05 90 05/16/19 03:28 91
--- NOTE | 2019-05-16 15:32 | Cardiology Progress Note ---
Date of Service May 16, 2019 Assessment & Plan (1) Atrial fibrillation with RVR: History of complex atrial arrhythmias including atrial tachycardia, atrial fibrillation, atrial flutter. Currently in atrial fibrillation in the range of 100 to 110 bpm. Amiodarone increased to 200 mg twice daily 05/14/2019. Metoprolol increased to 50 mg 3 times daily during hospitalization as well. She has been continued on her outpatient dose of diltiazem CD, 180 mg daily. Treatment limited in the past by sinus bradycardia with rates down to the 40s. Electrophysiology input appreciated. Eliquis resumed at reduced dose post biopsy due to renal insufficiency. Consider titration of Eliquis back to 5 mg twice daily pending evaluation of renal function as hospitalization progresses. Multifactorial respiratory insufficiency secondary to pneumonia and volume overload. Appreciate nephrology input. Continue intravenous furosemide 20 mg twice daily. Repeat BMP in AM. 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 Subjective Patient seen and examined the bedside. Feeling better today. Fluid balance - 655 cc over the past 24 hours. Atrial fibrillation unchanged on telemetry. Edema improved. Patient offers no complaints. 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 Review of Systems Review of Systems: All systems reviewed & are unremarkable except as noted in HPI & below Physical Exam Constitutional: well developed, + ill appearing and + obese Respiratory: Auscultation: + rales (Scant crackles at the bases bilaterally.), + rhonchi and + wheezes Cardiovascular: Rate/Rhythm: + tachycardic and + irregularly irregular Heart Sounds: normal S1 and normal S2; no murmur Vessels: + JVD and radial pulses present Extremities: + pedal edema (2+ bilateral pedal edema.) Gastrointestinal (Abdomen): Inspection/Auscultation: normal bowel sounds; abdomen not distended Percussion/Palpation: abdomen soft; abdomen nontender, no guarding and abdomen not rigid Musculoskeletal: no cyanosis or clubbing, extremities motor strength 5/5 Skin: no rashes, warm and dry Neurologic: CN's II-XI intact bilaterally and moves all extremities; no focal motor deficits Psychiatric: A+Ox3, euthymic affect Results & Data Vital Signs (Past 12 Hours) Vital Signs Temp Pulse Pulse Pulse Pulse Resp BP 05/16/19 14:30 111 H 20 05/16/19 11:40 36.6 C 101 H 18 95/62 L 05/16/19 11:01 97 H 18 05/16/19 09:00 99 H 05/16/19 07:15 36.6 C 108 H 18 115/76 05/16/19 07:10 99 H 16 05/16/19 04:05 36.9 C 99 H 22 112/73 Pulse Ox 05/16/19 14:30 95 05/16/19 11:40 95 05/16/19 11:01 92 05/16/19 09:00 05/16/19 07:15 94 05/16/19 07:10 91 05/16/19 04:05 90
[2019-05-16] MEDS: NYSTATIN SUSP 500,000 U/5 ML UDC PO SCH ×3 (17:00→20:32)
--- NOTE | 2019-05-16 17:50 | Nephrology Progress Note ---
Date of Service May 16, 2019 Assessment & Plan (1) Acute renal failure: her baseline creatinine on review of OP labs is 0.6-0.7 in EPIC. on presentation on 05/06 she was 0.8; then dramatic increase from 1/3 w/ creat 1.1 in am to 1/4 w/ creat 1.8; on 05/09, 2.4, her peak; Cr 1.0 today nonoliguric MARIA T likely multifactorial from ischemic ATN from hemodynamic changes related to heart rhythms and pneumonia as well as contrast induced nephropathy -She is volume overloaded. Increase iv lasix 20mg bid -daily bmp (2) Chronic hyponatremia: present as outpatient as well, though intermittently. chronic hyponatremia is defined as present > 48 hrs. she has ranged 127-133. Na 129 today. her serum osms are 278, so minimally hypotonic. hypervolemic from heart rhythm +/- liver issues. -daily bmp -lasix as above -would obtain urine studies only if sodium levels in serum worsen (3) Tachycardia: on dilt and amiodarone po, f/u cardiology recs; HR less labile than at admission (4) Liver mass: GI following Subjective She feels better. Still nausea but no vomiting. No SOB has leg swelling Review of Systems Review of Systems: All systems reviewed & are unremarkable except as noted in HPI & below Physical Exam Physical Exam: General exam: Appears comfortable, no acute distress HEENT: Pupils are equal and reactive to light Neck: No JVD, neck is supple trachea is midline Respiratory system: Crackles bilaterally. Gastrointestinal: Abdomen is soft, non distended, non tender, bowel sounds are present CVS: Regular rate and rhythm. No murmurs, rubs or gallops Musculoskeletal: No joint or muscle tenderness Extremities: Non tender, 2+ edema, peripheral pulses are present Neuro: Oriented, no tremors, no focal neurological deficits Skin: No rashes Results & Data Vital Signs (Past 12 Hours) Vital Signs Temp Pulse Pulse Pulse Resp BP Pulse Ox 05/16/19 15:54 36.5 C 108 H 18 90/58 L 91 05/16/19 14:30 111 H 20 95 05/16/19 11:40 36.6 C 101 H 18 95/62 L 95 05/16/19 11:01 97 H 18 92 05/16/19 09:00 99 H 05/16/19 07:15 36.6 C 108 H 18 115/76 94 05/16/19 07:10 99 H 16 91 Laboratory Results Laboratory Results - last 24 hr 05/15/19 05/16/19 05/16/19 20:25 06:42 07:08 Sodium 129 L Potassium 3.7 Chloride 100 Carbon Dioxide 21 Anion Gap 8.0 BUN 20 H Creatinine 1.08 Est Cr Clr Drug Dosing 33.5 Est GFR ( Amer) 55.4 Est GFR (Non-Af Amer) 47.8 BUN/Creatinine Ratio 18.3 Glucose 135 H POC Glucose 221 H 133 H Calcium 8.3 L 05/16/19 05/16/19 11:15 16:21 Sodium Potassium Chloride Carbon Dioxide Anion Gap BUN Creatinine Est Cr Clr Drug Dosing Est GFR ( Amer) Est GFR (Non-Af Amer) BUN/Creatinine Ratio Glucose POC Glucose 98 176 H Calcium (1) Acute renal failure Acute renal failure type: unspecified Qualified Code(s): N17.9 - Acute kidney failure, unspecified
[2019-05-16] MEDS ORDERED: Nursing to Pharmacy Communication ONE (19:04)
[2019-05-16] MEDS: PRAVASTATIN SOD 20 MG TAB PO SCH (19:50)
[2019-05-16] MEDS: prednisoLONE acetate 1% OP SUSP 5 ML BTL OPR SCH (19:51)
[2019-05-16] MEDS: ACETAMINOPHEN 325 MG TAB PO PRN (19:57)
[2019-05-17] MEDS: LEVALBUTEROL HCL 0.63 MG/3 ML NEB NEB SCH ×6 (02:58→22:53)
[2019-05-17] MEDS: IPRATROPIUM BROMIDE NEB SOLN 0.02% 2.5 ML VIAL INH SCH ×6 (02:58→22:53)
[2019-05-17] MEDS: BUDESONIDE 0.25 MG/2 ML VIAL (PULMICORT) NEB SCH ×2 (07:30→19:47)
[2019-05-17 07:44] LABS: Creatinine Clr Calc Pharmacy 30.3 ml/min; Est GFR (African American) 49.7; Est GFR (Non-African American) 42.9
[2019-05-17] MEDS: APIXABAN 2.5 MG TAB PO SCH ×2 (08:08→19:39)
[2019-05-17] MEDS: FLUTICASONE/SALMETEROL 250/50 (ADVAIR) 14 PUFF/1 INHALER INH SCH ×2 (08:08→20:28)
[2019-05-17] MEDS: metroNIDAZOLE 500 MG TAB PO SCH (08:08)
[2019-05-17] MEDS: FUROSEMIDE 20 MG in SYRINGE 0 ML IV SCH ×2 (08:08→19:39)
[2019-05-17] MEDS: NYSTATIN SUSP 500,000 U/5 ML UDC PO SCH ×4 (08:09→19:38)
[2019-05-17] MEDS: ASCORBIC ACID 500 MG TAB PO SCH (08:09)
[2019-05-17] MEDS: DOCUSATE SODIUM/SENNA 50/8.6MG TAB PO SCH (08:09)
[2019-05-17] MEDS: METOPROLOL SUCC 50MG EXT REL TAB PO SCH ×3 (08:09→19:47)
[2019-05-17] MEDS: AMIODARONE 200 MG TAB PO SCH ×2 (08:09→16:54)
[2019-05-17] MEDS: guaiFENesin 600 MG TABCR PO SCH ×2 (08:09→19:38)
[2019-05-17] MEDS: FERROUS SULFATE 325 MG TAB PO SCH ×2 (08:09→16:54)
[2019-05-17] MEDS: dilTIAZem HCL 180 MG CAPCR PO SCH (08:10)
[2019-05-17] MEDS: CETIRIZINE HCL 10 MG TABLET PO SCH (08:10)
[2019-05-17] MEDS: INSULIN HUMAN NPH SC SCH (08:10)
[2019-05-17] MEDS: INSULIN ASPART 100 UNITS/ML 3 ML PEN SC SCH ×4 (08:12→21:40)
--- NOTE | 2019-05-17 08:32 | Pharmacy Report ---
Pharmacy Glycemic Short Note 2 - Date of Service May 17, 2019 - Glycemic Short BSG Results (Last 24 hours): 05/16/19 05/16/19 05/16/19 11:15 16:21 19:58 POC Glucose 98 176 H 140 H 05/17/19 07:13 POC Glucose 134 H OUTPATIENT ANTIDIABETIC REGIMEN: * Glipizide * Metformin * Pioglitazone ASSESSMENT: * Patient received 22 units of insulin yesterday * 15 basal (NPH) * 7 prandial/correctional * BSGs ranging 98-176 mg/dL * Fasting BSG this AM of 134 mg/dL * will utilize NPH scale this evening PLAN FOR INPATIENT GLYCEMIC CONTROL: * Holding outpatient oral diabetes medications * Basal insulin - adjust evening basal * NPH 10 units with breakfast * NPH scale with dinner * -5 units if BSG 180 mg/dL or below * -7 units if BSG 181 mg/dL or above * Bolus insulin: no change * NovoLog per scale ACHS or Q6hrs while NPO * Goal Range: Low 110 mg/dL - High 140 mg/dL * Correction Factor: 25 mg/dL/unit * Nutritional / Prandial insulin per carb ratio of 1 unit per 8 grams CHO consumed Discharge Recommendations: * A1c = 6.2% on 05/07/19 * Goal A1c < 7% or even < 8% based on age/comorbidities * Resume oral agents on discharge. Ensure SCr back to baseline prior to resuming metformin.
[2019-05-17] MEDS: ONDANSETRON INJ 2 MG/ML 2 ML VIAL IV PRN (09:11)
[2019-05-17 10:47] LABS: Potassium 3.8 mmol/L (3.5-5.1)
[2019-05-17 10:49] LABS: BUN Creatinine Ratio 17.5 (10-20); Bilirubin,Total 0.6 mg/dl (0.2-1); Calcium 8.2 mg/dl (8.5-10.1)
[2019-05-17 10:50] LABS: Globulin 3.8 gm/dl (2.5-4.0); Total Protein 5.8 gm/dl (6.4-8.2)
[2019-05-17 10:51] LABS: Albumin Globulin Ratio 0.5 (0.9-2); Anion Gap 6.2 (3-11)
[2019-05-17] MEDS ORDERED: INSULIN HUMAN NPH SC SCH (16:30)
[2019-05-17 17:05] LABS: BUN Creatinine Ratio 17.3 (10-20); Calcium 8.7 mg/dl (8.5-10.1); Est GFR (African American) 45.1; Est GFR (Non-African American) 38.9
--- NOTE | 2019-05-17 17:47 | Nephrology Progress Note ---
Date of Service May 17, 2019 Assessment & Plan (1) Acute renal failure: her baseline creatinine on review of OP labs is 0.6-0.7 in EPIC. on presentation on 05/06 she was 0.8; then dramatic increase from 1/3 w/ creat 1.1 in am to 1/ w/ creat 1.8; on 05/09, 2.4, her peak; Cr back near baseline today nonoliguric MARIA T likely multifactorial from ischemic ATN from hemodynamic changes related to heart rhythms and pneumonia as well as contrast induced nephropathy -She is volume overloaded. yesterday lasix increased to 20mg bid IV >> leave it there given tachycardia/ lower bp won't give more though overload very prominent still on exam -f/u pending K; may need repletion -daily bmp (2) Chronic hyponatremia: present as outpatient as well, though intermittently. chronic hyponatremia is defined as present > 48 hrs. she has ranged 127-133. Na 129 today. her serum osms are 278, so minimally hypotonic. hypervolemic from heart rhythm +/- liver issues. -daily bmp -lasix as above -- last Na this afternoon 129 -- would not focus on correcting this given her other issues but on keeping it at current range -would obtain urine studies only if sodium levels in serum worsen -spironolactone tends to worsen this but may need it (3) Tachycardia: on dilt and amiodarone po, f/u cardiology recs; HR less labile than at admission (4) Liver mass: GI following Subjective tolerating resumed lasix; seen on rounds this am 0950 approx -- c/o feeling uncomfortable and w/ malaise; no sob, no n/v, does not notice edema Review of Systems Review of Systems: All systems reviewed & are unremarkable except as noted in HPI & below Physical Exam Constitutional: well developed, well nourished and + frail appearing; no acute distress (lying in bed) Eyes: EOM intact bilaterally ENMT: Ears: no external ear abnormality Nose: no external nose abnormality Mouth: + dry oral mucous membranes Neck: no nuchal rigidity Respiratory: normal respiratory effort, + labored breathing (slight) and + tachypneic Auscultation: + diminished lung sounds, + rhonchi and + bronchovesicular breath sounds; no crackles and no wheezes Cardiovascular: Rate/Rhythm: + tachycardic (in 90s) and + irregularly irregular Extremities: + edema (1-2+ pitting) Gastrointestinal (Abdomen): Inspection/Auscultation: normal bowel sounds Percussion/Palpation: abdomen soft and + ascites (new finding); abdomen nontender Musculoskeletal: Extremities: strength 5/5 throughout Skin: no rashes, warm and dry Psychiatric: Orientation: alert and oriented x 3 Results & Data Vital Signs (Past 12 Hours) Vital Signs Temp Pulse Pulse Pulse Pulse Pulse Resp 05/17/19 16:59 123 H 05/17/19 15:59 36.4 C L 103 H 18 05/17/19 15:08 99 H 16 05/17/19 15:07 99 H 05/17/19 13:32 122 H 05/17/19 11:44 36.4 C L 114 H 16 05/17/19 10:42 77 18 05/17/19 07:41 87 16 05/17/19 07:21 84 05/17/19 07:00 36.8 C 92 H 16 BP Pulse Ox 05/17/19 16:59 106/67 05/17/19 15:59 90/62 L 95 05/17/19 15:08 94 05/17/19 15:07 05/17/19 13:32 109/62 05/17/19 11:44 94/61 L 94 05/17/19 10:42 94 05/17/19 07:41 92 05/17/19 07:21 05/17/19 07:00 107/73 91 Laboratory Results 05/15/19 05:28 (1) Acute renal failure Acute renal failure type: unspecified Qualified Code(s): N17.9 - Acute kidney failure, unspecified
--- NOTE | 2019-05-17 18:44 | Hospitalist Progress Note ---
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 AFP checked:normal GI consulted -we will update GI team regarding pathology finding (2) Asthma: Speech status improved to baseline, no audible wheeze, cough has improved - Continue advair - cont. duoneb treament - cont. budesonie, solumedrol - MARIA T -Likely IV contrast-induced nephropathy in the setting of arrhythmia/hemodynamic changes and PNA -Patient initially presented with creatinine 1.0, creatinine then increased to 1.77 ->2.3 -Nephrology consulted, will continue to closely monitor BMP, will try to avoid any nephrotoxic agents - currently down to Cr 1.45 - Continue to monitor BMP (3) Afib: -HR in 100's pt denies of feeling palpitation - pt is continued with beta roxie , amiodarone , cardizem - Cardiology consulted, given her renal function status, will re-start Eliquis at lower dose - 2.5 twice a day - metoprolol increased to 50 mg TID (05/12) continue on beta-roxie with holding parameters for hypotension - cont. to monitor closely on tele (4) Hypomagnesemia: Possible related to poor intake Mg on admission 1.4 - replace and monitor Hypokalemia - replete and monitor - goal K~4 (5) DM2 (diabetes mellitus, type 2): HbA1c 6.2% (05/07/2019) Now hyperglycemia secondary to steroid use -Pharmacy consulted for hyperglycemia management -Will hold oral diabetes med - novolog sliding scale Continue monitor BS DVT px-Eliquis resumed Code Status DNR Subjective Continues to feel weak and fatigued, wiped out Shortness of breath at baseline, does not feel any of her symptoms has improved at all No fever or chills, denies of any abdominal pain no nausea vomiting, No cough/no orthopnea Review of Systems Constitutional: + fatigue Respiratory: + cough and + dyspnea Physical Exam Constitutional: WD/WN, vitals as above well developed, well nourished and + obese Eyes: Abscess of right thigh, ENMT: external ear and nose normal, oropharynx normal Ears: no external ear abnormality Nose: no external nose abnormality Neck: trachea midline, no thyromegaly no nuchal rigidity Respiratory: normal respiratory effort Auscultation: + diminished lung sounds and + rhonchi; no crackles, no rales and no wheezes Cardiovascular: Rate/Rhythm: regular rate, regular rhythm and + irregularly irregular Heart Sounds: no murmur Vessels: no JVD Extremities: no edema Gastrointestinal (Abdomen): Inspection/Auscultation: normal bowel sounds Percussion/Palpation: abdomen soft; abdomen nontender Musculoskeletal: no cyanosis or clubbing, extremities motor strength 5/5 Extremities: strength 5/5 throughout Skin: no rashes, warm and dry no jaundice Neurologic: PERRL, EOMI, accommodation nl, no face palsy, no dysarthria Psychiatric: A+Ox3, euthymic affect Orientation: alert and oriented x 3 Results & Data Vital Signs (Past 12 Hours) Vital Signs Temp Pulse Pulse Pulse Pulse Pulse Resp 05/17/19 16:59 123 H 05/17/19 15:59 36.4 C L 103 H 18 05/17/19 15:08 99 H 16 05/17/19 15:07 99 H 05/17/19 13:32 122 H 05/17/19 11:44 36.4 C L 114 H 16 05/17/19 10:42 77 18 05/17/19 07:41 87 16 05/17/19 07:21 84 05/17/19 07:00 36.8 C 92 H 16 BP Pulse Ox 05/17/19 16:59 106/67 05/17/19 15:59 90/62 L 95 05/17/19 15:08 94 05/17/19 15:07 05/17/19 13:32 109/62 05/17/19 11:44 94/61 L 94 05/17/19 10:42 94 05/17/19 07:41 92 05/17/19 07:21 05/17/19 07:00 107/73 91
[2019-05-17] MEDS: ACETAMINOPHEN 325 MG TAB PO PRN (18:45)
[2019-05-17] MEDS: prednisoLONE acetate 1% OP SUSP 5 ML BTL OPR SCH (19:39)
[2019-05-17] MEDS: PRAVASTATIN SOD 20 MG TAB PO SCH (19:39)
[2019-05-18] MEDS: IPRATROPIUM BROMIDE NEB SOLN 0.02% 2.5 ML VIAL INH SCH ×6 (02:50→23:28)
[2019-05-18] MEDS: LEVALBUTEROL HCL 0.63 MG/3 ML NEB NEB SCH ×6 (02:50→23:28)
[2019-05-18] MEDS: BUDESONIDE 0.25 MG/2 ML VIAL (PULMICORT) NEB SCH ×2 (07:04→19:19)
[2019-05-18 07:52] LABS: BUN Creatinine Ratio 19.7 (10-20); Calcium 8.3 mg/dl (8.5-10.1); Creatinine Clr Calc Pharmacy 29.8 ml/min; Est GFR (African American) 48.7; Est GFR (Non-African American) 42.1; Potassium 3.5 mmol/L (3.5-5.1)
[2019-05-18] MEDS: FUROSEMIDE 20 MG in SYRINGE 0 ML IV SCH ×2 (08:02→20:25)
[2019-05-18] MEDS: NYSTATIN SUSP 500,000 U/5 ML UDC PO SCH ×4 (08:02→20:26)
[2019-05-18] MEDS: APIXABAN 2.5 MG TAB PO SCH ×2 (08:03→20:26)
[2019-05-18] MEDS: guaiFENesin 600 MG TABCR PO SCH ×2 (08:03→20:25)
[2019-05-18] MEDS: FLUTICASONE/SALMETEROL 250/50 (ADVAIR) 14 PUFF/1 INHALER INH SCH ×2 (08:03→20:23)
[2019-05-18] MEDS: ASCORBIC ACID 500 MG TAB PO SCH (08:03)
[2019-05-18] MEDS: DOCUSATE SODIUM/SENNA 50/8.6MG TAB PO SCH (08:04)
[2019-05-18] MEDS: CETIRIZINE HCL 10 MG TABLET PO SCH (08:04)
[2019-05-18] MEDS: dilTIAZem HCL 180 MG CAPCR PO SCH (08:04)
[2019-05-18] MEDS: METOPROLOL SUCC 50MG EXT REL TAB PO SCH ×3 (08:04→20:26)
[2019-05-18] MEDS: FERROUS SULFATE 325 MG TAB PO SCH ×2 (08:04→17:05)
[2019-05-18] MEDS: INSULIN HUMAN NPH SC SCH (08:05)
[2019-05-18] MEDS: AMIODARONE 200 MG TAB PO SCH ×2 (08:05→17:04)
[2019-05-18] MEDS: INSULIN ASPART 100 UNITS/ML 3 ML PEN SC SCH ×4 (08:06→22:57)
--- NOTE | 2019-05-18 11:06 | Hospitalist Progress Note ---
Date of Service May 18, 2019 Assessment & Plan (1) Liver mass: CT abd/pelvis showed 9.5 cm dominant mass within the left hepatic lobe pt underwent the biopsy w/ radiology (05/13) Pathology of liver mass biopsy: Adenocarcinoma consistent with cholang iocarcinoma Discussed the finding with [facility] hematology oncology Dr. Bills Recommends to check CA 199/ordered CT chest noncontrast was done already AFP checked:normal GI consulted -we will update GI team regarding pathology finding (2) Asthma: Shortness of breath symptom has improved she has cough, however denies sputum production, only occasional clear sputum - Continue advair - cont. duoneb treament - cont. budesonie, solumedrol - MARIA T -Likely IV contrast-induced nephropathy in the setting of arrhythmia/hemodynamic changes and PNA -Patient initially presented with creatinine 1.0, creatinine then increased to 1.77 ->2.3 -Nephrology consulted, will continue to closely monitor BMP, will try to avoid any nephrotoxic agents - currently down to Cr 1.45 - Continue to monitor BMP (3) Afib: Remains in atrial fibrillation heart rate in 100 - 110 bpm. Appreciate input from cardiology: Amiodarone increased to 200 mg twice daily 05/14/2019. On metoprolol 50 mg 3 times daily. Continue Cardizem CD 180 mg daily. (Outpatient dose). Eliquis resumed at reduced. 2.5mg BID, (4) Hypomagnesemia: Possible related to poor intake Mg on admission 1.4 - replace and monitor Hypokalemia - replete and monitor - goal K~4 (5) DM2 (diabetes mellitus, type 2): HbA1c 6.2% (05/07/2019) Now hyperglycemia secondary to steroid use -Pharmacy consulted for hyperglycemia management -Will hold oral diabetes med - novolog sliding scale Continue monitor BS DVT px-Eliquis resumed Code Status DNR Subjective Offers no new complaint, feels tired and weak Denies of any complaint of palpitation no chest heaviness, continues to have nonproductive cough Review of Systems Constitutional: + fatigue Respiratory: + cough and + dyspnea Physical Exam Constitutional: WD/WN, vitals as above well developed, well nourished and + obese Eyes: PERRL, conjunctivae normal, anicteric sclerae (though some right lid lag) EOM intact bilaterally ENMT: external ear and nose normal, oropharynx normal Ears: no external ear abnormality Nose: no external nose abnormality Mouth: + dry oral mucous membranes Neck: trachea midline, no thyromegaly no nuchal rigidity Respiratory: normal respiratory effort Auscultation: + diminished lung sounds and + rhonchi; no crackles, no rales and no wheezes Cardiovascular: Rate/Rhythm: regular rate, regular rhythm and + irregularly irregular Heart Sounds: no murmur Vessels: no JVD Extremities: no edema Gastrointestinal (Abdomen): normal bowel sounds, soft, nontender, no hepatosplenomegaly Inspection/Auscultation: normal bowel sounds Percussion/Palpation: abdomen soft; abdomen nontender Musculoskeletal: no cyanosis or clubbing, extremities motor strength 5/5 Extremities: strength 5/5 throughout Skin: no rashes, warm and dry no jaundice Neurologic: PERRL, EOMI, accommodation nl, no face palsy, no dysarthria Psychiatric: A+Ox3, euthymic affect Orientation: alert and oriented x 3 Lymphatic: no cervical or axillary lymphadenopathy Results & Data Vital Signs (Past 12 Hours) Vital Signs Temp Pulse Pulse Resp BP Pulse Ox 05/18/19 11:03 113 H 20 96 05/18/19 07:59 36.6 C 98 H 16 123/62 95 05/18/19 07:05 98 H 18 91 05/18/19 03:40 37 C 93 H 20 125/69 91 05/18/19 00:08 36.6 C 82 18 96/59 L 91
--- NOTE | 2019-05-18 14:05 | Pharmacy Report ---
Pharmacy Glycemic Short Note 2 - Date of Service May 18, 2019 - Glycemic Short BSG Results (Last 24 hours): 05/17/19 05/17/19 05/17/19 16:26 16:48 20:21 Glucose 138 H POC Glucose 132 H 128 H 05/18/19 05/18/19 05/18/19 06:45 07:32 11:16 Glucose 126 H POC Glucose 121 H 151 H OUTPATIENT ANTIDIABETIC REGIMEN: * Glipizide * Metformin * Pioglitazone ASSESSMENT: * Patient received 22 units of insulin yesterday * 15 basal (NPH) * 7 prandial/correctional * BSGs ranging 128-195 mg/dL * Fasting BSG this AM of 121 mg/dL PLAN FOR INPATIENT GLYCEMIC CONTROL: * Holding outpatient oral diabetes medications * Basal insulin - continue current regimen * NPH 10 units with breakfast * NPH 5 units with dinner * Bolus insulin: no change * NovoLog per scale ACHS or Q6hrs while NPO * Goal Range: Low 110 mg/dL - High 140 mg/dL * Correction Factor: 25 mg/dL/unit * Nutritional / Prandial insulin per carb ratio of 1 unit per 8 grams CHO c onsumed Discharge Recommendations: * A1c = 6.2% on 05/07/19 * Goal A1c < 7% or even < 8% based on age/comorbidities * Resume oral agents on discharge. Ensure SCr back to baseline prior to resuming metformin.
--- NOTE | 2019-05-18 14:43 | Cardiology Progress Note ---
Date of Service May 18, 2019 Assessment & Plan (1) Atrial fibrillation with RVR: History of complex atrial arrhythmias including atrial tachycardia, atrial fibrillation, atrial flutter. Currently in atrial fibrillation in the range of 100 to 110 bpm. Amiodarone increased to 200 mg twice daily 05/14/2019. Continue metoprolol 50 mg 3 times daily. (Titrated during hospitalization). Continue Cardizem CD 180 mg daily. (Outpatient dose). Treatment limited in the past by sinus bradycardia with rates down to the 40s. Electrophysiology input appreciated. Eliquis resumed at reduced. 2.5mg BID, dose post biopsy due to renal insufficiency. Multifactorial respiratory insufficiency secondary to pneumonia and volume overload. Appreciate nephrology input. Continue intravenous furosemide 20 mg twice daily. Repeat BMP in AM. 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 Await gastroenterology input. Subjective Patient seen and examined at the bedside. More energetic today. Sitting in chair at bedside. Tolerated her a.m. meal. No chest pain or palpitations. Remains atrial fibrillation with rates averaging 100 to 110 bpm on telemetry. Tolerating current medications. Tolerating IV Lasix with intermittent hypotension. Renal function remained stable. Fluid balance negative approximately 380 cc over the past 24 hours. Review of Systems Review of Systems: All systems reviewed & are unremarkable except as noted in HPI & below Physical Exam Constitutional: well developed, + ill appearing and + obese Respiratory: Auscultation: + rales (Scant crackles at the bases bilaterally.), + rhonchi and + wheezes Cardiovascular: Rate/Rhythm: + tachycardic and + irregularly irregular Heart Sounds: normal S1 and normal S2; no murmur Vessels: + JVD and radial pulses present Extremities: + pedal edema (1+ bilateral pedal edema.) Gastrointestinal (Abdomen): Inspection/Auscultation: normal bowel sounds; abdomen not distended Percussion/Palpation: abdomen soft; abdomen nontender, no guarding and abdomen not rigid Musculoskeletal: no cyanosis or clubbing, extremities motor strength 5/5 Skin: no rashes, warm and dry Neurologic: CN's II-XI intact bilaterally and moves all extremities; no focal motor deficits Psychiatric: A+Ox3, euthymic affect Results & Data Vital Signs (Past 12 Hours) Vital Signs Temp Pulse Resp BP Pulse Ox 05/18/19 12:27 36.6 C 107 H 18 90/60 L 93 01/14/20 11:03 113 H 20 96 05/18/19 07:59 36.6 C 98 H 16 123/62 95 05/18/19 07:05 98 H 18 91 05/18/19 03:40 37 C 93 H 20 125/69 91
[2019-05-18] MEDS ORDERED: INSULIN HUMAN NPH SC SCH (16:30)
[2019-05-18] MEDS: prednisoLONE acetate 1% OP SUSP 5 ML BTL OPR SCH (20:24)
[2019-05-18] MEDS: PRAVASTATIN SOD 20 MG TAB PO SCH (20:25)
[2019-05-18] MEDS: ACETAMINOPHEN 325 MG TAB PO PRN (20:50)
[2019-05-19] MEDS: OXYCODONE HCL IR 5 MG TAB (IMMEDIATE RELEASE) PO PRN ×2 (00:58→20:51)
[2019-05-19] MEDS: IPRATROPIUM BROMIDE NEB SOLN 0.02% 2.5 ML VIAL INH SCH ×3 (02:32→19:58)
[2019-05-19] MEDS: LEVALBUTEROL HCL 0.63 MG/3 ML NEB NEB SCH ×3 (02:32→19:58)
[2019-05-19] MEDS: BUDESONIDE 0.25 MG/2 ML VIAL (PULMICORT) NEB SCH ×2 (07:15→19:59)
[2019-05-19 07:54] LABS: BUN Creatinine Ratio 16.8 (10-20); Calcium 8.1 mg/dl (8.5-10.1); Creatinine Clr Calc Pharmacy 29.8 ml/min; Est GFR (African American) 48.7; Est GFR (Non-African American) 42.1; Potassium 3.1 mmol/L (3.5-5.1)
[2019-05-19] MEDS: METOPROLOL SUCC 50MG EXT REL TAB PO SCH ×3 (08:41→20:39)
[2019-05-19] MEDS: FUROSEMIDE 20 MG in SYRINGE 0 ML IV SCH ×2 (08:41→20:38)
[2019-05-19] MEDS: APIXABAN 2.5 MG TAB PO SCH ×2 (08:41→20:39)
[2019-05-19] MEDS: AMIODARONE 200 MG TAB PO SCH ×2 (08:41→17:07)
[2019-05-19] MEDS: NYSTATIN SUSP 500,000 U/5 ML UDC PO SCH ×4 (08:41→20:41)
[2019-05-19] MEDS: DOCUSATE SODIUM/SENNA 50/8.6MG TAB PO SCH (08:42)
[2019-05-19] MEDS: dilTIAZem HCL 180 MG CAPCR PO SCH (08:42)
[2019-05-19] MEDS: FLUTICASONE/SALMETEROL 250/50 (ADVAIR) 14 PUFF/1 INHALER INH SCH ×2 (08:42→20:40)
[2019-05-19] MEDS: FERROUS SULFATE 325 MG TAB PO SCH ×2 (08:42→17:08)
[2019-05-19] MEDS: guaiFENesin 600 MG TABCR PO SCH ×2 (08:42→20:39)
[2019-05-19] MEDS: INSULIN ASPART 100 UNITS/ML 3 ML PEN SC SCH ×4 (08:43→20:41)
[2019-05-19] MEDS: CETIRIZINE HCL 10 MG TABLET PO SCH (08:43)
[2019-05-19] MEDS: ASCORBIC ACID 500 MG TAB PO SCH (08:43)
[2019-05-19] MEDS: INSULIN HUMAN NPH SC SCH (08:45)
[2019-05-19] MEDS ORDERED: POTASSIUM CHLORIDE 20 MEQ TABCR PO STA ×2 (11:55→16:33)
--- NOTE | 2019-05-19 12:01 | Hospitalist Progress Note ---
Date of Service May 19, 2019 Assessment & Plan (1) Liver mass: CT abd/pelvis showed 9.5 cm dominant mass within the left hepatic lobe pt underwent the biopsy w/ radiology (05/13) Pathology of liver mass biopsy: Adenocarcinoma consistent with cholangiocarcinoma Dr. Chaudhary discussed the finding with [facility] hematology/ oncology Dr. Bills, plan to follow up as outpt Recommends to check CA 199/ordered CT chest noncontrast was done already AFP checked:normal GI consulted -we will update GI team regarding pathology finding (2) Asthma: Speech status improved to baseline, no audible wheeze, cough has improved - Continue advair - cont. duoneb treament - cont. budesonie, solumedrol MARIA T -Likely IV contrast-induced nephropathy in the setting of arrhythmia/hemodynamic changes and PNA -Patient initially presented with creatinine 1.0, creatinine then increased to 1.77 ->2.44 -Nephrology consulted, will continue to closely monitor BMP, will try to avoid any nephrotoxic agents - currently down to Cr 1.20 - Continue to monitor BMP (3) Afib: Remains in atrial fibrillation heart rate in 100 - 110 bpm. Appreciate input from cardiology: Amiodarone increased to 200 mg twice daily 05/14/2019. On metoprolol 50 mg 3 times daily. Continue Cardizem CD 180 mg daily. (Outpatient dose). Eliquis resumed at reduced. 2.5mg BID, (4) Hypomagnesemia: Possible related to poor intake Mg on admission 1.4 - replace and monitor Hypokalemia - replete and monitor - goal K~4 (5) DM2 (diabetes mellitus, type 2): HbA1c 6.2% (05/07/2019) Now hyperglycemia secondary to steroid use -Pharmacy consulted for hyperglycemia management -Will hold oral diabetes med - novolog sliding scale Continue monitor BS DVT px-Eliquis resumed Code Status DNR Subjective Pt is sitting up in the chair, just worked w/ PT. Granddaughter at the bedside. Pt feels little tired and short of breath. Says her appetite is getting better. Denies any fever, chills, chest pain, abd. pain, nausea or vomiting. Review of Systems Review of Systems: All systems reviewed & are unremarkable except as noted in HPI & below Constitutional: + fatigue; no fever and no chills Respiratory: + cough and + dyspnea Cardiovascular: no chest pain and no palpitations Gastrointestinal: no abdominal pain, no nausea and no vomiting Physical Exam Physical Exam: Constitutional: elderly female + obese, sitting up in the chair, in NAD Eyes: PERRL, conjunctivae normal, anicteric sclerae (though some right lid lag) EOM intact bilaterally ENMT: external ear and nose normal, oropharynx normal Ears: no external ear abnormality Nose: no external nose abnormality Mouth: + dry oral mucous membranes Neck: trachea midline, no thyromegaly no nuchal rigidity Respiratory: normal respiratory effort Auscultation: + diminished lung sounds and + mild rhonchi; no crackles, no rales and no wheezes Cardiovascular: Rate/Rhythm:+ irregularly irregular Heart Sounds: no murmur Vessels: no JVD Extremities: no edema Gastrointestinal (Abdomen): normal bowel sounds, soft, nontender,obese, mildly distended, no guarding Musculoskeletal: no cyanosis or clubbing, extremities motor strength 5/5 Extremities: strength 5/5 throughout, moves extremities spontaneously Skin: no rashes, warm and dry no jaundice Neurologic: PERRL, EOMI, accommodation nl, no face palsy, no dysarthria, moves extremities spontaneously Psychiatric: A+Ox3, euthymic affect Orientation: alert and oriented x 3 Lymphatic: no cervical or axillary lymphadenopathy Results & Data Vital Signs (Past 12 Hours) Vital Signs Temp Pulse Resp BP BP Pulse Ox 05/19/19 07:16 93 H 18 90 05/19/19 07:07 36.6 C 95 H 19 103/64 90 05/19/19 02:46 36.9 C 84 20 91/57 L 90 Laboratory Results 05/19/19 05/19/19 05/19/19 Range/Units 11:17 07:29 06:45 Sodium 132 L (136-145) mmol/L Potassium 3.1 L (3.5-5.1) mmol/L Chloride 101 (98-107) mmol/L Carbon Dioxide 21 (21-32) mmol/L Anion Gap 9.0 (3-11) BUN 20 H (7-18) mg/dl Creatinine 1.20 (0.6-1.2) mg/dl Est Cr Clr Drug Dosing 29.8 ml/min Est GFR ( Amer) 48.7 Est GFR (Non-Af Amer) 42.1 BUN/Creatinine Ratio 16.8 (10-20) Glucose 109 H (70-99) mg/dl POC Glucose 80 118 H (70-99) mg/dl Calcium 8.1 L (8.5-10.1) mg/dl 05/18/19 05/18/19 Range/Units 20:44 16:09 Sodium (136-145) mmol/L Potassium (3.5-5.1) mmol/L Chloride (98-107) mmol/L Carbon Dioxide (21-32) mmol/L Anion Gap (3-11) BUN (7-18) mg/dl Creatinine (0.6-1.2) mg/dl Est Cr Clr Drug Dosing ml/min Est GFR ( Amer) Est GFR (Non-Af Amer) BUN/Creatinine Ratio (10-20) Glucose (70-99) mg/dl POC Glucose 106 H 103 H (70-99) mg/dl Calcium (8.5-10.1) mg/dl Medications Administered Current Inpatient Medications Acetaminophen (Tylenol) 650 mg PO Q6H PRN PRN Reason: Fever Stop: 06/10/19 23:36 Last Admin: 05/18/19 20:50 Dose: 650 mg Documented by: Amiodarone HCl (Cordarone) 200 mg PO BIDM [facility] Stop: 06/13/19 16:59 Last Admin: 05/19/19 08:41 Dose: 200 mg Documented by: Apixaban (Eliquis) 2.5 mg PO BID [facility] Stop: 06/12/19 20:59 Last Admin: 05/19/19 08:41 Dose: 2.5 mg Documented by: Ascorbic Acid (Vitamin C) 2,000 mg PO [facility] Stop: 06/06/19 08:59 Last Admin: 05/19/19 08:43 Dose: 2,000 mg Documented by: Budesonide (Pulmicort Respules) 0.25 mg NEB BIDR [facility] Stop: 06/11/19 18:59 Last Admin: 05/19/19 07:15 Dose: 0.25 mg Documented by: C[facility]irizine [facility] (Zyrtec) [facility] [place] Stop: 06/06/19 08:59 Last Admin: 05/19/19 08:43 Dose: 10 mg Documented by: Dextrose (Dextrose 50%) 25 - 50 ml IV UD PRN; Protocol PRN Reason: Hypoglycemia Protocol Stop: 06/05/19 21:51 Diltiazem HCl (Cardizem Cd) 180 mg PO QAM [facility] Stop: 06/06/19 08:59 Last Admin: 05/19/19 08:42 Dose: 180 mg Documented by: Ferrous Sulfate (Feosol) 325 mg PO BIDM [facility] Stop: 06/06/19 07:59 Last Admin: 05/19/19 08:42 Dose: 325 mg Documented by: Glucagon (Glucagen) 1 mg SQ UD PRN; Protocol PRN Reason: Hypoglycemia Protocol Stop: 06/05/19 21:51 Glucose (Dex4 Glucose) 4 - 8 tabs PO UD PRN; Protocol PRN Reason: Hypoglycemia Protocol Stop: 06/05/19 21:51 Glucose (Glucose 40%) 15 - 30 gm PO UD PRN; Protocol PRN Reason: Hypoglycemia Protocol Stop: 06/05/19 21:51 Guaifenesin (Mucinex) 600 mg PO Q12 [facility] Stop: 06/07/19 20:59 Last Admin: 05/19/19 08:42 Dose: 600 mg Documented by: Hydromorphone HCl (Dilaudid) 0.25 mg IV Q3H PRN PRN Reason: Pain Stop: 05/25/19 23:36 Last Admin: 05/19/19 02:20 Dose: 0.25 mg Documented by: Promethazine HCl 6.25 mg/ (Sodium Chloride) 50.25 mls @ 201 mls/hr IV Q4 PRN PRN Reason: Nausea And Vomiting Stop: 06/06/19 11:52 Last Infusion: 05/09/19 14:57 Dose: Infused Documented by: Furosemide 20 mg/ Syringe 2 mls @ 4 mls/min IV BID [facility] Stop: 06/15/19 20:59 Last Admin: 05/19/19 08:41 Dose: 4 mls/min Documented by: Insulin Aspart (Novolog Flexpen) 0 units SC ACHS [facility] Stop: 06/06/19 20:59 Last Admin: 05/19/19 08:43 Dose: 5 units Documented by: Insulin Human NPH (Novolin N Nph) 10 units SC QDB [facility]; Protocol Stop: 06/13/19 08:59 Last Admin: 05/19/19 08:45 Dose: 10 units Documented by: Insulin Human NPH (Novolin N Nph) 5 units SC QDD [facility]; Protocol Stop: 06/10/19 16:29 Last Admin: 05/18/19 17:06 Dose: 5 units Documented by: Ipratropium [place] (Atrovent 0.02% 0.5mg/2.5ml) 0.5 mg INH BIDR [facility] Stop: 06/18/19 18:59 Levalbuterol HCl (Xopenex 0.63 Mg/3 Ml Neb) 0.63 mg NEB BIDR [facility] Stop: 06/18/19 18:59 Metoprolol Succinate (Toprol Xl) 50 mg PO TID [facility] Stop: 06/11/19 13:59 Last Admin: 05/19/19 08:41 Dose: 50 mg Documented by: Miconazole Nitrate (Desenex) 1 appln EXT PRN PRN PRN Reason: NURSING DECISION Stop: 06/05/19 20:06 Last Admin: 05/06/19 21:17 Dose: 1 appln Documented by: Miscellaneous (Carbohydrates For Hypoglycemia) 15 - 30 gm PO UD PRN PRN Reason: Hypoglycemia Protocol Stop: 06/05/19 21:51 Miscellaneous Information (Consult Glycemic Management Pharmacy) 1 ea N/A UD PRN PRN Reason: Consult Stop: 06/07/19 12:12 Nystatin (Mycostatin) 1 appln EXT PRN PRN PRN Reason: Affected Skin Folds Stop: 06/11/19 10:51 Nystatin (Mycostatin) 5 ml PO QID [facility] Stop: 05/26/19 15:39 Last Admin: 05/19/19 08:41 Dose: 5 ml Documented by: Ondansetron HCl (Zofran) 4 mg IV Q4H PRN PRN Reason: Nausea Stop: 06/08/19 17:53 Last Admin: 05/17/19 09:11 Dose: 4 mg Documented by: Oxycodone HCl (Roxicodone Immediate Rel) 5 mg PO Q4H PRN PRN Reason: Pain Stop: 05/25/19 23:36 Last Admin: 05/19/19 00:58 Dose: 5 mg Documented by: Pravastatin Sodium (Pravachol) 20 mg PO HS [facility] Stop: 06/05/19 20:59 Last Admin: 05/18/19 20:25 Dose: 20 mg Documented by: Prednisolone Acetate (Pred Forte 1%) 1 drops OPR HS [facility] Stop: 06/05/19 20:59 Last Admin: 05/18/19 20:24 Dose: 1 drops Documented by: Fluticasone/Salmeterol (Advair Diskus 250/50) 1 puffs INH BID [facility] Stop: 06/05/19 20:59 Last Admin: 05/19/19 08:42 Dose: 1 puffs Documented by: Senna/Docusate Sodium (Senokot S) 1 tab PO QAM [facility] Stop: 06/09/19 21:04 Last Admin: 05/19/19 08:42 Dose: 1 tab Documented by:
--- NOTE | 2019-05-19 15:07 | Cardiology Progress Note ---
Date of Service May 19, 2019 Assessment & Plan (1) Atrial fibrillation with RVR: History of complex atrial arrhythmias including atrial tachycardia, atrial fibrillation, atrial flutter. Currently in atrial fibrillation in the range of 100 to 110 bpm. Amiodarone increased to 200 mg twice daily 05/14/2019. Continue metoprolol 50 mg 3 times daily. (Titrated during hospitalization). Continue Cardizem CD 180 mg daily. (Outpatient dose). Treatment limited in the past by sinus bradycardia with rates down to the 40s. Electrophysiology input appreciated. Eliquis resumed at reduced dose 2.5mg BID, due to renal insufficiency. Multifactorial respiratory insufficiency secondary to pneumonia and volume overload. Appreciate nephrology input. Continue intravenous furosemide 20 mg twice daily. Follow daily weight, GFR, fluid balance, and electrolytes Repeat BMP in AM. Biopsy of hepatic mass demonstrates malignant cells consistent with cholangiocarcinoma. Management as per oncology and gastroenterology. Subjective Patient seen and examined the bedside. Correction made to pathology results now reporting cholangiocarcinoma. Patient denies palpitations, chest discomfort, or unusual shortness of breath. Edema unchanged. Renal function remains stable. Participating in physical therapy. Spent part of the day in bedside chair today. Offers no new complaints this time. Review of Systems Review of Systems: All systems reviewed & are unremarkable except as noted in HPI & below Physical Exam Constitutional: well developed, + ill appearing and + obese Respiratory: Auscultation: + rales (Scant crackles at the bases bilaterally.), + rhonchi and + wheezes Cardiovascular: Rate/Rhythm: + tachycardic and + irregularly irregular Heart Sounds: normal S1 and normal S2; no murmur Vessels: + JVD and radial pulses present Extremities: + pedal edema (1-2+ bilateral pedal and ankle edema.) Gastrointestinal (Abdomen): Inspection/Auscultation: normal bowel sounds; abdomen not distended Percussion/Palpation: abdomen soft; abdomen nontender, no guarding and abdomen not rigid Musculoskeletal: no cyanosis or clubbing, extremities motor strength 5/5 Skin: no rashes, warm and dry Neurologic: CN's II-XI intact bilaterally and moves all extremities; no focal motor deficits Psychiatric: A+Ox3, euthymic affect Results & Data Vital Signs (Past 12 Hours) Vital Signs Temp Pulse Resp BP Pulse Ox 05/19/19 12:00 36.6 C 101 H 20 114/81 93 05/19/19 07:16 93 H 18 90 05/19/19 07:07 36.6 C 95 H 19 103/64 90
[2019-05-19] MEDS ORDERED: INSULIN HUMAN NPH SC SCH (16:30)
--- NOTE | 2019-05-19 16:32 | Nephrology Progress Note ---
Date of Service May 19, 2019 Assessment & Plan (1) Acute renal failure: her baseline creatinine on review of OP labs is 0.6-0.7 in EPIC. on presentation on 05/06 she was 0.8; then dramatic increase from 1/3 w/ creat 1.1 in am to 1/ w/ creat 1.8; on 05/09, 2.4, her peak; Cr back near baseline today at least in trend at 1.2 nonoliguric MARIA T likely multifactorial from ischemic ATN from hemodynamic changes related to heart rhythms and pneumonia as well as contrast induced nephropathy -She is volume overloaded. cont lasix 20mg bid IV >> leave it there given tachycardia/ lower bp won't give more though overload very prominent still on exam -K low on lasix; had 40 mEq po x 1 midday; will give another 40 mEq po x 1 now -start spironolactone 12.5 mg daily first dose today -- sometimes this can adversely lower sodium so need to monitor -daily bmp (2) Chronic hyponatremia: present as outpatient as well, though intermittently. chronic hyponat remia is defined as present > 48 hrs. she has ranged 127-133. Na 129 today. her serum osms are 278, so minimally hypotonic. hypervolemic from heart rhythm +/- liver issues. -daily bmp -lasix as above -- last Na today 132 -- would not focus on correcting this given her other issues but on keeping it at current range -would obtain urine studies only if sodium levels in serum worsen -spironolactone tends to worsen this but trial of it started 05/19/19 (3) Tachycardia: on dilt and amiodarone po, f/u cardiology recs; HR less labile than at admission (4) Liver mass: GI following Subjective seen on rounds htis am; c/o L flank pain and pain in legs BL from knee down but insists not cramps. denies sob; denies abd fullness or LE edema. denies palpitations or N Review of Systems Review of Systems: All systems reviewed & are unremarkable except as noted in HPI & below Physical Exam Constitutional: well developed, well nourished and + frail appearing; no acute distress (lying in bed propped to have L chest dependent on RA) Eyes: EOM intact bilaterally ENMT: Ears: no external ear abnormality Nose: no external nose abnormality Mouth: + dry oral mucous membranes Neck: no nuchal rigidity Respiratory: normal respiratory effort, + labored breathing (slight) and + tachypneic Auscultation: + diminished lung sounds, + rhonchi and + bronchovesicular breath sounds; no crackles and no wheezes Cardiovascular: Rate/Rhythm: + tachycardic (in 90s) and + irregularly irregular Extremities: + edema (1-2+ pitting) Gastrointestinal (Abdomen): Inspection/Auscultation: normal bowel sounds Percussion/Palpation: abdomen soft and + ascites (new finding); abdomen nontender Musculoskeletal: Extremities: strength 5/5 throughout Skin: no rashes, warm and dry Psychiatric: Orientation: alert and oriented x 3 Genitourinary: reyna w/ thick/ cloudy deep yellow urine Results & Data Vital Signs (Past 12 Hours) Vital Signs Temp Pulse Resp BP Pulse Ox 05/19/19 15:20 36.4 C L 92 H 18 112/65 93 05/19/19 12:00 36.6 C 101 H 20 114/81 93 05/19/19 07:16 93 H 18 90 05/19/19 07:07 36.6 C 95 H 19 103/64 90 Laboratory Results 05/15/19 05:28 05/19/19 06:45 (1) Acute renal failure Acute renal failure type: unspecified Qualified Code(s): N17.9 - Acute kidney failure, unspecified
[2019-05-19] MEDS ORDERED: SPIRONOLACTONE 25 MG TAB PO ONE (16:45)
[2019-05-19] MEDS: prednisoLONE acetate 1% OP SUSP 5 ML BTL OPR SCH (20:40)
[2019-05-19] MEDS: PRAVASTATIN SOD 20 MG TAB PO SCH (20:40)
[2019-05-20] MEDS: IPRATROPIUM BROMIDE NEB SOLN 0.02% 2.5 ML VIAL INH SCH ×2 (06:52→19:07)
[2019-05-20] MEDS: LEVALBUTEROL HCL 0.63 MG/3 ML NEB NEB SCH ×2 (06:52→19:07)
[2019-05-20] MEDS: BUDESONIDE 0.25 MG/2 ML VIAL (PULMICORT) NEB SCH ×2 (06:54→19:07)
[2019-05-20 08:04] LABS: Calcium 8.6 mg/dl (8.5-10.1); Creatinine Clr Calc Pharmacy 31.7 ml/min; Est GFR (Non-African American) 45.7; Potassium 4.3 mmol/L (3.5-5.1)
[2019-05-20] MEDS: AMIODARONE 200 MG TAB PO SCH ×2 (08:09→18:04)
[2019-05-20] MEDS: FUROSEMIDE 20 MG in SYRINGE 0 ML IV SCH ×2 (08:09→20:42)
[2019-05-20] MEDS: FLUTICASONE/SALMETEROL 250/50 (ADVAIR) 14 PUFF/1 INHALER INH SCH ×2 (08:09→20:44)
[2019-05-20] MEDS: ASCORBIC ACID 500 MG TAB PO SCH (08:10)
[2019-05-20] MEDS: NYSTATIN SUSP 500,000 U/5 ML UDC PO SCH ×4 (08:10→20:43)
[2019-05-20] MEDS: guaiFENesin 600 MG TABCR PO SCH ×2 (08:10→20:43)
[2019-05-20] MEDS: SPIRONOLACTONE 25 MG TAB PO SCH (08:10)
[2019-05-20] MEDS: CETIRIZINE HCL 10 MG TABLET PO SCH (08:11)
[2019-05-20] MEDS: METOPROLOL SUCC 50MG EXT REL TAB PO SCH ×3 (08:11→20:44)
[2019-05-20] MEDS: APIXABAN 2.5 MG TAB PO SCH ×2 (08:11→20:42)
[2019-05-20] MEDS: DOCUSATE SODIUM/SENNA 50/8.6MG TAB PO SCH (08:11)
[2019-05-20] MEDS: dilTIAZem HCL 180 MG CAPCR PO SCH (08:11)
[2019-05-20] MEDS: INSULIN ASPART 100 UNITS/ML 3 ML PEN SC SCH ×4 (08:12→20:46)
[2019-05-20] MEDS: FERROUS SULFATE 325 MG TAB PO SCH ×2 (08:12→18:04)
[2019-05-20] MEDS: INSULIN HUMAN NPH SC SCH (08:12)
--- NOTE | 2019-05-20 13:45 | Pharmacy Report ---
Pharmacy Glycemic Short Note 2 - Date of Service May 20, 2019 - Glycemic Short BSG Results (Last 24 hours): 05/19/19 05/19/19 05/20/19 16:05 20:09 07:01 Glucose 139 H POC Glucose 126 H 145 H 05/20/19 05/20/19 07:16 11:35 Glucose POC Glucose 138 H 174 H OUTPATIENT ANTIDIABETIC REGIMEN: * Glipizide * Metformin * Pioglitazone ASSESSMENT: * Patient received 27 units of insulin yesterday * 15 basal (NPH) * 12 prandial/correctional * BSGs ranging 109-145 mg/dL * Fasting BSG this AM of 138 mg/dL PLAN FOR INPATIENT GLYCEMIC CONTROL: * Holding outpatient oral diabetes medications * Basal insulin - continue current regimen * NPH 10 units with breakfast * NPH 5 units with dinner * Bolus insulin: continue * NovoLog per scale ACHS or Q6hrs while NPO * Goal Range: Low 110 mg/dL - High 140 mg/dL * Correction Factor: 25 mg/dL/unit * Nutritional / Prandial insulin per carb ratio of 1 unit per 8 grams CHO c onsumed Discharge Recommendations: * A1c = 6.2% on 05/07/19 * Goal A1c < 7% or even < 8% based on age/comorbidities * Resume oral agents on discharge. Ensure SCr back to baseline prior to resuming metformin. * If SCr remains above baseline, may consider holding metformin given current A1c (goal A1c of less than 8%)
--- NOTE | 2019-05-20 14:25 | Cardiology Progress Note ---
Date of Service May 20, 2019 Assessment & Plan (1) Atrial fibrillation with RVR: History of complex atrial arrhythmias including atrial tachycardia, atrial fibrillation, atrial flutter. Currently in atrial fibrillation in the range of 100 to 110 bpm. Amiodarone increased to 200 mg twice daily 05/14/2019. Continue metoprolol 50 mg 3 times daily. (Titrated during hospitalization). Continue Cardizem CD 180 mg daily. (Outpatient dose). Treatment limited in the past by sinus bradycardia with rates down to the 40s. Eliquis resumed at reduced dose 2.5mg BID, due to renal insufficiency. Multifactorial respiratory insufficiency secondary to pneumonia and volume overload. Appreciate nephrology input -low-dose Aldactone added today. Continue to monitor hyponatremia and electrolytes daily. Continue intravenous furosemide 20 mg twice daily. Repeat BMP in AM. Biopsy of hepatic mass demonstrates malignant cells consistent with cholangiocarcinoma. Management as per oncology and gastroenterology. Subjective Patient seen and examined at the bedside. Edema unchanged. Recorded negative fluid balance of 90 cc over the past 24 hours. Remains borderline hypotensive. Heart rate unchanged. Patient denies palpitations or chest discomfort. Tolerating diet medication. Offers no new concerns/complaints. Review of Systems Review of Systems: All systems reviewed & are unremarkable except as noted in HPI & below Physical Exam Constitutional: well developed, + ill appearing and + obese Respiratory: Auscultation: + rales (Scant crackles at the bases bilaterally.), + rhonchi and + wheezes Cardiovascular: Rate/Rhythm: + tachycardic and + irregularly irregular Heart Sounds: normal S1 and normal S2; no murmur Vessels: + JVD and radial pulses present Extremities: + pedal edema (1-2+ bilateral pedal and ankle edema.) Gastrointestinal (Abdomen): Inspection/Auscultation: normal bowel sounds; abdomen not distended Percussion/Palpation: abdomen soft; abdomen nontender, no guarding and abdomen not rigid Musculoskeletal: no cyanosis or clubbing, extremities motor strength 5/5 Skin: no rashes, warm and dry Neurologic: CN's II-XI intact bilaterally and moves all extremities; no focal motor deficits Psychiatric: A+Ox3, euthymic affect Results & Data Vital Signs (Past 12 Hours) Vital Signs Temp Pulse Resp BP BP Pulse Ox 05/20/19 13:14 87 97/66 L 05/20/19 11:07 36.4 C L 85 18 91/62 L 94 05/20/19 07:08 36.4 C L 86 18 112/73 95 05/20/19 06:57 87 18 88 L 05/20/19 03:19 36.9 C 79 19 100/63 87 L
[2019-05-20] MEDS ORDERED: INSULIN HUMAN NPH SC SCH (16:30)
--- NOTE | 2019-05-20 16:43 | Hospitalist Progress Note ---
Date of Service May 20, 2019 Assessment & Plan (1) Liver mass: CT abd/pelvis showed 9.5 cm dominant mass within the left hepatic lobe pt underwent the biopsy w/ radiology (05/13) Pathology of liver mass biopsy: Adenocarcinoma consistent with cholangiocarcinoma Dr. Chaudhary discussed the finding with [facility] hematology/ oncology Dr. Bills, plan to follow up as outpt Recommends to check CA 199/ordered CT chest noncontrast was done already AFP checked:normal GI consulted -we will update GI team regarding pathology finding (2) Asthma: Speech status improved to baseline, no audible wheeze, cough has improved - Continue advair - cont. duoneb treament - cont. budesonie, solumedrol MARIA T -Likely IV contrast-induced nephropathy in the setting of arrhythmia/hemodynamic changes and PNA -Patient initially presented with creatinine 1.0, creatinine then increased to 1.77 ->2.44 -Nephrology consulted, will continue to closely monitor BMP, will try to avoid any nephrotoxic agents - currently down to Cr 1.12 - Continue to monitor BMP (3) Afib: Remains in atrial fibrillation heart rate in low 100s bpm. Appreciate input from cardiology: Amiodarone increased to 200 mg twice daily 05/14/2019. On metoprolol 50 mg 3 times daily. Continue Cardizem CD 180 mg daily. (Outpatient dose). Eliquis resumed at reduced. 2.5mg BID, (4) Hypomagnesemia: Possible related to poor intake Mg on admission 1.4 - replace and monitor Hypokalemia - replete and monitor - goal K~4 (5) DM2 (diabetes mellitus, type 2): HbA1c 6.2% (05/07/2019) Now hyperglycemia secondary to steroid use -Pharmacy consulted for hyperglycemia management -Will hold oral diabetes med - novolog sliding scale Continue monitor BS DVT px-Eliquis resumed Code Status DNR Subjective Patient is lying in bed, in no acute distress, appears overall comfortable, breathing on room air. Denies any fevers, chills, chest pain, shortness of breath, palpitations, abdominal pain, nausea or vomiting. Says that she is tired of being in the hospital. Review of Systems Review of Systems: All systems reviewed & are unremarkable except as noted in HPI & below Constitutional: + fatigue; no fever and no chills Respiratory: no cough and no dyspnea Cardiovascular: no chest pain and no palpitations Gastrointestinal: no abdominal pain, no nausea and no vomiting Physical Exam Physical Exam: Constitutional: elderly female + obese, sitting up in the chair, in NAD Eyes: PERRL, conjunctivae normal, anicteric sclerae (though some right lid lag) EOM intact bilaterally ENMT: external ear and nose normal, oropharynx normal Ears: no external ear abnormality Nose: no external nose abnormality Neck: trachea midline, no thyromegaly no nuchal rigidity Respiratory: normal respiratory effort Auscultation: + diminished lung sounds and + mild rhonchi; no crackles, no rales and no wheezes Cardiovascular: Rate/Rhythm:+ irregularly irregular Heart Sounds: no murmur Vessels: no JVD Extremities: no edema Gastrointestinal (Abdomen): normal bowel sounds, soft, nontender,obese, mildly distended, no guarding Musculoskeletal: no cyanosis or clubbing, extremities motor strength 5/5 Extremities: strength 5/5 throughout, moves extremities spontaneously Skin: no rashes, warm and dry no jaundice Neurologic: PERRL, EOMI, accommodation nl, no face palsy, no dysarthria, moves extremities spontaneously Psychiatric: A+Ox3, euthymic affect Orientation: alert and oriented x 3 Lymphatic: no cervical or axillary lymphadenopathy Results & Data Vital Signs (Past 12 Hours) Vital Signs Temp Pulse Resp BP BP Pulse Ox 05/20/19 15:41 36.3 C L 89 18 99/66 L 95 05/20/19 13:14 87 97/66 L 05/20/19 11:07 36.4 C L 85 18 91/62 L 94 05/20/19 07:08 36.4 C L 86 18 112/73 95 05/20/19 06:57 87 18 88 L Laboratory Results 05/20/19 05/20/19 05/20/19 Range/Units 11:35 07:16 07:01 Sodium 133 L (136-145) mmol/L Potassium 4.3 D (3.5-5.1) mmol/L Chloride 104 (98-107) mmol/L Carbon Dioxide 22 (21-32) mmol/L Anion Gap 7.0 (3-11) BUN 18 (7-18) mg/dl Creatinine 1.12 (0.6-1.2) mg/dl Est Cr Clr Drug Dosing 31.7 ml/min Est GFR ( Amer) 53.0 Est GFR (Non-Af Amer) 45.7 BUN/Creatinine Ratio 16.0 (10-20) Glucose 139 H (70-99) mg/dl POC Glucose 174 H 138 H (70-99) mg/dl Calcium 8.6 (8.5-10.1) mg/dl 05/19/19 Range/Units 20:09 Sodium (136-145) mmol/L Potassium (3.5-5.1) mmol/L Chloride (98-107) mmol/L Carbon Dioxide (21-32) mmol/L Anion Gap (3-11) BUN (7-18) mg/dl Creatinine (0.6-1.2) mg/dl Est Cr Clr Drug Dosing ml/min Est GFR ( Amer) Est GFR (Non-Af Amer) BUN/Creatinine Ratio (10-20) Glucose (70-99) mg/dl POC Glucose 145 H (70-99) mg/dl Calcium (8.5-10.1) mg/dl Medications Administered Current Inpatient Medications Acetaminophen (Tylenol) 650 mg PO Q6H PRN PRN Reason: Fever Stop: 06/10/19 23:36 Last Admin: 05/18/19 20:50 Dose: 650 mg Documented by: Amiodarone HCl (Cordarone) 200 mg PO BIDM [facility] Stop: 06/13/19 16:59 Last Admin: 05/20/19 08:09 Dose: 200 mg Documented by: Apixaban (Eliquis) 2.5 mg PO BID [facility] Stop: 06/12/19 20:59 Last Admin: 05/20/19 08:11 Dose: 2.5 mg Documented by: Ascorbic Acid (Vitamin C) [facility] Stop: 06/06/19 08:59 Last Admin: 05/20/19 08:10 Dose: 2,000 mg Documented by: Budesonide (Pulmicort Respules) 0.25 mg NEB BIDR [facility] Stop: 06/11/19 18:59 Last Admin: 05/20/19 06:54 Dose: 0.25 mg Documented by: Cetirizine HCl (Zyrtec) [facility] [place] Stop: 06/06/19 08:59 Last Admin: 05/20/19 08:11 Dose: 10 mg Documented by: Dextrose (Dextrose 50%) 25 - 50 ml IV UD PRN; Protocol PRN Reason: Hypoglycemia Protocol Stop: 06/05/19 21:51 Diltiazem HCl (Cardizem Cd) 180 mg PO QAM [facility] Stop: 06/06/19 08:59 Last Admin: 05/20/19 08:11 Dose: 180 mg Documented by: Ferrous Sulfate (Feosol) 325 mg PO BIDM [facility] Stop: 06/06/19 07:59 Last Admin: 05/20/19 08:12 Dose: 325 mg Documented by: Glucagon (Glucagen) 1 mg SQ UD PRN; Protocol PRN Reason: Hypoglycemia Protocol Stop: 06/05/19 21:51 Glucose (Dex4 Glucose) 4 - 8 tabs PO UD PRN; Protocol PRN Reason: Hypoglycemia Protocol Stop: 06/05/19 21:51 Glucose (Glucose 40%) 15 - 30 gm PO UD PRN; Protocol PRN Reason: Hypoglycemia Protocol Stop: 06/05/19 21:51 Guaifenesin (Mucinex) 600 mg PO Q12 [facility] Stop: 06/07/19 20:59 Last Admin: 05/20/19 08:10 Dose: 600 mg Documented by: Hydromorphone HCl (Dilaudid) 0.25 mg IV Q3H PRN PRN Reason: Pain Stop: 05/25/19 23:36 Last Admin: 05/19/19 02:20 Dose: 0.25 mg Documented by: Promethazine HCl 6.25 mg/ (Sodium Chloride) 50.25 mls @ 201 mls/hr IV Q4 PRN PRN Reason: Nausea And Vomiting Stop: 06/06/19 11:52 Last Infusion: 05/09/19 14:57 Dose: Infused Documented by: Furosemide 20 mg/ Syringe 2 mls @ 4 mls/min IV BID [facility] Stop: 06/15/19 20:59 Last Admin: 05/20/19 08:09 Dose: 4 mls/min Documented by: Insulin Aspart (Novolog Flexpen) 0 units SC ACHS [facility] Stop: 06/06/19 20:59 Last Admin: 05/20/19 13:15 Dose: 8 units Documented by: Insulin Human NPH (Novolin N Nph) 10 units SC QDB [facility]; Protocol Stop: 06/13/19 08:59 Last Admin: 05/20/19 08:12 Dose: 10 units Documented by: Insulin Human NPH (Novolin N Nph) 5 units SC QDD [facility]; Protocol Stop: 06/10/19 16:29 Ipratropium [place] (Atrovent 0.02% 0.5mg/2.5ml) 0.5 mg INH BIDR [facility] Stop: 06/18/19 18:59 Last Admin: 05/20/19 06:52 Dose: 0.5 mg Documented by: Levalbuterol HCl (Xopenex 0.63 Mg/3 Ml Neb) 0.63 mg NEB BIDR [facility] Stop: 06/18/19 18:59 Last Admin: 05/20/19 06:52 Dose: 0.63 mg Documented by: Metoprolol Succinate (Toprol Xl) 50 mg PO TID [facility] Stop: 06/11/19 13:59 Last Admin: 05/20/19 13:15 Dose: Not Given Documented by: Miconazole Nitrate (Desenex) 1 appln EXT PRN PRN PRN Reason: NURSING DECISION Stop: 06/05/19 20:06 Last Admin: 05/06/19 21:17 Dose: 1 appln Documented by: Miscellaneous (Carbohydrates For Hypoglycemia) 15 - 30 gm PO UD PRN PRN Reason: Hypoglycemia Protocol Stop: 06/05/19 21:51 Miscellaneous Information (Consult Glycemic Management Pharmacy) 1 ea N/A UD PRN PRN Reason: Consult Stop: 06/07/19 12:12 Nystatin (Mycostatin) 1 appln EXT PRN PRN PRN Reason: Affected Skin Folds Stop: 06/11/19 10:51 Nystatin (Mycostatin) 5 ml PO QID [facility] Stop: 05/26/19 15:39 Last Admin: 05/20/19 13:15 Dose: 5 ml Documented by: Ondansetron HCl (Zofran) 4 mg IV Q4H PRN PRN Reason: Nausea Stop: 06/08/19 17:53 Last Admin: 05/17/19 09:11 Dose: 4 mg Documented by: Oxycodone HCl (Roxicodone Immediate Rel) 5 mg PO Q4H PRN PRN Reason: Pain Stop: 05/25/19 23:36 Last Admin: 05/19/19 20:51 Dose: 5 mg Documented by: Pravastatin Sodium (Pravachol) 20 mg PO [facility] Stop: 06/05/19 20:59 Last Admin: 05/19/19 20:40 Dose: 20 mg Documented by: Prednisolone Acetate (Pred Forte 1%) 1 drops OPR HS [facility] Stop: 06/05/19 20:59 Last Admin: 05/19/19 20:40 Dose: 1 drops Documented by: Fluticasone/Salmeterol (Advair Diskus 250/50) 1 puffs INH BID [facility] Stop: 06/05/19 20:59 Last Admin: 05/20/19 08:09 Dose: 1 puffs Documented by: Senna/Docusate Sodium (Senokot S) 1 tab PO QAM [facility] Stop: 06/09/19 21:04 Last Admin: 05/20/19 08:11 Dose: 1 tab Documented by: Spironolactone (Aldactone) 12.5 mg PO DAILY [facility] Stop: 06/19/19 08:59 Last Admin: 05/20/19 08:10 Dose: 12.5 mg Documented by:
[2019-05-20] MEDS: PRAVASTATIN SOD 20 MG TAB PO SCH (20:43)
[2019-05-20] MEDS: prednisoLONE acetate 1% OP SUSP 5 ML BTL OPR SCH (20:44)
[2019-05-21] MEDS: BUDESONIDE 0.25 MG/2 ML VIAL (PULMICORT) NEB SCH (06:53)
[2019-05-21] MEDS: IPRATROPIUM BROMIDE NEB SOLN 0.02% 2.5 ML VIAL INH SCH (06:54)
[2019-05-21] MEDS: LEVALBUTEROL HCL 0.63 MG/3 ML NEB NEB SCH (06:54)
[2019-05-21] MEDS: INSULIN HUMAN NPH SC SCH (08:12)
[2019-05-21 08:13] LABS: BUN Creatinine Ratio 16.8 (10-20); Calcium 8.8 mg/dl (8.5-10.1); Creatinine Clr Calc Pharmacy 32.4 ml/min; Est GFR (African American) 55.4; Est GFR (Non-African American) 47.8; Magnesium 1.6 mg/dl (1.8-2.4); Potassium 3.9 mmol/L (3.5-5.1)
[2019-05-21] MEDS: INSULIN ASPART 100 UNITS/ML 3 ML PEN SC SCH ×2 (08:14→12:15)
[2019-05-21] MEDS: METOPROLOL SUCC 50MG EXT REL TAB PO SCH ×2 (08:18→14:08)
[2019-05-21] MEDS: guaiFENesin 600 MG TABCR PO SCH (08:19)
[2019-05-21] MEDS: ASCORBIC ACID 500 MG TAB PO SCH (08:19)
[2019-05-21] MEDS: CETIRIZINE HCL 10 MG TABLET PO SCH (08:19)
[2019-05-21] MEDS: DOCUSATE SODIUM/SENNA 50/8.6MG TAB PO SCH (08:19)
[2019-05-21] MEDS: APIXABAN 2.5 MG TAB PO SCH (08:20)
[2019-05-21] MEDS: SPIRONOLACTONE 25 MG TAB PO SCH (08:20)
[2019-05-21] MEDS: dilTIAZem HCL 180 MG CAPCR PO SCH (08:20)
[2019-05-21] MEDS: FUROSEMIDE 20 MG in SYRINGE 0 ML IV SCH (08:20)
[2019-05-21] MEDS: AMIODARONE 200 MG TAB PO SCH (08:21)
[2019-05-21] MEDS: FLUTICASONE/SALMETEROL 250/50 (ADVAIR) 14 PUFF/1 INHALER INH SCH (08:21)
[2019-05-21] MEDS: FERROUS SULFATE 325 MG TAB PO SCH (08:21)
[2019-05-21] MEDS: NYSTATIN SUSP 500,000 U/5 ML UDC PO SCH ×2 (08:22→14:08)
[2019-05-21] MEDS ORDERED: MAGNESIUM SULFATE / D5W 1 GM/100 ML BAG IV ONE (10:45)
--- NOTE | 2019-05-21 15:26 | Discharge Summary ---
Date of Service May 21, 2019 Admission HPI Per Admitting Provider 83 years old female with past medical history of diabetes type 2, dyslipidemia,Hx atrial fibrillation with successful cardioversion in the past on Eliquis, asthma presented to the ER with chief complaint of elevated heart rate. Patient said for the past 2 days she has not been feeling well. She said that this morning she felt weak and has no energy to do anything. She said that she has not been eating or drinking much in the past few days. she said that she has been having a dry cough. She noticed that she has been having shortness of breath with exertion. she said that she checked her vitals and her heart rate was between the 50 to 140's. Patient said last week her cardiology Dr. Hummel decreased her metoprolol from 75 to 50 mg twice a day due to episode of bradycardia. She said she is scheduled tomorrow to wear a Zio patch to monitor her HR. in the ER heart rate increased to 140's. Receive IV Lopressor 5 mg that dropped her heart rate in the 50s. Currently denies any chest pain, palpitatio n, dizziness, and fever. Admission Exam Per Admitting Provider General- No acute distress Head- atraumatic Eyes- PERRL, EOMI, ENT- oropharynx clear Neck- supple, no JVD Lungs- +wheezing Heart- Bradycardia Abdomen- normal bowel sounds, soft, nontender Extremities- no calf tenderness Neuro- alert, oriented x 3; PERRL, EOMI; no facial palsy; no dysarthria Skin- warm & dry Principal Diagnosis Liver mass c/w cholangiocarcinoma, Afib w/ RVR, MARIA T, Hypokalemia, Hypomagnesemia Discharge Exam Constitutional: elderly female + obese, sitting up in the chair, in NAD Eyes: PERRL, conjunctivae normal, anicteric sclerae (though some right lid lag) EOM intact bilaterally ENMT: external ear and nose normal, oropharynx normal Ears: no external ear abnormality Nose: no external nose abnormality Neck: trachea midline, no thyromegaly no nuchal rigidity Respiratory: normal respiratory effort Auscultation: + diminished lung sounds and + mild rhonchi; no crackles, no rales and no wheezes Cardiovascular: Rate/Rhythm:+ irregularly irregular Heart Sounds: no murmur Vessels: no JVD Extremities: no edema Gastrointestinal (Abdomen): normal bowel sounds, soft, nontender,obese, mildly distended, no guarding Musculoskeletal: no cyanosis or clubbing, extremities motor strength 5/5 Extremities: strength 5/5 throughout, moves extremities spontaneously Skin: no rashes, warm and dry no jaundice Neurologic: PERRL, EOMI, accommodation nl, no face palsy, no dysarthria, moves extremities spontaneously Psychiatric: A+Ox3, euthymic affect Orientation: alert and oriented x 3 Lymphatic: no cervical or axillary lymphadenopathy Discharge Data Allergies Allergy/AdvReac Type Severity Reaction Status Date / Time naproxen Allergy Mild KNEES GOT Verified 05/06/19 11:05 RED AND ITCHING lisinopril Allergy Verified 05/06/19 11:05 Consultations 05/06/19 16:15 ED Decision to Admit Stat 05/06/19 19:46 Consult Cardiology Routine 05/06/19 19:59 Consult Gastroenterology Routine 05/08/19 17:18 Consult Nephrology Routine Ordered Studies 05/06/19 12:51 CT angio chest PE protocol Stat IMPRESSION: 1. No pulmonary emboli identified although segmental and subsegmental pulmonary arteries suboptimally assessed given respiratory motion. 2. Left hepatic lobe mass, measuring approximately 8.4 x 7 cm, with capsular retraction. 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 A liver protocol CT of the abdomen and pelvis is recommended. Findings discussed with Dr. Pope at time of dictation. 3. Ascites and possible small peritoneal nodules which raise the possibility of peritoneal carcinomatosis. Findings can be assessed on abdominal CT. 4. Segmental lingular and right middle lobe atelectasis. Secretions within the airways. 05/06/19 14:35 CT abdomen pelvis wo/w con Stat IMPRESSION: 1. Cirrhotic liver morphology. 2. There is a 9.5 cm dominant mass within the left hepatic lobe as above. This is pathologically indeterminant, but given the arterial phase enhancement and cirrhotic liver morphology hepatocellular carcinoma is considered most likely. Cholangiocarcinoma or metastatic disease are differential considerations. Correlation with serum AFP levels is recommended. 3. There are at least 9 additional arterially hypervascular hepatic lesions scattered throughout the left lobe. Again, the appearance is most suggestive of multifocal hepatocellular carcinoma. 4. There is a small volume of mildly complex abdominopelvic ascites. 5. Cholelithiasis. 6. Mild to moderate colonic diverticulosis without CT evidence of acute diverticulitis. 7. Additional findings as above. 05/07/19 10:53 MR abdomen wo/w con Urgent IMPRESSION: 1. Redemonstration of 8.2 x 7.9 cm left hepatic lobe mass as described above. This favors a cholangiocarcinoma. However, a hepatocellular carcinoma could also have a similar appearance. There are multiple additional smaller hypervascular lesions within the left hepatic lobe concerning for metastatic foci. 2. The main portal vein appears patent. The left portal veins are not well- visualized due to motion artifact but are likely obstructed by the mass. 3. Probable mild left intrahepatic bile duct dilatation. 4. Cirrhotic liver. 5. Pleural effusions and a small amount of ascites. There is also moderate body wall edema. 05/12/19 00:34 CT abd pelvis wo con Urgent IMPRESSION: 1. Interval increase in body wall edema and slight increase in left pleural effusion. Findings suggest volume overload. 2. Overall decrease in trace ascites. 3. Cirrhosis with redemonstration of the dominant left hepatic lobe mass again concerning for hepatocellular carcinoma. Additional hepatocellular carcinomas best visualized on recent multiphase CT. 4. Renal dysfunction. 5. Large ventral hernia containing small and large bowel. No bowel obstruction. 6. Slight increase in consolidation and volume loss at the left lung base, which is favored to represent atelectasis. Underlying infection considered unlikely. 7. Additional findings as above. 05/13/19 00:01 US FNA w/img 1st lesion Routine Hospital Course (1) Liver mass: CT abd/pelvis showed 9.5 cm dominant mass within the left hepatic lobe pt underwent the biopsy w/ radiology (05/13/2019) Pathology of liver mass biopsy: Adenocarcinoma consistent with cholangiocarcinoma Dr. Chaudhary discussed the finding with [facility] hematology/ oncology Dr. Bills, plan to follow up as outpt Recommends to check CA 199/ordered CT chest was done already AFP checked:normal GI consulted, initially planned for EUS biopsy (then it was done by radiology) (2) Asthma: Speech status improved to baseline, no audible wheeze, cough has improved - Continue advair - cont. duoneb treament - cont. budesonie, solumedrol MARIA T -Likely IV contrast-induced nephropathy in the setting of arrhythmia/hemodynamic changes and PNA -Patient initially presented with creatinine 1.0, creatinine then increased to 1.77 ->2.44 -Nephrology consulted, will continue to closely monitor BMP, will try to avoid any nephrotoxic agents - currently down to Cr 1.08 - Continue to monitor BMP (3) Afib: Remains in atrial fibrillation heart rate in low 100s bpm. Appreciate input from cardiology: Amiodarone increased to 200 mg twice daily 05/14/2019. On metoprolol 50 mg 3 times daily. Continue Cardizem CD 180 mg daily. (Outpatient dose). Eliquis resumed at reduced. 2.5mg BID d/t decr. renal function, now back at 5mg BID (4) Hypomagnesemia: Possible related to poor intake Mg on admission 1.4 - replace and monitor Hypokalemia - replete and monitor - goal K~4 (5) DM2 (diabetes mellitus, type 2): HbA1c 6.2% (05/07/2019) Now hyperglycemia secondary to steroid use -Pharmacy consulted for hyperglycemia management -held oral diabetes med during inpt. , plan to resume upon discharge -novolog sliding scale during inpt - Continue monitor BS DVT px-Eliquis resumed Total Time Total Time Spent Total Time Spent (In Minutes): 40 Total Time Includes: Examination of the Patient, Discharge Planning, Medication Reconciliation and Communication With Other Providers Discharge Plan Discharge Items Patient Disposition: Transfer Inpatient Rehab Fac Reason For Visit: TACHYCARDIA Discharge Diagnosis: Liver mass c/w cholangiocarcinoma, Afib w/ RVR, MARIA T, Hypokalemia, Hypomagnesemia Activity: Resume your previous activity Activity Comment: as tolerated, pace yourself, ask for help as needed Non-emergency contact: Primary Care Provider and Oncologist Call non-emergency contact if: you have any medication questions and your symptoms worsen Follow-up/Referrals: Basilia John DO [Primary Care Provider] - Diet: Carb Consistent or DM2 Diet Comment: Minced and moist Addtl Attending Provider Instructions: You should follow-up with primary care provider in 1 week. You will need to have your blood work done and electrolytes and kidney function checked, (BMP), once a week for next 3 weeks. The results should be sent to microbiology manager, Dr. Jacklyn Sheehan. You should follow-up in nephrology clinic in 3 weeks. You will also need to follow-up with Dr. Bills, the oncologist, about your liver mass, concerning for cholangiocarcinoma. Some of your heart medications have changed, amiodarone increased to 200 mg twice a day, metoprolol 50 mg increased to 3 times daily. Continue Cardizem CD 180 mg daily. Start taking spironolactone 12.5 mg daily. Take furosemide/Lasix, 40 mg twice a day. In the next couple days, Delaney catheter should be removed and voiding trial should be done. Pending Studies at Discharge: No Stand-Alone Forms: My [facility] Skilled Items Patient informed of condition?: Yes DNR: Yes Discharge Level of Care: Acute rehab Communicable Disease: No Discharge Prognosis: Stable Lines: None Urinary Catheter: Yes Medications and DC Order Prescriptions: New metoprolol succinate 50 mg Tablet Extended Release 24 Hr 50 mg PO TID 30 Days Qty: 90 RF: 0 spironolactone 25 mg Tablet 12.5 mg PO DAILY 30 Days Qty: 15 RF: 0 furosemide 40 mg Tablet 40 mg PO BID 30 Days Qty: 60 RF: 0 sennosides-docusate sodium [Senokot-S] 8.6-50 mg Tablet 1 tab PO QAM 10 Days Qty: 10 RF: 0 magnesium oxide 400 mg magnesium capsule 400 mg PO DAILY Qty: 7 RF: 0 Continued fluticasone propion-salmeterol [Wixela Inhub] 250-50 mcg/dose Blister With Device 1 inh INHALATION BID RF: 0 ascorbic acid (vitamin C) [Vitamin C] 1,000 mg Tablet 2,000 mg PO QAM RF: 0 glipizide 10 mg Tablet 10 mg PO BIDM RF: 0 metformin 850 mg Tablet 850 mg PO TIDM RF: 0 prednisolone acetate 1 % Drops,Suspension 1 drp OPR HS RF: 0 ferrous sulfate 325 mg (65 mg iron) Tablet 325 mg PO BIDM RF: 0 pravastatin 20 mg Tablet 20 mg PO HS RF: 0 albuterol sulfate [Ventolin HFA] 90 mcg/actuation Hfa Aerosol Inhaler 2 puff INHALATION QID PRN (Reason: SHORT OF BREATH) RF: 0 pioglitazone [Actos] 30 mg Tablet 30 mg PO QAM RF: 0 Eliquis 5 mg Tablet 5 mg PO BIDM RF: 0 cyanocobalamin (vitamin B-12) 1,000 mcg/mL Solution 1 dose SUBCUT MONTHLY RF: 0 cetirizine [Zyrtec] 10 mg Tablet 10 mg PO QAM RF: 0 Bilberry Extract 40-25-10-10 mg Capsule 1 cap PO QAM RF: 0 alendronate [Fosamax] 70 mg Tablet 70 mg PO MO RF: 0 diltiazem HCl [Cardizem CD] 180 mg Capsule,Extended Release 24hr 180 mg PO QAM RF: 0 Changed amiodarone 200 mg Tablet 200 mg PO BID Qty: 0 RF: 0 Discontinued metoprolol succinate 50 mg Tablet Extended Release 24 Hr 50 mg PO BIDM RF: 0 Discharge Orders: Discharge Order (Routine); Ordered 05/21/19 Ordered By: Adelfo Redman Admission Data Admit Date/Time: 05/06/19 17:58 Attending Provider: Adelfo Redman Admit Provider: Marquis Arzola Primary Care Provider: Basilia John Other Providers: Marquis Arzola ; Abhay Abraham ; Hayder Pino ; Jacklyn Sheehan ; [facility] ; Angeline Chaudhary
[2019-05-21] MEDS ORDERED: FUROSEMIDE 40 MG TAB PO SCH (17:00)
[2019-05-21] MEDS ORDERED: APIXABAN 5 MG TABLET PO SCH (21:00)
--- NOTE | 2019-05-25 06:54 | Coding Query ---
CODING QUERY To promote full compliance with coding requirements relating to patient care, provider participation is requested in all cases of hearing impaired teacher uncertainty. Please assist us with the question(s) below: Coding Question(s): Patient admitted with tachycardia and liver mass, bx-proven adenocarinoma. Pt with asthma, progress notes 05/12 and prior document CAP, bronchopneumonia. Asthmatic Patient treated with nebulizers, steroids, advair discus. Please check below the phrase that describes the Pneumonia. Thanks for your help. Physician's Response(s): ____x Pneumonia was treated during the course of this Inpatient stay Pneumonia was not treated during the course of this Inpatient stay Cannot clinically correlate if Pneumonia was treated Other: Please document: Principal Diagnosis: "that condition established after study, to be chiefly responsible for occasioning the admission of the patient to the hospital for care." Co-Existing Principal Diagnosis: "when two or more diagnoses equally meet the criteria for principal diagnosis as determined by the circumstances of admission, diagnostic work up, and/or therapy provided, and the Alphabetic Index, Tabular List, or another coding guideline does not provide sequencing direction, any one of the diagnoses may be sequenced first." "When the physician has documented what appears to be a current diagnosis in the body of the record, but has not included the diagnosis in the final diagnostic statement, the physician should be asked whether the diagnosis should be added." (Source Coding Clinic 2 QTR90. p3-4) CARIDAD
== END 2019-05-21 18:39 | DRG 308 ==
LOC: ED 10:11 → 2S 17:58 → SUATTDRO 17:58 → 2S 19:11